=== PATIENT | male | born 1955 | race Caucasian/White ===

== ENCOUNTER 2019-05-23 05:56 | Day surgery (SDC) | payer OTHER, SELFPAY ==
[2019-05-20 09:42] VITALS: BMI 33.9
[2019-05-23 06:14] VITALS: BP 119/77; PULSE 66; RESP 16; TEMP 36.2; O2SAT 97
[2019-05-23] MEDS: sodium chloride 0.9% 1,000 ML 30 ML (06:20)
--- NOTE | 2019-05-23 06:49 | ANES.PREANES ---
Pre-Anesthetic Assessment Pre-Anesthetic Assessment: Height/Weight: Height 1.83 m Weight 113.398 kg Temp Pulse Resp BP Pulse Ox 97.1 F L 66 16 119/77 97 05/23/19 06:14 05/23/19 06:14 05/23/19 06:14 05/23/19 06:14 05/23/19 06:14 Preop Diagnosis: screening Proposed Procedure: Operation Date: 05/23/19 07:00 Proposed Procedures p Colonoscopy(Not Applicable) - Shant Fields MD Was Beta Gunjan taken within 24 hours: Yes Last intake: Intake Last Liquid Date 05/23/19 Last Liquid Time 22:00 Last Solid Date 05/21/19 Last Solid Time 22:00 Last Intake: 23:00 Social: Social History: No alcohol and No tobacco (stop 1 month ago) Packs per day: 1 Pack years: 40+ Exam: Pre-Anes Outpt Exam: alert, oriented x 3, clear to auscultation bilaterally and regular rate & rhythm Airway: Submandibular: WNL Cervical ROM: WNL MP: 2 Additional comments: poor multiple missing Pulmonary: Pulmonary: None reported CV/HEM: CV/HEM: HTN : : None reported Hepatic: Hepatic: None reported GI: GI: None reported Metabolic: Metabolic: None reported Musc/skel: Musc/skel: Lower Back Pain, OA/DJD and RA Neuropsych: Neuropsych: None reported Anesthetic Plan: ASA status: II Anesthesia: Anesthesia Evaluation and MAC Risk of > 500 ml blood loss (7ml/kg in children): No PFSH Anesthesia PFSH: Social History (Updated 05/20/19 @ 09:44 by Keya Booker RN) Quit status (tobacco): has quit using tobacco Data Anesthesia Cardiac Studies: No Data to Display
--- NOTE | 2019-05-23 06:58 | PM.OPSURHP ---
Providers/Chief Complaint Primary Care Provider: Raheem Blanco DO History of Present Illness Alejandro Avilez is a 63 year old male who has been referred for colon cancer screening. The patient denies abdominal pain, nausea, vomiting, loss of appetite, change in bowel habits, blood in stools, weight loss, constipation or diarrhea. The patient has no family history of colon cancer and has never had a colonoscopy before. His colonoscopy was 5 years ago Review of Systems Const: Denies: fever, chills, change in weight or fatigue Eyes: Denies: change in vision ENMT: Denies: painful swallowing Card: Denies: chest pain Resp: Denies: shortness of breath : Denies: painful urination Skin/Breast: Denies: rash, nipple discharge or breast mass/lump Neuro: Denies: seizure-like activity Cristi/Lymph: Denies: easy bruising Medications/Allergies Home Medications Medication Instructions Recorded Confirmed Last Taken Type propranolol 40 mg PO BID 05/20/19 05/23/19 05/23/19 05:00 History Allergies Allergy/AdvReac Type Severity Reaction Status Date / Time adalimumab [From Humira] Allergy ADR-Swelling Verified 05/20/19 09:41 of the Eye aspirin Allergy Unknown Verified 05/20/19 09:41 atorvastatin [From Lipitor] Allergy Unknown Verified 05/20/19 09:41 codeine Allergy Unknown Verified 05/20/19 09:36 lovastatin Allergy Unknown Verified 05/20/19 09:41 methotrexate Allergy ALGY-Anaphy Verified 05/20/19 09:41 laxis Penicillins Allergy ADR-Diarrhe Verified 05/20/19 09:36 a rosuvastatin Allergy ADR-Muscle Verified 05/20/19 09:41 Pain secukinumab [From Cosentyx] Allergy Unknown Verified 05/20/19 09:41 simvastatin Allergy ADR-Muscle Verified 05/20/19 09:41 Pain PFSH PFSH: Statuses (acute, chronic, etc) shown below reflect problem list status as previously entered and may not be historically accurate Medical History History of colon polyps (Acute) Surgical History H/O shoulder surgery (Acute) History of colonoscopy (Acute) Social History Quit status (tobacco): has quit using tobacco Vital Signs Vitals Signs: Last Vital Signs Temp 97.1 F L 05/23/19 06:14 Pulse 66 05/23/19 06:14 Resp 16 05/23/19 06:14 BP 119/77 05/23/19 06:14 Pulse Ox 97 05/23/19 06:14 Physical Exam Narrative: EXAM NARRATIVE: HEENT: Normocephalic Eye: Sclera /conjunctiva normal Respiratory and chest: Bilateral clear breath sounds on auscultation Cardiovascular: Normal S1 and S2 heart sounds Abdomen: Soft to palpation Neurological: Oriented to place person and time Skin: Intact, no lesions appreciated on gross exam A&P Assessment and plan (1) History of colon polyps: Plan for colonoscopy under MAC Status: Acute Code(s): Z86.010 - Personal history of colonic polyps Coding Level of Care Code Acute Financial Services Auditor for g Fwd Diagnoses History of colon polyps Z86.010
[2019-05-23 07:22] VITALS: BP 98/55; PULSE 69; RESP 16; TEMP 36.6; O2SAT 99
--- NOTE | 2019-05-23 07:29 | ANE.PACU ---
 Inpatient post-anesthesia follow up: Airway intact: Yes Vital signs: Temperature 97.9 F Pulse Rate [Right Radial] 69 Respiratory Rate 16 Blood Pressure [Le ft Arm] 98/55 Pulse Oximetry 99 Oxygen Delivery Me thod Room Air Oxygen Flow Rate Fraction of Inspir ed Oxygen Hydration adequate: Yes Nausea and vomiting: No Pain level: 1 Mental status: Baseline
== END 2019-05-23 07:48 | disposition home or self-care (01) ==
PROVIDERS: Family Provider Family Medicine Adult Medicine; PCP Emergency Medicine Emergency Medical Services; Visit Provider Surgery
PROC: 0DJD8ZZ Inspection of Lower Intestinal Tract, Via Natural or Artificial Opening Endoscopic (ICD-10-PCS; CPT 45378; principal; 2019-05-23 07:00)
DX: Z12.11 Encounter for screening for malignant neoplasm of colon (principal); Z86.010 Personal history of colon polyps; K64.8 Other hemorrhoids; Z87.891 Personal history of nicotine dependence; I10 Essential (primary) hypertension; M19.90 Unspecified osteoarthritis, unspecified site; M06.9 Rheumatoid arthritis, unspecified
CPT/HCPCS: 12345; 45378; 96365; J2704; J7030

== ENCOUNTER 2020-06-11 08:47 | Outpatient (CLI) | payer OTHER, SELFPAY ==
--- NOTE | 2020-06-11 09:43 | ECG_ITS ---
[facility] Test Date: 2020-06-11 Pat Name: Alejandro Avilez Department: Room: Gender: Male [employer] Deployment Lead: Marisela Urbano : 1955 Requested By: Waleska Lugo Order Number: [id number] Bernard MD: Waleska Lugo M.D. Interpretive Statements NAME OF STUDY: EXERCISE SESTAMIBI STRESS TEST INDICATION: Chest Pain Baseline blood pressure of 152/95 mm Hg, heart rate of 83 beats per minute and oxygen saturation of 96%. EKG showed normal sinus rhythm, normal axis with non specific ST depression. ??? The patient exercised for 5 minutes and 25 seconds on a Modified Aldo protocol. Patient attained a maximum heart rate of 133 beats per minute( 85 % of the maximum predicted heart rate) with a blood pressure at the peak exercise of 212/118 mm Hg. The EKG at the peak exercise revealed 1 to 1 and 1/2 mm horizontal to upsloping ST depression in II, III, aVF, V5 and V6 . Patient did [not have any chest pain or any significant arrhythmis with the exercise]??? During the recovery phase, there were no new changes. There is 1 and 1/2 to 2 mm horizontal to downsloping ST depression in II, III, aVF, V5 and V6. These changes persist late into recovery. ??? Blood pressure at the end of the recovery phase was 176/107 mm Hg with a heart rate of 91 beats per minute and oxygen saturation of 91%. ??? CONCLUSION: 1. Positive EKG response to treadmill exercise. 2. No exercise-induced chest pain or cardiac arrhythmia. 3. Decreased exercise tolerance, attained a maximum of 6.1 METs. Maximum VO2 of 21.3 ml/kg/min. 4. Baseline hypertension with hypertensive response to exercise. 5. Perfusion scan will be documented separately. Electronically Signed On 06-12-2020 8:35:19 SITE OPERATIONS MANAGER by Waleska Lugo M.D. [email or web address]
[2020-06-11 09:44] VITALS: BMI 35.9
--- NOTE | 2020-06-11 09:44 | NMCV_ITS ---
NM [place] perf SPECT r/s* [id number] Alejandro Avilez Age: 64 Gender: M : 1955 Exam Date: 06/11/2020 10:15 Ordering Phys: Waleska Lugo MD ([email or web address]) Technologist: NENA Vargas Exam Location: [facility] Indications: Chest pain STRESS TEST Please see separate stress test report in [facility] for full findings IMAGE PROTOCOL Rest/Stress 1 Exercise Day Radiopharmaceutical Dose (mCi) Administration Site Administered by Rest: Tc-99m 10.8 IV NENA Vargas Sestamibi Stress:Tc-99m 33.0 IV NENA Vargas Sestamibi Rest: 11-Jun-2020 60 Discovery 630 Stress: 11-Jun-2020 45 Discovery 630 Radiopharmaceutical was injected at 85 % maximum heart rate. Images obtained in supine and prone position. SPECT RESULTS Technical Quality: Good Raw Data Analysis: Normal Image Corrections: No attenuation or motion correction applied Summed Stress Score: 5 Summed Rest Score: 1 Summed Difference Score: 4 PERFUSION FINDINGS Small sized perfusion abnormality of mild severity of basal inferolateral wall on rest images with mild reversibility in mid inferolateral and apical lateral rodríguez on stress images. FUNCTIONAL RESULTS (calculated via Gated SPECT) Stress Image LV EF (%): 70 Stress EDV (mL):93 TID: 0.87 Stress ESV (mL):28 FUNCTIONAL FINDINGS: The left ventricle is normal in size. Transient Ischemia Dilatation of 0.87. There is normal left ventricular systolic function. The left ventricular ejection fraction is normal with a value of 70%. There is normal left ventricular wall thickening with no regional wall motion abnormality. Normal end-diastolic and end-systolic volumes. IMPRESSIONS 1. Small sized perfusion abnormality of mild severity of basal inferolateral wall on rest images with mild reversibility in mid inferolateral and apical lateral rodríguez on stress images. 2. This may represent small area of ischemia in circumflex artery territory. 3. Overall left ventricular systolic function is normal without regional wall motion abnormalities. 4. The left ventricular ejection fraction is normal with a value of 70%. 5. No prior similar studies to compare. Waleska Lugo MD (Electronically Signed) Final Date: 12 June 2020 12:02 S
[2020-06-11 10:54] VITALS: BP 188/90; PULSE 92
== END 2020-06-11 08:48 | disposition home or self-care (01) ==
LOC: RAD 08:47 → CDL 08:49
PROVIDERS: PCP Emergency Medicine Emergency Medical Services; Visit Provider Internal Medicine Cardiovascular Disease
DX: R07.9 Chest pain, unspecified (principal)
CPT/HCPCS: 78452; 93017; A9500

== ENCOUNTER → 2020-07-26 10:53 | Outpatient (BNVA) | payer OTHER, SELFPAY | PROVIDERS: PCP Emergency Medicine Emergency Medical Services; Visit Provider Internal Medicine | DX: Z01.818 Encounter for other preprocedural examination (principal); Z20.822 Contact with and (suspected) exposure to COVID-19; Z11.52 Encounter for screening for COVID-19 | CPT/HCPCS: 87635 ==

== ENCOUNTER → 2020-07-31 08:30 | Day surgery (SDC) | payer OTHER, SELFPAY ==
[2020-07-26 11:32] LABS: Basophils # 0.1 10^3/uL (0.0-0.1); Basophils % 0.6 %; Eosinophils # 0.3 10^3/uL (0.0-0.8); Hemoglobin 14.5 g/dL (11.7-16.6); Lymphocytes # 2.4 10^3/uL (0.8-4.8); Lymphocytes % 30.1 %; Mean Corpuscular HGB Conc 33.7 g/dL (30.0-36.0); Mean Corpuscular Hemoglobin 30.4 pg (28.0-34.0); Mean Corpuscular Volume 90.1 fL (80-94); Mean Platelet Volume 10.5 fL (7.4-10.4); Monocytes # 0.6 10^3/uL (0.2-0.9); Monocytes % 7.3 %; Neutrophils # 4.52 10^3/uL (1.8-7.7); Neutrophils % 57.7 %; Nucleated Red Blood Cells % 0 %; Platelet Count 199 10^3/cmm (130-400); Red Blood Count 4.77 10^6/uL (4.1-5.3); Red Cell Distribution Width 12.4 % (12.1-15.1); White Blood Count 7.8 10^3/uL (4.0-10.0)
[2020-07-26 11:44] LABS: INR 0.94 (0.83-1.21); Prothrombin Time (Patient) 12.8 Seconds (12.0-15.1)
[2020-07-26 11:50] LABS: Anion Gap 11.9 (5-19); Blood Urea Nitrogen 16 mg/dL (8-23); Calcium 9.9 mg/dL (8.5-10.5); Carbon Dioxide 29 mmol/L (22-29); Chloride 101 mmol/L (98-107); Glomerular Filtration Rate 84.7 mL/min (90-130); Glucose 101 mg/dL (65-115); Osmolality Calculated 285 mOsm/kg (285-295); Potassium 4.9 mmol/L (3.5-5.1); Sodium 137 mmol/L (136-145)
== END ==
PROVIDERS: Internal Medicine Cardiovascular Disease; PCP Emergency Medicine Emergency Medical Services; Visit Provider Internal Medicine
DX: R07.9 Chest pain, unspecified (principal)
CPT/HCPCS: 36415; 80048; 85025; 85610

== ENCOUNTER 2020-08-09 10:32 | Day surgery (SDC) | payer OTHER, SELFPAY ==
[2020-08-09] VITALS (47 sets, daily range): BP systolic 107–143; BP diastolic 62–84; PULSE 56–83; RESP 9–24; TEMP 36.4–36.8; O2SAT 92–100; BMI 35.9
--- NOTE | 2020-08-09 11:03 | XACV_ITS ---
Ht: 183 cm Wt: 120 kg BSA: 2.51 m2 Gender: Male : 1955 Any Known Allergies: Other Exam Priority: Routine Procedure(s): Procedure Description: Diagnostic procedure Procedure Description: Left Heart Catheterization Diagnostic Cath Status: Elective Diagnostic Findings * LM has 0% stenosis. * LAD has 0% stenosis. * Mid Circumflex Coronary Artery: Severe 85% stenosis, ANURADHA: 3 flow. * 2nd OM: Severe 90% stenosis, ANURADHA: 3 flow. * Mid Right Coronary Artery: Moderate 60% stenosis, ANURADHA: 3 flow. * Coronary angiography shows right dominance. Interventional Findings * Mid Circumflex Coronary Artery: 85% stenosis treated with AB TREK 2.50X12 RX BALLOON, MDT R MAC 3.5X12 SERGEY, and MDDiomedes ALEXANDRA EUPHORA RX 4.0X06MM BALLOON. 0% residual stenosis, ANURADHA: 3 flow. * 2nd OM: 90% stenosis treated with MDDiomedes R MAC 3.0X12 SERGEY. 0% residual stenosis, ANURADHA: 3 flow. Conclusions 1. There is severe coronary artery disease with two vessel disease. 2. Mid Circumflex Coronary Artery was treated with two Balloon and Drug Eluting Stent. 3. 2nd OM was treated with Drug Eluting Stent. Recommendations * Continue current medical management and risk factor modification. Diagnostic RX Recommendation: PCI w/o planned CABG Clinical Evaluation EBL: 5mL-10mL Procedural Details Procedure Consent Obtained. Admit Source: Out Patient. Pre-Procedure Time Out. Identified patient by full name and date of as verbalized by the patient/guarantor. Does the consent match the physician's order: Yes. Accurate & Complete Informed Consent: Yes. Inpatient/Outpatient History & Physical on Chart: Yes. If H&P is completed, is and addenduem needed: No; If yes, is the addendum complete: N/A. Visualize and Verify Site with Patient/Guarantor: N/A. Relevant Radiology Images available: Yes. Pre-op teaching completed and patient verbalized understanding. The risks, benefits, and alternatives of sedation and/or procedure were discussed by physician. The patient agrees to continue. Procedure started. [facility] Clinical Fraility Score: 3: Managing Well. Steam Station Supervisor Indications: Suspected CAD. Chest Pain Symptom Assessment: Typical Angina Symptoms. Correct patient, site and procedure confirmed by cath team. Current diagnosis: Chest Pain. PERRLA. Strong, equal hand orthopedic surgeon bilaterally. Lungs clear x 5 lobes. IV Site on Arrival: 20 gauge in the left anticubital. IV Fluids: 0.9% NaCl at KVO. 0 mL infused prior to entry level lab technician. Pre Procedural Pulses: bilateral dorsalis pedis was 3+. Pre Procedural Pulses: bilateral posterior tibial was 1+. Pre Procedural Pulses: bilateral radial was 3+. Oxygen started at 2liters/min via nasal canula. right groin was prepped with chloroprep then draped in the usual sterile fashion. right radial was prepped with chloroprep then draped in the usual sterile fashion. Physician notified. Baseline sample Acquired. HR: [address] Lugo here to observe case. Physician scrubbed in. Immediate Pre-Procedure Time Out. Correct Patient: Yes; Correct Procedure: Yes; Correct Site: Yes; Correct Patient Position: Yes; Correct Supplies: Yes; Dried Flammable Prep: Yes; Blood Products Available: N/A;. Lidocaine 1% infiltrated to the right radial. Arterial access obtained. A 5 [place] TIG catheter in over wire. Multiple views taken of left coronary artery. Catheter redirected to the RCA. Catheter out. 6 [place] XB 3.5 guide catheter was inserted over the wire. Spiro guidewire was advanced through the guide catheter to lesion in the mid Circ. Inflation number : 1 A AB TREK 2.50X12 RX BALLOON was prepped and advanced across the Mid CX , then inflated to 18 ALIX for 0:12 seconds. Balloon out. Inflation Number : 2 A RADHA Gimenez MAC 3.5X12 SERGEY -Lot Number# [id number] exp date: 03-23-2022 was prepped and advanced across the Mid CX. The stent was deployed at 14 ALIX for 0:33 seconds. Stent balloon out over wire. Inflation number : 3 A RADHA ALEXANDRA EUPHORA RX 4.0X06MM BALLOON was prepped and advanced across the Mid CX , then inflated to 10 ALIX for 0:23 seconds. Inflation number: 5 The MDT NASRIN EUPHORA RX 4.0X06MM BALLOON was reinflated across the Mid CX, to 14 ALIX for 0:12 seconds. cougar wire out. Inflation Number : 1 A T Ammy MAC 3.0X12 SERGEY -Lot Number# [id number] exp date: 04-30-2021 was prepped and advanced across the Dist CX. The stent was deployed at 10 ALIX for 0:20 seconds. Balloon out. Stent balloon out over wire. Runthrough repositioned to distal Circ. Wire out. 6 [place] JR 4 guide catheter was inserted over the wire. ACT drawn. Results 186 seconds. Therapeutic limits - pre-heparin administration 90-150 seconds and monitoring heparin during a vascular procedure >250 seconds. FFR wire inserted. An FFR value of 0.96 was obtained for a lesion located at Mid RCA. FFR wire out. Catheter out. TR band placed. Hemostasis obtained. Post Procedure: Pulses reassessed and unchanged. PERRLA. Strong, equal hand orthopedic surgeon bilaterally. No VTE prophylaxis required. A TR Band was successful obtaining hemostatsis at the Right Radial artery insertion site. Medication's Wasted: Lidocaine 1% = 18 mL. Medication's Wasted: Heparin = 2000 units. Medication's Wasted: Nitro = 49.0 mg. Medication's Wasted: Other = versed 1 mg. Medication's Wasted: Other = fentanyl 50 mg. Medication's Wasted: Other = adenosine 15 mg. Total IV fluids: 97.8 mL. Contrast type used: Omnipaque 300 mgI/mL, 500 mL bottle. Omnipaque 281mL. PCI Indication: Post PCI to MID and DIST CX. Post-op diagnosis: obstructive lesions of MID and DIST CX, non obstructive lesion of RCA. Complications: none. Estimated blood loss: 5mL-10mL. Procedure completed. Patient transferred by wheelchair to ICU. Access Site Site: Right Radial artery Sheath Size: 6 Fr Hemostasis Method: TR Band Hemostasis Success: Successful Procedure Medications Start: 11:31 AM Stop: 11:31 AM Medication: Versed Amount: 1 mg Route: I.V. Start: : AM Stop: AM Medication: Fentanyl Amount: 50 mcg Route: I.V. Start: :50 AM Stop: AM Medication: Heparin Amount: 5000 units Route: I.V. Start: : AM Stop: AM Medication: Nitrogylcerin Amount: 200 mcg Route: I.A. Start: : AM Stop: AM Medication: Heparin Amount: 6000 units Route: I.V. Start: : AM Stop: AM Medication: Versed Amount: 1 mg Route: I.V. Start: 11:52 AM Stop: : AM Medication: Fentanyl Amount: 50 mcg Route: I.V. Start: 12:07 PM Stop: 12:07 PM Medication: Versed Amount: 1 mg Route: I.V. Start: 12:07 PM Stop: 12:07 PM Medication: Fentanyl Amount: 50 mcg Route: I.V. Start: 12:10 PM Stop: 12:10 PM Medication: Nitrogylcerin Amount: 200 mcg Route: I.C. Start: 12:23 PM Stop: 12: PM Medication: Nitrogylcerin Amount: 200 mcg Route: I.A. Start: 12:24 PM Stop: 12: PM Medication: Versed Amount: 1 mg Route: I.V. Start: 12:24 PM Stop: 12: PM Medication: Fentanyl Amount: 50 mcg Route: I.V. Start: 12: PM Stop: 12: PM Medication: Nitrogylcerin Amount: 200 mcg Route: I.A. Start: 12:29 PM Stop: 12: PM Medication: Heparin Amount: 3000 units Route: I.V. Start: 12:33 PM Stop: 12:33 PM Medication: Adenosine (Adenocard) Amount: 1008 mcg Route: I.V. bolus Start: 12:37 PM Stop: 12:37 PM Medication: Nitrogylcerin Amount: 200 mcg Route: I.A. I, the attending physician, have reviewed and verified all procedure medications. Yes, all medications given per verbal order History/Risk Factors Hypertension: Yes Dyslipidemia: Yes Peripheral Arterial Disease (PAD): No Myocardial Infarction (ME): No Obesity: No Renal Disease: No Tobacco Use: Former Prior Interventions PCI: No CABG: No Valve Surgery: No Report Signatures Finalized by Mari Lind MD on 08/22/2020 09:43 PM
[2020-08-09] MEDS: diphenhydrAMINE 50 mg Capsule PO (11:14)
--- NOTE | 2020-08-09 11:17 | P.HP_ITS ---
Same Day Surgery H&P Indication for Procedure/HPI DATE OF PROCEDURE: August 09, 2020 CHIEF COMPLAINT/INDICATIONFOR SURGICAL PROCEDURE: Chest pain with shortness of breath, abnormal stress test PREOP DIAGNOSIS: Abnormal stress test, chest pain, shortness of breath PLANNED PROCEDRUE: Operation Date: 08/09/20 11:30 Proposed Procedures p Left Cardiac Catheterization 60300 R07.89(Left) - Everette Nguyen M.D 64-year-old male past medical history significant for hypertension hyperlipidemia for worsening of shortness of breath and chest pain underwent stress test which was read abnormal and positive. Dr. Lugo recommended further exploration with left heart cath since despite of optimization of medicine patient continues to do worse. It is the reason we have been asked to perform it. Dr. Nguyen was supposed to perform the test however due to family leave I have been assigned this duty. I met with patient and his by bedside. I explained all risk benefit and alternative for the procedure they understand the risk of major minor bleed, urgent emergent surgery, arrhythmia, stroke, worse case scenario . They would like to proceed with it. Patient denies any contraindication for dual antiplatelet therapy. Medications/Allergies* Home Medications Medication Instructions Recorded Confirmed Type ixekizumab 80 mg/mL subcutaneous See Rx Instructions .ROUTE .COMPLEX 05/29/20 08/07/20 History auto-injector nicotine (polacrilex) 4 mg buccal 4 mg BUCCAL Q4H PRN 05/29/20 07/30/20 History mini lozenge nitroglycerin 0.4 mg sublingual 0.4 mg SUBLINGUAL Q5M PRN 05/29/20 07/30/20 History tablet pravastatin 20 mg tablet 20 mg PO DAILY 05/29/20 07/30/20 History propranolol 80 mg tablet 40 mg PO BID 05/29/20 07/30/20 History aspirin 81 mg PO DAILY 07/30/20 07/30/20 History ibuprofen [Advil] 400 mg PO BID 08/07/20 08/07/20 History Allergies/Adverse Reactions Allergy/AdvReac Type Severity Reaction Status Date / Time adalimumab [From Humira] Allergy ADR-Swelling Verified 05/29/20 09:29 of the Eye aspirin Allergy Unknown Verified 05/29/20 09:29 atorvastatin [From Lipitor] Allergy Unknown Verified 05/29/20 09:29 azithromycin Allergy Unknown Verified 05/29/20 09:29 codeine Allergy Unknown Verified 05/29/20 09:29 lovastatin Allergy Unknown Verified 05/29/20 09:29 methotrexate Allergy ALGY-Anaphy Verified 05/29/20 09:29 laxis Penicillins Allergy ADR-Diarrhe Verified 05/29/20 09:29 a rosuvastatin Allergy ADR-Muscle Verified 05/29/20 09:29 Pain secukinumab [From Cosentyx] Allergy Unknown Verified 05/29/20 09:29 simvastatin Allergy ADR-Muscle Verified 05/29/20 09:29 Pain Thiazides Allergy Unknown Verified 05/29/20 09:29 Current Medications: Generic Name Dose Route Start Last Admin Trade Name Freq PRN Reason Stop Dose Admin Sodium Chloride 1,000 mls @ 50 mls/hr 08/09/20 11:04 08/09/20 11:14 Sodium Chloride 0.9% IV 08/10/20 07:03 Not Given .Q20H ONE Pertinent History/Comorbid Conditions* Medical History (Updated 05/29/20 @ 22:48 by Waleska Lugo MD) HTN (hypertension) Hyperlipidemia Rheumatoid arthritis Surgical History (Updated 05/23/19 @ 07:17 by Shant Fields MD) H/O shoulder surgery History of colonoscopy 05/23/2019: Normal, repeat in 10 years Social History Quit status (tobacco): has quit using tobacco Alcohol intake: never Pertinent Exam Findings alert, oriented x 3, clear to auscultation bilaterally, regular rate & rhythm and operative site marked Conscious Sedation Assessment PATIENT ASSESSED PRIOR TO SEDATION, WITH NO CHANGE NOTED: Yes AIRWAY EVAL/ANESTHESIA PLAN: ASA II, Risks, benefits & alternatives of sedation and/or procedure discussed and Patient agrees to continue as planned Recommendations Surgery/Procedure today Coding Level of Care Code Acute Box Office Clerk for Zoila Wagoner
[2020-08-09] MEDS: sodium chloride 0.9% 1,000 ML 100 ML IV ×2 (14:07→23:16)
[2020-08-09] MEDS: propranolol 40 mg Tablet PO (17:21)
[2020-08-09] MEDS: acetaminophen 325 mg Tablet 650 MG PO (17:22)
--- NOTE | 2020-08-10 00:15 | PC.NURSE ---
All air removed from TR band. Right radial pulse strong/palpable. Site soft and dry.
[2020-08-10 04:06] LABS: Basophils % 0.5 %; Eosinophils # 0.3 10^3/uL (0.0-0.8); Eosinophils % 3.4 %; Hematocrit 40.3 % (42.0-52.0); Hemoglobin 13.3 g/dL (11.7-16.6); Lymphocytes # 2.7 10^3/uL (0.8-4.8); Lymphocytes % 30.3 %; Mean Corpuscular Hemoglobin 30.3 pg (28.0-34.0); Mean Corpuscular Volume 91.8 fL (80-94); Mean Platelet Volume 10.7 fL (7.4-10.4); Monocytes # 0.7 10^3/uL (0.2-0.9); Monocytes % 7.4 %; Neutrophils % 58.3 %; Nucleated Red Blood Cells % 0 %; Platelet Count 163 10^3/cmm (130-400); Red Blood Count 4.39 10^6/uL (4.1-5.3); Red Cell Distribution Width 12.5 % (12.1-15.1); White Blood Count 8.8 10^3/uL (4.0-10.0)
[2020-08-10 04:23] LABS: Blood Urea Nitrogen 20 mg/dL (8-23); Calcium 8.8 mg/dL (8.5-10.5); Carbon Dioxide 25 mmol/L (22-29); Chloride 104 mmol/L (98-107); Glucose 100 mg/dL (65-115); Osmolality Calculated 289 mOsm/kg (285-295); Sodium 138 mmol/L (136-145)
[2020-08-10 04:35] LABS: Anion Gap 13.6 (5-19); Potassium 4.6 mmol/L (3.5-5.1)
[2020-08-10 05:37] VITALS: PULSE 60
[2020-08-10 08:00] VITALS: BP 131/77; PULSE 60; RESP 16; O2SAT 93
[2020-08-10 09:00] VITALS: BP 131/77; PULSE 60; RESP 16; O2SAT 93
--- NOTE | 2020-08-10 09:24 | P.DS_ITS ---
Discharge Providers Date of Discharge: August 10, 2020 Attending Provider at Discharge: Everette Nguyen M.D Primary Care Provider: aRheem Blanco DO Reason for Visit Reason for Visit: [facility] Hospital Course Hospital Course 64-year-old male past medical history significant for hypertension hyperlipidemia underwent left heart cath yesterday for abnormal stress test. He was noted to have significant mid circumflex and ostial obtuse marginal lesion both were treated with 2 drug-eluting stents. RCA was noted to have nonobstructive lesion which was not significant by FFR thought to be treated medically. Post PCI no overnight event happened. Patient is doing fine from cardiovascular perspective he was loaded with Plavix. He is advised to continue Plavix aspirin statin beta-sue. There is no hematoma on the wrist he will be discharged today. Physical Exam Narrative: EXAM NARRATIVE: GENERAL: Patient is alert, awake and oriented x3. NECK: No jugular vein distension. HEENT: No cyanosis. No icterus. No pallor. HEART: Regular S1 and S2. No murmur, rub or gallop. LUNGS: Clear to auscultate bilaterally. ABDOMEN: Soft, nontender and nondistended. Positive bowel sounds. No guarding, rebound or tenderness. CENTRAL NERVOUS SYSTEM: Grossly nonfocal. EXTREMITIES: Lower extremities without edema bilaterally. 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 request for service Routin e Exams 08/09/20 11:03 Taken Labs from last 24 hours 08/10/20 08/10/20 03:09 03:09 WBC 8.8 RBC 4.39 Hgb 13.3 Hct 40.3 L MCV 91.8 MCH 30.3 MCHC 33.0 RDW 12.5 Plt Count 163 MPV 10.7 H Neut % (Auto) 58.3 Lymph % (Auto) 30.3 [place] % (Auto) 7.4 Eos % (Auto) 3.4 Baso % (Auto) 0.5 Neut # (Auto) 5.10 Lymph # (Auto) 2.7 [place] # (Auto) 0.7 Eos # (Auto) 0.3 Baso # (Auto) 0.0 Nucleated RBC % (a uto) 0 Nucleated RBCs # 0.0 Sodium 138 Potassium 4.6 Chloride 104 Carbon Dioxide 25 Anion Gap 13.6 BUN 20 Creatinine 1.0 GFR Calculation 75.0 L Glucose 100 Calculated Osmolal ity 289 Calcium 8.8 Vitals: Last Vital Signs Temp 98.3 F 08/09/20 19:30 Pulse 60 08/10/20 05:37 Resp 16 08/09/20 19:30 BP 118/76 08/09/20 19:30 Pulse Ox 93 08/09/20 19:30 Discharge Plan Discharge Patient Disposition: Home Condition: Stable Prescriptions: New pantoprazole 40 mg tablet,delayed release (DR/EC) 40 mg PO DAILY 56 Days Qty: 56 RF: 0 Continued propranolol 80 mg tablet 40 mg PO BID RF: 0 ixekizumab 80 mg/mL auto-injector See Rx Instructions .ROUTE .COMPLEX RF: 0 nicotine (polacrilex) 4 mg mini lozenge 4 mg buccal Q4H PRN (Reason: Smoking Cessation) RF: 0 nitroglycerin 0.4 mg tablet, sublingual 0.4 mg sublingual Q5M PRN (Reason: Chest Pain) RF: 0 clopidogrel 75 mg tablet 75 mg PO DAILY Qty: 5 RF: 0 aspirin 81 mg tablet 81 mg PO DAILY RF: 0 Changed pravastatin 20 mg tablet 40 mg PO DAILY Qty: 0 RF: 4 Discontinued isosorbide mononitrate 30 mg tablet extended release 24 hr 30 mg PO DAILY Qty: 30 RF: 5 ibuprofen [Advil] 200 mg Tablet 400 mg PO BID RF: 0 Discharge Orders: Discharge Order (Routine); Ordered 08/10/20 Ordered By: Mari Lind Referrals: Markel Quintanilla FNP [Nurse Practitioner] - 7-10 days (THIS FOLLOW UP APPOINTMENT FOR POST ANGIORGRAM/STENT PLACEMENT YOU WILL NEED A LAB TEST AND WOUND CHECK HAS BEEN SCHEDULED FOR FOLLOW UP WITH MARKEL QUINTANILLA APN AT [facility] APPOINTMENT TIME AUGUST 21, 2019 AT TIME OF 10:00 AM ) Waleska Lugo MD [Physician] - (PLEASE KEEP THIS APPOINTMENT THAT WAS ALREADY SCHEDULED WITH .SCHEDULED FOR August AT 10:30 AM ) Discharge Diet: Cardiac Discharge Activity: Increase activity as tolerated Patient Instructions: Pantoprazole (By mouth), Left Heart Catheterization (DC), Coronary Angioplasty (DC), Heart Healthy Diet (DC), Coronary Intravascular Stent Placement (DC), Chest Pain Stoplight Activity Restrictions/Additional Instructions: Follow-up with Dr. Brittney in 7 days. Please continue clopidogrel and aspirin without interruption for next 2 years Discharge Attestations Time Spent in Discharge Care*: less than 30 min Quality Metrics Clinical Quality Measures During this hospital stay, did patient experience: None Coding Level of Care Code New Pt Acute Chg FW DC note Patient Type New History Detailed Exam Detailed Medical Decision Making Moderate Complexity
[2020-08-10] MEDS: propranolol 40 mg Tablet PO (09:26)
[2020-08-10] MEDS: clopidogrel 75 mg Tablet PO (09:26)
[2020-08-10] MEDS: aspirin 81 mg EC Tablet PO (09:26)
[2020-08-10] MEDS: atorvastatin 40 mg Tablet 20 MG PO (09:29)
[2020-08-10 09:46] VITALS: BP 118/76; PULSE 60; RESP 16; TEMP 36.6; O2SAT 93
[2020-08-10 10:00] VITALS: BP 131/77; PULSE 60; RESP 16
== END 2020-08-10 10:00 | disposition home or self-care (01) ==
LOC: CCL 11:18 → ICU 13:15
PROVIDERS: Internal Medicine Cardiovascular Disease; PCP Emergency Medicine Emergency Medical Services; Visit Provider Internal Medicine
DX: I25.10 Atherosclerotic heart disease of native coronary artery without angina pectoris (principal); R94.39 Abnormal result of other cardiovascular function study; R06.02 Shortness of breath; I10 Essential (primary) hypertension; E78.5 Hyperlipidemia, unspecified; Z87.891 Personal history of nicotine dependence
CPT/HCPCS: 36415; 80048; 85025; 85347; 93454; 93571; C1725; C1769; C1874; C1887; C1894; C9600; J0153; J1644; J2250; J3010; J3490; J7030; Q0163; Q9967

== ENCOUNTER → 2020-08-20 11:13 | Outpatient (BNVA) | payer OTHER, SELFPAY | PROVIDERS: PCP Emergency Medicine Emergency Medical Services; Visit Provider Nurse Practitioner Family | DX: I25.119 Atherosclerotic heart disease of native coronary artery with unspecified angina pectoris (principal) | CPT/HCPCS: 80048 ==

== ENCOUNTER 2020-09-28 08:16 | Outpatient (RCR) | payer OTHER, SELFPAY | END 2020-10-24 23:59 | disposition home or self-care (01) | LOC: SPT 08:16 | PROVIDERS: PCP Emergency Medicine Emergency Medical Services; Referring Provider Emergency Medicine Emergency Medical Services; Visit Provider Emergency Medicine Emergency Medical Services | DX: M54.5 Low back pain (principal) | CPT/HCPCS: 97110; 97162 ==

== ENCOUNTER → 2021-08-14 10:22 | Outpatient (BNVA) | payer OTHER, SELFPAY | PROVIDERS: PCP Emergency Medicine Emergency Medical Services; Visit Provider Internal Medicine Cardiovascular Disease | DX: I25.10 Atherosclerotic heart disease of native coronary artery without angina pectoris (principal); I10 Essential (primary) hypertension; E78.2 Mixed hyperlipidemia; Z78.9 Other specified health status; M06.9 Rheumatoid arthritis, unspecified; Z87.891 Personal history of nicotine dependence; Z79.82 Long term (current) use of aspirin | CPT/HCPCS: 99214 ==

== ENCOUNTER 2022-02-04 20:00 | Outpatient (CLI) | payer OTHER, SELFPAY | END 2022-02-04 20:01 | disposition home or self-care (01) | LOC: SLEEP 02-05 07:28 | PROVIDERS: PCP Emergency Medicine Emergency Medical Services; Visit Provider Emergency Medicine Emergency Medical Services | DX: G47.33 Obstructive sleep apnea (adult) (pediatric) (principal); L40.50 Arthropathic psoriasis, unspecified; L40.0 Psoriasis vulgaris; Z11.59 Encounter for screening for other viral diseases; Z11.1 Encounter for screening for respiratory tuberculosis; Z79.899 Other long term (current) drug therapy; Z71.85 Encounter for immunization safety counseling | CPT/HCPCS: 95810; 99204 ==

== ENCOUNTER 2022-02-05 09:41 | Outpatient (CLI) | payer OTHER, SELFPAY ==
[2022-02-05 10:30] LABS: Erythrocyte Sedimentation Rate 5 mm/hr (0-10)
[2022-02-05 10:32] LABS: Basophils % 0.4 %; Eosinophils # 0.1 10^3/uL (0.0-0.8); Eosinophils % 1.2 %; Hematocrit 41.3 % (42.0-52.0); Hemoglobin 14.2 g/dL (11.7-16.6); Lymphocytes # 2.1 10^3/uL (0.8-4.8); Lymphocytes % 19.3 %; Mean Corpuscular HGB Conc 34.4 g/dL (30.0-36.0); Mean Corpuscular Hemoglobin 31.9 pg (28.0-34.0); Mean Corpuscular Volume 92.8 fl (80-94); Mean Platelet Volume 10.1 fL (7.4-10.4); Monocytes # 0.7 10^3/uL (0.2-0.9); Monocytes % 6.3 %; Neutrophils # 7.99 10^3/uL (1.8-7.7); Neutrophils % 72.3 %; Nucleated Red Blood Cells % 0 %; Platelet Count 193 10^3/cmm (130-400); Red Blood Count 4.45 10^6/uL (4.1-5.3)
[2022-02-05 11:08] LABS: Alanine Aminotransferase 19 U/L (0-41); Albumin Level 4.1 g/dL (3.5-5.2); Alkaline Phosphatase 45 U/L (40-130); Aspartate Amino Transferase 16 U/L (0-40); Globulin 2.9 g/dL (1.3-4.6); Glomerular Filtration Rate 84.2 mL/min (90-130); Total Bilirubin 0.4 mg/dL (0.15-1.2)
[2022-02-05 11:23] LABS: 25 Hydroxy Vitamin D 34 ng/mL (30-100)
[2022-02-05 11:24] LABS: Hepatitis B Core AB, Total Non-Reactive (Nonreactive); Hepatitis B Surface Antigen Non-Reactive (Nonreactive); Hepatitis C Virus Antibody Non-Reactive (Nonreactive)
[2022-02-06 15:22] LABS: Cyclic Citrullinated Peptide <16 UNITS
[2022-02-07 22:33] LABS: Quantiferon Mitogen >10.00 IU/mL; Quantiferon Nil 0.02 IU/mL; Quantiferon Plus TB1 <0.00 IU/mL; Quantiferon Plus TB2 <0.00 IU/mL; Quantiferon TB Gold NEGATIVE (NEGATIVE)
== END 2022-02-05 09:42 | disposition home or self-care (01) ==
LOC: LAB 09:42
PROVIDERS: PCP Emergency Medicine Emergency Medical Services; Visit Provider Internal Medicine Rheumatology
DX: Z79.899 Other long term (current) drug therapy (principal); L40.9 Psoriasis, unspecified; M19.90 Unspecified osteoarthritis, unspecified site; Z11.59 Encounter for screening for other viral diseases
CPT/HCPCS: 36415; 80076; 82306; 82565; 85025; 85651; 86140; 86200; 86431; 86480; 86704; 86803; 87340

== ENCOUNTER 2022-02-13 20:00 | Outpatient (CLI) | payer OTHER, SELFPAY | END 2022-02-13 20:01 | disposition home or self-care (01) | LOC: SLEEP 02-14 05:24 | PROVIDERS: PCP Emergency Medicine Emergency Medical Services; Visit Provider Emergency Medicine Emergency Medical Services | DX: G47.33 Obstructive sleep apnea (adult) (pediatric) (principal) | CPT/HCPCS: 95811 ==

== ENCOUNTER → 2022-03-27 13:14 | Outpatient (BNVA) | payer OTHER, SELFPAY | PROVIDERS: PCP Emergency Medicine Emergency Medical Services; Visit Provider Podiatrist Foot & Ankle Surgery | DX: L60.0 Ingrowing nail (principal) | CPT/HCPCS: 11750; 99204 ==

== ENCOUNTER → 2022-05-19 09:23 | Outpatient (BNVA) | payer OTHER, SELFPAY | PROVIDERS: PCP Emergency Medicine Emergency Medical Services; Visit Provider Internal Medicine Rheumatology | DX: L40.0 Psoriasis vulgaris (principal); L40.50 Arthropathic psoriasis, unspecified; Z79.899 Other long term (current) drug therapy; Z71.85 Encounter for immunization safety counseling | CPT/HCPCS: 99214 ==

== ENCOUNTER → 2022-05-19 09:23 | Outpatient (BNVA) | payer OTHER, SELFPAY | PROVIDERS: PCP Emergency Medicine Emergency Medical Services; Visit Provider Internal Medicine Rheumatology | DX: Z79.899 Other long term (current) drug therapy (principal); L40.50 Arthropathic psoriasis, unspecified; L40.0 Psoriasis vulgaris; Z71.85 Encounter for immunization safety counseling | CPT/HCPCS: 36415; 76706; 80076; 82565; 85025; 86140 ==

== ENCOUNTER → 2022-05-20 10:17 | Outpatient (BNVA) | payer OTHER, SELFPAY | PROVIDERS: PCP Emergency Medicine Emergency Medical Services; Visit Provider Internal Medicine Cardiovascular Disease | DX: R07.9 Chest pain, unspecified (principal); I10 Essential (primary) hypertension; E78.2 Mixed hyperlipidemia; Z78.9 Other specified health status; M06.9 Rheumatoid arthritis, unspecified; I25.119 Atherosclerotic heart disease of native coronary artery with unspecified angina pectoris | CPT/HCPCS: 99214; Q3014 ==

== ENCOUNTER 2022-06-09 07:22 | Outpatient (CLI) | payer OTHER, SELFPAY ==
[2022-06-09 08:10] VITALS: BMI 37.0
--- NOTE | 2022-06-09 08:10 | ECG_ITS ---
[facility] Test Date: 2022-06-09 Pat Name: Alejandro Avilez Department: Room: Gender: Male Np: : 1955 Requested By: Waleska Lugo Order Number: [id number] Bernard MD: Waleska Lugo M.D. Interpretive Statements NAME OF STUDY: LEXISCAN SESTAMIBI STRESS TEST INDICATION: Chest Pain; ASHD PROCEDURE: At the baseline, the blood pressure was 150/89 mm Hg with a heart rate of 48 bpm. The electrocardiogram showed sinus bradycardia, normal axis. Poor anterior R wave progression. ??? The Lexiscan was infused over a period of 20 seconds. A total of 0.4 milligrams of Lexiscan was infused. The stress phase was continued for a total of 5 minutes. Heart rate at the end of the stress phase was 53 bpm with a blood pressure of 122/68 mm Hg. The EKG at the peak infusion revealed no significant ST-T wave changes. The study was terminated due to protocol completion. ??? Sestamibi was injected 20 seconds after the Lexiscan infusion. ??? Blood pressure at the end of the recovery phase was 120/77 mm Hg with a heart rate of 50 beats per minute. ??? CONCLUSION: 1. No significant EKG changes with the LexiScan infusion. 2. No LexiScan induced chest pain or cardiac arrhythmia. 3. Normal blood pressure and heart rate response. 4. Sestamibi/sestamibi perfusion scan pending; see separate report. Electronically Signed On 06-12-2022 11:57:59 [employer] by Waleska Lugo M.D. [id number]
--- NOTE | 2022-06-09 08:11 | NMCV_ITS ---
NM [place] perf SPECT r/s* [id number] Alejandro Avilez Age: 66 Gender: M : 1955 Exam Date: 06/09/2022 08:54 Ordering Phys: Waleska Lugo MD ([email or web address]) Technologist: NENA Mishra Exam Location: [facility] Indications: CHEST PAIN, ATHEROSCLEROTIC HEART DISEASE OF [place] CORONARY ARTERY STRESS TEST Please [facility] IMAGE PROTOCOL Rest/Stress 1 Lexiscan Day Radiopharmaceutical Dose (mCi) Administration Site Administered by Rest: Tc-99m 10.8 IV NENA Vargas Sestamibi Stress:Tc-99m 32.6 IV NENA Mishra Sestamibi Rest: 09-Jun-2022 60 Discovery 630 Stress: 09-Jun-2022 30 Discovery 630 0.4mg Lexiscan. Images obtained in supine and prone position. SPECT RESULTS Technical Quality: Excellent Raw Data Analysis: Normal Image Corrections: No attenuation or motion correction applied Summed Stress Score: 2 Summed Rest Score: 0 Summed Difference Score: 2 PERFUSION FINDINGS Small sized perfusion abnormality of mild severity of apical lateral wall on supine stress images with improved tracer uptake on prone stress images. FUNCTIONAL RESULTS (calculated via Gated SPECT) Stress Image LV EF (%): 64 Stress EDV (mL):112 TID: 1.1 Stress ESV (mL):40 FUNCTIONAL FINDINGS: The left ventricle is normal in size. Transient Ischemia Dilatation of 1.1. The left ventricular ejection fraction is normal with a value of 64%. There is normal left ventricular wall thickening. Normal end diastolic and end systolic volumes. IMPRESSIONS 1. Myocardial perfusion imaging is normal. Attenuation artifact noted in apical lateral wall. 2. Overall left ventricular systolic function is normal without regional wall motion abnormalities, LVEF=64%. 3. EKG portion of the study will be reported separately. 4. Scan indicates low risk for cardiac events. Waleska Lugo MD (Electronically Signed) Final Date: 12 June 2022 13:16 S
[2022-06-09] MEDS: regadenoson 0.4 Mg/5 ml Syringe IVP (09:40)
[2022-06-09 10:00] VITALS: BP 112/68; PULSE 50
== END 2022-06-09 07:23 | disposition home or self-care (01) ==
LOC: CDL 07:24
PROVIDERS: PCP Emergency Medicine Emergency Medical Services; Visit Provider Internal Medicine Cardiovascular Disease
DX: I25.10 Atherosclerotic heart disease of native coronary artery without angina pectoris (principal); R07.9 Chest pain, unspecified
CPT/HCPCS: 36415; 78452; 93017; 96374; A9500; J2785

== ENCOUNTER → 2022-06-24 08:45 | Outpatient (BNVA) | payer OTHER, SELFPAY | PROVIDERS: PCP Emergency Medicine Emergency Medical Services; Visit Provider Podiatrist Foot & Ankle Surgery | DX: L60.0 Ingrowing nail (principal) | CPT/HCPCS: 11750; 99213; A6219 ==

== ENCOUNTER → 2022-08-26 11:25 | Outpatient (BNVA) | payer OTHER, SELFPAY | PROVIDERS: PCP Emergency Medicine Emergency Medical Services; Visit Provider Internal Medicine Rheumatology | DX: L40.50 Arthropathic psoriasis, unspecified (principal); L40.0 Psoriasis vulgaris; Z79.899 Other long term (current) drug therapy; Z71.85 Encounter for immunization safety counseling | CPT/HCPCS: 99214 ==

== ENCOUNTER → 2022-11-05 15:34 | Outpatient (BNVA) | payer OTHER, SELFPAY | PROVIDERS: PCP Emergency Medicine Emergency Medical Services; Referring Provider Emergency Medicine Emergency Medical Services; Visit Provider Dermatology | DX: D04.22 Carcinoma in situ of skin of left ear and external auricular canal (principal); L40.0 Psoriasis vulgaris; L40.59 Other psoriatic arthropathy; L82.0 Inflamed seborrheic keratosis | CPT/HCPCS: 17110; 69100; 99204 ==

== ENCOUNTER → 2022-11-18 11:01 | Outpatient (BNVA) | payer OTHER, SELFPAY | PROVIDERS: PCP Emergency Medicine Emergency Medical Services; Visit Provider Internal Medicine Cardiovascular Disease | DX: I25.10 Atherosclerotic heart disease of native coronary artery without angina pectoris (principal); I11.0 Hypertensive heart disease with heart failure; I50.9 Heart failure, unspecified; E78.2 Mixed hyperlipidemia; Z78.9 Other specified health status; M06.9 Rheumatoid arthritis, unspecified | CPT/HCPCS: 99214 ==

== ENCOUNTER → 2022-12-09 10:46 | Outpatient (BNVA) | payer OTHER, SELFPAY | PROVIDERS: PCP Emergency Medicine Emergency Medical Services; Visit Provider Internal Medicine Rheumatology | DX: Z79.899 Other long term (current) drug therapy (principal); L40.50 Arthropathic psoriasis, unspecified; L40.0 Psoriasis vulgaris; Z71.85 Encounter for immunization safety counseling | CPT/HCPCS: 99214 ==

== ENCOUNTER → 2022-12-11 08:17 | Outpatient (BNVA) | payer OTHER, SELFPAY | PROVIDERS: PCP Emergency Medicine Emergency Medical Services; Visit Provider Dermatology | DX: C44.219 Basal cell carcinoma of skin of left ear and external auricular canal; C44.229 Squamous cell carcinoma of skin of left ear and external auricular canal | CPT/HCPCS: 13152; 14060; 17311 ==

== ENCOUNTER → 2022-12-23 09:10 | Outpatient (BNVA) | payer OTHER, SELFPAY | PROVIDERS: PCP Emergency Medicine Emergency Medical Services; Visit Provider Dermatology | DX: Z48.02 Encounter for removal of sutures (principal) | CPT/HCPCS: 99212 ==

== ENCOUNTER 2023-01-09 09:03 | Outpatient (CLI) | payer OTHER, SELFPAY ==
[2023-01-09 09:41] LABS: Basophils % 0.6 %; Eosinophils # 0.2 10^3/uL (0.0-0.8); Eosinophils % 2.1 %; Hematocrit 42.9 % (37-53); Lymphocytes # 2.3 10^3/uL (0.8-4.8); Mean Corpuscular HGB Conc 33.3 g/dL (30-55); Mean Corpuscular Hemoglobin 30.4 pg (27-33); Mean Corpuscular Volume 91.3 fl (82-101); Mean Platelet Volume 10.1 fL (7.4-10.4); Monocytes # 0.9 10^3/uL (0.2-0.9); Monocytes % 11.7 %; Neutrophils # 3.86 10^3/uL (1.8-7.7); Neutrophils % 53.3 %; Nucleated Red Blood Cells % 0 %; Platelet Count 182 10^3/cmm (157-399); Red Cell Distribution Width 12.4 % (12.1-15.1); White Blood Count 7.24 10^3/uL (3.29-11.43)
[2023-01-09 09:48] LABS: Alanine Aminotransferase 30 U/L (0-41); Albumin Level 4.2 g/dL (3.5-5.2); Alkaline Phosphatase 50 U/L (40-130); Aspartate Amino Transferase 26 U/L (0-40); C Reactive Protein 4.9 mg/L (0.0-4.9); Globulin 3.1 g/dL (1.3-4.6); Glomerular Filtration Rate 74.3 mL/min (90-130); Total Bilirubin 0.6 mg/dL (0.15-1.2); Total Protein 7.3 g/dL (6.6-8.7)
== END 2023-01-09 09:04 | disposition home or self-care (01) ==
PROVIDERS: PCP Emergency Medicine Emergency Medical Services; Visit Provider Internal Medicine Rheumatology
DX: L40.50 Arthropathic psoriasis, unspecified (principal); Z79.899 Other long term (current) drug therapy
CPT/HCPCS: 36415; 80076; 82565; 85025; 86140

== ENCOUNTER → 2023-03-24 11:00 | Outpatient (BNVA) | payer OTHER, SELFPAY | PROVIDERS: PCP Emergency Medicine Emergency Medical Services; Visit Provider Internal Medicine Rheumatology | DX: L40.50 Arthropathic psoriasis, unspecified (principal); L40.0 Psoriasis vulgaris; Z79.899 Other long term (current) drug therapy; Z71.85 Encounter for immunization safety counseling | CPT/HCPCS: 99214 ==

== ENCOUNTER → 2023-04-21 10:42 | Outpatient (BNVA) | payer OTHER, SELFPAY | PROVIDERS: PCP Emergency Medicine Emergency Medical Services; Visit Provider Nurse Practitioner Family | DX: Z85.828 Personal history of other malignant neoplasm of skin (principal); L57.0 Actinic keratosis; L57.8 Other skin changes due to chronic exposure to nonionizing radiation; L81.4 Other melanin hyperpigmentation; D22.39 Melanocytic nevi of other parts of face; L85.3 Xerosis cutis | CPT/HCPCS: 17000; 99213 ==

== ENCOUNTER 2023-05-12 11:46 | Outpatient (RCR) | payer OTHER, SELFPAY | END 2023-05-27 23:59 | disposition home or self-care (01) | LOC: SPT 11:46 | PROVIDERS: PCP Emergency Medicine Emergency Medical Services; Visit Provider Emergency Medicine Emergency Medical Services | DX: R42 Dizziness and giddiness (principal) | CPT/HCPCS: 95992; 97161 ==

== ENCOUNTER → 2023-06-09 12:51 | Outpatient (BNVA) | payer OTHER, SELFPAY | PROVIDERS: PCP Emergency Medicine Emergency Medical Services; Visit Provider Internal Medicine Cardiovascular Disease | DX: I11.0 Hypertensive heart disease with heart failure (principal); I50.9 Heart failure, unspecified; I25.119 Atherosclerotic heart disease of native coronary artery with unspecified angina pectoris; E78.2 Mixed hyperlipidemia; Z78.9 Other specified health status | CPT/HCPCS: 99213 ==

== ENCOUNTER → 2023-06-23 12:36 | Outpatient (BNVA) | payer OTHER, SELFPAY | PROVIDERS: PCP Emergency Medicine Emergency Medical Services; Visit Provider Internal Medicine Rheumatology | DX: L40.50 Arthropathic psoriasis, unspecified (principal); L40.0 Psoriasis vulgaris; Z79.899 Other long term (current) drug therapy; Z71.85 Encounter for immunization safety counseling | CPT/HCPCS: 99214 ==

== ENCOUNTER → 2023-10-20 08:49 | Outpatient (BNVA) | payer OTHER, SELFPAY | PROVIDERS: PCP Emergency Medicine Emergency Medical Services; Referring Provider Emergency Medicine Emergency Medical Services; Visit Provider Student in an Organized Health Care Education/Training Program | DX: M17.0 Bilateral primary osteoarthritis of knee | CPT/HCPCS: 20610; 73560; 73565; 99204; J3301 ==

== ENCOUNTER → 2023-11-25 15:00 | Outpatient (BNVA) | payer OTHER, SELFPAY | PROVIDERS: PCP Emergency Medicine Emergency Medical Services; Visit Provider Internal Medicine Rheumatology | DX: Z71.89 Other specified counseling (principal) | CPT/HCPCS: 20610; J1010 ==

== ENCOUNTER → 2023-12-29 15:26 | Outpatient (BNVA) | payer OTHER, SELFPAY | PROVIDERS: PCP Emergency Medicine Emergency Medical Services; Visit Provider Internal Medicine Cardiovascular Disease | DX: R06.02 Shortness of breath (principal); I11.0 Hypertensive heart disease with heart failure; I50.32 Chronic diastolic (congestive) heart failure; I25.10 Atherosclerotic heart disease of native coronary artery without angina pectoris; E11.69 Type 2 diabetes mellitus with other specified complication; E78.5 Hyperlipidemia, unspecified; R60.9 Edema, unspecified | CPT/HCPCS: 99214 ==

== ENCOUNTER 2024-01-15 08:30 | Oncology outpatient (recurring) (ONCR) | payer OTHER, SELFPAY ==
[2024-01-01 09:18] LABS: Basophils # 0.1 10^3/uL (0.0-0.1); Basophils % 0.7 %; Eosinophils # 0.1 10^3/uL (0.0-0.8); Eosinophils % 1.9 %; Hematocrit 39.2 % (37-53); Lymphocytes # 2.3 10^3/uL (0.8-4.8); Lymphocytes % 33.1 %; Mean Corpuscular HGB Conc 33.4 g/dL (30-55); Mean Corpuscular Hemoglobin 30.9 pg (27-33); Mean Corpuscular Volume 92.5 fl (82-101); Mean Platelet Volume 10.4 fL (7.4-10.4); Monocytes # 0.6 10^3/uL (0.2-0.9); Neutrophils # 3.81 10^3/uL (1.8-7.7); Nucleated Red Blood Cells % 0 %; Platelet Count 173 10^3/cmm (157-399); Red Blood Count 4.24 10^6/uL (3.85-5.65); Red Cell Distribution Width 14.2 % (12.1-15.1); White Blood Count 6.92 10^3/uL (3.29-11.43)
[2024-01-01] MEDS: diphenhydrAMINE 50 mg/mL SDV 1mL 25 MG IVP (09:24)
[2024-01-01] MEDS: sodium chloride 0.9% 250 ML 75 ML IV (09:24)
[2024-01-01] MEDS: acetaminophen 325 mg Tablet 650 MG PO (09:28)
[2024-01-01] MEDS: methylPREDNISolone sod succ 40 mg/mL INJ IVP (09:33)
[2024-01-01 09:40] LABS: Alanine Aminotransferase 36 U/L (0-41); Alkaline Phosphatase 35 U/L (40-130); Aspartate Amino Transferase 30 U/L (0-40); Blood Urea Nitrogen 19 mg/dL (8-23); Calcium 9.7 mg/dL (8.5-10.5); Carbon Dioxide 24 mmol/L (22-29); Chloride 104 mmol/L (98-107); Globulin 2.4 g/dL (1.3-4.6); Glomerular Filtration Rate 83.7 mL/min (90-130); Glucose 154 mg/dL (65-115); Osmolality Calculated 295 mOsm/kg (285-295); Sodium 140 mmol/L (136-145); Total Bilirubin 0.5 mg/dL (0.15-1.2); Total Protein 6.4 g/dL (6.6-8.7)
[2024-01-01 09:49] LABS: Anion Gap 15.9 (5-19); Potassium 3.9 mmol/L (3.5-5.1)
[2024-01-01] MEDS: infliximab-abda 600 MG in sodium chloride 0.9% 250 ML 10 MG IV (09:53)
[2024-01-01 09:55] VITALS: BP 137/87; PULSE 65; TEMP 36.4; O2SAT 95
[2024-01-01 10:15] VITALS: BP 118/82; PULSE 66; TEMP 35.8; O2SAT 94
[2024-01-01 10:30] VITALS: BP 117/76; PULSE 66; TEMP 35.7; O2SAT 94
[2024-01-01 10:45] VITALS: BP 115/77; PULSE 63; TEMP 35.7; O2SAT 94
[2024-01-01 11:05] VITALS: BP 121/76; PULSE 72; RESP 15; TEMP 36.3; O2SAT 93
[2024-01-01 12:17] VITALS: BP 122/79; PULSE 68; RESP 16; TEMP 35.9; O2SAT 95
[2024-01-15] VITALS (7 sets, daily range): BP systolic 112–166; BP diastolic 72–95; PULSE 60–74; RESP 16–18; TEMP 36–36.6; O2SAT 92–96
[2024-01-15] MEDS: acetaminophen 325 mg Tablet 650 MG PO (09:14)
[2024-01-15] MEDS: diphenhydrAMINE 50 mg/mL SDV 1mL 25 MG IVP (09:16)
[2024-01-15] MEDS: methylPREDNISolone sod succ 40 mg/mL INJ IVP (09:22)
[2024-01-15] MEDS: sodium chloride 0.9% 250 ML 75 ML IV (09:24)
[2024-01-15] MEDS: infliximab-abda 600 MG in sodium chloride 0.9% 250 ML 10 MG IV (09:51)
== END 2024-01-15 23:59 | disposition home or self-care (01) ==
PROVIDERS: PCP Emergency Medicine Emergency Medical Services; Visit Provider Internal Medicine Rheumatology
DX: Z53.9 Procedure and treatment not carried out, unspecified reason; M06.9 Rheumatoid arthritis, unspecified; Z79.899 Other long term (current) drug therapy
CPT/HCPCS: 80053; 85025; 86140; 96375; 96413; 96415; A4222; J1200; J2919; J7050; Q5104

== ENCOUNTER → 2024-01-22 09:05 | Outpatient (BNVA) | payer OTHER, SELFPAY | PROVIDERS: PCP Emergency Medicine Emergency Medical Services; Visit Provider Student in an Organized Health Care Education/Training Program | DX: M17.0 Bilateral primary osteoarthritis of knee (principal); Z71.89 Other specified counseling | CPT/HCPCS: 20610; 99214; J3301 ==

== ENCOUNTER 2024-01-22 11:19 | Outpatient (CLI) | payer OTHER, SELFPAY | END 2024-01-22 11:20 | disposition home or self-care (01) | LOC: SPT 11:20 | PROVIDERS: PCP Emergency Medicine Emergency Medical Services; Visit Provider Student in an Organized Health Care Education/Training Program | DX: Z46.89 Encounter for fitting and adjustment of other specified devices (principal); M17.0 Bilateral primary osteoarthritis of knee | CPT/HCPCS: L1812; L1852 ==

== ENCOUNTER 2024-02-11 11:15 | Outpatient (CLI) | payer OTHER, SELFPAY | END 2024-02-11 11:16 | disposition home or self-care (01) | LOC: SPT 11:18 | PROVIDERS: PCP Emergency Medicine Emergency Medical Services; Visit Provider Physician Assistant | DX: Z46.89 Encounter for fitting and adjustment of other specified devices (principal); M17.12 Unilateral primary osteoarthritis, left knee | CPT/HCPCS: 20610; 97760; J3301; L1852 ==

== ENCOUNTER 2024-02-12 07:30 | Oncology outpatient (recurring) (ONCR) | payer OTHER, SELFPAY ==
--- NOTE | 2024-02-05 13:30 | USCV_ITS ---
Alejandro Avilez Age: 68 Gender: M : 1955 Exam Date: 02/05/2024 14:01 Ordering Phys: Mari Lind MD ([email or web address]) Technologist: [place] [facility] [place]: BP: 182 / 78 HR: 62 Rhythm: Sinus Technical Quality: Adequate MEASUREMENTS (Male / Female) Normal Values 2D ECHO LVOT Diameter 2.1 cm LV Ejection Fraction MOD 4C 64.4 % LV Ejection Fraction MOD 2C 66.2 % LV Ejection Fraction 2C AL 66.2 % LA Diameter 3.6 cm RA Systolic Volume 4C AL 29.2 ml RA Systolic Volume 4C MOD 29.1 ml LA Sys Volume AL 61.6 cm cubed LA Sys Volume Index AL 24.8 cm cubed/m squared Aorta at Sinotubular Diameter 2.8 cm IVC Diameter 1.8 cm M-MODE LA Ao Ratio MM 1.2 AV Cusp Separation MM 2.2 cm DOPPLER AV Peak Velocity 176.0 cm/s LVOT Peak Velocity 105.0 cm/s AV Area Cont Eq vti 2.6 cm squared AV Area Cont Eq pk 2.0 cm squared MV Peak Velocity 95.0 cm/s MV Area PHT 2.7 cm squared Mitral E to A Ratio 1.0 TV Peak Velocity 248.5 cm/s TR Peak Velocity 249.0 cm/s TR Peak Gradient 24.8 mmHg TV Peak E Velocity 84.0 cm/s Right Atrial Pressure 3.0 mmHg Pulmonary Artery Systolic Pressu 27.8 mmHg PV Peak Velocity 106.5 cm/s FINDINGS Left Ventricle Normal left ventricular size, systolic function and wall thickness, with no regional wall motion abnormalities. Left ventricular ejection fraction is estimated at 60%. Grade II/IV diastolic dysfunction, moderately elevated filling pressures. Right Ventricle The right ventricle is normal in size and function. Right Atrium The right atrium is normal in size. Left Atrium The left atrium is normal in size. Mitral Valve Structurally normal mitral valve without significant stenosis or prolapse. There is no mitral regurgitation. Aortic Valve Structurally normal aortic valve without significant sclerosis or stenosis. There is no aortic regurgitation. Tricuspid Valve Structurally normal tricuspid valve without significant stenosis or regurgitation. Pulmonary artery systolic pressure is normal. Pulmonic Valve Structurally normal pulmonic valve without significant stenosis. There is no pulmonic regurgitation. Pericardium Normal pericardium without effusion. Aorta Normal ascending aorta dimension. IVC The inferior vena cava appears normal. CONCLUSIONS Normal left ventricular size, systolic function and wall thickness, with no regional wall motion abnormalities. Left ventricular ejection fraction is estimated at 60%. Grade II/IV diastolic dysfunction, moderately elevated filling pressures. No significant valve abnormalities. Pulmonary artery systolic pressure is within normal limits. There is no pericardial effusion. Right atrial pressure is around 5 mm of mercury. Mari Lind MD (Electronically Signed) Final Date: 08 February 2024 14:26 S
[2024-02-12] VITALS (8 sets, daily range): BP systolic 119–164; BP diastolic 76–94; PULSE 69–80; RESP 16; TEMP 36.3–36.8; O2SAT 95–99
[2024-02-12] MEDS: sodium chloride 0.9% 250 ML 75 ML IV (08:16)
[2024-02-12] MEDS: acetaminophen 325 mg Tablet 650 MG PO (08:19)
[2024-02-12] MEDS: diphenhydrAMINE 50 mg/mL SDV 1mL 25 MG IVP (08:19)
[2024-02-12] MEDS: methylPREDNISolone sod succ 40 mg/mL INJ IVP (08:25)
[2024-02-12] MEDS: infliximab-abda 600 MG in sodium chloride 0.9% 250 ML 10 MG IV (09:00)
== END 2024-02-25 23:59 | disposition home or self-care (01) ==
PROVIDERS: PCP Emergency Medicine Emergency Medical Services; Visit Provider Internal Medicine Cardiovascular Disease
DX: Z79.899 Other long term (current) drug therapy; M06.9 Rheumatoid arthritis, unspecified; Z53.9 Procedure and treatment not carried out, unspecified reason
CPT/HCPCS: 93306; 96413; 96415; A4222; J1200; J2919; J7050; Q5104

== ENCOUNTER → 2024-02-25 07:53 | Outpatient (BNVA) | payer OTHER, SELFPAY | PROVIDERS: Visit Provider Physician Assistant | DX: M19.011 Primary osteoarthritis, right shoulder (principal); M75.41 Impingement syndrome of right shoulder | CPT/HCPCS: 20610; 73030; 99213; J3301 ==

== ENCOUNTER 2024-02-29 09:20 | Outpatient (RCR) | payer OTHER, SELFPAY | END 2024-03-26 23:59 | disposition home or self-care (01) | LOC: SPT 09:20 | PROVIDERS: Visit Provider Student in an Organized Health Care Education/Training Program | DX: L40.50 Arthropathic psoriasis, unspecified (principal); Z71.89 Other specified counseling; Z79.899 Other long term (current) drug therapy; M25.512 Pain in left shoulder; M75.41 Impingement syndrome of right shoulder | CPT/HCPCS: 96372; 97110; 97162; J1010 ==

== ENCOUNTER → 2024-03-23 13:28 | Outpatient (BNVA) | payer OTHER, SELFPAY | PROVIDERS: PCP Emergency Medicine Emergency Medical Services; Visit Provider Internal Medicine Rheumatology | DX: Z79.899 Other long term (current) drug therapy (principal); L40.50 Arthropathic psoriasis, unspecified; L40.0 Psoriasis vulgaris; Z71.85 Encounter for immunization safety counseling | CPT/HCPCS: 36415; 80076; 82565; 85025; 85651; 86140; 99214 ==

== ENCOUNTER 2024-03-27 06:00 | Outpatient (RCR) | payer OTHER, SELFPAY | END 2024-04-26 23:59 | disposition home or self-care (01) | LOC: SPT 06:00 | PROVIDERS: PCP Emergency Medicine Emergency Medical Services; Visit Provider Student in an Organized Health Care Education/Training Program | DX: M19.011 Primary osteoarthritis, right shoulder; M75.41 Impingement syndrome of right shoulder | CPT/HCPCS: 97110 ==

== ENCOUNTER → 2024-03-29 13:30 | Outpatient (BNVA) | payer OTHER, SELFPAY | PROVIDERS: PCP Emergency Medicine Emergency Medical Services; Visit Provider Nurse Practitioner Family | DX: I11.0 Hypertensive heart disease with heart failure (principal); I50.32 Chronic diastolic (congestive) heart failure; I25.10 Atherosclerotic heart disease of native coronary artery without angina pectoris; E11.69 Type 2 diabetes mellitus with other specified complication; E78.5 Hyperlipidemia, unspecified; R60.9 Edema, unspecified; Z87.891 Personal history of nicotine dependence | CPT/HCPCS: 99214 ==

== ENCOUNTER 2024-04-06 17:02 | Oncology outpatient (recurring) (ONCR) | payer OTHER, SELFPAY ==
--- NOTE | 2024-04-06 17:30 | USCV_ITS ---
Alejandro Avilez Age: 68 Gender: M : 1955 Exam Date: 04/06/2024 17:22 Ordering Phys: Stacey May NP Technologist: ROBERTA [place] [facility] [place]: HISTORY: PROCEDURES: FINDINGS: The veins were found to be easily compressible with spontaneous blood flow. Non pulsatile flow pattern. Venous reflux were noted at the greater saphenous vein just distal to the saphenofemoral junction on the right side. The reflux time was 0.89 seconds. On the left side, venous reflux was noted at the saphenofemoral junction with reflux time of 0.64 seconds. CONCLUSIONS 1. No evidence of DVT/superficial vein thrombosis in the above- mentioned identifiable veins. 2. Significant venous reflux of greater than 500 ms were noted distal to the saphenofemoral junction on the right side and at the saphenofemoral junction on the left side. The venous segment was measuring 0.4 cm in diameter at a depth of 1.5 cm, distal to the saphenofemoral junction on the right side. Dr Ricardo Crabtree MD [facility] (Electronically Signed) Final Date: 08 April 2024 19:43 S
== END 2024-04-26 23:59 | disposition home or self-care (01) ==
LOC: RAD 17:08 → ONCMED 04-07 09:38
PROVIDERS: PCP Emergency Medicine Emergency Medical Services; Visit Provider Internal Medicine Cardiovascular Disease
DX: M79.89 Other specified soft tissue disorders (principal)
CPT/HCPCS: 93970

== ENCOUNTER → 2024-04-14 15:01 | Outpatient (BNVA) | payer OTHER, SELFPAY | PROVIDERS: PCP Emergency Medicine Emergency Medical Services; Visit Provider Internal Medicine Cardiovascular Disease | DX: I25.10 Atherosclerotic heart disease of native coronary artery without angina pectoris (principal); I11.0 Hypertensive heart disease with heart failure; I50.32 Chronic diastolic (congestive) heart failure; I87.2 Venous insufficiency (chronic) (peripheral); N52.9 Male erectile dysfunction, unspecified; Z87.891 Personal history of nicotine dependence | CPT/HCPCS: 99213 ==

== ENCOUNTER → 2024-04-26 08:25 | Outpatient (BNVA) | payer OTHER, SELFPAY | PROVIDERS: PCP Emergency Medicine Emergency Medical Services; Visit Provider Student in an Organized Health Care Education/Training Program | DX: M17.0 Bilateral primary osteoarthritis of knee (principal); Z71.89 Other specified counseling | CPT/HCPCS: 20610; 99213; J3301 ==

== ENCOUNTER 2024-04-27 06:00 | Outpatient (RCR) | payer OTHER, SELFPAY | END 2024-05-11 23:59 | disposition home or self-care (01) | LOC: SPT 06:00 | PROVIDERS: PCP Emergency Medicine Emergency Medical Services; Visit Provider Student in an Organized Health Care Education/Training Program | DX: Z71.89 Other specified counseling; Z79.899 Other long term (current) drug therapy; M75.41 Impingement syndrome of right shoulder; M19.011 Primary osteoarthritis, right shoulder | CPT/HCPCS: 97110 ==

== ENCOUNTER → 2024-06-17 14:02 | Outpatient (BNVA) | payer OTHER, SELFPAY | PROVIDERS: PCP Emergency Medicine Emergency Medical Services; Visit Provider Student in an Organized Health Care Education/Training Program | DX: M75.41 Impingement syndrome of right shoulder (principal); M75.42 Impingement syndrome of left shoulder | CPT/HCPCS: 20610; 99213; J3301 ==

== ENCOUNTER 2024-07-26 14:17 | Outpatient (CLI) | payer OTHER, SELFPAY | END 2024-07-26 14:18 | disposition home or self-care (01) | LOC: SPT 14:17 | PROVIDERS: PCP Emergency Medicine Emergency Medical Services; Visit Provider Student in an Organized Health Care Education/Training Program | DX: Z46.89 Encounter for fitting and adjustment of other specified devices (principal); M17.11 Unilateral primary osteoarthritis, right knee | CPT/HCPCS: 20610; J3301; J9999; L1812 ==

== ENCOUNTER → 2024-07-27 12:30 | Outpatient (BNVA) | payer OTHER, SELFPAY | PROVIDERS: PCP Emergency Medicine Emergency Medical Services; Visit Provider Internal Medicine Rheumatology | DX: L40.50 Arthropathic psoriasis, unspecified (principal); Z79.899 Other long term (current) drug therapy; L40.0 Psoriasis vulgaris; M54.9 Dorsalgia, unspecified; G89.29 Other chronic pain; M81.0 Age-related osteoporosis without current pathological fracture; Z71.85 Encounter for immunization safety counseling | CPT/HCPCS: 36415; 72100; 80076; 82306; 82310; 82565; 85025; 85651; 86140; 99214 ==

== ENCOUNTER 2024-08-02 13:45 | Outpatient (CLI) | payer OTHER, SELFPAY ==
--- NOTE | 2024-08-02 14:00 | XR_ITS ---
WS: [id number] SCREENING DEXA SCAN [place] CLINICAL INFORMATION: M81.0 - Age-related osteoporosis without current patholog... COMPARISON: None. FINDINGS: The L1-L4 bone mineral density measures 1.706 g/cm2. This corresponds to a T score score of 4.0 and Z score of 3.8. Left femoral neck bone mineral density measures 1.068 g/cm2. This corresponds to a T score of -0.2 and Z score of 0.0. Right femoral neck bone mineral density measures 1.084 g/cm2. This corresponds to a T score -0.1of and Z score of 0.1. Mean femoral neck bone mineral density measures 1.076 g/cm2. This corresponds to a T score of -0.2 and Z score of 0.1. XR/XR DEXA axial skeleton* [id number] IMPRESSION: Normal bone mineralization lumbar spine and femoral necks. Patient's FRAX calculated 10 year probability for major osteoporotic fracture i s 8.9% and osteoporotic hip fracture is 1.2%.
== END 2024-08-02 13:46 | disposition home or self-care (01) ==
PROVIDERS: PCP Nurse Practitioner Family; Visit Provider Internal Medicine Rheumatology
DX: M81.0 Age-related osteoporosis without current pathological fracture (principal)
CPT/HCPCS: 77080

== ENCOUNTER → 2024-08-05 08:52 | Outpatient (BNVA) | payer OTHER, SELFPAY | PROVIDERS: PCP Nurse Practitioner Family; Visit Provider Internal Medicine Cardiovascular Disease | DX: I25.119 Atherosclerotic heart disease of native coronary artery with unspecified angina pectoris (principal); I87.2 Venous insufficiency (chronic) (peripheral); I10 Essential (primary) hypertension; R23.8 Other skin changes; Z79.82 Long term (current) use of aspirin; Z87.891 Personal history of nicotine dependence | CPT/HCPCS: 99204 ==

== ENCOUNTER 2024-08-13 10:04 | Observation (INO) | payer OTHER, MEDICARE, SELFPAY ==
[2024-08-13] VITALS (23 sets, daily range): BP systolic 124–193; BP diastolic 71–114; PULSE 78–95; RESP 14–20; TEMP 36.5–37.2; O2SAT 94–99; BMI 33.5
--- NOTE | 2024-08-13 10:34 | XRR_ITS ---
PROCEDURE INFORMATION: Exam: XR Chest Exam date and time: 08/13/2024 10:45 AM Age: 68 years old Clinical indication: Other: Congestion; Hypertension; Prior surgery; Surgery date: 6+ months; Surgery type: Heart stents; Right shoulder; Additional info: HTN TECHNIQUE: Imaging protocol: Radiologic exam of the chest. Views: 1 view. COMPARISON: CR XR shoulder RT min 2V* [id number] 02/25/2024 7:58 AM FINDINGS: Lungs: Unremarkable. No consolidation or mass. Pleural spaces: Unremarkable. No pleural effusion. No pneumothorax. Heart/Mediastinum: Unremarkable. No cardiomegaly. Bones/joints: Surgical anchors are noted in the right humeral head. XR/XR chest 1V portable [id number] IMPRESSION: No acute findings.
--- NOTE | 2024-08-13 10:35 | ECG_ITS ---
[facility] Date: 2024-08-13 Pat Name: Alejandro Avilez Department: Room: Gender: Male Vessel Specialist: : 1955 Requested By: Arsen Barragan Order Number: [id number] Bernard MD: Parish Kern M.D. Measurements Intervals [place] Rate: 75 P: 60 DE: 148 QRS: -21 QRSD: 91 T: 79 QT: 326 QTc: 366 Interpretive Statements SINUS RHYTHM BORDERLINE LEFT AXIS DEVIATION [QRS AXIS < -20] NONSPECIFIC T-WAVE ABNORMALITY No previous ECG available for comparison Electronically Signed On 08-13-2024 13:02:31 CDT by Parish Kern M.D. [email or web address]
[2024-08-13 10:40] LABS: Basophils # 0.1 10^3/uL (0.0-0.1); Basophils % 0.7 %; Eosinophils # 0.1 10^3/uL (0.0-0.8); Eosinophils % 1.2 %; Lymphocytes # 1.3 10^3/uL (0.8-4.8); Lymphocytes % 19.5 %; Mean Corpuscular HGB Conc 32.4 g/dL (30-55); Mean Corpuscular Hemoglobin 31.2 pg (27-33); Mean Corpuscular Volume 96.1 fl (82-101); Mean Platelet Volume 9.3 fL (7.4-10.4); Monocytes # 0.5 10^3/uL (0.2-0.9); Monocytes % 7.3 %; Neutrophils # 4.85 10^3/uL (1.8-7.7); Nucleated Red Blood Cells % 0 %; Platelet Count 162 10^3/cmm (157-399); Red Blood Count 3.85 10^6/uL (3.85-5.65); Red Cell Distribution Width 14.1 % (12.1-15.1); White Blood Count 6.83 10^3/uL (3.29-11.43)
--- NOTE | 2024-08-13 10:41 | W.ED.GENADLT ---
HPI - General Adult General: Chief complaint: General Medical Stated complaint: high BP Time Seen by Provider: 08/13/24 10:06 History of Present Illness: 68-year-old male presents to the ER chief complaint of high blood pressure with a headache he saw his hospital ward clerk earlier this week started on a increased blood pressure medication recently including doubling his losartan to be taken twice daily for once daily previous. And which does not seem to be improving patient reports he had a mild headache earlier today in which he he took his blood pressure which was found to be 190s over 115. Patient reports no recent sickness or illness reports no renal impairment patient reports he took nothing for his headache he does endorse a prior history of cardiac stenting in 2020 he is on medications for reporting 1 episode of chest pain about a week and a half ago resolved with 1 nitroglycerin but since that time has been otherwise asymptomatic patient presents to the emergency department per primary care and hospital ward clerk request for further evaluation management of his blood pressure. Associated symptoms: Reports headache(s); Deny chest pain, dyspnea, malaise, nausea, rash, palpitations or vomiting Related Data Home Medications ?Medication ?Instructions ?Recorded ?Confirmed propranolol 80 mg tablet 80 mg PO QAM 05/29/20 08/13/24 omega-3 fatty acids 1,000 mg 2,000 mg PO BID 08/14/21 08/13/24 capsule coenzyme Q10 100 mg capsule (Co 100 mg PO QPM 05/20/22 08/13/24 Q-10) pantoprazole 40 mg tablet,delayed 40 mg PO QAM 05/20/22 08/13/24 release multivitamin 1 tab PO QPM 11/18/22 08/13/24 lutein 20 mg capsule 20 mg PO QPM 01/22/24 08/13/24 turmeric 400 mg capsule 1,600 mg PO BID 01/22/24 08/13/24 albuterol sulfate 90 mcg/actuation 1 puff inhalation .Q4-6H PRN cough 08/13/24 08/13/24 aerosol inhaler and wheezing alirocumab 150 mg/mL subcutaneous 150 mg SUBCUT .Q30D 08/13/24 08/13/24 pen injector (Praluent Pen) aspirin 81 mg tablet,delayed 81 mg PO QAM 08/13/24 08/13/24 release ezetimibe 10 mg tablet (Zetia) 10 mg PO QPM 08/13/24 08/13/24 fluticasone propionate 50 See Rx Instructions .Route .COMPLEX 08/13/24 08/13/24 mcg/actuation nasal spray,suspension furosemide 20 mg tablet (Lasix) 20 mg PO QAM 08/13/24 08/13/24 hydrocodone 5 mg-acetaminophen 325 1 tab PO Q8H pain 08/13/24 08/13/24 mg tablet leflunomide 20 mg tablet 10 mg PO QAM 08/13/24 08/13/24 potassium chloride 10 mEq 10 meq PO QAM 08/13/24 08/13/24 capsule,extended release prednisone 10 mg tablet 10 mg PO QAM 08/13/24 08/13/24 Previous Rx's ?Medication ?Instructions ?Recorded left economy hinged knee brace #1 ea 01/22/24 right medial office specialist brace #1 ea 01/22/24 Left Knee Lateral Numerical Control Drill Press Operator Brace #1 ea 02/11/24 epinephrine 0.3 mg/0.3 mL 0.3 mg (0.3 mL) IM Q10M PRN 02/23/24 injection, auto-injector anaphylaxis #2 ea etanercept 50 mg/mL (1 mL) 50 mg SUBCUT Q7D #4 mL 06/07/24 subcutaneous syringe (Enbrel) Right Hinged Knee Brace #1 ea 07/26/24 losartan 50 mg tablet 50 mg PO BID #180 tabs 08/05/24 nitroglycerin 0.4 mg sublingual 0.4 mg sublingual Q5M PRN chest 08/05/24 tablet pain #25 tabs tramadol 50 mg tablet 50 mg PO TID PRN pain #90 tabs 08/09/24 Allergies Allergy/AdvReac Type Severity Reaction Status Date / Time abatacept (From Orencia) Allergy Severe ALGY-Rash Verified 08/05/24 09:29 upadacitinib (From Rinvoq) Allergy Intermediate Flu like Verified 08/05/24 09:29 symptoms certolizumab pegol (From Allergy Unknown Unknown Verified 08/05/24 09:29 Cimzia) adalimumab (From Humira) Allergy ADR-Swelling Verified 08/05/24 09:29 of the Eye aspirin Allergy Unknown Verified 08/05/24 09:29 atorvastatin (From Lipitor) Allergy Unknown Verified 08/05/24 09:29 azithromycin Allergy Unknown Verified 08/05/24 09:29 codeine Allergy Unknown Verified 08/05/24 09:29 infliximab Allergy ALGY-Swell Verified 08/05/24 09:29 Lip/Tongue/Throat lovastatin Allergy Unknown Verified 08/05/24 09:29 methotrexate Allergy ALGY-Anaphy Verified 08/05/24 09:29 laxis Penicillins Allergy ADR-Diarrhe Verified 08/05/24 09:29 a rosuvastatin Allergy ADR-Muscle Verified 08/05/24 09:29 Pain secukinumab (From Cosentyx) Allergy Unknown Verified 08/05/24 09:29 simvastatin Allergy ADR-Muscle Verified 08/05/24 09:29 Pain Thiazides Allergy Unknown Verified 08/05/24 09:29 Review of Systems General: Reports: 10 or more systems reviewed and unremarkable except in HPI and below Const: Denies: fever(s), chills, fatigue or malaise Eyes: Denies: change in vision or blurry vision Card: Denies: chest pain or palpitations Resp: Denies: dyspnea or productive cough GI: Denies: abdominal pain, nausea or vomiting : Denies: flank pain Musc: Denies: extremity pain or extremity swelling Skin/Breast: Denies: rash or pruritus Neuro: Reports: headache(s) Psych: Denies: anxiety or depression Endo: Denies: polyuria, polydipsia or tired all the time Cristi/Lymph: Denies: easy bleeding All/Imm: Denies: urticaria, throat swelling or facial swelling PFSH ED PFSH: Medical History Hyperlipidemia associated with type 2 diabetes mellitus CAD (coronary artery disease) Immunization counseling High risk medication use Plaque psoriasis Psoriatic arthritis Statin intolerance Atherosclerotic heart disease [place] coronary artery w/angina pectoris Rheumatoid arthritis Hyperlipidemia HTN (hypertension) Surgical History H/O shoulder surgery History of colonoscopy 05/23/2019: Normal, repeat in 10 years Social History Smoking and tobacco/nicotine status: former use of tobacco/nicotine Quit status (tobacco/nicotine): has quit using Alcohol intake: current Alcohol intake frequency: few times a month Substance/Drug Use: never Physical Exam Const: COMMON NORMALS: no acute distress, patient oriented x3 and healthy appearing HENMT: COMMON NORMALS: normocephalic and atraumatic HEAD & SCALP: normocephalic and atraumatic Eye: COMMON NORMALS: Equal, round and reactive pupils present and EOMs intact bilaterally PUPIL: Yes Equal, round and reactive pupils present Neck/C-Spine: COMMON NORMALS: full ROM, supple and no JVD Lymph: LYMPHATIC: no lymphadenopathy noted Chest: COMMONS NORMALS: normal inspection of the chest and normal palpation of entire chest wall Resp: COMMON NORMALS: normal respiratory effort, No retractions and clear to auscultation bilaterally EFFORT & INSPECTION: Yes able to speak in complete sentences and Yes symmetric chest movement AUSCULTATION: clear to auscultation bilaterally Cardio: COMMON NORMALS: no JVD, regular rate and regular rhythm RATE: regular rate RHYTHM: regular rhythm GI: COMMON NORMALS: Normal to inspection, nondistended, normoactive bowel sounds present, Soft to palpation and non-tender INSPECTION: Yes normal to inspection PALPATION: Yes Soft to palpation : COMMON NORMALS: Yes no CVA tenderness BLADDER/KIDNEY EXAM: Yes no CVA tenderness Back/Pelvis: COMMON NORMALS: no CVA tenderness Extremity: COMMON NORMALS: normal to inspection and full ROM Neuro: COMMON NORMALS: patient oriented x3, CN's II-XII intact bilaterally, moves all extremities and no focal motor deficits Psych: COMMON NORMALS: mental status grossly normal, Normal thought process present, cooperative and normal affect THOUGHT PROCESS: Normal thought process present Skin: COMMON NORMALS: no rashes or lesions noted GENERAL SKIN EXAM: no rashes or lesions noted Course Vital Signs: Vital signs: Vital Signs Temperature 98.2 F 08/13/24 10:14 Pulse Rate 86 08/13/24 14:22 Respiratory Rate 18 08/13/24 14:22 Blood Pressure 150/84 08/13/24 14:22 Pulse Oximetry 99 08/13/24 14:22 Oxygen Delivery Me thod Room Air 08/13/24 10:14 MDM - General Adult Medical Decision Making Due to patient's symptoms and condition an IV will be established basic cardiac workup will be obtained we will continue to follow we will continue monitor the patient blood pressure over the period of about an hour in which upon reevaluation we will investigate additional medications to provide him to help lower his blood pressure if it still remains greater than 160/80. Will continue to follow\ Patient's first cardiac troponin is both were marginally elevated I am concerned this may be due to patient's the direct result of his high blood pressure issues current blood pressure did trend lower after provided the patient an dose of hydralazine however went back up to 160/87 I suspect is probably accelerated hypertension contributed elevated troponin as he denies any current chest pain he does have a history of ACS I did discuss patient's case with the hospitalist he is also in agreement not to initiate heparin at this time as appears less likely to be ACS induced more and more of a strain induced due to lack of any additional symptoms. However as well as cardiac stent placement discussed patient's case with Hospitalist that has granted acceptance to the CCU. Patient and family were updated and are agreeable to admission. Lab Data 08/13/24 10:29 08/13/24 10:29 Radiology Impressions Chest X-Ray 08/13/24 10:34 IMPRESSION: No acute findings. Laboratory Results WBC 6.83 10^3/uL (3.29-11.43) 08/13/24 10:29 RBC 3.85 10^6/uL (3.85-5.65) 08/13/24 10:29 Hgb 12.00 g/dL (11.27-16.99) 08/13/24 10:29 Hct 37.0 % (37-53) 08/13/24 10:29 MCV 96.1 fl (82-101) 08/13/24 10:29 MCH 31.2 pg (27-33) 08/13/24 10:29 MCHC 32.4 g/dL (30-55) 08/13/24 10:29 RDW 14.1 % (12.1-15.1) 08/13/24 10:29 Plt Count 162 10^3/cmm (157-399) 08/13/24 10:29 MPV 9.3 fL (7.4-10.4) 08/13/24 10:29 Neut % (Auto) 71.0 % 08/13/24 10:29 Lymph % (Auto) 19.5 % 08/13/24 10:29 Mower % (Auto) 7.3 % 08/13/24 10:29 Eos % (Auto) 1.2 % 08/13/24 10: Baso % (Auto) 0.7 % 08/13/24 10: Neut # (Auto) 4.85 10^3/uL (1.8-7.7) 08/13/24 10: Lymph # (Auto) 1.3 10^3/uL (0.8-4.8) 08/13/24 10: Mower # (Auto) 0.5 10^3/uL (0.2-0.9) 08/13/24 10: Eos # (Auto) 0.1 10^3/uL (0.0-0.8) 08/13/24 10: Baso # (Auto) 0.1 10^3/uL (0.0-0.1) 08/13/24 10: Nucleated RBC % (auto) 0 % 08/13/24 10: Nucleated RBCs # 0.0 /100WBC 08/13/24 10: Sodium 142 mmol/L (136-145) 08/13/24 10: Potassium 4.2 mmol/L (3.5-5.1) 08/13/24 10: Chloride 106 mmol/L (98-107) 08/13/24 10: Carbon Dioxide 26 mmol/L (22-29) 08/13/24 10: Anion Gap 14.2 (5-19) 08/13/24 10: BUN 16 mg/dL (8-23) 08/13/24 10: Creatinine 0.9 mg/dL (0.7-1.2) 08/13/24 10: GFR Calculation 83.7 mL/min (90-130) L 08/13/24 10: Glucose 109 mg/dL (65-115) 08/13/24 10: Calculated Osmolality 296 mOsm/kg (285-295) H 08/13/24 10:29 Calcium 9.5 mg/dL (8.5-10.5) 08/13/24 10:29 Total Bilirubin 0.4 mg/dL (0.15-1.2) 08/13/24 10:29 AST 42 U/L (0-40) H 08/13/24 10:29 ALT 77 U/L (0-41) H 08/13/24 10:29 Alkaline Phosphatase 53 U/L (40-130) 08/13/24 10:29 Troponin T Baseline 35 ng/L (0-15) H 08/13/24 10:29 Troponin T 120 Minute 27.76 ng/L (0-15) H 08/13/24 12:24 Delta Troponin T -7.24 ABS# (0-10) L 08/13/24 12:24 NT-Pro-B Natriuret Pep 229 pg/mL (0-125) H 08/13/24 10:29 Total Protein 6.5 g/dL (6.6-8.7) L 08/13/24 10:29 Albumin 4.0 g/dL (3.5-5.2) 08/13/24 10:29 Globulin 2.5 g/dL (1.3-4.6) 08/13/24 10:29 Urine Color Yellow (Yellow) 08/13/24 11:34 Urine Appearance Clear (CLEAR) 08/13/24 11:34 Urine pH 6.5 (5-7) 08/13/24 11:34 Ur Specific [place] 1.013 (1.005-1.030) 08/13/24 11:34 Urine Protein Trace (Negative) A 08/13/24 11:34 Urine Glucose (UA) Negative (Normal) 08/13/24 11:34 Urine Ketones Negative (Negative) 08/13/24 11:34 Urine Blood Negative (Negative) 08/13/24 11:34 Urine Nitrate Negative (Negative) 08/13/24 11:34 Urine Bilirubin Negative (Negative) 08/13/24 11:34 Urine Urobilinogen 1.0 mg/dL (Negative) 08/13/24 11:34 Ur Leukocyte Esterase Negative (Negative) 08/13/24 11:34 Urine RBC 0-2 /hpf (0-2) 08/13/24 11:34 Urine WBC 0-5 /hpf (0-5) 08/13/24 11:34 Ur Squamous Epith Cells 0-5 /hpf (0-5) 08/13/24 11:34 Amorphous Sediment Not Reportable 08/13/24 11:34 Urine Bacteria None seen /hpf (NONE) 08/13/24 11:34 Hyaline Casts 0.40 /lpf 08/13/24 11:34 All radiology interpretation(s) finalized by discharge Discharge Plan Discharge Patient Disposition: Admitted As Inpatient Clinical Impression: Accelerated hypertension, Elevated troponin I measurement Condition: Stable Prescriptions: No Action omega-3 fatty acids 1,000 mg capsule 2,000 mg PO BID propranolol 80 mg tablet 80 mg PO QAM multivitamin Tablet 1 tab PO QPM lutein 20 mg capsule 20 mg PO QPM Rx Instructions: give with meal/snack turmeric 400 mg capsule 1,600 mg PO BID (DME) right medial office specialist brace See Rx Instructions .Route .MEDSUPPLY Qty: 1 0RF Rx Instructions: As directed (DME) left economy hinged knee brace See Rx Instructions .Route .MEDSUPPLY Qty: 1 0RF Rx Instructions: As directed (DME) Right Hinged Knee Brace See Rx Instructions .Route .MEDSUPPLY Qty: 1 0RF Rx Instructions: As directed pantoprazole 40 mg tablet,delayed release (DR/EC) 40 mg PO QAM coenzyme Q10 [Co Q-10] 100 mg capsule 100 mg PO QPM (DME) Left Knee Lateral Numerical Control Drill Press Operator Brace See Rx Instructions .Route .MEDSUPPLY Qty: 1 0RF Rx Instructions: As directed losartan 50 mg tablet 50 mg PO BID Qty: 180 3RF nitroglycerin 0.4 mg tablet, sublingual 0.4 mg sublingual Q5M PRN (Reason: chest pain) Qty: 25 2RF Rx Instructions: do not exceed 3 doses per episode epinephrine 0.3 mg/0.3 mL auto-injector 0.3 mg IM Q10M PRN (Reason: anaphylaxis) Qty: 2 2RF Enbrel 50 mg/mL (1 mL) syringe 50 mg SUBCUT Q7D Qty: 4 5RF tramadol 50 mg tablet 50 mg PO TID PRN (Reason: pain) Qty: 90 1RF hydrocodone-acetaminophen 5-325 mg tablet 1 tab PO Q8H aspirin [Aspir-81] 81 mg Tablet,Delayed Release (Dr/Ec) 81 mg PO QAM leflunomide 20 mg Tablet 10 mg PO QAM albuterol sulfate 90 mcg/actuation HFA aerosol inhaler 1 puff INHALATION .Q4-6H PRN (Reason: cough and wheezing) fluticasone propionate 50 mcg/actuation spray,suspension See Rx Instructions .ROUTE .COMPLEX Rx Instructions: USE 1 SPRAY IN EACH NOSTRIL TWICE DAILY for 7 days THEN EVERY DAY thereafter. Praluent Pen 150 mg/mL Pen Injector 150 mg SUBCUT .Q30D potassium chloride 10 mEq capsule, extended release 10 meq PO QAM prednisone 10 mg tablet 10 mg PO QAM furosemide [Lasix] 20 mg tablet 20 mg PO QAM ezetimibe [Zetia] 10 mg tablet 10 mg PO QPM Referrals: Jane Panchal APRN [Primary Care Provider] - 4-7 days Discharge Diet: Cardiac and Low Salt Discharge Activity: Increase activity as tolerated Patient Instructions: DASH Eating Plan (ED), Low-Sodium Diet (ED), Hypertensive Crisis (ED), Hypertension (ED) Activity Restrictions/Additional Instructions: Please further follow-up with your doctor for further evaluation management of your blood pressure management needs and medication regimen in which please monitor your blood your blood pressure 2-3 times daily including heart rate and please provide us your primary care doctor or hospital ward clerk for further investigation and management please return the interim if any of your symptoms persist or worse. Print Language: Indonesian Coding Level of Care Code ED Dredge Operator Supervisor for Zoila Wagoner
[2024-08-13 11:00] LABS: Troponin(5th) Baseline 35 ng/L (0-15)
--- NOTE | 2024-08-13 11:04 | PC.PHAR ---
Pt is [facility] but spouse provided current med list.
[2024-08-13 11:09] LABS: Alanine Aminotransferase 77 U/L (0-41); Alkaline Phosphatase 53 U/L (40-130); Anion Gap 14.2 (5-19); Aspartate Amino Transferase 42 U/L (0-40); Blood Urea Nitrogen 16 mg/dL (8-23); Calcium 9.5 mg/dL (8.5-10.5); Carbon Dioxide 26 mmol/L (22-29); Chloride 106 mmol/L (98-107); Creatinine Clr Calc Pharmacy 100.1175; Globulin 2.5 g/dL (1.3-4.6); Glomerular Filtration Rate 83.7 mL/min (90-130); Glucose 109 mg/dL (65-115); NT Pro B Type Natriuretic Pept 229 pg/mL (0-125); Osmolality Calculated 296 mOsm/kg (285-295); Potassium 4.2 mmol/L (3.5-5.1); Sodium 142 mmol/L (136-145); Total Bilirubin 0.4 mg/dL (0.15-1.2); Total Protein 6.5 g/dL (6.6-8.7)
[2024-08-13 11:44] LABS: Bilirubin Urine Negative (Negative); Blood Urine Negative (Negative); Glucose Urine UA Negative (Normal); Ketones Urine Negative (Negative); Leukocyte Esterase Urine Negative (Negative); Nitrate Urine Negative (Negative); Protein Urine Trace (Negative); Specific Gravity, Urine 1.013 (1.005-1.030); Urine Appearance Clear (CLEAR); Urine Color Yellow (Yellow); pH Urine 6.5 (5-7)
[2024-08-13 11:49] LABS: Add Urine Microscopic? YES; Bacteria Urine None Seen /hpf; RBC Urine 0-2 /hpf (0-2); Squamous Epithelial Cell Urine 0-5 /hpf (0-5); WBC Urine 0-5 /hpf (0-5)
[2024-08-13 12:55] LABS: Troponin 5 2HR 27.76 ng/L (0-15)
[2024-08-13 12:57] LABS: Troponin 5 2HR Delta -7.24 ABS# (0-10)
[2024-08-13] MEDS: hyDRALAzine 20 mg/mL INJ 1 mL 10 MG IVP (13:29)
[2024-08-13] MEDS: TRAMadol 50 mg Tablet PO ×2 (14:20→20:48)
--- NOTE | 2024-08-13 15:13 | ECG_ITS ---
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 Measurements Intervals [place] Rate: 77 P: 148 MI: 149 QRS: -27 QRSD: 95 T: 150 QT: 338 QTc: 382 Interpretive Statements SINUS RHYTHM BORDERLINE LEFT AXIS DEVIATION [QRS AXIS < -20] MODERATE T-WAVE ABNORMALITY, CONSIDER LATERAL ISCHEMIA [-0.1+ mV T-WAVE IN I/aVL/V5/V6] Compared to ECG 08/13/2024 10:42:48 Possible ischemia now present T-wave abnormality still present Electronically Signed On 08-14-2024 10:03:01 CDT by Parish Kern M.D. [email or web address]
--- NOTE | 2024-08-13 16:08 | PM.HP ---
Providers/Chief Complaint Primary Care Provider: Jane Panchal APRN Chief Complaint: high BP History of Present Illness Alejandro Avilez is a 68 year old male with past medical history of CAD status post PCI x 2 in 2020, hypertension, statin intolerance, psoriasis, psoriatic arthritis, rheumatoid arthritis, hyperlipidemia came to ER accompanied with his for high blood pressure of 190/115 at home. As per the patient they were checking his blood pressure routinely when he was found to have systolic blood pressure more than 180. He denies any complaint of chest pain, shortness of breath, dizziness, palpitations, nausea/vomiting. Denies any history of recent travel or sick contact. Denies any history of fever, cough, diarrhea or urinary complaints. He usually follows up with Dr. Lind for cardiology and had recently adjusted his losartan from 50 mg daily to 50 mg twice a day for uncontrolled blood pressure. He has been taking losartan 50 mg twice daily for 1 week. In ER he was found to have mildly elevated troponins at 35, 27. BNP 229, UA negative Chest x-ray negative for acute 5 ECHO 02/17 CONCLUSIONS Normal left ventricular size, systolic function and wall thickness, with no regional wall motion abnormalities. Left ventricular ejection fraction is estimated at 60%. Grade II/IV diastolic dysfunction, moderately elevated filling pressures. No significant valve abnormalities. Pulmonary artery systolic pressure is within normal limits. There is no pericardial effusion. Right atrial pressure is around 5 mm of mercury. Review of Systems General: Reports: 10 or more systems reviewed and unremarkable except in HPI and below Medications/Allergies Home Medications ?Medication ?Instructions ?Recorded ?Confirmed ?Last Taken ?Type propranolol 80 mg tablet 80 mg PO QAM 05/29/20 08/13/24 08/13/24 History omega-3 fatty acids 1,000 mg 2,000 mg PO BID 08/14/21 08/13/24 08/13/24 History capsule coenzyme Q10 100 mg capsule (Co 100 mg PO QPM 05/20/22 08/13/24 08/12/24 History Q-10) pantoprazole 40 mg tablet,delayed 40 mg PO QAM 05/20/22 08/13/24 08/13/24 History release multivitamin 1 tab PO QPM 11/18/22 08/13/24 08/12/24 History left economy hinged knee brace #1 ea 01/22/24 08/13/24 Unknown Rx lutein 20 mg capsule 20 mg PO QPM 01/22/24 08/13/24 08/12/24 History right medial human resources psychologist brace #1 ea 01/22/24 08/13/24 Unknown Rx turmeric 400 mg capsule 1,600 mg PO BID 01/22/24 08/13/24 08/13/24 History Left Knee Lateral Box Printer Brace #1 ea 02/11/24 08/13/24 Unknown Rx epinephrine 0.3 mg/0.3 mL 0.3 mg (0.3 mL) IM Q10M PRN 02/23/24 08/13/24 Unknown Rx injection, auto-injector anaphylaxis #2 ea etanercept 50 mg/mL (1 mL) 50 mg SUBCUT Q7D #4 mL 06/07/24 08/13/24 08/07/24 Rx subcutaneous syringe (Enbrel) Right Hinged Knee Brace #1 ea 07/26/24 08/13/24 Unknown Rx losartan 50 mg tablet 50 mg PO BID #180 tabs 08/05/24 08/13/24 08/13/24 Rx nitroglycerin 0.4 mg sublingual 0.4 mg sublingual Q5M PRN chest 08/05/24 08/13/24 Unknown Rx tablet pain #25 tabs tramadol 50 mg tablet 50 mg PO TID PRN pain #90 tabs 08/09/24 08/13/24 08/13/24 Rx albuterol sulfate 90 mcg/actuation 1 puff inhalation .Q4-6H PRN cough 08/13/24 08/13/24 Unknown History aerosol inhaler and wheezing alirocumab 150 mg/mL subcutaneous 150 mg SUBCUT .Q30D 08/13/24 08/13/24 Unknown History pen injector (Praluent Pen) aspirin 81 mg tablet,delayed 81 mg PO QAM 08/13/24 08/13/24 08/13/24 History release ezetimibe 10 mg tablet (Zetia) 10 mg PO QPM 08/13/24 08/13/24 08/12/24 History fluticasone propionate 50 See Rx Instructions .Route .COMPLEX 08/13/24 08/13/24 Unknown History mcg/actuation nasal spray,suspension furosemide 20 mg tablet (Lasix) 20 mg PO QAM 04/08/13/24 08/13/24 History hydrocodone 5 mg-acetaminophen 325 1 tab PO Q8H pain 08/13/24 08/13/24 Unknown History mg tablet leflunomide 20 mg tablet 10 mg PO QAM 08/13/24 08/13/24 08/13/24 History potassium chloride 10 mEq 10 meq PO QAM 08/13/24 08/13/24 08/13/24 History capsule,extended release prednisone 10 mg tablet 10 mg PO QAM 08/13/24 08/13/24 08/13/24 History Allergies Allergy/AdvReac Type Severity Reaction Status Date / Time abatacept (From Orencia) Allergy Severe ALGY-Rash Verified 08/05/24 09:29 upadacitinib (From Rinvoq) Allergy Intermediate Flu like Verified 08/05/24 09:29 symptoms certolizumab pegol (From Allergy Unknown Unknown Verified 08/05/24 09:29 Cimzia) adalimumab (From Humira) Allergy ADR-Swelling Verified 08/05/24 09:29 of the Eye aspirin Allergy Unknown Verified 08/05/24 09:29 atorvastatin (From Lipitor) Allergy Unknown Verified 08/05/24 09:29 azithromycin Allergy Unknown Verified 08/05/24 09:29 codeine Allergy Unknown Verified 08/05/24 09:29 infliximab Allergy ALGY-Swell Verified 08/05/24 09:29 Lip/Tongue/Throat lovastatin Allergy Unknown Verified 08/05/24 09:29 methotrexate Allergy ALGY-Anaphy Verified 08/05/24 09:29 laxis Penicillins Allergy ADR-Diarrhe Verified 08/05/24 09:29 a rosuvastatin Allergy ADR-Muscle Verified 08/05/24 09:29 Pain secukinumab (From Cosentyx) Allergy Unknown Verified 08/05/24 09:29 simvastatin Allergy ADR-Muscle Verified 08/05/24 09:29 Pain Thiazides Allergy Unknown Verified 08/05/24 09:29 PFSH Acute PFSH: Medical History Hyperlipidemia associated with type 2 diabetes mellitus CAD (coronary artery disease) Immunization counseling High risk medication use Plaque psoriasis Psoriatic arthritis Statin intolerance Atherosclerotic heart disease false pass coronary artery w/angina pectoris Rheumatoid arthritis Hyperlipidemia HTN (hypertension) Surgical History H/O shoulder surgery History of colonoscopy 05/23/2019: Normal, repeat in 10 years Social History Smoking and tobacco/nicotine status: former use of tobacco/nicotine Quit status (tobacco/nicotine): has quit using Alcohol intake: current Alcohol intake frequency: few times a month Substance/Drug Use: never Vitals/I&O/Wt Last Vital Signs Temp 98.2 F 08/13/24 10:14 Pulse 86 08/13/24 14:22 Resp 18 08/13/24 14:22 BP 142/85 08/13/24 16:00 Pulse Ox 97 08/13/24 16:00 O2 Del Method Room Air 08/13/24 10:14 Weight last 48 hrs Weight 112.037 kg Physical Exam Narrative: He is alert awake oriented x 4, pleasant, not in acute distress, morbidly obese Chest clear to auscultation bilaterally Cardiovascular normal heart sounds Abdomen soft nontender nondistended normal bowel sounds Extremities bilateral 2+ lower extremity pitting edema present Data 08/13/24 10:29 08/13/24 10:29 A&P Assessment and plan (1) Accelerated hypertension: (2) Elevated troponin I measurement: (3) Hyperlipidemia associated with type 2 diabetes mellitus: (4) CAD (coronary artery disease): Qualifiers: Coronary Disease-Associated Artery/Lesion type: false pass artery [place] vs. transplanted heart: false pass heart Associated angina: without angina Qualified Code(s): I25.10 - Atherosclerotic heart disease of [place] coronary artery without angina pectoris (5) CHF (congestive heart failure), NYHA class III: Qualifiers: Congestive heart failure type: diastolic Congestive heart failure chronicity: chronic Qualified Code(s): I50.32 - Chronic diastolic (congestive) heart failure (6) Psoriatic arthritis: (7) Rheumatoid arthritis: Qualifiers: Rheumatoid arthritis location: unspecified site (8) Hyperlipidemia: Qualifiers: Hyperlipidemia type: mixed hyperlipidemia Qualified Code(s): E78.2 - Mixed hyperlipidemia (9) HTN (hypertension): Qualifiers: Hypertension type: essential hypertension Qualified Code(s): I10 - Essential (primary) hypertension Plan Alejandro Avilez is a 68 year old male with past medical history of CAD status post PCI x 2 in 2020, hypertension, statin intolerance, psoriasis, psoriatic arthritis, rheumatoid arthritis, hyperlipidemia came to ER accompanied with his for high blood pressure of 190/115 at home. As per the patient they were checking his blood pressure routinely when he was found to have systolic blood pressure more than 180. He denies any complaint of chest pain, shortness of breath, dizziness, palpitations, nausea/vomiting. Denies any history of recent travel or sick contact. Denies any history of fever, cough, diarrhea or urinary complaints. He usually follows up with Dr. Lind for cardiology and had recently adjusted his losartan from 50 mg daily to 50 mg twice a day for uncontrolled blood pressure. He has been taking losartan 50 mg twice daily for 1 week. In ER he was found to have mildly elevated troponins at 35, 27. BNP 229, UA negative Chest x-ray negative for acute 5 ECHO 02/17 CONCLUSIONS Normal left ventricular size, systolic function and wall thickness, with no regional wall motion abnormalities. Left ventricular ejection fraction is estimated at 60%. Grade II/IV diastolic dysfunction, moderately elevated filling pressures. No significant valve abnormalities. Pulmonary artery systolic pressure is within normal limits. There is no pericardial effusion. Right atrial pressure is around 5 mm of mercury. #Accelerated hypertension-will rule out ACS Admit to CSU EKG showed sinus rhythm at [address], [address]-T changes Recent echo from 02/17 reviewed 2 sets of troponins 35, 27. Follow-up 6-hour troponins Continue cardiac telemetry monitoring Received IV hydralazine 10 mg , but still blood pressure in 160 over 90s. Blood pressure currently 142/77 Will continue FIELD MARKETING REPRESENTATIVE aspirin 81 mg, Lasix 20 mg daily, losartan 50 mg twice daily Potassium chloride 10 mEq daily. #Hyperlipidemia-continue FIELD MARKETING REPRESENTATIVE ezetimibe #Rheumatoid arthritis-continue FIELD MARKETING REPRESENTATIVE leflunomide, prednisone, tramadol as needed. GI prophylaxis with p.o. pantoprazole DVT prophylaxis with subcutaneous heparin CODE STATUS discussed with patient and family is full code for now PDMP PDMP Reviewed: Not Reviewed Attestations Medical Necessity Statement*: He needs continued hospitalization not crossing 2 midnights for monitoring of accelerated hypertension with cardiac monitoring and supportive care Time Spent in Patient Care: 40-minutes Coding Level of Care Code Acute Code for Chg Fwd Diagnoses Accelerated hypertension I10 Elevated troponin I measurement R79.89 Hyperlipidemia associated with type 2 diabetes mellitus E11.69; E78.5 Coronary artery disease involving false pass coronary artery of false pass heart without angina pectoris I25.10 Coronary Disease-Associated Artery/Lesion type: false pass artery [place] vs. transplanted heart: false pass heart Associated angina: without angina Chronic diastolic congestive heart failure, NYHA class 3 I50.32 Congestive heart failure type: diastolic Congestive heart failure chronicity: chronic Psoriatic arthritis L40.50 Rheumatoid arthritis M06.9 Rheumatoid arthritis location: unspecified site Mixed hyperlipidemia E78.2 Hyperlipidemia type: mixed hyperlipidemia Essential hypertension I10 Hypertension type: essential hypertension Time Spent (min) 40
[2024-08-13 16:36] LABS: Troponin 5 6HR 26.27 ng/L (0-15); Troponin 5 6HR Delta -8.73 ng/L (0-12)
[2024-08-13] MEDS: enoxaparin 40 mg/0.4 mL Syringe SUBCUT (17:10)
[2024-08-13] MEDS: FUROsemide 20 mg Tablet PO (17:10)
[2024-08-13] MEDS: multivitamin therapeutic Tablet 1 TAB PO (17:30)
[2024-08-13] MEDS: omega-3 fatty acids 1,000 mg Capsule 2000 MG PO (17:30)
[2024-08-13] MEDS: ezetimibe 10 mg Tablet PO (17:30)
[2024-08-13] MEDS: losartan 50 mg Tablet PO (17:31)
[2024-08-13 22:11] LABS: Troponin T (5th) Once 28 ng/L (0-15)
[2024-08-14 03:15] VITALS: BP 174/108; PULSE 84; RESP 11; TEMP 35.9; O2SAT 97
[2024-08-14] MEDS: hyDRALAzine 25 mg Tablet PO ×2 (03:22→07:31)
[2024-08-14] MEDS: predniSONE 10 mg Tablet PO (05:52)
[2024-08-14] MEDS: FUROsemide 20 mg Tablet PO (05:52)
[2024-08-14] MEDS: propranolol 40 mg Tablet 80 MG PO (05:53)
[2024-08-14] MEDS: pantoprazole DR 40 mg Tablet PO (05:53)
[2024-08-14] MEDS: potassium chloride ER 10 mEq Tablet PO (05:53)
[2024-08-14] MEDS: TRAMadol 50 mg Tablet PO (05:53)
[2024-08-14] MEDS: aspirin 81 mg EC Tablet PO (05:53)
[2024-08-14 06:19] VITALS: BP 146/98; PULSE 80; RESP 16; O2SAT 98
[2024-08-14] MEDS: omega-3 fatty acids 1,000 mg Capsule 2000 MG PO (07:31)
[2024-08-14] MEDS: losartan 50 mg Tablet PO (07:31)
[2024-08-14] MEDS: fluticasone nasal spray 16gm Btl 1 SPRAY INTRANASAL (07:31)
[2024-08-14] MEDS: amlodipine 5 mg Tablet PO (07:31)
[2024-08-14 07:55] VITALS: PULSE 71; RESP 16; O2SAT 98
[2024-08-14 08:00] VITALS: BP 193/109; PULSE 70; RESP 20; TEMP 36.8; O2SAT 97
[2024-08-14] MEDS: LEFLUNOMIDE 10 MG 10 EACH PO (10:43)
[2024-08-14 11:50] VITALS: BP 118/81; PULSE 71; RESP 20; TEMP 36.4; O2SAT 95
--- NOTE | 2024-08-14 11:55 | PM.DCS ---
Discharge Providers Date of Admission: 08/13/24 17:51 Date of Discharge: August 14, 2024 Attending Provider at Admission: Diane Potter MD Attending Provider at Discharge: Diane Potter MD Primary Care Provider: Jane Panchal APRN Diagnoses at Discharge Discharge Diagnosis (1) Accelerated hypertension: Status: Acute (2) Elevated troponin I measurement: Status: Acute (3) Hyperlipidemia associated with type 2 diabetes mellitus: Status: Acute (4) CAD (coronary artery disease): Status: Acute Qualifiers: Coronary Disease-Associated Artery/Lesion type: [place] artery [place] vs. transplanted heart: makah heart Associated angina: without angina Qualified Code(s): I25.10 - Atherosclerotic heart disease of mak[place] coronary artery without angina pectoris (5) CHF (congestive heart failure), NYHA class III: Status: Acute Qualifiers: Congestive heart failure type: diastolic Congestive heart failure chronicity: chronic Qualified Code(s): I50.32 - Chronic diastolic (congestive) heart failure (6) Psoriatic arthritis: Status: Acute (7) Rheumatoid arthritis: Status: Acute Qualifiers: Rheumatoid arthritis location: unspecified site (8) Hyperlipidemia: Status: Acute Qualifiers: Hyperlipidemia type: mixed hyperlipidemia Qualified Code(s): E78.2 - Mixed hyperlipidemia (9) HTN (hypertension): Status: Acute Qualifiers: Hypertension type: essential hypertension Qualified Code(s): I10 - Essential (primary) hypertension Reason for Visit Reason for Visit: high BP Brief History: Alejandro Avilez is a 68 year old male with past medical history of CAD status post PCI x 2 in 2020, hypertension, statin intolerance, psoriasis, psoriatic arthritis, rheumatoid arthritis, hyperlipidemia came to ER accompanied with his for high blood pressure of 190/115 at home. As per the patient they were checking his blood pressure routinely when he was found to have systolic blood pressure more than 180. He denies any complaint of chest pain, shortness of breath, dizziness, palpitations, nausea/vomiting. Denies any history of recent travel or sick contact. Denies any history of fever, cough, diarrhea or urinary complaints. He usually follows up with Dr. Lind for cardiology and had recently adjusted his losartan from 50 mg daily to 50 mg twice a day for uncontrolled blood pressure. He has been taking losartan 50 mg twice daily for 1 week. In ER he was found to have mildly elevated troponins at 35, 27. BNP 229, UA negative Chest x-ray negative Hospital Course Hospital Course Accelerated hypertension-will rule out ACS Admit to CSU EKG showed sinus rhythm at [address], [address]-T changes Recent echo from 02/17 reviewed 2 sets of troponins 35, 27. Follow-up 6-hour troponins Continue cardiac telemetry monitoring Received IV hydralazine 10 mg , but still blood pressure in 160 over 90s. Blood pressure currently 142/77 Will continue EDUCATION PARAPROFESSIONAL aspirin 81 mg, Lasix 20 mg daily, losartan 50 mg twice daily Potassium chloride 10 mEq daily. #Hyperlipidemia-continue EDUCATION PARAPROFESSIONAL ezetimibe #Rheumatoid arthritis-continue EDUCATION PARAPROFESSIONAL leflunomide, prednisone, tramadol as needed. ACS ruled out, troponins have plateaud. elevation likely secondary to demand ischemia. BP stable. added po norvasc 5mg and BP was 118/81. will do norvasc 2.5mg daily. will discharge him to follow up cardiology in 1 week. Physical Exam Narrative: He is alert awake oriented x 4, pleasant, not in acute distress, morbidly obese Chest clear to auscultation bilaterally Cardiovascular normal heart sounds Abdomen soft nontender nondistended normal bowel sounds Extremities bilateral 2+ lower extremity pitting edema present Discharge Data Studies Completed and Pending Completed Studies During Hospitalization Category Date Time Status XR chest 1V portable [id number] Stat Exams 08/13/24 10:34 Completed Radiology Impressions Chest X-Ray 08/13/24 10:34 IMPRESSION: No acute findings. Laboratory Results WBC 6.83 10^3/uL (3.29-11.43) 08/13/24 10:29 RBC 3.85 10^6/uL (3.85-5.65) 08/13/24 10:29 Hgb 12.00 g/dL (11.27-16.99) 08/13/24 10:29 Hct 37.0 % (37-53) 08/13/24 10:29 MCV 96.1 fl (82-101) 08/13/24 10:29 MCH 31.2 pg (27-33) 08/13/24 10:29 MCHC 32.4 g/dL (30-55) 08/13/24 10:29 RDW 14.1 % (12.1-15.1) 08/13/24 10:29 Plt Count 162 10^3/cmm (157-399) 08/13/24 10: MPV 9.3 fL (7.4-10.4) 08/13/24 10: Neut % (Auto) 71.0 % 08/13/24 10:29 Lymph % (Auto) 19.5 % 08/13/24 10:29 [place] % (Auto) 7.3 % 08/13/24 10: Eos % (Auto) 1.2 % 08/13/24 10: Baso % (Auto) 0.7 % 08/13/24 10:29 Neut # (Auto) 4.85 10^3/uL (1.8-7.7) 08/13/24 10: Lymph # (Auto) 1.3 10^3/uL (0.8-4.8) 08/13/24 10: [place] # (Auto) 0.5 10^3/uL (0.2-0.9) 08/13/24 10: Eos # (Auto) 0.1 10^3/uL (0.0-0.8) 08/13/24 10: Baso # (Auto) 0.1 10^3/uL (0.0-0.1) 08/13/24 10: Nucleated RBC % (auto) 0 % 08/13/24 10: Nucleated RBCs # 0.0 /100WBC 08/13/24 10:29 Sodium 142 mmol/L (136-145) 08/13/24 10:29 Potassium 4.2 mmol/L (3.5-5.1) 08/13/24 10: Chloride 106 mmol/L (98-107) 08/13/24 10:29 Carbon Dioxide 26 mmol/L (22-29) 08/13/24 10:29 Anion Gap 14.2 (5-19) 08/13/24 10:29 BUN 16 mg/dL (8-23) 08/13/24 10:29 Creatinine 0.9 mg/dL (0.7-1.2) 08/13/24 10:29 GFR Calculation 83.7 mL/min (90-130) L 08/13/24 10:29 Glucose 109 mg/dL (65-115) 08/13/24 10:29 Calculated Osmolality 296 mOsm/kg (285-295) H 08/13/24 10:29 Calcium 9.5 mg/dL (8.5-10.5) 08/13/24 10:29 Total Bilirubin 0.4 mg/dL (0.15-1.2) 08/13/24 10:29 AST 42 U/L (0-40) H 08/13/24 10:29 ALT 77 U/L (0-41) H 08/13/24 10:29 Alkaline Phosphatase 53 U/L (40-130) 08/13/24 10:29 Troponin T 5th Gen ng/L 28 ng/L (0-15) H 08/13/24 21:46 Troponin T Baseline 35 ng/L (0-15) H 08/13/24 10:29 Troponin T 120 Minute 27.76 ng/L (0-15) H 08/13/24 12:24 Delta Troponin T -7.24 ABS# (0-10) L 08/13/24 12:24 Troponin T Hi Sens 6Hr 26.27 ng/L (0-15) H 08/13/24 16:07 Troponin T Hi Sens 6Hr Delta -8.73 ng/L (0-12) L 08/13/24 16:07 NT-Pro-B Natriuret Pep 229 pg/mL (0-125) H 08/13/24 10:29 Total Protein 6.5 g/dL (6.6-8.7) L 08/13/24 10:29 Albumin 4.0 g/dL (3.5-5.2) 08/13/24 10:29 Globulin 2.5 g/dL (1.3-4.6) 08/13/24 10:29 Urine Color Yellow (Yellow) 08/13/24 11:34 Urine Appearance Clear (CLEAR) 08/13/24 11:34 Urine pH 6.5 (5-7) 08/13/24 11:34 Ur Specific [place] 1.013 (1.005-1.030) 08/13/24 11:34 Urine Protein Trace (Negative) A 08/13/24 11:34 Urine Glucose (UA) Negative (Normal) 08/13/24 11:34 Urine Ketones Negative (Negative) 08/13/24 11:34 Urine Blood Negative (Negative) 08/13/24 11:34 Urine Nitrate Negative (Negative) 08/13/24 11:34 Urine Bilirubin Negative (Negative) 08/13/24 11:34 Urine Urobilinogen 1.0 mg/dL (Negative) 08/13/24 11:34 Ur Leukocyte Esterase Negative (Negative) 08/13/24 11:34 Urine RBC 0-2 /hpf (0-2) 08/13/24 11:34 Urine WBC 0-5 /hpf (0-5) 08/13/24 11:34 Ur Squamous Epith Cells 0-5 /hpf (0-5) 08/13/24 11:34 Amorphous Sediment Not Reportable 08/13/24 11:34 Urine Bacteria None seen /hpf (NONE) 08/13/24 11:34 Hyaline Casts 0.40 /lpf 08/13/24 11:34 Vitals Last Vital Signs Temp 97.5 F L 08/14/24 11:50 Pulse 71 08/14/24 11:50 Resp 20 H 08/14/24 11:50 BP 118/81 08/14/24 11:50 Pulse Ox 95 08/14/24 11:50 O2 Del Method Room Air 08/14/24 11:50 O2 Flow Rate 1 08/14/24 08:00 Discharge Plan Discharge Patient Disposition: Home Condition: Stable Prescriptions: New amlodipine [Norvasc] 2.5 mg tablet 2.5 mg PO DAILY Qty: 30 0RF Continued omega-3 fatty acids 1,000 mg capsule 2,000 mg PO BID propranolol 80 mg tablet 80 mg PO QAM multivitamin Tablet 1 tab PO QPM lutein 20 mg capsule 20 mg PO QPM Rx Instructions: give with meal/snack turmeric 400 mg capsule 1,600 mg PO BID pantoprazole 40 mg tablet,delayed release (DR/EC) 40 mg PO QAM coenzyme Q10 [Co Q-10] 100 mg capsule 100 mg PO QPM losartan 50 mg tablet 50 mg PO BID Qty: 180 3RF nitroglycerin 0.4 mg tablet, sublingual 0.4 mg sublingual Q5M PRN (Reason: chest pain) Qty: 25 2RF Rx Instructions: do not exceed 3 doses per episode epinephrine 0.3 mg/0.3 mL auto-injector 0.3 mg IM Q10M PRN (Reason: anaphylaxis) Qty: 2 2RF Enbrel 50 mg/mL (1 mL) syringe 50 mg SUBCUT Q7D Qty: 4 5RF tramadol 50 mg tablet 50 mg PO TID PRN (Reason: pain) Qty: 90 1RF hydrocodone-acetaminophen 5-325 mg tablet 1 tab PO Q8H aspirin 81 mg Tablet,Delayed Release (Dr/Ec) 81 mg PO QAM leflunomide 20 mg Tablet 10 mg PO QAM albuterol sulfate 90 mcg/actuation HFA aerosol inhaler 1 puff INHALATION .Q4-6H PRN (Reason: cough and wheezing) fluticasone propionate 50 mcg/actuation spray,suspension See Rx Instructions .ROUTE .COMPLEX Rx Instructions: USE 1 SPRAY IN EACH NOSTRIL TWICE DAILY for 7 days THEN EVERY DAY thereafter. Praluent Pen 150 mg/mL Pen Injector 150 mg SUBCUT .Q30D potassium chloride 10 mEq capsule, extended release 10 meq PO QAM prednisone 10 mg tablet 10 mg PO QAM furosemide [Lasix] 20 mg tablet 20 mg PO QAM ezetimibe [Zetia] 10 mg tablet 10 mg PO QPM No Action (DME) right medial livestock farm workers brace See Rx Instructions .Route .MEDSUPPLY Qty: 1 0RF Rx Instructions: As directed (DME) left economy hinged knee brace See Rx Instructions .Route .MEDSUPPLY Qty: 1 0RF Rx Instructions: As directed (DME) Right Hinged Knee Brace See Rx Instructions .Route .MEDSUPPLY Qty: 1 0RF Rx Instructions: As directed (DME) Left Knee Lateral Support Teacher Brace See Rx Instructions .Route .MEDSUPPLY Qty: 1 0RF Rx Instructions: As directed Discharge Orders: Discharge Order (Routine); Ordered 08/14/24 Ordered By: Diane Potter Referrals: Jane Panchal APRN [Primary Care Provider] - 4-7 days Mari Lind MD [Physician] - 08/22/24 Discharge Diet: Cardiac and Low Salt Discharge Activity: Increase activity as tolerated Patient Instructions: DASH Eating Plan (ED), Low-Sodium Diet (ED), Hypertensive Crisis (ED), Hypertension (ED), Opioid Safety Activity Restrictions/Additional Instructions: Please further follow-up with your doctor for further evaluation management of your blood pressure management needs and medication regimen in which please monitor your blood your blood pressure 2-3 times daily including heart rate and please provide us your primary care doctor or tung nut grower for further investigation and management please return the interim if any of your symptoms persist or worse. Discharge Attestations Time Spent in Discharge Care*: less than 30 min Quality Metrics Clinical Quality Measures [ No reported AMI, CVA or VTE this stay] Coding Level of Care Code Acute Code for Chg Fwd Diagnoses Accelerated hypertension I10 Elevated troponin I measurement R79.89 Hyperlipidemia associated with type 2 diabetes mellitus E11.69; E78.5 Coronary artery disease involving mak[place] coronary artery of [place] heart without angina pectoris I25.10 Coronary Disease-Associated Artery/Lesion type: [place] artery [place] vs. transplanted heart: [place] heart Associated angina: without angina Chronic diastolic congestive heart failure, NYHA class 3 I50.32 Congestive heart failure type: diastolic Congestive heart failure chronicity: chronic Psoriatic arthritis L40.50 Rheumatoid arthritis M06.9 Rheumatoid arthritis location: unspecified site Mixed hyperlipidemia E78.2 Hyperlipidemia type: mixed hyperlipidemia Essential hypertension I10 Hypertension type: essential hypertension Time Spent (min) 15
[2024-08-14 12:55] VITALS: BP 118/81; PULSE 65; RESP 18; O2SAT 96
== END 2024-08-14 12:57 | disposition home or self-care (01) ==
LOC: ER 15:49 → CSU 18:14
PROVIDERS: Admitting Provider Internal Medicine; Emergency Provider Emergency Medicine; PCP Nurse Practitioner Family; Visit Provider Internal Medicine
DX: I11.0 Hypertensive heart disease with heart failure (principal); I50.32 Chronic diastolic (congestive) heart failure; R79.89 Other specified abnormal findings of blood chemistry; E11.69 Type 2 diabetes mellitus with other specified complication; I25.10 Atherosclerotic heart disease of native coronary artery without angina pectoris; L40.50 Arthropathic psoriasis, unspecified; M06.9 Rheumatoid arthritis, unspecified; E78.2 Mixed hyperlipidemia; Z79.82 Long term (current) use of aspirin; K21.9 Gastro-esophageal reflux disease without esophagitis; Z87.891 Personal history of nicotine dependence; Z95.5 Presence of coronary angioplasty implant and graft
CPT/HCPCS: 36415; 71045; 80053; 81001; 83880; 84484; 85025; 93005; 94664; 96372; 96374; 99285; A9270; G0378; J0360; J1650; J7512; J9999

== ENCOUNTER → 2024-08-15 08:13 | Outpatient (BNVA) | payer OTHER, SELFPAY | PROVIDERS: PCP Nurse Practitioner Family; Visit Provider Nurse Practitioner Family | DX: M54.50 Low back pain, unspecified (principal); G89.29 Other chronic pain; Z87.891 Personal history of nicotine dependence | CPT/HCPCS: 99214 ==

== ENCOUNTER → 2024-08-24 13:57 | Outpatient (BNVA) | payer OTHER, SELFPAY | PROVIDERS: PCP Nurse Practitioner Family; Visit Provider Nurse Practitioner Family | DX: I11.0 Hypertensive heart disease with heart failure (principal); I50.30 Unspecified diastolic (congestive) heart failure; M06.9 Rheumatoid arthritis, unspecified; L40.50 Arthropathic psoriasis, unspecified; M79.89 Other specified soft tissue disorders; Z79.82 Long term (current) use of aspirin; Z87.891 Personal history of nicotine dependence | CPT/HCPCS: 99214 ==

== ENCOUNTER → 2024-08-26 08:52 | Outpatient (BNVA) | payer OTHER, SELFPAY | PROVIDERS: PCP Nurse Practitioner Family; Visit Provider Nurse Practitioner Family | DX: M79.18 Myalgia, other site (principal); M54.50 Low back pain, unspecified; G89.29 Other chronic pain | CPT/HCPCS: 20553; 99214; J1010; J3490 ==

== ENCOUNTER 2024-09-06 08:21 | Outpatient (RCR) | payer OTHER, SELFPAY | END 2024-09-24 23:59 | disposition home or self-care (01) | LOC: SPT 08:21 | PROVIDERS: PCP Nurse Practitioner Family; Visit Provider Nurse Practitioner Family | DX: M54.50 Low back pain, unspecified (principal); G89.29 Other chronic pain | CPT/HCPCS: 97110; 97161 ==

== ENCOUNTER → 2024-09-12 13:49 | Outpatient (BNVA) | payer OTHER, SELFPAY | PROVIDERS: PCP Nurse Practitioner Family; Visit Provider Nurse Practitioner Family | DX: M54.50 Low back pain, unspecified (principal); G89.29 Other chronic pain | CPT/HCPCS: 99214 ==

== ENCOUNTER → 2024-09-20 13:35 | Outpatient (BNVA) | payer SELFPAY | PROVIDERS: PCP Nurse Practitioner Family; Visit Provider Student in an Organized Health Care Education/Training Program | DX: M19.011 Primary osteoarthritis, right shoulder (principal); M19.012 Primary osteoarthritis, left shoulder; M25.512 Pain in left shoulder; M75.41 Impingement syndrome of right shoulder; M75.42 Impingement syndrome of left shoulder | CPT/HCPCS: 73030 ==

== ENCOUNTER 2024-09-25 05:00 | Outpatient (RCR) | payer OTHER, SELFPAY | END 2024-10-24 23:59 | disposition home or self-care (01) | LOC: SPT 05:00 | PROVIDERS: PCP Nurse Practitioner Family; Visit Provider Nurse Practitioner Family | DX: M54.50 Low back pain, unspecified (principal); G89.29 Other chronic pain | CPT/HCPCS: 97110; 97530 ==

== ENCOUNTER 2024-10-07 07:28 | Oncology outpatient (recurring) (ONCR) | payer OTHER, SELFPAY ==
--- NOTE | 2024-10-07 07:45 | USCV_ITS ---
Alejandro Avilez Age: 69 Gender: M : 1955 Exam Date: 10/07/2024 07:35 Ordering Phys: Татьяна Valadez Technologist: HENRIETTA Exam Location: [facility] – [place] Indication: SoB, CP, Angina BP: 137 / 86 HR: 92 Rhythm: Sinus Technical Quality: Adequate MEASUREMENTS (Male / Female) Normal Values 2D ECHO LV Diastolic Diameter PLAX 4.7 cm 4.2 - 5.9 / 3.9 - 5.3 cm IVS Diastolic Thickness 0.8 cm 0.6 - 1.0 / 0.6 - 0.9 cm IVS Systolic Thickness 1.7 cm LVPW Diastolic Thickness 1.4 cm 0.6 - 1.0 / 0.6 - 0.9 cm LVPW Systolic Thickness 1.9 cm LVOT Diameter 2.0 cm LV Ejection Fraction 2D Teich 58.7 % LV Ejection Fraction MOD 4C 61.0 % LV Ejection Fraction MOD 2C 59.0 % LV Ejection Fraction 2C AL 59.9 % LA Diameter 3.5 cm RA Systolic Volume 4C AL 28.3 ml RA Systolic Volume 4C MOD 27.4 ml LA Sys Volume AL 33.9 cm cubed LA Sys Volume Index AL 14.0 cm cubed/m squared Aorta at Sinotubular Diameter 3.0 cm IVC Diameter 2.1 cm M-MODE LA Ao Ratio MM 1.5 AV Cusp Separation MM 1.5 cm DOPPLER AV Peak Velocity 185.0 cm/s LVOT Peak Velocity 93.0 cm/s AV Area Cont Eq vti 1.7 cm squared AV Area Cont Eq pk 1.6 cm squared MV Peak Velocity 115.0 cm/s MV Area PHT 6.7 cm squared Mitral E to A Ratio 0.4 TR Peak Velocity 133.0 cm/s TR Peak Gradient 7.1 mmHg TV Peak E Velocity 82.0 cm/s PV Peak Velocity 101.0 cm/s FINDINGS Left Ventricle Normal left ventricular size and systolic function, EF 60%. Moderate concentric left ventricular hypertrophy.no regional wall motion abnormalities. Grade I/IV diastolic dysfunction (abnormal relaxation filling pattern), normal to mildly elevated filling pressures. Right Ventricle The right ventricle is normal in size and function. Right Atrium The right atrium is normal in size. Left Atrium The left atrium is normal in size. Mitral Valve no gross abnormalities noted Aortic Valve Thickened aortic valve. Tricuspid Valve No gross abnormalities noted Pulmonic Valve Pulmonic valve not well visualized. Pericardium Normal pericardium without effusion. Aorta Normal ascending aorta dimension. IVC Normal IVC dimension with >50% respiratory change of the inferior vena cava. CONCLUSIONS Normal left ventricular size and systolic function, EF 60%. Moderate concentric left ventricular hypertrophy.no regional wall motion abnormalities. Grade I/IV diastolic dysfunction (abnormal relaxation filling pattern), normal to mildly elevated filling pressures. Thickened aortic valve. There is no pericardial effusion. There are no intracardiac masses. Compared to the previous study from 02/05/2024, there may not be a significant change Dr Ricardo Crabtree MD [facility] (Electronically Signed) Final Date: 07 October 2024 20:48 S
== END 2024-10-24 23:59 | disposition home or self-care (01) ==
LOC: ONCMED 07:28 → RAD 07:30 → ONCMED 08:04
PROVIDERS: PCP Nurse Practitioner Family; Visit Provider Internal Medicine Cardiovascular Disease
DX: I25.119 Atherosclerotic heart disease of native coronary artery with unspecified angina pectoris (principal); R06.02 Shortness of breath; R53.83 Other fatigue; R07.9 Chest pain, unspecified; R93.1 Abnormal findings on diagnostic imaging of heart and coronary circulation; I35.8 Other nonrheumatic aortic valve disorders
CPT/HCPCS: 93306

== ENCOUNTER 2024-10-11 07:47 | Outpatient (CLI) | payer OTHER, SELFPAY ==
--- NOTE | 2024-10-11 | ECG_ITS ---
[facility] Pat Name: Alejandro Stahl Department: Room: Gender: Male Stabber: : 1955 Requested By: Татьяна Valadez Order Number: [id number] Bernard MD: Ricardo Crabtree M.D. Interpretive Statements Lung unchanged pre/post procedure; Intraprocedure shortess of breath; Symptoms resoled by discharge PROCEDURE: At the baseline, the EKG revealed normal sinus rhythm with a poor R wave progression.. The baseline heart was 70 bpm with a blood pressue of 153/90 mm of Hg Lexiscan was infused over a period of 20 seconds. A total of 0.4 milligrams of Lexiscan was infused. The stress phase was continued for a total of 5 minutes. Heart rate at the end of the stress phase was 90 bpm with a blood pressure 165/91 mm of Hg. The EKG at the peak infusion revealed no significant changes. Sestamibi was injected 20 seconds after the Lexiscan infusion. Heart rate at the end of the recovery phase was 90 bpm with a blood pressure of 167/87 mm of Hg. CONCLUSION: 1. No significant EKG changes with the LexiScan infusion 2. No LexiScan induced chest pain or cardiac arrhythmia 3. Normal blood pressure and heart rate response 4. Sestamibi/sestamibi perfusion scan pending; see separate report. Electronically Signed On 10-16-2024 22:26:03 CDT by Ricardo Crabtree M.D. [email or web address]
[2024-10-11 08:11] VITALS: BMI 33.2
--- NOTE | 2024-10-11 08:13 | NMCV_ITS ---
NM [place] perf SPECT r/s* [id number] Alejandro Stahl Age: 69 Gender: M : 1955 Exam Date: 10/11/2024 09:00 Ordering Phys: Татьяна Valadez Technologist: ENNA Moulton Exam Location: [facility] Indications: CP STRESS TEST Please see separate stress test report in [facility] for full findings IMAGE PROTOCOL Rest/Stress 1 Day Radiopharmaceutical Dose (mCi) Administration Site Administered by Rest: Tc-99m 10.5 IV Delma Moncada, [employer] SCI[employer]ES PROGRAM COORDINATOR Sestamibi Stress:Tc-99m 33 IV Delma Straussgle, HE[employer] SCIENCES PROGRAM COORDINATOR Sestamibi Rest: 11-Oct-2024 60 Discovery 630 Stress: 11-Oct-2024 30 Discovery 630 0.4mg Lexiscan. Supine position only as patient was unable to lay prone. Patient attempted to get into the prone position but could not maintain for imaging. Patient stated he had a bad back and his muscles were cramping up. SPECT RESULTS Technical Quality: Good Raw Data Analysis: Normal Image Corrections: No attenuation or motion correction applied Summed Stress Score: 0 Summed Rest Score: 1 Summed Difference Score: 0 PERFUSION FINDINGS Fairly uniform myocardial tracer uptake with no significant Perfusion abnormalities FUNCTIONAL RESULTS (calculated via Gated SPECT) Stress Image LV EF (%): 73 Stress EDV (mL):101 TID: 1.02 Stress ESV (mL):27 FUNCTIONAL FINDINGS: Segmental wall motion analysis revealing no gross wall motion abnormalities IMPRESSIONS 1. Myocardial perfusion imaging revealing uniform myocardial tracer uptake with no significant perfusion abnormalities 2. Normal LV ejection fraction of 73%. 3. LV wall motion analysis revealing no gross wall motion abnormalities. 4. Normal LV volume. Low probability for coronary ischemia, based on the above findings Dr Ricardo Crabtree MD [facility] (Electronically Signed) Final Date: 11 October 2024 12:59 S
[2024-10-11] MEDS: regadenoson 0.4 Mg/5 ml Syringe IVP (09:59)
[2024-10-11 10:10] VITALS: BP 167/87; PULSE 86
== END 2024-10-11 07:48 | disposition home or self-care (01) ==
PROVIDERS: PCP Family Medicine Geriatric Medicine; Visit Provider Nurse Practitioner Family
DX: I25.119 Atherosclerotic heart disease of native coronary artery with unspecified angina pectoris (principal)
CPT/HCPCS: 36415; 78452; 93017; 96374; A9500; J2785

== ENCOUNTER 2024-10-24 07:22 | Outpatient (CLI) | payer OTHER, SELFPAY ==
[2024-10-24] VITALS (13 sets, daily range): BP systolic 103–172; BP diastolic 58–98; PULSE 86–106; RESP 15–22; TEMP 36.9; O2SAT 94–97; BMI 33.5
--- NOTE | 2024-10-24 07:30 | XACV_ITS ---
Exam Room: 2 Ht: 183 cm Wt: 112 kg BSA: 2.42 m2 Gender: Male : 1955 Any Known Allergies: Other Exam Priority: Routine Procedure(s): Procedure Description: Diagnostic procedure Procedure Description: Coronary Angiography Procedure Description: Pressure Wire Diagnostic Cath Status: Elective Diagnostic Findings * Left Main has no significant disease. * Left Anterior Descending has no significant disease. * Circumflex has patent prior stent. * Mid Right Coronary Artery: moderate 50% stenosis, ANURADHA: 3 flow. * Coronary angiography shows right dominance. Interventional Findings * Procedure detail: We decided to perform IFR of RCA. JR4 guide catheter was used to engage the RCA. After normalization IFR wire was advanced into the distal vessel. iFR value of 0.93 was obtained that was nonischemic. Medical therapy was decided. Patient left the Package Lift Operator in a stable condition. Conclusions 1. Moderate RCA stenosis status post IFR that is nonischemic. Medical therapy.. Recommendations * Aggressive medical therapy for coronary artery disease. * Outpatient cardiology follow up in 2 weeks. Interventional RX Recommendation: medical therapy and/or counseling Anticoagulation: Heparin Pressures Phase:Rest AO : 149 / 114 ( 131 ) @ 10:10:00 AM 162 / 98 ( 127 ) @ 10:13:00 AM Clinical Evaluation EBL: 5mL-10mL Procedural Details Procedure Consent Obtained. Admit Source: Out Patient. Pre-Procedure Time Out. Identified patient by full name and date of as verbalized by the patient/guarantor. Does the consent match the physician's order: Yes. Accurate & Complete Informed Consent: Yes. Inpatient/Outpatient History & Physical on Chart: Yes. If H&P is completed, is and addenduem needed: No; If yes, is the addendum complete: N/A. Visualize and Verify Site with Patient/Guarantor: N/A. Relevant Radiology Images available: Yes. The risks, benefits, and alternatives of sedation and/or procedure were discussed by physician. The patient agrees to continue. [facility] Clinical Fraility Score: 3: Managing Well. Package Lift Operator Indications: Worsening Angina. Chest Pain Symptom Assessment: Typical Angina Symptoms. Correct patient, site and procedure confirmed by cath team. Current diagnosis: Chest Pain. PERRLA. Strong, equal hand neonatal nurse bilaterally. Lungs clear x 5 lobes. IV Site on Arrival: 20 gauge in the left anticubital. IV Fluids: 0.9% NaCl at 75ml/hr. 0 mL infused prior to veterinarian laboratory animal care. Procedure started. Pre Procedural Pulses: bilateral radial was 2+. Pre Procedural Pulses: bilateral posterior tibial was 2+. Pre Procedural Pulses: bilateral dorsalis pedis was 2+. Oxygen started at 2liters/min via nasal canula. right radial was prepped with chloroprep then draped in the usual sterile fashion. right groin was prepped with chloroprep then draped in the usual sterile fashion. Physician notified. Baseline sample Acquired. HR: 100 BPM. Physician arrived. Physician scrubbed in. Immediate Pre-Procedure Time Out. Correct Patient: Yes; Correct Procedure: Yes; Correct Site: Yes; Correct Patient Position: Yes; Correct Supplies: Yes; Dried Flammable Prep: Yes; Blood Products Available: No;. Lidocaine 1% infiltrated to the right radial. Arterial access obtained. A 5 nigerian TIG catheter in over wire. Multiple views taken of left coronary artery. Catheter redirected to the RCA. Multiple views taken of right coronary artery. Catheter removed over the exchange wire. Add inventory: Co-fuel pilot engineer, endoflator. 6 nigerian JR 4 guide catheter was inserted over the wire. Wire out. iFR pressure guidewire advanced through guide catheter to lesion in mid RCA. Wire advanced acrossed lesion. iFR mid RCA 0.93mmHg. Angiography performed. iFR wire out. Guide catheter out over exchange wire. A TR Band was successful obtaining hemostatsis at the Right Radial artery insertion site. Physician scrubbed out. Post Procedure: Pulses reassessed and unchanged. PERRLA. Strong, equal hand neonatal nurse bilaterally. No VTE prophylaxis required. Medication's Wasted: Lidocaine 1% = 18 mL. Medication's Wasted: Nitro = 49.6 mg. Medication's Wasted: Heparin = 2000 units. Medication's Wasted: Other = Fentanyl 100mcg. Total IV fluids: 25 mL. Post-op diagnosis: Non-obstructive CAD, Moderate RCA stenosis post IFR, Patent prior stent. Complications: None. Estimated blood loss: 5mL-10mL. Responsiveness - Normal response to verbal stimuli; alert and oriented, PERRLA. Airway - Unaffected, no intervention required; spontaneous ventilation. Circulation: W/N/L, pulses unchanged. Nausea/Vomiting: No. Procedure completed. Patient transferred by wheelchair to CPRU. Access Site Site: Right Radial artery Sheath Size: 6 Fr Hemostasis Method: TR Band Hemostasis Success: Successful Procedure Medications Start: 8:50 AM Stop: 8:50 AM Medication: Versed Amount: 1 mg Route: I.V. Start: 8:50 AM Stop: 8:50 AM Medication: Fentanyl Amount: 50 mcg Route: I.V. Start: 8:58 AM Stop: 8:58 AM Medication: Versed Amount: 1 mg Route: I.V. Start: 8:58 AM Stop: 8:58 AM Medication: Fentanyl Amount: 25 mcg Route: I.V. Start: 9:01 AM Stop: 9:01 AM Medication: Nitrogylcerin Amount: 200 mcg Route: I.A. Start: 9:03 AM Stop: 9:03 AM Medication: Heparin Amount: 5000 units Route: I.V. Start: 9:09 AM Stop: 9:09 AM Medication: Heparin Amount: 4000 units Route: I.V. Start: 9:08 AM Stop: 9:08 AM Medication: Fentanyl Amount: 25 mcg Route: I.V. Start: 9:08 AM Stop: 9:08 AM Medication: Nitrogylcerin Amount: 200 mcg Route: I.A. Start: 9:20 AM Stop: 9:20 AM Medication: Hydralazine Amount: 10 mg Route: I.V. I, the attending physician, have reviewed and verified all procedure medications. Yes, all medications given per verbal order History/Risk Factors Hypertension: Yes Dyslipidemia: No Peripheral Arterial Disease (PAD): No Myocardial Infarction ([place]): No Obesity: Yes Renal Disease: No Tobacco Use: Former Prior Interventions PCI: Yes CABG: No Valve Surgery: No Date of PCI: 08/09/2020 Report Signatures Finalized by Everette Nguyen MD on 11/06/2024 03:54 PM
[2024-10-24] MEDS: diphenhydrAMINE 50 mg Capsule PO (07:54)
[2024-10-24] MEDS: aspirin 81 mg EC Tablet PO (08:06)
--- NOTE | 2024-10-24 08:40 | P.HPUD_ITS ---
Surgery/Procedure H&P Update DATE OF PROCEDURE: October 24, 2024 DATE H&P PERFORMED: 10/19/24 H&P UPDATE INFORMATION: I have reviewed H&P completed within last 30 days, I have examined patient prior to procedure and No changes to prior documentation PREOP DIAGNOSIS: Worsening angina PRIMARY INDICATION FOR PROCEDURE: Worsening angina PLANNED PROCEDURE: Operation Date: 10/24/24 08:30 Proposed Procedures p Cardiac Catheterization - [facility] w/wo LV Coros(Left) - Everette Nguyen M.D Possible percutaneous coronary intervention PATIENT REASSESSED PRIOR TO SEDATION, WITH NO CHANGE NOTED: Yes PHYSICAL EXAM: alert, oriented x 3, clear to auscultation bilaterally and regula r rate & rhythm AIRWAY EVAL/ANESTHESIA PLAN: normal airway, ASA III, Local Anesthesia, Risks, benefits & alternatives of sedation and/or procedure discussed and Patient agrees to continue as planned ADDITIONAL INFORMATION: Moderate sedation
--- NOTE | 2024-10-24 09:30 | PC.NURSE ---
Received the patient back from the engineering laboratory technician via wheelchair s/p [facility]. Patient ambulated to the cot without difficulty. A & 0 x 3. skilled nursing professional placed and vital signs obtained. TR band intact to the right wrist. No bleeding or hematoma noted. Palpable radial pulse. No other assessment changes noted from pre cath assessment. Family at bedside. No concerns voiced at this time.
--- NOTE | 2024-10-24 09:33 | PM.PROC ---
Procedure Note: Date of procedure: 10/24/24 Pre-procedure diagnosis: Worsening angina Post-procedure diagnosis: other (Moderate RCA stenosis s/p iFR that is negative for ischemia) Procedure: Moderate mid RCA stenosis s/p iFR that is negative for ischemia. Patent prior left circumflex artery stents. Aggressive medical therapy Performing Provider: Everette Nguyen Complications: None Condition: stable Disposition: same day Coding Level of Care Code Acute Code for Zoila Wagoner
--- NOTE | 2024-10-24 10:30 | PC.NURSE ---
Patient up in the recliner. Letting the air out of the TR band per protocol. No other assessment changes noted at this time.
--- NOTE | 2024-10-24 11:30 | PC.NURSE ---
TR band off per protocol. Site cleansed with warm water and patted dry. A large band aid was applied and loosely secured with coban. No bleeding or hematoma noted. site soft with palpable radial pulse. patient tolerated well.
--- NOTE | 2024-10-24 11:34 | P.SS_ITS ---
<Statement entered by Everette Nguyen M.D - 11/06/24 12:50> Patient was cared for in conjunction with an advanced practice practitioner.? I reviewed the chart and all pertinent data including imaging, telemetry, and laboratory results.? I discussed the patient in detail with the advanced practice practitioner.? Please see their note for details, testing results and agreed upon plan of care for the patient. Short Stay Summary Providers Date of Admit/Discharge: 10/24/24 Attending Provider: Everette Nguyen M.D Primary Care Provider: Shaka Whelan MD Chief Complaint: I25.119 HPI History of Present Illness Alejandro Avilez is a 69 year old male with past medical history of uncontrolled hypertension, venous insufficiency, coronary artery disease. He had been having progressive episodes of chest pain requiring nitroglycerin use, especially during exertion and ADLs. Review of Systems Const: Denies: fever(s), chills, change in weight, fatigue or diaphoresis Eyes: Denies: change in vision ENMT: Denies: epistaxis Card: Denies: palpitations, irregular heart rhythm, syncope, pre-syncope, dyspnea on exertion, orthopnea or leg pain with exertion Resp: Denies: dyspnea, productive cough or wheezing GI: Denies: nausea, vomiting, hematemesis, hematochezia or melena : Denies: hematuria Cristi/Lymph: Denies: easy bruising or easy bleeding Home Meds/Allergies Home Medications and Allergies Home Medications ?Medication ?Instructions ?Recorded ?Confirmed ?Type propranolol 80 mg tablet 80 mg PO QAM 05/29/20 History omega-3 fatty acids 1,000 mg 2,000 mg PO BID 08/14/21 10/21/24 History capsule coenzyme Q10 100 mg capsule (Co 100 mg PO QPM 05/20/22 10/21/24 History Q-10) pantoprazole 40 mg tablet,delayed 40 mg PO QAM 3 10/21/24 History release multivitamin 1 tab PO QPM 11/18/22 History lutein 20 mg capsule 20 mg PO QPM 01/22/24 History turmeric 400 mg capsule 750 mg PO BID 01/22/2410/21 History albuterol sulfate 90 mcg/actuation 1 puff inhalation . Q4-6H PRN cough 08/13/24 10/21/24 History aerosol inhaler and wheezing alirocumab 150 mg/mL subcutaneous 150 mg SUBCUT .Q30D 08/13/24 10/21/24 History pen injector (Praluent Pen) aspirin 81 mg tablet,delayed 81 mg PO QAM 08/13/24 History release ezetimibe 10 mg tablet (Zetia) 10 mg PO QPM 08/13/24 0 10/21/24 History fluticasone propionate 50 See Rx Instructions .Route . COMPLEX 08/13/24 10/21/24 History mcg/actuation nasal spray,suspension furosemide 20 mg tablet (Lasix) 20 mg PO QAM 08/13/24 10/21/24 History potassium chloride 10 mEq 10 meq PO QAM 08/13/2410/21 History capsule,extended release prednisone 10 mg tablet 10 mg PO QAM 08/13/24 History amlodipine 2.5 mg tablet (Norvasc) 2.5 mg PO BID 10/1910/21/24 History leflunomide 10 mg tablet 10 mg PO DAILY 10/19/2409/26 History Allergies Allergy/AdvReac Type Severity Reaction Status Date / Time abatacept (From Orencia) Allergy Severe ALGY-Rash Verified 10/24/24 07:56 upadacitinib (From Rinvoq) Allergy Intermediate Flu like Verified 10/24/24 07:56 symptoms certolizumab pegol (From Allergy Unknown Unknown Verified 10/24/24 07:56 Cimzia) adalimumab (From Humira) Allergy ADR-Swelling Verified 10/24/24 07:56 of the Eye aspirin Allergy Unknown Verified 10/24/24 07:56 atorvastatin (From Lipitor) Allergy Unknown Verified 10/24/24 07:56 azithromycin Allergy Unknown Verified 10/24/24 07:56 codeine Allergy Unknown Verified 10/24/24 07:56 infliximab Allergy ALGY-Swell Verified 10/24/24 07:56 Lip/Tongue/Throat lovastatin Allergy Unknown Verified 10/24/24 07:56 methotrexate Allergy ALGY-Anaphy Verified 10/24/24 07:56 laxis Penicillins Allergy ADR-Diarrhe Verified 10/24/24 07:56 a rosuvastatin Allergy ADR-Muscle Verified 10/24/24 07:56 Pain secukinumab (From Cosentyx) Allergy Unknown Verified 10/24/24 07:56 simvastatin Allergy ADR-Muscle Verified 10/24/24 07:56 Pain Thiazides Allergy Unknown Verified 10/24/24 07:56 PFSH Acute PFSH: Medical History Hyperlipidemia associated with type 2 diabetes mellitus CHF (congestive heart failure), NYHA class III CAD (coronary artery disease) Immunization counseling High risk medication use Plaque psoriasis Psoriatic arthritis Statin intolerance Atherosclerotic heart disease [place] coronary artery w/angina pectoris Rheumatoid arthritis Hyperlipidemia HTN (hypertension) Surgical History H/O shoulder surgery History of colonoscopy 05/23/2019: Normal, repeat in 10 years Social History Smoking and tobacco/nicotine status: former use of tobacco/nicotine Quit status (tobacco/nicotine): has quit using Alcohol intake: current Alcohol intake frequency: few times a month Substance/Drug Use: never Vitals/I&O/Wt Last Vital Signs Temp 98.5 F 10/24/24 07:58 Pulse 92 10/24/24 11:15 Resp 15 10/24/24 11:15 BP 122/74 10/24/24 11:15 Pulse Ox 95 10/24/24 11:15 O2 Del Method Room Air 10/24/24 11:15 10/23/24 10/24/24 10/24/24 22:59 06:59 14:59 Intake Total 240 / 240 Balance 240 / 240 Weight last 48 hrs Weight 247 lb Physical Exam Const: COMMON NORMALS: no acute distress and patient oriented x3 GENERAL APPEARANCE: cooperative ORIENTATION/CONSCIOUSNESS: Yes awake, Yes oriented to person, Yes oriented to place and Yes oriented to time Chest: COMMONS NORMALS: normal inspection of the chest and normal palpation of entire chest wall CHEST: Yes Symmetrical chest wall rise Resp: COMMON NORMALS: normal respiratory effort, No retractions, No use of accessory muscles and clear to auscultation bilaterally AUSCULTATION: clear to auscultation bilaterally Cardio: COMMON NORMALS: regular rate, regular rhythm, S1 normal heart sound present, S2 normal heart sound present, No gallops present (Cardio), No clicks present (Cardio), No murmurs present (Cardio) and No rub (Cardio) RATE: regular rate RHYTHM: regular rhythm HEART SOUNDS: S1 normal heart sound present and S2 normal heart sound present PERIPHERAL PULSES: radial pulses present positive right 2+ and femoral pulses present positive right 2+ Neuro: COMMON NORMALS: patient oriented x3 and moves all extremities SENSORIUM/ORIENTATION: Yes oriented to person, Yes oriented to place and Yes oriented to time Skin: WOUNDS: Yes surgical site (no hematoma palpable) Details: no odor Hospital Course Hospital Course He was brought in today for coronary angiogram, revealing moderate stenosis of the mid RCA found to be nonischemic by iFR. Patent previously placed left circumflex coronary artery stents. Aggressive medical management recommended. No complications with right radial cath site. He will be able to discharge home later today when TR band is removed, hemostasis verified and blood pressure is well-controlled. Will plan to uptitrate isosorbide mononitrate, to 30mg twice a day. Follow-up with cardiology clinic in 7 to 10 days. 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 See Rx Instructions .Route .MEDSUPPLY Qty: 1 0RF Rx Instructions: As directed (DME) left economy hinged knee brace See Rx Instructions .Route .MEDSUPPLY Qty: 1 0RF Rx Instructions: As directed (DME) Right Hinged Knee Brace See Rx Instructions .Route .MEDSUPPLY Qty: 1 0RF Rx Instructions: As directed amlodipine [Norvasc] 2.5 mg tablet 2.5 mg PO BID pantoprazole 40 mg tablet,delayed release (DR/EC) 40 mg PO QAM coenzyme Q10 [Co Q-10] 100 mg capsule 100 mg PO QPM (DME) Left Knee 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 See Rx Instructions .Route .MEDSUPPLY Qty: 1 0RF Rx Instructions: As directed losartan 50 mg tablet 50 mg PO BID Qty: 180 3RF nitroglycerin 0.4 mg tablet, sublingual 0.4 mg sublingual Q5M PRN (Reason: chest pain) Qty: 25 2RF Rx Instructions: do not exceed 3 doses per episode leflunomide 10 mg tablet 10 mg PO DAILY epinephrine 0.3 mg/0.3 mL auto-injector 0.3 mg IM Q10M PRN (Reason: anaphylaxis) Qty: 2 2RF Enbrel 50 mg/mL (1 mL) syringe 50 mg SUBCUT Q7D Qty: 4 5RF tramadol 50 mg tablet 50 mg PO TID PRN (Reason: pain) Qty: 90 1RF aspirin 81 mg Tablet,Delayed Release (Dr/Ec) 81 mg PO QAM albuterol sulfate 90 mcg/actuation HFA aerosol inhaler 1 puff INHALATION .Q4-6H PRN (Reason: cough and wheezing) fluticasone propionate 50 mcg/actuation spray,suspension See Rx Instructions .ROUTE .COMPLEX Rx Instructions: USE 1 SPRAY IN EACH NOSTRIL TWICE DAILY for 7 days THEN EVERY DAY thereafter. Praluent Pen 150 mg/mL Pen Injector 150 mg SUBCUT .Q30D potassium chloride 10 mEq capsule, extended release 10 meq PO QAM prednisone 10 mg tablet 10 mg PO QAM furosemide [Lasix] 20 mg tablet 20 mg PO QAM ezetimibe [Zetia] 10 mg tablet 10 mg PO QPM Changed isosorbide mononitrate 30 mg tablet extended release 24 hr 30 mg PO BID Qty: 30 0RF Discharge Orders: Discharge Order (Routine); Ordered 10/24/24 Ordered By: Татьяна Valadez Referrals: Stacey May NP [Nurse Practitioner, Cardiology] - 11/02/24 2:30 pm Diet: Cardiac Activity: Resume usual activity Patient Instructions: Midazolam (By injection), Fentanyl (By injection), Moderate Sedation (DC), After Radial Heart Catheterization (GEN) Activity Restrictions/Additional Instructions: No driving for 24 hours. No lifting over 5 pounds for 5 days. Print Language: Sami Attestations Medical Necessity Statement*: plan to discharge home Time Spent in Patient Care*: less than 30 min Quality Metrics Clinical Quality Measures: [ No reported AMI, CVA or VTE this stay ] Coding Level of Care Code Acute Code for Chg Fwd
== END 2024-10-24 07:23 | disposition home or self-care (01) ==
PROVIDERS: PCP Family Medicine Geriatric Medicine; Visit Provider Internal Medicine
DX: I25.119 Atherosclerotic heart disease of native coronary artery with unspecified angina pectoris (principal); Z95.5 Presence of coronary angioplasty implant and graft; E66.9 Obesity, unspecified; Z68.33 Body mass index [BMI] 33.0-33.9, adult; Z87.891 Personal history of nicotine dependence; K21.9 Gastro-esophageal reflux disease without esophagitis; Z79.82 Long term (current) use of aspirin; M06.9 Rheumatoid arthritis, unspecified; E78.5 Hyperlipidemia, unspecified; E11.9 Type 2 diabetes mellitus without complications; I87.2 Venous insufficiency (chronic) (peripheral); I11.0 Hypertensive heart disease with heart failure; I50.9 Heart failure, unspecified
CPT/HCPCS: 36415; 93454; 93571; 96365; 99152; C1769; C1887; C1894; J0360; J1644; J2250; J3010; J3490; J7030; J9999; Q0163; Q9967

== ENCOUNTER 2024-10-25 01:55 | Emergency (ER) | payer OTHER, MEDICARE, SELFPAY ==
[2024-10-25] VITALS (17 sets, daily range): BP systolic 98–211; BP diastolic 57–119; PULSE 84–127; RESP 14–22; TEMP 36.7–38.1; O2SAT 93–99; BMI 33.2
--- NOTE | 2024-10-25 02:08 | PC.NURSE ---
pt also c/o hematuria x2 hrs.
[2024-10-25 02:22] LABS: Hematocrit 38.3 % (37-53); Hemoglobin 12.50 g/dL (11.27-16.99); Mean Corpuscular HGB Conc 32.6 g/dL (30-55); Mean Corpuscular Hemoglobin 31.1 pg (27-33); Mean Corpuscular Volume 95.3 fl (82-101); Nucleated Red Blood Cells % 0 %; Platelet Count 267 10^3/cmm (157-399); Red Blood Count 4.02 10^6/uL (3.85-5.65); White Blood Count 10.74 10^3/uL (3.29-11.43)
--- NOTE | 2024-10-25 02:22 | XRR_ITS ---
PROCEDURE INFORMATION: Exam: XR Abdomen Exam date and time: 10/25/2024 2:24 AM Age: 69 years old Clinical indication: Abdominal pain; Periumbilical; Additional info: Abd pain TECHNIQUE: Imaging protocol: Radiologic exam of the abdomen. Views: Frontal supine view of the abdomen. 1 View. COMPARISON: CR XR chest 1V portable [id number] 08/13/2024 10:45 AM FINDINGS: Gastrointestinal tract: No dilated bowel to suggest obstruction. Bones/joints: Moderate degenerative disc changes throughout the lumbar spine. XR/XR abdomen 1V* [id number] IMPRESSION: 1. Nonspecific abdomen, no evidence of obstruction. 2. Other details discussed above.
[2024-10-25 02:38] LABS: Alanine Aminotransferase 143 U/L (0-41); Albumin Level 4.0 g/dL (3.5-5.2); Alkaline Phosphatase 97 U/L (40-130); Anion Gap 19.3 (5-19); Aspartate Amino Transferase 59 U/L (0-40); Blood Urea Nitrogen 12 mg/dL (8-23); Calcium 10.3 mg/dL (8.5-10.5); Carbon Dioxide 25 mmol/L (22-29); Chloride 96 mmol/L (98-107); Creatinine Clr Calc Pharmacy 88.4839; Globulin 3.3 g/dL (1.3-4.6); Glucose 107 mg/dL (65-115); Osmolality Calculated 282 mOsm/kg (285-295); Potassium 4.3 mmol/L (3.5-5.1); Sodium 136 mmol/L (136-145); Total Protein 7.3 g/dL (6.6-8.7)
--- NOTE | 2024-10-25 02:41 | W.ED.ALLEREA ---
Documented by User: Asia Low MD 10/25/24 05:07 HPI - Allergic Reaction General: Chief complaint: Allergic Reaction Stated complaint: Possible Allergic Reaction to Meds Time Seen by Provider: 10/25/24 02:16 History of Present Illness: HPI narrative: 69-year-old man with a history of hyperlipidemia, CHF, coronary artery disease, and hypertension who presents the emergency room with hematuria, gas and abdominal bloating. is associating this with fentanyl he received and a cardiac cath that he had done yesterday. He has had nausea but no vomiting. No fever. Related Data Home Medications ?Medication ?Instructions ?Recorded ?Confirmed propranolol 80 mg tablet 80 mg PO QAM 05/29/20 10/25/24 omega-3 fatty acids 1,000 mg 2,000 mg PO BID 08/14/21 10/25/24 capsule pantoprazole 40 mg tablet,delayed 40 mg PO QAM 05/20/22 10/25/24 release multivitamin 1 tab PO QPM 11/18/22 10/25/24 lutein 20 mg capsule 20 mg PO QPM 01/22/24 10/25/24 turmeric 400 mg capsule 750 mg PO BID 01/22/24 10/25/24 alirocumab 150 mg/mL subcutaneous 150 mg SUBCUT .Q30D 08/13/24 10/25/24 pen injector (Praluent Pen) aspirin 81 mg tablet,delayed 81 mg PO QAM 08/13/24 10/25/24 release ezetimibe 10 mg tablet (Zetia) 10 mg PO QPM 08/13/24 10/25/24 fluticasone propionate 50 See Rx Instructions .Route .COMPLEX 08/13/24 10/25/24 mcg/actuation nasal spray,suspension furosemide 20 mg tablet (Lasix) 20 mg PO QAM 08/13/24 10/25/24 potassium chloride 10 mEq 10 meq PO QAM 08/13/24 10/25/24 capsule,extended release prednisone 10 mg tablet 10 mg PO QAM 08/13/24 10/25/24 leflunomide 10 mg tablet 10 mg PO DAILY 10/19/24 10/25/24 amlodipine 5 mg tablet 5 mg PO QAM 10/25/24 10/25/24 fluconazole 150 mg tablet 150 mg PO .QID fungal infection 10/25/24 10/25/24 nystatin 100,000 unit/mL oral See Rx Instructions .Route .COMPLEX 10/25/24 10/25/24 suspension potassium chloride 10 mEq 10 meq PO DAILY 10/25/24 10/25/24 tablet,extended release Previous Rx's ?Medication ?Instructions ?Recorded left economy hinged knee brace #1 ea 01/22/24 right medial director of student aid brace #1 ea 01/22/24 Left Knee Lateral Talent Partner Brace #1 ea 02/11/24 epinephrine 0.3 mg/0.3 mL 0.3 mg (0.3 mL) IM Q10M PRN 02/23/24 injection, auto-injector anaphylaxis #2 ea etanercept 50 mg/mL (1 mL) 50 mg SUBCUT Q7D #4 mL 06/07/24 subcutaneous syringe (Enbrel) Right Hinged Knee Brace #1 ea 07/26/24 losartan 50 mg tablet 50 mg PO BID #180 tabs 08/05/24 nitroglycerin 0.4 mg sublingual 0.4 mg sublingual Q5M PRN chest 08/05/24 tablet pain #25 tabs tramadol 50 mg tablet 50 mg PO TID PRN pain #90 tabs 08/09/24 isosorbide mononitrate 30 mg 30 mg PO BID #30 tabs 10/24/24 tablet,extended release 24 hr Allergies Allergy/AdvReac Type Severity Reaction Status Date / Time abatacept (From Orencia) Allergy Severe ALGY-Rash Verified 10/24/24 07:56 upadacitinib (From Rinvoq) Allergy Intermediate Flu like Verified 10/24/24 07:56 symptoms certolizumab pegol (From Allergy Unknown Unknown Verified 10/24/24 07:56 Cimzia) adalimumab (From Humira) Allergy ADR-Swelling Verified 10/24/24 07:56 of the Eye aspirin Allergy Unknown Verified 10/24/24 07:56 atorvastatin (From Lipitor) Allergy Unknown Verified 10/24/24 07:56 azithromycin Allergy Unknown Verified 10/24/24 07:56 codeine Allergy Unknown Verified 10/24/24 07:56 fentanyl Allergy ADR-Gastrointestinal Verified 10/25/24 02:08 Upset infliximab Allergy ALGY-Swell Verified 10/24/24 07:56 Lip/Tongue/Throat lovastatin Allergy Unknown Verified 10/24/24 07:56 methotrexate Allergy ALGY-Anaphy Verified 10/24/24 07:56 laxis Penicillins Allergy ADR-Diarrhe Verified 10/24/24 07:56 a rosuvastatin Allergy ADR-Muscle Verified 10/24/24 07:56 Pain secukinumab (From Cosentyx) Allergy Unknown Verified 10/24/24 07:56 simvastatin Allergy ADR-Muscle Verified 10/24/24 07:56 Pain Thiazides Allergy Unknown Verified 10/24/24 07:56 Review of Systems Narrative: Constitutional symptoms: Negative except as documented in HPI. Skin symptoms: Negative except as documented in HPI. Eye symptoms: Negative except as documented in HPI. ENMT symptoms: Negative except as documented in HPI. Respiratory symptoms: Negative except as documented in HPI. Cardiovascular symptoms: Negative except as documented in HPI. Gastrointestinal symptoms: Negative except as documented in HPI. Genitourinary symptoms: Negative except as documented in HPI. Musculoskeletal symptoms: Negative except as documented in HPI. Neurologic symptoms: Negative except as documented in HPI. Psychiatric symptoms: Negative except as documented in HPI. Endocrine symptoms: Negative except as documented in HPI. PFSH ED PFSH: Medical History Hyperlipidemia associated with type 2 diabetes mellitus CHF (congestive heart failure), NYHA class III CAD (coronary artery disease) Immunization counseling High risk medication use Plaque psoriasis Psoriatic arthritis Statin intolerance Atherosclerotic heart disease [place] coronary artery w/angina pectoris Rheumatoid arthritis Hyperlipidemia HTN (hypertension) Surgical History H/O shoulder surgery History of colonoscopy 05/23/2019: Normal, repeat in 10 years Social History Smoking and tobacco/nicotine status: former use of tobacco/nicotine Quit status (tobacco/nicotine): has quit using Alcohol intake: current Alcohol intake frequency: few times a month Substance/Drug Use: never Physical Exam Narrative: EXAM NARRATIVE: General: Alert, no acute distress. Skin: Warm, dry. Head: Normocephalic, atraumatic. Neck: Supple, trachea midline. Eye: Extraocular movements are intact. Ears, nose, mouth and throat: mucosa moist. Cardiovascular: Regular, Normal peripheral perfusion. Respiratory: Lungs are clear to auscultation, respirations are non-labored, breath sounds are equal, Symmetrical chest wall expansion. Gastrointestinal: Soft, fairly diffuse abdominal pain to palpation but focal pain in the right upper quadrant. , Non distended Musculoskeletal: Normal ROM, no deformity. Neurological: Alert and oriented, No focal neurological deficit observed. Psychiatric: Cooperative, appropriate mood & affect. Course Vital Signs: Vital signs: Vital Signs Temperature 100.5 F H 10/25/24 16:06 Pulse Rate 120 H 10/25/24 16:06 Respiratory Rate 16 10/25/24 07:29 Blood Pressure 141/73 10/25/24 11:25 Pulse Oximetry 99 10/25/24 16:06 Oxygen Delivery Me thod Room Air 10/25/24 07:29 Oxygen Flow Rate 2 10/25/24 04:30 MDM - Allergic Reaction Medical Decision Making Medical decision making: Differential diagnosis for complaint of hematuria including but not limited to and based on the above HPI, review of systems and physical exam: UTI / hemorrhagic cystitis, pyelonephritis, kidney stones, bladder cancer Orders placed to evaluate differential diagnosis based on the above differential, HPI and physical exam Lab Review: Laboratory results were reviewed and interpreted by myself the emergency room physician. No leukocytosis. No anemia. No renal failure. Liver enzymes are mildly elevated. Hematuria with signs of infection as well. I reviewed the patient's medical record. Reexamination: Patient continues to have right upper quadrant pain and be somewhat hypertensive. No altered mental status. No increased work of breathing. CT of the abdomen pelvis: Moderate to severe biliary tree dilatation. Suspicion for lower common bile duct stones. Ultrasound was ordered to further evaluate since patient does have mild elevation his liver enzymes but no elevation in his bilirubin. Clonidine then hydralazine for hypertension. Zofran for nausea. Patient care transitioned to Dr. Jiménez at shift change. Lab Data 10/25/24 02:07 10/25/24 02:07 Radiology Impressions Abdomen X-Ray 10/25/24 02:22 IMPRESSION: 1. Nonspecific abdomen, no evidence of obstruction. 2. Other details discussed above. Abdomen/Pelvis CT 10/25/24 02:49 IMPRESSION: 1. Moderate to severe biliary tree dilation. Suspicion for possible lower common duct stones versus neoplasm. See additional details and discussion above. 2. Suspected cholelithiasis, with findings that could indicate mild/early cholecystitis. See additional discussion above. 3. Normal appendix. 4. Mild perinephric stranding bilaterally, see above discussion. 5. No hydronephrosis of either kidney. No visible ureteral calculus. 6. Possible thickened mucosa/wall in the distal stomach, see above discussion. 7. Prostate enlargement and possible mild urinary bladder wall thickening, see above. 8. 2.7 cm abdominal x-ray aneurysm, see above. 9. Other findings discussed above. Gallbladder Ultrasound 10/25/24 05:04 IMPRESSION: 1. Cholelithiasis, see additional details above. 2. Biliary tree dilation as discussed above, better visualized/evaluated on the earlier CT scan. Please see that separate report. 3. Other findings discussed above. ADDENDUM: 10/25/24 0645 I discussed the critical exam findings by phone with Dr. Jiménez, at 6:41 AM CDT, 10/25/2024. The findings were acknowledged and understood. Laboratory Results WBC 10.74 10^3/uL (3.29-11.43) 10/25/24 02:07 RBC 4.02 10^6/uL (3.85-5.65) 10/25/24 02:07 Hgb 12.50 g/dL (11.27-16.99) 10/25/24 02:07 Hct 38.3 % (37-53) 10/25/24 02:07 MCV 95.3 fl (82-101) 10/25/24 02:07 MCH 31.1 pg (27-33) 10/25/24 02:07 MCHC 32.6 g/dL (30-55) 10/25/24 02:07 RDW 14.3 % (12.1-15.1) 10/25/24 02:07 Plt Count 267 10^3/cmm (157-399) 10/25/24 02:07 MPV 9.5 fL (7.4-10.4) 10/25/24 02:07 Neut % (Auto) 69.6 % 10/25/24 02:07 Lymph % (Auto) 19.2 % 10/25/24 02:07 Maury % (Auto) 10.0 % 10/25/24 02:07 Eos % (Auto) 0.4 % 10/25/24 02:07 Baso % (Auto) 0.4 % 10/25/24 02:07 Neut # (Auto) 7.49 10^3/uL (1.8-7.7) 10/25/24 02:07 Lymph # (Auto) 2.1 10^3/uL (0.8-4.8) 10/25/24 02:07 Maury # (Auto) 1.1 10^3/uL (0.2-0.9) H 10/25/24 02:07 Eos # (Auto) 0.0 10^3/uL (0.0-0.8) 10/25/24 02:07 Baso # (Auto) 0.0 10^3/uL (0.0-0.1) 10/25/24 02:07 Nucleated RBC % (auto) 0 % 10/25/24 02:07 Nucleated RBCs # 0.0 /100WBC 10/25/24 02:07 Sodium 136 mmol/L (136-145) 10/25/24 02:07 Potassium 4.3 mmol/L (3.5-5.1) 10/25/24 02:07 Chloride 96 mmol/L (98-107) L 10/25/24 02:07 Carbon Dioxide 25 mmol/L (22-29) 10/25/24 02:07 Anion Gap 19.3 (5-19) H 10/25/24 02:07 BUN 12 mg/dL (8-23) 10/25/24 02:07 Creatinine 1.0 mg/dL (0.7-1.2) 10/25/24 02:07 GFR Calculation 73.9 mL/min (90-130) L 10/25/24 02:07 Glucose 107 mg/dL (65-115) 10/25/24 02:07 POC Glucose 99 mg/dL (70-110) 10/25/24 15:54 Calculated Osmolality 282 mOsm/kg (285-295) L 10/25/24 02:07 Calcium 10.3 mg/dL (8.5-10.5) 10/25/24 02:07 Total Bilirubin 0.7 mg/dL (0.15-1.2) 10/25/24 02:07 AST 59 U/L (0-40) H 10/25/24 02:07 ALT 143 U/L (0-41) H 10/25/24 02:07 Alkaline Phosphatase 97 U/L (40-130) 10/25/24 02:07 Total Protein 7.3 g/dL (6.6-8.7) 10/25/24 02:07 Albumin 4.0 g/dL (3.5-5.2) 10/25/24 02:07 Globulin 3.3 g/dL (1.3-4.6) 10/25/24 02:07 Urine Color Red (Yellow) A 10/25/24 02:34 Urine Appearance Turbid (CLEAR) A 10/25/24 02:34 Urine pH 8.0 (5-7) A 10/25/24 02:34 Ur Specific [place] 1.022 (1.005-1.030) 10/25/24 02:34 Urine Protein 2+ (Negative) A 10/25/24 02:34 Urine Glucose (UA) Negative (Normal) 10/25/24 02:34 Urine Ketones Negative (Negative) 10/25/24 02:34 Urine Blood 3+ (Negative) A 10/25/24 02:34 Urine Nitrate Negative (Negative) 10/25/24 02:34 Urine Bilirubin Negative (Negative) 10/25/24 02:34 Urine Urobilinogen 1.0 mg/dL (Negative) 10/25/24 02:34 Ur Leukocyte Esterase 1+ (Negative) A 10/25/24 02:34 Urine RBC >100 /hpf (0-2) H 10/25/24 02:34 Urine WBC 11-20 /hpf (0-5) H 10/25/24 02:34 Ur Squamous Epith Cells 0-5 /hpf (0-5) 10/25/24 02:34 Amorphous Sediment Not Reportable 10/25/24 02:34 Urine Bacteria None seen /hpf (NONE) 10/25/24 02:34 Hyaline Casts 0.43 /lpf 10/25/24 02:34 Discharge Plan Discharge Condition: Stable Prescriptions: No Action omega-3 fatty acids 1,000 mg capsule 2,000 mg PO BID propranolol 80 mg tablet 80 mg PO QAM multivitamin Tablet 1 tab PO QPM lutein 20 mg capsule 20 mg PO QPM Rx Instructions: give with meal/snack turmeric 400 mg capsule 750 mg PO BID (DME) right medial director of student aid brace See Rx Instructions .Route .MEDSUPPLY Qty: 1 0RF Rx Instructions: As directed (DME) left economy hinged knee brace See Rx Instructions .Route .MEDSUPPLY Qty: 1 0RF Rx Instructions: As directed (DME) Right Hinged Knee Brace See Rx Instructions .Route .MEDSUPPLY Qty: 1 0RF Rx Instructions: As directed pantoprazole 40 mg tablet,delayed release (DR/EC) 40 mg PO QAM (DME) Left Knee Lateral [employer] Partner Brace See Rx Instructions .Route .MEDSUPPLY Qty: 1 0RF Rx Instructions: As directed losartan 50 mg tablet 50 mg PO BID Qty: 180 3RF nitroglycerin 0.4 mg tablet, sublingual 0.4 mg sublingual Q5M PRN (Reason: chest pain) Qty: 25 2RF Rx Instructions: do not exceed 3 doses per episode leflunomide 10 mg tablet 10 mg PO DAILY epinephrine 0.3 mg/0.3 mL auto-injector 0.3 mg IM Q10M PRN (Reason: anaphylaxis) Qty: 2 2RF Enbrel 50 mg/mL (1 mL) syringe 50 mg SUBCUT Q7D Qty: 4 5RF tramadol 50 mg tablet 50 mg PO TID PRN (Reason: pain) Qty: 90 1RF aspirin 81 mg Tablet,Delayed Release (Dr/Ec) 81 mg PO QAM fluticasone propionate 50 mcg/actuation spray,suspension See Rx Instructions .ROUTE .COMPLEX Rx Instructions: USE 1 SPRAY IN EACH NOSTRIL TWICE DAILY for 7 days THEN EVERY DAY thereafter. Praluent Pen 150 mg/mL Pen Injector 150 mg SUBCUT .Q30D potassium chloride 10 mEq capsule, extended release 10 meq PO QAM prednisone 10 mg tablet 10 mg PO QAM furosemide [Lasix] 20 mg tablet 20 mg PO QAM ezetimibe [Zetia] 10 mg tablet 10 mg PO QPM nystatin 100,000 unit/mL Suspension See Rx Instructions .ROUTE .COMPLEX Rx Instructions: Swish and swallow 5 ml by mouth 3 times daily. fluconazole 150 mg Tablet 150 mg PO .QID potassium chloride 10 mEq Tablet Extended Release 10 meq PO DAILY amlodipine 5 mg Tablet 5 mg PO QAM isosorbide mononitrate 30 mg tablet extended release 24 hr 30 mg PO BID Qty: 30 0RF Referrals: Shaka Whelan MD [Primary Care Provider, Family Practice] Print Language: Slovenian Sign Out Sign Out Data: Patient Sign Out occurred on 10/25/24 at 05:53. Patient's care was discussed, and care was transferred from Asia Low MD to Cheikh Jiménez DO. Coding Level of Care Code ED Shearing Machine Feeder for Chg Fwd Documented by User: Cheikh Jiménez DO 10/25/24 16:43 HPI - Allergic Reaction General: Chief complaint: Allergic Reaction Stated complaint: Possible Allergic Reaction to Meds Time Seen by Provider: 10/25/24 02:16 Related Data Home Medications ?Medication ?Instructions ?Recorded ?Confirmed propranolol 80 mg tablet 80 mg PO QAM 05/29/20 10/25/24 omega-3 fatty acids 1,000 mg 2,000 mg PO BID 08/14/21 10/25/24 capsule pantoprazole 40 mg tablet,delayed 40 mg PO QAM 05/20/22 10/25/24 release multivitamin 1 tab PO QPM 11/18/22 10/25/24 lutein 20 mg capsule 20 mg PO QPM 01/22/24 10/25/24 turmeric 400 mg capsule 750 mg PO BID 01/22/24 10/25/24 alirocumab 150 mg/mL subcutaneous 150 mg SUBCUT .Q30D 08/13/24 10/25/24 pen injector (Praluent Pen) aspirin 81 mg tablet,delayed 81 mg PO QAM 08/13/24 10/25/24 release ezetimibe 10 mg tablet (Zetia) 10 mg PO QPM 08/13/24 10/25/24 fluticasone propionate 50 See Rx Instructions .Route .COMPLEX 08/13/24 10/25/24 mcg/actuation nasal spray,suspension furosemide 20 mg tablet (Lasix) 20 mg PO QAM 08/13/24 10/25/24 potassium chloride 10 mEq 10 meq PO QAM 08/13/24 10/25/24 capsule,extended release prednisone 10 mg tablet 10 mg PO QAM 08/13/24 10/25/24 leflunomide 10 mg tablet 10 mg PO DAILY 10/19/24 10/25/24 amlodipine 5 mg tablet 5 mg PO QAM 10/25/24 10/25/24 fluconazole 150 mg tablet 150 mg PO .QID fungal infection 10/25/24 10/25/24 nystatin 100,000 unit/mL oral See Rx Instructions .Route .COMPLEX 10/25/24 10/25/24 suspension potassium chloride 10 mEq 10 meq PO DAILY 10/25/24 10/25/24 tablet,extended release Previous Rx's ?Medication ?Instructions ?Recorded left economy hinged knee brace #1 ea 01/22/24 right medial director of student aid brace #1 ea 01/22/24 Left Knee Lateral Talent Partner Brace #1 ea 02/11/24 epinephrine 0.3 mg/0.3 mL 0.3 mg (0.3 mL) IM Q10M PRN 02/23/24 injection, auto-injector anaphylaxis #2 ea etanercept 50 mg/mL (1 mL) 50 mg SUBCUT Q7D #4 mL 06/07/24 subcutaneous syringe (Enbrel) Right Hinged Knee Brace #1 ea 07/26/24 losartan 50 mg tablet 50 mg PO BID #180 tabs 08/05/24 nitroglycerin 0.4 mg sublingual 0.4 mg sublingual Q5M PRN chest 08/05/24 tablet pain #25 tabs tramadol 50 mg tablet 50 mg PO TID PRN pain #90 tabs 08/09/24 isosorbide mononitrate 30 mg 30 mg PO BID #30 tabs 10/24/24 tablet,extended release 24 hr Allergies Allergy/AdvReac Type Severity Reaction Status Date / Time abatacept (From Orencia) Allergy Severe ALGY-Rash Verified 10/24/24 07:56 upadacitinib (From Rinvoq) Allergy Intermediate Flu like Verified 10/24/24 07:56 symptoms certolizumab pegol (From Allergy Unknown Unknown Verified 10/24/24 07:56 Cimzia) adalimumab (From Humira) Allergy ADR-Swelling Verified 10/24/24 07:56 of the Eye aspirin Allergy Unknown Verified 10/24/24 07:56 atorvastatin (From Lipitor) Allergy Unknown Verified 10/24/24 07:56 azithromycin Allergy Unknown Verified 10/24/24 07:56 codeine Allergy Unknown Verified 10/24/24 07:56 fentanyl Allergy ADR-Gastrointestinal Verified 10/25/24 02:08 Upset infliximab Allergy ALGY-Swell Verified 10/24/24 07:56 Lip/Tongue/Throat lovastatin Allergy Unknown Verified 10/24/24 07:56 methotrexate Allergy ALGY-Anaphy Verified 10/24/24 07:56 laxis Penicillins Allergy ADR-Diarrhe Verified 10/24/24 07:56 a rosuvastatin Allergy ADR-Muscle Verified 10/24/24 07:56 Pain secukinumab (From Cosentyx) Allergy Unknown Verified 10/24/24 07:56 simvastatin Allergy ADR-Muscle Verified 10/24/24 07:56 Pain Thiazides Allergy Unknown Verified 10/24/24 07:56 PFSH ED PFSH: Medical History Hyperlipidemia associated with type 2 diabetes mellitus CHF (congestive heart failure), NYHA class III CAD (coronary artery disease) Immunization counseling High risk medication use Plaque psoriasis Psoriatic arthritis Statin intolerance Atherosclerotic heart disease [place] coronary artery w/angina pectoris Rheumatoid arthritis Hyperlipidemia HTN (hypertension) Surgical History H/O shoulder surgery History of colonoscopy 05/23/2019: Normal, repeat in 10 years Social History Smoking and tobacco/nicotine status: former use of tobacco/nicotine Quit status (tobacco/nicotine): has quit using Alcohol intake: current Alcohol intake frequency: few times a month Substance/Drug Use: never Course Vital Signs: Vital signs: Vital Signs Temperature 100.5 F H 10/25/24 16:06 Pulse Rate 120 H 10/25/24 16:06 Respiratory Rate 16 10/25/24 07:29 Blood Pressure 141/73 10/25/24 11:25 Pulse Oximetry 99 10/25/24 16:06 Oxygen Delivery Me thod Room Air 10/25/24 07:29 Oxygen Flow Rate 2 10/25/24 04:30 MDM - Allergic Reaction Medical Decision Making Medical decision making: Differential diagnosis for complaint of hematuria including but not limited to and based on the above HPI, review of systems and physical exam: UTI / hemorrhagic cystitis, pyelonephritis, kidney stones, bladder cancer Orders placed to evaluate differential diagnosis based on the above differential, HPI and physical exam Lab Review: Laboratory results were reviewed and interpreted by myself the emergency room physician. No leukocytosis. No anemia. No renal failure. Liver enzymes are mildly elevated. Hematuria with signs of infection as well. I reviewed the patient's medical record. Reexamination: Patient continues to have right upper quadrant pain and be somewhat hypertensive. No altered mental status. No increased work of breathing. CT of the abdomen pelvis: Moderate to severe biliary tree dilatation. Suspicion for lower common bile duct stones. Ultrasound was ordered to further evaluate since patient does have mild elevation his liver enzymes but no elevation in his bilirubin. Clonidine then hydralazine for hypertension. Zofran for nausea. Patient care transitioned to Dr. Jiménez at shift change. Care assumed at change of shift reviewed CT and ultrasound reports discussed with V rad radiologist. Patient appears to have some obstruction possibly soft tissue sludge or stones at the distal portion of the common bile duct he recommends ERCP. Started him on Cipro and Flagyl since he is allergic to penicillins and cannot take Zosyn. He is get scheduled pain medications of talk to the transfer center at [facility] they have accepted him and waiting on a bed assignment. Patient has IV maintenance fluids running. Lab Data 10/25/24 02:07 10/25/24 02:07 Radiology Impressions Abdomen X-Ray 10/25/24 02:22 IMPRESSION: 1. Nonspecific abdomen, no evidence of obstruction. 2. Other details discussed above. Abdomen/Pelvis CT 10/25/24 02:49 IMPRESSION: 1. Moderate to severe biliary tree dilation. Suspicion for possible lower common duct stones versus neoplasm. See additional details and discussion above. 2. Suspected cholelithiasis, with findings that could indicate mild/early cholecystitis. See additional discussion above. 3. Normal appendix. 4. Mild perinephric stranding bilaterally, see above discussion. 5. No hydronephrosis of either kidney. No visible ureteral calculus. 6. Possible thickened mucosa/wall in the distal stomach, see above discussion. 7. Prostate enlargement and possible mild urinary bladder wall thickening, see above. 8. 2.7 cm abdominal x-ray aneurysm, see above. 9. Other findings discussed above. Gallbladder Ultrasound 10/25/24 05:04 IMPRESSION: 1. Cholelithiasis, see additional details above. 2. Biliary tree dilation as discussed above, better visualized/evaluated on the earlier CT scan. Please see that separate report. 3. Other findings discussed above. ADDENDUM: 10/25/24 0645 I discussed the critical exam findings by phone with Dr. Jiménez, at 6:41 AM CDT, 10/25/2024. The findings were acknowledged and understood. Laboratory Results WBC 10.74 10^3/uL (3.29-11.43) 10/25/24 02:07 RBC 4.02 10^6/uL (3.85-5.65) 10/25/24 02:07 Hgb 12.50 g/dL (11.27-16.99) 10/25/24 02:07 Hct 38.3 % (37-53) 10/25/24 02:07 MCV 95.3 fl (82-101) 10/25/24 02:07 MCH 31.1 pg (27-33) 10/25/24 02:07 MCHC 32.6 g/dL (30-55) 10/25/24 02:07 RDW 14.3 % (12.1-15.1) 10/25/24 02:07 Plt Count 267 10^3/cmm (157-399) 10/25/24 02:07 MPV 9.5 fL (7.4-10.4) 10/25/24 02:07 Neut % (Auto) 69.6 % 10/25/24 02:07 Lymph % (Auto) 19.2 % 10/25/24 02:07 Maury % (Auto) 10.0 % 10/25/24 02:07 Eos % (Auto) 0.4 % 10/25/24 02:07 Baso % (Auto) 0.4 % 10/25/24 02:07 Neut # (Auto) 7.49 10^3/uL (1.8-7.7) 10/25/24 02:07 Lymph # (Auto) 2.1 10^3/uL (0.8-4.8) 10/25/24 02:07 Maury # (Auto) 1.1 10^3/uL (0.2-0.9) H 10/25/24 02:07 Eos # (Auto) 0.0 10^3/uL (0.0-0.8) 10/25/24 02:07 Baso # (Auto) 0.0 10^3/uL (0.0-0.1) 10/25/24 02:07 Nucleated RBC % (auto) 0 % 10/25/24 02:07 Nucleated RBCs # 0.0 /100WBC 10/25/24 02:07 Sodium 136 mmol/L (136-145) 10/25/24 02:07 Potassium 4.3 mmol/L (3.5-5.1) 10/25/24 02:07 Chloride 96 mmol/L (98-107) L 10/25/24 02:07 Carbon Dioxide 25 mmol/L (22-29) 10/25/24 02:07 Anion Gap 19.3 (5-19) H 10/25/24 02:07 BUN 12 mg/dL (8-23) 10/25/24 02:07 Creatinine 1.0 mg/dL (0.7-1.2) 10/25/24 02:07 GFR Calculation 73.9 mL/min (90-130) L 10/25/24 02:07 Glucose 107 mg/dL (65-115) 10/25/24 02:07 POC Glucose 99 mg/dL (70-110) 10/25/24 15:54 Calculated Osmolality 282 mOsm/kg (285-295) L 10/25/24 02:07 Calcium 10.3 mg/dL (8.5-10.5) 10/25/24 02:07 Total Bilirubin 0.7 mg/dL (0.15-1.2) 10/25/24 02:07 AST 59 U/L (0-40) H 10/25/24 02:07 ALT 143 U/L (0-41) H 10/25/24 02:07 Alkaline Phosphatase 97 U/L (40-130) 10/25/24 02:07 Total Protein 7.3 g/dL (6.6-8.7) 10/25/24 02:07 Albumin 4.0 g/dL (3.5-5.2) 10/25/24 02:07 Globulin 3.3 g/dL (1.3-4.6) 10/25/24 02:07 Urine Color Red (Yellow) A 10/25/24 02:34 Urine Appearance Turbid (CLEAR) A 10/25/24 02:34 Urine pH 8.0 (5-7) A 10/25/24 02:34 Ur Specific [place] 1.022 (1.005-1.030) 10/25/24 02:34 Urine Protein 2+ (Negative) A 10/25/24 02:34 Urine Glucose (UA) Negative (Normal) 10/25/24 02:34 Urine Ketones Negative (Negative) 10/25/24 02:34 Urine Blood 3+ (Negative) A 10/25/24 02:34 Urine Nitrate Negative (Negative) 10/25/24 02:34 Urine Bilirubin Negative (Negative) 10/25/24 02:34 Urine Urobilinogen 1.0 mg/dL (Negative) 10/25/24 02:34 Ur Leukocyte Esterase 1+ (Negative) A 10/25/24 02:34 Urine RBC >100 /hpf (0-2) H 10/25/24 02:34 Urine WBC 11-20 /hpf (0-5) H 10/25/24 02:34 Ur Squamous Epith Cells 0-5 /hpf (0-5) 10/25/24 02:34 Amorphous Sediment Not Reportable 10/25/24 02:34 Urine Bacteria None seen /hpf (NONE) 10/25/24 02:34 Hyaline Casts 0.43 /lpf 10/25/24 02:34 All radiology interpretation(s) finalized by discharge Discharge Plan Discharge Condition: Stable Prescriptions: No Action omega-3 fatty acids 1,000 mg capsule 2,000 mg PO BID propranolol 80 mg tablet 80 mg PO QAM multivitamin Tablet 1 tab PO QPM lutein 20 mg capsule 20 mg PO QPM Rx Instructions: give with meal/snack turmeric 400 mg capsule 750 mg PO BID (DME) right medial director of student aid brace See Rx Instructions .Route .MEDSUPPLY Qty: 1 0RF Rx Instructions: As directed (DME) left economy hinged knee brace See Rx Instructions .Route .MEDSUPPLY Qty: 1 0RF Rx Instructions: As directed (DME) Right Hinged Knee Brace See Rx Instructions .Route .MEDSUPPLY Qty: 1 0RF Rx Instructions: As directed pantoprazole 40 mg tablet,delayed release (DR/EC) 40 mg PO QAM (DME) Left Knee Lateral Talent Partner Brace See Rx Instructions .Route .MEDSUPPLY Qty: 1 0RF Rx Instructions: As directed losartan 50 mg tablet 50 mg PO BID Qty: 180 3RF nitroglycerin 0.4 mg tablet, sublingual 0.4 mg sublingual Q5M PRN (Reason: chest pain) Qty: 25 2RF Rx Instructions: do not exceed 3 doses per episode leflunomide 10 mg tablet 10 mg PO DAILY epinephrine 0.3 mg/0.3 mL auto-injector 0.3 mg IM Q10M PRN (Reason: anaphylaxis) Qty: 2 2RF Enbrel 50 mg/mL (1 mL) syringe 50 mg SUBCUT Q7D Qty: 4 5RF tramadol 50 mg tablet 50 mg PO TID PRN (Reason: pain) Qty: 90 1RF aspirin 81 mg Tablet,Delayed Release (Dr/Ec) 81 mg PO QAM fluticasone propionate 50 mcg/actuation spray,suspension See Rx Instructions .ROUTE .COMPLEX Rx Instructions: USE 1 SPRAY IN EACH NOSTRIL TWICE DAILY for 7 days THEN EVERY DAY thereafter. Praluent Pen 150 mg/mL Pen Injector 150 mg SUBCUT .Q30D potassium chloride 10 mEq capsule, extended release 10 meq PO QAM prednisone 10 mg tablet 10 mg PO QAM furosemide [Lasix] 20 mg tablet 20 mg PO QAM ezetimibe [Zetia] 10 mg tablet 10 mg PO QPM nystatin 100,000 unit/mL Suspension See Rx Instructions .ROUTE .COMPLEX Rx Instructions: Swish and swallow 5 ml by mouth 3 times daily. fluconazole 150 mg Tablet 150 mg PO .QID potassium chloride 10 mEq Tablet Extended Release 10 meq PO DAILY amlodipine 5 mg Tablet 5 mg PO QAM isosorbide mononitrate 30 mg tablet extended release 24 hr 30 mg PO BID Qty: 30 0RF Referrals: Shaka Whelan MD [Primary Care Provider, Family Practice] Print Language: Slovenian Sign Out Sign Out Data: Patient Sign Out occurred on 10/25/24 at 05:53. Patient's care was discussed, and care was transferred from Asia Low MD to Cheikh Jiménez DO. Coding Level of Care Code ED Shearing Machine Feeder for Zoila Wagoner
[2024-10-25 02:42] LABS: Glucose Urine UA Negative (Normal); Nitrate Urine Negative (Negative); Specific Gravity, Urine 1.022 (1.005-1.030)
--- NOTE | 2024-10-25 02:49 | CTR_ITS ---
PROCEDURE INFORMATION: Exam: CT Abdomen And Pelvis With Contrast Exam date and time: 10/25/2024 3:25 AM Age: 69 years old Clinical indication: Abdominal pain; Periumbilical TECHNIQUE: Imaging protocol: Computed tomography of the abdomen and pelvis with contrast. Radiation optimization: All CT scans at this facility use at least one of these dose optimization techniques: automated exposure control; mA and/or kV adjustment per patient size (includes targeted exams where dose is matched to clinical indication); or iterative reconstruction. Contrast material: OMNI 350; Contrast volume: 100 ml; Contrast route: INTRAVENOUS (IV); COMPARISON: CR (ABDOMEN, ) 10/25/2024 2:24 AM RADIATION DOSE METRICS: Total DLP (mGy-cm): 1147.39 FINDINGS: Lungs: The lung bases are clear. Heart: Suspect mild to moderate cardiomegaly. Liver: See Gallbladder and biliary ducts finding. Gallbladder and biliary ducts: Suspect a few noncalcified gallstones within the gallbladder, including in the region of the gallbladder neck. Ultrasound would be more sensitive/specific for detecting gallstones, if clinically needed. Possibility of a very small stone in the proximal cystic duct. The gallbladder is not abnormally distended at this time. Suspect mild pericholecystic edema/inflammation. The findings could indicate mild/early cholecystitis, but clinical correlation is needed. Moderate to severe extrahepatic biliary tree dilation, with common duct measuring up to about 16 mm. Moderate intrahepatic biliary dilation. There are areas of slightly higher attenuation in the lower common bile duct, measuring up to about 10 mm in diameter. Possibilities would include noncalcified common duct stones and/or biliary sludge. Neoplasm/cholangiocarcinoma is also a possibility and should be excluded. As clinically directed, MRCP/ERCP could further evaluate. Pancreas: Unremarkable pancreas by CT, no surrounding inflammatory changes or fluid. No pancreatic duct dilation. Normal appearance of the pancreas on CT does not entirely exclude the diagnosis of acute pancreatitis. Please correlate with clinical and laboratory evaluation. Spleen: Unremarkable. Adrenal glands: Unremarkable. Kidneys and ureters: No hydronephrosis of either kidney. No visible ureteral calculus. Mild perinephric stranding bilaterally. This is a nonspecific appearance and could well be chronic. Possibility of pyelonephritis is not entirely excluded, please correlate clinically. The kidneys enhance homogeneously. Stomach and bowel: No significant bowel distention. Possibility of slightly thickened mucosa/wall in the distal stomach. This is a nonspecific appearance, and may well be transient due to poor gastric distension. This could also represent evidence for gastritis or peptic ulcer disease. Please correlate clinically. There is diverticulosis involving the colon, without CT evidence of diverticulitis. Appendix: The appendix is visualized and appears normal. Intraperitoneal space: No free intraperitoneal air, or ascites. Vasculature: Moderate aortic calcifications. There is small infrarenal abdominal aortic aneurysm with maximum AP diameter of 2.7 cm. No evidence of leaking/ruptured aneurysm by CT. Lymph nodes: No significant retroperitoneal adenopathy. Urinary bladder: Possibly some mild diffuse urinary bladder wall thickening. Evaluation is somewhat limited, as the bladder is not well distended. This may be related to the prostate enlargement and chronic partial outlet obstruction. While nonspecific, this could also indicate evidence for cystitis. Please correlate clinically. No visible calculus in the bladder. Reproductive: Mild prostate enlargement with transverse diameter of about 4 cm. Bones/joints: Moderate to severe degenerative disc changes and facet joint arthritis throughout the lumbar spine. Soft tissues: No significant acute finding. CT/CT abdomen pelvis w con* [id number] IMPRESSION: 1. Moderate to severe biliary tree dilation. Suspicion for possible lower common duct stones versus neoplasm. See additional details and discussion above. 2. Suspected cholelithiasis, with findings that could indicate mild/early cholecystitis. See additional discussion above. 3. Normal appendix. 4. Mild perinephric stranding bilaterally, see above discussion. 5. No hydronephrosis of either kidney. No visible ureteral calculus. 6. Possible thickened mucosa/wall in the distal stomach, see above discussion. 7. Prostate enlargement and possible mild urinary bladder wall thickening, see above. 8. 2.7 cm abdominal x-ray aneurysm, see above. 9. Other findings discussed above.
[2024-10-25] MEDS: ondansetron 2 mg/ML SDV 2 mL 4 MG IVP (02:51)
[2024-10-25] MEDS: cefTRIAXone 1,000 mg SDV 1000 MG IVP (02:56)
[2024-10-25] MEDS: iohexol 350 mg/mL 500 mL Btl (per mL) IV (03:25)
[2024-10-25] MEDS: hyDRALAzine 20 mg/mL INJ 1 mL 10 MG IVP (05:04)
--- NOTE | 2024-10-25 05:04 | USR_ITS ---
PROCEDURE INFORMATION: Exam: US Abdomen, Limited; Right Upper Quadrant Exam date and time: 10/25/2024 5:52 AM Age: 69 years old Clinical indication: Abdominal pain; Acute; Additional info: Abnormal CT TECHNIQUE: Imaging protocol: Real time ultrasound of the abdomen with image documentation. Limited exam focused on the right upper quadrant. COMPARISON: CT abdomen pelvis w con* [id number] 10/25/2024 3:25 AM FINDINGS: Liver: No focal hepatic abnormality visible on the provided images. The main portal vein appears patent, with hepatopetal flow. Gallbladder: Multiple shadowing gallstones are visible within the gallbladder. Mild gallbladder wall thickening, measuring up to about 4 mm. No definite pericholecystic fluid. The gallbladder does not appear abnormally distended at this time. Biliary ducts: The earlier CT scan demonstrated moderate to severe extrahepatic and intrahepatic biliary tree dilation. On the provided ultrasound images, the structure labeled as the common duct only measures 5 mm in diameter. On CT, the common duct measures up to 16 mm. Intrahepatic biliary tree dilation is demonstrated by ultrasound. No visible common duct stone by ultrasound, although stones versus sludge versus neoplasm or suspected by CT. Pancreas: Visible pancreas unremarkable. Some of the pancreas is obscured by bowel gas. Right kidney: Images of the right kidney show no hydronephrosis. US/US gall bladder [id number] IMPRESSION: 1. Cholelithiasis, see additional details above. 2. Biliary tree dilation as discussed above, better visualized/evaluated on the earlier CT scan. Please see that separate report. 3. Other findings discussed above.
[2024-10-25] MEDS: morphine 4 mg/mL SDV 1 mL IVP ×5 (05:26→20:06)
[2024-10-25] MEDS: metroNIDAZOLE IV 500 MG/100 ML PREMIX 100 MG IV ×2 (07:25→16:05)
--- NOTE | 2024-10-25 07:28 | PC.PHAR ---
[facility] 10/25/24 7:28am
== END 2024-10-25 20:15 | disposition short-term general hospital (02) ==
PROVIDERS: Emergency Medicine; Emergency Provider Family Medicine; PCP Family Medicine Geriatric Medicine
DX: K80.80 Other cholelithiasis without obstruction (principal); R11.0 Nausea; Z79.82 Long term (current) use of aspirin; E78.5 Hyperlipidemia, unspecified; I11.0 Hypertensive heart disease with heart failure; I50.9 Heart failure, unspecified; I25.119 Atherosclerotic heart disease of native coronary artery with unspecified angina pectoris
CPT/HCPCS: 36415; 36416; 74018; 74177; 76705; 80053; 81001; 82962; 85025; 87086; 96365; 96366; 96367; 96375; 96376; 99285; J0360; J0696; J0744; J1885; J2270; J2405; J3490; J9999

== ENCOUNTER → 2024-11-10 15:27 | Outpatient (BNVA) | payer OTHER, SELFPAY | PROVIDERS: PCP Family Medicine Geriatric Medicine; Visit Provider Internal Medicine Cardiovascular Disease | DX: I25.10 Atherosclerotic heart disease of native coronary artery without angina pectoris (principal); I87.2 Venous insufficiency (chronic) (peripheral); I11.0 Hypertensive heart disease with heart failure; I50.9 Heart failure, unspecified; Z87.891 Personal history of nicotine dependence; Z98.890 Other specified postprocedural states; R94.4 Abnormal results of kidney function studies; M19.90 Unspecified osteoarthritis, unspecified site | CPT/HCPCS: 99214 ==

== ENCOUNTER → 2024-11-24 10:27 | Outpatient (BNVA) | payer OTHER, SELFPAY | PROVIDERS: PCP Family Medicine Geriatric Medicine; Visit Provider Internal Medicine Rheumatology | DX: L40.50 Arthropathic psoriasis, unspecified (principal); L40.0 Psoriasis vulgaris; Z79.899 Other long term (current) drug therapy; Z71.85 Encounter for immunization safety counseling | CPT/HCPCS: 36415; 80076; 82565; 85025; 85651; 86140; 86480; 99214 ==

== ENCOUNTER → 2024-12-27 12:28 | Outpatient (BNVA) | payer OTHER, SELFPAY | PROVIDERS: PCP Family Medicine Geriatric Medicine; Visit Provider Student in an Organized Health Care Education/Training Program | DX: M17.0 Bilateral primary osteoarthritis of knee (principal); Z71.89 Other specified counseling | CPT/HCPCS: 20610; 99213; J3301; J9999 ==

== ENCOUNTER 2025-01-11 16:34 | Outpatient (CLI) | payer OTHER, SELFPAY ==
[2025-01-11 17:51] LABS: Alanine Aminotransferase 49 U/L (0-41); Albumin Level 3.9 g/dL (3.5-5.2); Alkaline Phosphatase 58 U/L (40-130); Anion Gap 17.6 (5-19); Aspartate Amino Transferase 35 U/L (0-40); Blood Urea Nitrogen 19 mg/dL (8-23); Calcium 9.3 mg/dL (8.5-10.5); Carbon Dioxide 28 mmol/L (22-29); Chloride 100 mmol/L (98-107); Globulin 2.9 g/dL (1.3-4.6); Glucose 146 mg/dL (65-115); Osmolality Calculated 299 mOsm/kg (285-295); Potassium 3.6 mmol/L (3.5-5.1); Sodium 142 mmol/L (136-145); Total Protein 6.8 g/dL (6.6-8.7)
== END 2025-01-11 16:35 | disposition home or self-care (01) ==
LOC: LAB 16:36
PROVIDERS: PCP Family Medicine Geriatric Medicine; Visit Provider Internal Medicine Cardiovascular Disease
DX: Z79.899 Other long term (current) drug therapy (principal); I25.119 Atherosclerotic heart disease of native coronary artery with unspecified angina pectoris
CPT/HCPCS: 36415; 80053

== ENCOUNTER → 2025-02-08 11:31 | Outpatient (BNVA) | payer OTHER, SELFPAY | PROVIDERS: PCP Family Medicine Geriatric Medicine; Visit Provider Physician Assistant | DX: M19.011 Primary osteoarthritis, right shoulder (principal); M75.41 Impingement syndrome of right shoulder; M75.42 Impingement syndrome of left shoulder; Z71.89 Other specified counseling | CPT/HCPCS: 20610; 73030; 99213; J3301; J9999 ==

== ENCOUNTER 2025-02-24 13:21 | Outpatient (CLI) | payer OTHER, SELFPAY ==
--- NOTE | 2025-02-24 13:35 | CT_ITS ---
WS: [id number] CT ABDOMEN AND PELVIS WITH CONTRAST HISTORY: PERSONAL HX OF OTHER VENOUS THROMBOSIS EMBOLISM/EDEMA TECHNIQUE: Imaging performed of the abdomen and pelvis with IV contrast. Single phase imaging of the abdomen. Coronal and sagittal reformats are submitted. All CT scans at [facility] use at least one of these dose optimization techniques: automated exposure control; mA and/or kV adjustment per patient size (includes targeted exams where dose is matched to clinical indication); or iterative reconstruction. IV CONTRAST: Omnipaque 350; 100 mL IV. Oral contrast: No DLP: 876.53 mGy.cm COMPARISON: 10/25/2024 Lower thorax: Lung bases are clear. Heart is normal size. No hiatal hernia. Liver/biliary system: Normal size liver. Pneumobilia is present. No intrahepatic duct dilatation. Gallbladder: Prior cholecystectomy. The previously described intrahepatic duct dilatation on 10/25/2024 has resolved. Pancreas: Normal size pancreas and pancreatic duct. No adjacent inflammation. Spleen: Normal size spleen. No mass or infarct. Adrenal glands: Normal. Right kidney: Normal. Left kidney: Normal. Aorta: Mild atherosclerosis. Mild Lymphadenopathy: None. Free fluid: None. GI tract: No obstruction. Normal appendix. Mild diverticular disease in the descending and sigmoid colon. No acute diverticulitis. Abdominal wall: Fat containing umbilical hernia. Pelvis: No free fluid or adenopathy within the pelvis. Bones: No destructive bone lesions. Prior RIGHT rib fractures with healing. No acute fracture. Partial fusion of the SI joints. CT/CT abdomen pelvis w con* [id number] IMPRESSION: 1. Status post cholecystectomy since 10/25/2024. 2. Previously noted intrahepatic and extrahepatic bile duct dilatation has res olved. 3. Pneumobilia. 4. Mildly ectatic infrarenal abdominal aorta is stable. 5. Sigmoid diverticulosis without acute diverticulitis.
[2025-02-24] MEDS: iohexol 350 mg/mL 500 mL Btl (per mL) IV (14:06)
== END 2025-02-24 13:22 | disposition home or self-care (01) ==
LOC: RAD 13:22
PROVIDERS: PCP Family Medicine Geriatric Medicine; Visit Provider Student in an Organized Health Care Education/Training Program
DX: I82.452 Acute embolism and thrombosis of left peroneal vein (principal); Z86.718 Personal history of other venous thrombosis and embolism; R60.0 Localized edema; I70.0 Atherosclerosis of aorta; Z90.49 Acquired absence of other specified parts of digestive tract; K83.8 Other specified diseases of biliary tract; I77.811 Abdominal aortic ectasia; K57.30 Diverticulosis of large intestine without perforation or abscess without bleeding
CPT/HCPCS: 74177

== ENCOUNTER → 2025-03-02 12:21 | Outpatient (BNVA) | payer OTHER, SELFPAY | PROVIDERS: PCP Family Medicine Geriatric Medicine; Visit Provider Internal Medicine Rheumatology | DX: L40.50 Arthropathic psoriasis, unspecified (principal); L40.0 Psoriasis vulgaris; Z79.899 Other long term (current) drug therapy; Z71.85 Encounter for immunization safety counseling; Z86.718 Personal history of other venous thrombosis and embolism | CPT/HCPCS: 99214 ==

== ENCOUNTER 2025-03-04 22:28 | Emergency (ER) | payer OTHER, SELFPAY ==
--- OUTSIDE RECORDS SUMMARY | 2024-04-21 06:00 | XMS_ITS | Encounter Summary ---
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 This section includes the names of all active insurance providers for the patient. Insurance Provider Type of Coverage Plan Name Start of Policy Coverage End of Policy Coverage Group Number Member ID Insurance Provider's Telephone Number Policy Cruz's Name Patient's Relationship to Policy Cruz BRITTANI [facility] (WNR) MEDICARE ADVANTAGE [facility] (WNR) Jan 26, 2020 [id number] [phone] TRAY,ER IC PATIENT MEDICARE (WNR) MEDICARE (M) PART B Jan 26, 2020 PART B [id number] TRAY,ER IC PATIENT MEDICARE (WNR) MEDICARE (M) PART A August 26, 2019 PART A [id number] [phone] TRAY,ER IC PATIENT Selected Encounter This section includes the information on record at [place] for the Encounter. Date/Time Encounter Type Encounter Description Reason Provider Source Apr 21, 2024 12:00 PM OFF/OP EST AUGUST X REQ PHY/QHP PRIMARY CARE/MEDICINE ICD-10-CM R05.1 Acute cough ELLIOT DANGELO Simón Encounter Template Text not used by [place] Assessments - Encounter Diagnoses This section includes the primary and secondary diagnoses documented for the Encounter. Date/Time Primary/Secondary Diagnosis Diagnosis Name Provider Source Apr 21, 2024 02:06 PM PRIMARY Acute cough ELLIOT DANGELO [facility] Plan of Treatment: Future Appointments (+ 6 months) and Future Tests (+/- 45 days) The Plan of Treatment section includes future care activities for the patient from all [place] treatmentfacilities. This section includes future appointments and future orders which are active, pending or scheduled. Future Appointments This section includes appointments that were scheduled to occur 6 months from the date of the Encounter, up to a maximum of 20 appointments. The data comes from all [place] treatment facilities. Appointment Date/Time Appointment Type Appointme nt Facility Name Apr 26, 2024 08:00 AM AMBULATORY - [facility]ICINE [facility] [facility] May 12, 2024 08:40 AM AMBULATORY - MEDICINE [facility] May 12, 2024 08:45 AM AMBULATORY - MEDICINE [facility] May 12, 2024 09:15 AM AMBULATORY - MEDICINE [facility] May 20, 2024 02:00 PM AMBULATORY - MEDICINE [facility] Aug 01, 2024 10:00 AM AMBULATORY - MEDICINE [facility] Aug 01, 2024 10:45 AM AMBULATORY - MEDICINE [facility] Aug 05, 2024 09:15 AM [facility] Aug 24, 2024 09:30 AM AMBULATORY - MEDICINE [facility] August 25, 2024 12:00 PM AMBULATORY - NONE [facility] Lab Results: +/- 30 days of the encounter This section includes the Chemistry and Hematology Lab Results on record with [place] for the patient. Radiology Reports and Pathology Reports are provided separately, in subsequent sections. Lab Results This section contains the Chemistry/Hematology Results that were resulted 30 days before or 30 daysafter the date of the Encounter. Date/Time Source Result Type Result - Unit Interpretation Reference Range Specimen Type Comment May 12, 2024 08:36 AM [facility] DRUG SCREEN URINE-inhouse (PB) URINE Specimen Type: URINE No comment entered. Ordering Provider: CLAUDIO KELLEY Report Released Date/Time: Feb 18, 2024 10:01 AM Reporting Lab: [facility] [address] [place] [address] Performing Lab: [place] [facility] [address] [place] [address] METHADONE Negative ng/mL Negative OPIATES (PB) Negative ng/mL Negative COCAINE... Negative ng/mL Negative THC(Marijuana... Negative ng/mL Negative BENZODIAZEPINE (PB) Negative ng/mL Negat slava AMPHETAMINE... Negative ng/mL Negative CREATININE URINE/OTHERS 278.80 mg/dL OXYCODONE (POHZO-OKK-JG) Negative ng/mL Negative BUPRENORPHINE (STL-PB-MA) Negative ng/mL Negative ETHANOL URINE <10.0 mg/dL L <9 FENTANYL, URINE (PB) Negative ng/mL Nega tive May 12, 2024 08:35 AM [facility] URIC ACID PLASMA Specimen Typ e: PLASMA No comment entered. Ordering Provider: RANDEE NOGUEIRA Report Released Date/Time: Feb 18, 2024 10:12 AM Reporting Lab: [place] [facility] [address] [place] [address] Performing Lab: [place] [facility] [address] [place] [address] URIC ACID 5.2 mg/dL 3.5-7.2 May 12, 2024 08:35 AM [facility] RHEUMATOID FACTOR (PB) SERUM Specimen Type: S KURT No comment entered. Ordering Provider: RANDEE NOGUEIRA Report Released Date/Time: Feb 18, 2024 10:12 AM Reporting Lab: [place] [facility] [address] [place] [address] Performing Lab: [place] [facility] [address] [place] [address] RHEUMATOID FACTOR (PB) <15.0 [IU]/mL L 0-3 0 May 12, 2024 08:35 AM [facility] DIRECT LDL (MA-PB) PLASMA Specimen Type: PLASM A No comment entered. Ordering Provider: RANDEE NOGUEIRA Report Released Date/Time: Feb 18, 2024 10:12 AM Reporting Lab: [place] [facility] [address] [place] [address] Performing Lab: [place] [facility] [address] [place] [address] DIRECT LDL 115.5 mg/dL H 0-99.9 May 12, 2024 08:35 AM [facility] [facility] VITAMIN D, 25-HYDROXY SERUM Specimen Type: SE RUM No comment entered. Ordering Provider: RANDEE NOGUEIRA Report Released Date/Time: Feb 18, 2024 10:12 AM Reporting Lab: [place] [facility] [address] [place] [address] Performing Lab: [place] [facility] [address] [place] [address] VITAMIN D, 25-HYDROXY 52.0 ng/mL 30-96 May 12, 2024 08:35 AM [facility] CHOLESTEROL PANEL (PB) PLASMA Specimen Type: P LASMA No comment entered. Ordering Provider: RANDEE NOGUEIRA Report Released Date/Time: Feb 18, 2024 10:12 AM Reporting Lab: [place] [facility] [address] [place] [address] Performing Lab: [place] [facility] [address] [place] [address] CHOLESTEROL 176 mg/dL 0-200 TRIGLYCERIDE 167 mg/dL H 0-150 CALCULATED LDL 100.0 mg/dL HDL(New) 42.6 mg/dL H >40 HDL % OF TOTAL CHOLESTEROL (PB) 24.2 >25 May 12, 2024 08:35 AM [facility] HGA1C BLOOD Specimen Type: BLOOD No comment entered. Ordering Provider: RANDEE NOGUEIRA Report Released Date/Time: Feb 18, 2024 10:12 AM Reporting Lab: [place] [facility] [address] [place] [address] Performing Lab: [place] [facility] [address] [place] [address] HGA1C 6.0 4.0-6.0 May 12, 2024 08:35 AM [facility] B12 SERUM Specimen Type: SERUM No comment entered. Ordering Provider: RANDEE NOGUEIRA Report Released Date/Time: Feb 18, 2024 10:12 AM Reporting Lab: [place] [facility] [address] [place] [address] Performing Lab: [place] [facility] [address] [place] [address] B12 668 pg/mL 213-816 May 12, 2024 08:35 AM [facility] FOLATE (PB) SERUM Specimen Typ e: SERUM No comment entered. Ordering Provider: RANDEE NOGUEIRA Report Released Date/Time: Feb 18, 2024 10:12 AM Reporting Lab: [place] [facility] [address] [place] [address] Performing Lab: [place] [facility] [address] [place] [address] FOLATE (PB) 10.7 ng/mL 7-20 May 12, 2024 08:35 AM [facility] COMPREHENSIVE METABOLIC PANEL PLASMA Specimen Type: PLASMA No comment entered. Ordering Provider: RANDEE NOGUEIRA Report Released Date/Time: Feb 18, 2024 10:12 AM Reporting Lab: [place] [facility] [address] [place] [address] Performing Lab: [place] [facility] [address] [place] [address] CREATININE 1.02 mg/dL 0.7-1.3 UREA NITROGEN 16 mg/dL 9-25 GLUCOSE 84 mg/dL 72-99 SODIUM 135 meq/L L 136-145 POTASSIUM 4.2 meq/L 3.5-5 CHLORIDE 101 meq/L 98-107 CARBON DIOXIDE 25 meq/L 22-31 CALCIUM 9.6 mg/dL 8.4-10.4 PROTEIN 6.7 g/dL 6-8.6 ALBUMIN 3.7 g/dL 3.4-5 TOTAL BILIRUBIN 0.7 mg/dL 0.2-1.2 ALKALINE PHOSPHATASE 51 U/L 40-150 AST/SGOT 41 U/L H 5-34 ALT/SGPT 52 U/L H 8-40 EGFR (CKD-EPI 2020) 80 Vital Signs: All taken on the encounter date This section contains inpatient and outpatient Vital Signs collected on the date of the Encounter. Date/Time Temperature Pulse Blood Pressure Respiratory Rate SP02 Pain Height Weight Body Mass Index Source Apr 21, 2024 12:58 PM 98 98 155/87 18 96 258.4 35 [facility] Social History: Smoking Status (Most current) and Tobacco Use (All prior to encounter date) This section includes the most current, and the historical, smoking and tobacco- related health factors from the [place] facility where the Encounter took place. Current Smoking Status This section includes the most current smoking, or tobacco-related health factor, from the [place] facility where the Encounter took place. Date/Time Current Smoking Status Comment Facil ity Feb 18, 2024 09:30 AM VA-TOBACCO FORMER USER [facility] Tobacco Use History This section includes a history of the smoking, or tobacco-related health factors, that were collected on or before the date of the Encounter. The data comes from the [place] facility where the Encounter took place. Date/Time Smoking Status/Tobacco Use Comment F acility Feb 18, 2024 09:30 AM VA-TOBACCO QUIT 5 TO < 15 YRS [facility] Feb 16, 2023 02:00 PM VA-TOBACCO FORMER USER [facility] Feb 16, 2023 02:00 PM VA-TOBACCO QUIT 5 TO < 15 YRS [facility] Feb 19, 2022 11:30 AM VA-TOBACCO FORMER USER [facility] Feb 19, 2022 11:30 AM VA-TOBACCO QUIT 1 TO < 5 YRS [facility] Mar 04, 2021 08:30 AM VA-TOBACCO FORMER USER [facility] Mar 04, 2021 08:30 AM VA-TOBACCO QUIT 1 TO < 5 YRS [facility] Mar 08, 2019 11:49 AM VA-TOBACCO DOESNT USE WI 30 MIN WAKEUP [facility] Mar 08, 2019 11:49 AM VA-TOBACCO USE 30 YEARS OR MORE [facility] Mar 08, 2019 11:49 AM VA-TOBACCO USE ADVICE [facility] Mar 08, 2019 11:49 AM 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 [facility] Mar 08, 2019 11:49 AM VA-TOBACCO USE MED NOTIFY PROVIDER [facility] Mar 08, 2019 11:49 AM VA-TOBACCO USER EVERY DAY [facility] Mar 17, 2018 01:22 PM CURRENT TOBACCO USER [facility] Mar 17, 2018 01:22 PM CURRENT TOBACCO US ER (READY TO QUIT) [facility] Mar 17, 2018 01:22 PM SMOKELESS TOBACCO AMOUNT/LENGTH V15 45yr history [facility] Mar 17, 2018 01:22 PM TOBACCO CESSATION REFERRAL DECLINED [facility] Mar 17, 2018 01:22 PM TOBACCO USER OFFERED MEDS [facility] Aug 20, 2017 10:37 AM CURRENT TOBACCO USER [facility] Aug 20, 2017 10:37 AM CURRENT TOBACCO US ER (NOT READY TO QUIT) [facility] Aug 20, 2017 10:37 AM SMOKELESS TOBACCO AMOUNT/LENGTH V15 50yr history 1 can every week [facility] Aug 20, 2017 10:37 AM TOBACCO CESSATION REFERRAL DECLINED [facility] Aug 20, 2017 10:37 AM TOBACCO MEDS OFFER ED BUT DECLINED [facility] Aug 20, 2017 10:37 AM TOBACCO USER OFFERED MEDS [facility] Feb 24, 2017 07:10 AM CURRENT TOBACCO USER [facility] Feb 24, 2017 07:10 AM CURRENT TOBACCO US ER (NOT READY TO QUIT) [facility] Feb 24, 2017 07:10 AM TOBACCO CESSATION REFERRAL DECLINED [facility] Feb 24, 2017 07:10 AM TOBACCO MEDS OFFER ED BUT DECLINED [facility] Feb 24, 2017 07:10 AM TOBACCO USER OFFERED MEDS [facility] Dec 18, 2016 11:06 AM CURRENT TOBACCO USER [facility] Dec 18, 2016 11:06 AM CURRENT TOBACCO US ER (NOT READY TO QUIT) [facility] Dec 18, 2016 11:06 AM TOBACCO CESSATION REFERRAL DECLINED [facility] Dec 18, 2016 11:06 AM TOBACCO MEDS OFFER ED BUT DECLINED [facility] Dec 18, 2016 11:06 AM TOBACCO USER OFFERED MEDS [facility] Jan 29, 2016 07:57 AM CURRENT TOBACCO USER [facility] Jan 29, 2016 07:[address] [facility] Oct 13, 2014 08:33 AM CURRENT TOBACCO USER [facility] Oct 13, 2014 08:[address] [facility] Oct 06, 2013 10:38 AM CURRENT TOBACCO USER [facility] Oct 06, 2013 10:[address] [facility] Jun 28, 2012 02:19 PM CURRENT TOBACCO USER [facility] [facility] Jun 28, 2012 02:[address] [facility] [facility] Jan 06, 2011 02:53 PM CURRENT TOBACCO USER [facility] Jan 06, 2011 02:53 PM TOBACCO MEDS OFFER ED BUT DECLINED [facility] Jan 06, 2011 02:53 PM TOBACCO OFFERED PT MEDS (PROVIDER) [facility] Jan 06, 2011 02:[address] [facility] Aug 13, 2009 02:36 PM CURRENT TOBACCO USER [facility] Aug 13, 2009 02:36 PM TOBACCO MEDS OFFER ED BUT DECLINED [facility] Aug 13, 2009 02:36 PM TOBACCO OFFERED PT MEDS (PROVIDER) [facility] Aug 13, 2009 02:[address] [facility]MO[facility] CLIN[facility] Mar 03, 2008 08:34 AM CURRENT TOBACCO USER [facility] Mar 03, 2008 08:[address] [facility]MOKING CLINIC [facility] Jul 21, 2007 11:40 AM CURRENT TOBACCO USER [facility] Dec 08, 2006 08:18 AM CURRENT TOBACCO USER [facility] Dec 08, 2006 08:18 AM TOBACCO MEDS OFFER ED BUT DECLINED [facility] Jul 25, 2005 10:39 AM CURRENT NON-TOBACC O USER-HX OF USE [facility] Jan 27, 2005 11:41 AM CURRENT NON-TOBACC O USER-HX OF USE [facility] Jul 29, 2004 08:37 AM CURRENT NON-TOBACC O USER-HX OF USE Stopped since last visit. Gained 5 pounds [facility] Jan 29, 2004 09:02 AM CURRENT NON-TOBACC O USER-HX OF USE Stopped about 3-4 months ago [facility] Jul 28, 2003 10:08 AM CURRENT NON-TOBACC O USER-HX OF USE [facility] August 26, 2002 10:28 AM CURRENT NON-TOBACC O USER-HX OF USE [facility] Mar 11, 2002 09:39 AM CURRENT NON-TOBACC O USER-HX OF USE [facility] Apr 08, 2001 11:01 AM CURRENT NON-TOBACC O USER-HX OF USE Stopped 1996 [facility] Oct 22, 2000 01:27 PM CURRENT NON-TOBACC O USER-HX OF USE 1 pack a da y for years / stopped 4 yrs [facility] Radiology Reports: +/- 30 days of the encounter Radiology Reports For cases when an order for radiology services may have been completed prior to the date of the Encounter, the report list includes the Radiology Reports that were completed up to 30 days before dateof the Encounter. For cases when an order for radiology services may have been completed after the date of the Encounter, the report list also includes the Radiology Reports that were completed up to30 days after date of the Encounter. The data comes from all [place] treatment facilities. Date/Time Radiology Report Provider Source May 12, 2024 09:25 AM CHEST X-RAY, 2 VIE WS: THOMPSON FELIZ CURTIS [id number] [id number] M Exm Date: MAY 12, 2024@09:25 Req Phys: CLAUDIO KELLEY Pat Loc: PB-YU PACT NATARAJAN ATILIO (Req'g L Img Loc: PB-XRAY [place] Service: [place] [address] (Case [id number] COMPLETE) CHEST X-RAY, 2 VIEWS (RAD Detailed) CPT:62796 Reason for Study: cough Clinical History: Report Status: Verified Date Reported: MAY 12, 2024 Date Verified: MAY 12, 2024 Elevator Constructor Helper E-Sig: Report: PA and lateral views of the chest reveal mild degenerative skeletal change and metal implants in the right humeral head. There is no obvious acute osseous abnormality. There is mild bilateral pulmonary hyperaeration. There is no infiltrate or effusion. Heart size is normal. Impression: No acute process Primary Interpreting Staff: MARIELA OKEEFE RADIOLOGIST (Elevator Constructor Helper, no e-sig) /MARIELA Vasquez [facility] Encounter Notes: All associated encounter notes This section contains the clinical notes associated to the Encounter. Date/Time Encounter Note(s) Provider Source Apr 21, 2024 01:54 PM NURSING PROGRESS N OTE: LOCAL TITLE: NURSING NOTE PB STANDARD TITLE: NURSING PROGRESS NOTE DATE OF NOTE: APR 21, 2024@13:54 ENTRY DATE: APR 21, 2024@13:54:29 AUTHOR: MONICA DANGELO EXP COSIGNER: URGENCY: STATUS: COMPLETED This is a 68 year old MALE with known Allergies as noted: HORSE SERUM PROTEINS, PENICILLIN, AZITHROMYCIN, ASPIRIN RELATED MEDICATIONS LOVASTATIN, SIMVASTATIN, ROSUVASTATIN, LIPITOR, THIAZIDES/RELATED DIURETICS METHOTREXATE, CODEINE, COLESTIPOL, SULFASALAZINE, HUMIRA, COSENTYX C/C: Lilly reported to the clinic for on-going cough and chest congestion x1 week S: stated that he has taken Mucinex for 6 days and he is still coughing and feels like his chest is congested. stated that he is not able due to take Nsaids due to Rheumatology medication so he felt like he was out of options over the counter. On the following Active Medications: Active Outpatient Medications (including Supplies): Active Outpatient Medications Status 1) ALIROCUMAB 150MG/ML INJ 1ML PEN INJECT 150MG UNDER THE SKIN ACTIVE EVERY MONTH Indication: FOR HIGH CHOLESTEROL 2) EPI(EQV-ADRENACLICK)0.3MG/0 .3ML INJCTR INJECT 1 PEN ACTIVE (0.3MG/0.3ML) INTRAMUSCULARLY ONE-TIME 3) EZETIMIBE 10MG TAB TAKE ONE TABLET BY MOUTH ONCE A DAY TO ACTIVE LOWER CHOLESTEROL 4) FUROSEMIDE 20MG TAB TAKE ONE TABLET BY MOUTH ONCE A DAY ACTIVE 5) LEFLUNOMIDE 20MG TAB TAKE ONE TABLET BY MOUTH ONCE A DAY ACTIVE (S) TAKE AT SAME TIME EACH DAY. 6) LOSARTAN 100MG TAB TAKE ONE-HALF TABLET BY MOUTH ONCE A DAY ACTIVE Indication: FOR HIGH BLOOD PRESSURE 7) NALOXONE HCL 4MG/SPRAY SOLN NASAL SPRAY USE 1 SPRAY (4MG) ACTIVE INTO ONE NOSTRIL ONLY ONE-TIME DO NOT PRIME NASAL SPRAY. SPRAY ONE DOSE IN ONE NOSTRIL, GIVE ADDITIONAL DOSE IF PATIENT DOES NOT START BREATHING WITHIN 2-3 MINUTES OR STOPS BREATHING AGAIN. CALL 911. IF USED, NOTIFY PROVIDER. Indication: FOR OPIOID OVERDOSE 8) KFXUT-4-ROPV ETHYL ESTERS 1000MG CAP TAKE TWO CAPSULES BY ACTIVE MOUTH TWICE A DAY Indication: FOR HIGH TRIGLYCERIDES 9) PANTOPRAZOLE NA 40MG EC TAB TAKE ONE TABLET BY MOUTH EVERY ACTIVE MORNING BEFORE A MEAL TO LOWER STOMACH ACID - TAKE 30 MINUTES BEFORE MEAL(S) 10) POTASSIUM CHLORIDE 10MEQ SA TAB TAKE ONE TABLET BY MOUTH ACTIVE ONCE A DAY TAKE WITH FOOD 11) PREDNISONE 10MG TAB TAKE THREE TABLETS BY MOUTH ONCE A DAY ACTIVE FOR 5 DAYS, THEN TAKE TWO TABLETS ONCE A DAY FOR 5 DAYS, THEN TAKE ONE TABLET ONCE A DAY TAKE WITH FOOD OR MILK. 12) PROPRANOLOL HCL 80MG SA CAP TAKE ONE CAPSULE BY MOUTH ONCE A ACTIVE DAY Indication: FOR HIGH BLOOD PRESSURE 13) TRAMADOL HCL 50MG TAB TAKE 1 TABLET BY MOUTH THREE TIMES A ACTIVE DAY NEEDED Indication: FOR PAIN 14) UPADACITINIB 15MG 24HR SA TAB TAKE ONE TABLET BY MOUTH ONCE ACTIVE A DAY Active Non-VA Medications Status 1) Non-VA ASPIRIN 81MG EC TAB 81MG BY MOUTH ONCE A DAY ACTIVE Indication: FOR CARDIOVASCULAR DISEASE 15 Total Medications O: Imler ambulated into the clinic without assistance. Steady gait. Alert and oriented x4. Unlabored breathing. NO LE edema noted. Lung sounds diminished in the bilateral bases of lungs. A/P: Reviewed with Provider. Provider advised that she will call out Doxycycline and Tessalon pearls to [facility] ([facility]). Imler advise to complete medication as prescribed, take medication with food, and to drink plenty of water. directed to report back to the clinic if not better in 10 days. Imler voiced understanding. RTC: as needed /walter/ Monica Dangelo RN [place] [facility], JJP [facility] Signed: 04/21/2024 14:04 Receipt Acknowledged By: 04/22/2024 06:13 /walter/ NOÉ Almonte, MSN, Pedro Pablo Almanza [facility] [place] [facility]
--- OUTSIDE RECORDS SUMMARY | 2024-05-12 02:45 | XMS_ITS | Encounter Summary ---
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 Date/Time Encounter Type Encounter Description Reason Provider Source May 12, 2024 08:45 AM OFF/OP EST AUGUST X REQ PHY/QHP PRIMARY CARE/MEDICINE ICD-10-CM R05.9 Cough, unspecified CUSTRED,LISA J IHE Encounter Template Text not used by NH Assessments - Encounter Diagnoses This section includes the primary and secondary diagnoses documented for the Encounter. Date/Time Primary/Secondary Diagnosis Diagnosis Name Provider Source May 12, 2024 09:50 AM PRIMARY Cough, unspecified ZAC GRACIAI Chet [facility] Plan of Treatment: Future Appointments (+ 6 months) and Future Tests (+/- 45 days) The Plan of Treatment section includes future care activities for the patient [facility] This section includes future appointments and future orders which are active, pending or scheduled. Future Appointments This section includes appointments that were scheduled to occur 6 months from the date of the Encounter, up to a maximum of 20 appointments. The data comes from all NH treatment facilities. Appointment Date/Time Appointment Type Appointme nt Facility Name May 20, 2024 02:00 PM AMBULATORY - MEDICINE [facility] Aug 01, 2024 10:00 AM AMBULATORY - MEDICINE [facility] Aug 01, 2024 10:45 AM AMBULATORY MEDICINE [facility] Aug 05, 2024 09:15 AM AMBULATORY - MEDICINE [facility] Aug 24, 2024 09:30 AM AMBULATORY - MEDICINE [facility] August 25, 2024 12:00 PM [facility] Active, Pending, and Scheduled Orders This section includes a listing of several types of active, pending, and scheduled orders, including clinic medications orders, diagnostic test orders, procedure orders and consult orders; where the start date of the order is 45 days before the date of the Encounter or 45 days after the date of theEncounter. The data comes from all [facility]. Test Date/Time Test Type Test Details Facility Name Jun 08, 2024 06:58 AM Consult Order [facility] [id number] Cons Head Filter Press Tender's Choice [facility] Lab Results: +/- 30 days of the encounter This section includes the Chemistry and Hematology Lab Results on record with NH for the patient. Radiology Reports and Pathology Reports are provided separately, in subsequent sections. Lab Results This section contains the Chemistry/Hematology Results that were resulted 30 days before or 30 daysafter the date of the Encounter. Date/Time Source Result Type Result - Unit Interpretation Reference Range Specimen Type Comment May 12, 2024 08:36 AM [place] [facility] DRUG SCREEN URINE-inhouse (PB) URINE Specimen Type: URINE No comment entered. Ordering Provider: CLAUDIO PANCHAL Report Released Date/Time: Feb 18, 2024 10:01 AM Reporting Lab: [place] [facility] [address] [place] [address] Performing Lab: [place] [facility] [address] [place] [address] METHADONE Negative ng/mL Negative OPIATES (PB) Negative ng/mL Negative COCAINE... Negative ng/mL Negative THC(Marijuana... Negative ng/mL Negative BENZODIAZEPINE (PB) Negative ng/mL Negat slava AMPHETAMINE... Negative ng/mL Negative CREATININE URINE/OTHERS 278.80 mg/dL OXYCODONE (TPBAZ-BZS-RA) Negative ng/mL Negative BUPRENORPHINE (STL-PB-MA) Negative ng/mL Negative ETHANOL URINE <10.0 mg/dL L <9 FENTANYL, URINE (PB) Negative ng/mL Nega tive May 12, 2024 08:35 AM [facility] URIC ACID PLASMA Specimen Typ e: PLASMA No comment entered. Ordering Provider: RANDEE NOGUEIRA Report Released Date/Time: Feb 18, 2024 10:12 AM Reporting Lab: [place] [facility] [address] [place] [address] Performing Lab: [place] [facility] [address] [place] [address] URIC ACID 5.2 mg/dL 3.5-7.2 May 12, 2024 08:35 AM [facility] RHEUMATOID FACTOR (PB) SERUM Specimen Type: S KURT No comment entered. Ordering Provider: RANDEE NOGUEIRA Report Released Date/Time: Feb 18, 2024 10:12 AM Reporting Lab: [place] [facility] [address] [place] [address] Performing Lab: [place] [facility] [address] [place] [address] RHEUMATOID FACTOR (PB) <15.0 [IU]/mL L 0-3 0 May 12, 2024 08:35 AM [facility] DIRECT LDL (MA-PB) PLASMA Specimen Type: PLASM A No comment entered. Ordering Provider: RANDEE NOGUEIRA Report Released Date/Time: Feb 18, 2024 10:12 AM Reporting Lab: [place] [facility] [address] [place] [address] Performing Lab: [place] [facility] [address] [place] [address] DIRECT LDL 115.5 mg/dL H 0-99.9 May 12, 2024 08:35 AM [place] [facility] VITAMIN D, 25-HYDROXY SERUM Specimen Type: SE RUM No comment entered. Ordering Provider: RANDEE NOGUEIRA Report Released Date/Time: Feb 18, 2024 10:12 AM Reporting Lab: [place] [facility] [address] [place] [address] Performing Lab: [place] [facility] [address] [place] [address] VITAMIN D, 25-HYDROXY 52.0 ng/mL 30-96 May 12, 2024 08:35 AM [facility] CHOLESTEROL PANEL (PB) PLASMA Specimen Type: P LASMA No comment entered. Ordering Provider: RANDEE NOGUEIRA Report Released Date/Time: Feb 18, 2024 10:12 AM Reporting Lab: [place] [facility] [address] [place] [address] Performing Lab: [place] [facility] [address] [place] [address] CHOLESTEROL 176 mg/dL 0-200 TRIGLYCERIDE 167 mg/dL H 0-150 CALCULATED LDL 100.0 mg/dL HDL(New) 42.6 mg/dL H >40 HDL % OF TOTAL CHOLESTEROL (PB) 24.2 >25 May 12, 2024 08:35 AM [facility] HGA1C BLOOD Specimen Type: BLOOD No comment entered. Ordering Provider: RANDEE NOGUEIRA Report Released Date/Time: Feb 18, 2024 10:12 AM Reporting Lab: [place] [facility] [address] [place] [address] Performing Lab: [place] [facility] [address] [place] [address] HGA1C 6.0 4.0-6.0 May 12, 2024 08:35 AM [facility] B12 SERUM Specimen Type: SERUM No comment entered. Ordering Provider: RANDEE NOGUEIRA Report Released Date/Time: Feb 18, 2024 10:12 AM Reporting Lab: [place] [facility] [address] [place] [address] Performing Lab: [place] [facility] [address] [place] [address] B12 668 pg/mL 213-816 May 12, 2024 08:35 AM [facility] FOLATE (PB) SERUM Specimen Typ e: SERUM No comment entered. Ordering Provider: RANDEE NOGUEIRA Report Released Date/Time: Feb 18, 2024 10:12 AM Reporting Lab: [place] [facility] [address] [place] [address] Performing Lab: [place] [facility] [address] [place] [address] FOLATE (PB) 10.7 ng/mL 7-20 May 12, 2024 08:35 AM [facility] COMPREHENSIVE METABOLIC PANEL PLASMA Specimen Type: PLASMA No comment entered. Ordering Provider: RANDEE NOGUEIRA Report Released Date/Time: Feb 18, 2024 10:12 AM Reporting Lab: [place] [facility] [address] [place] [address] Performing Lab: [place] [facility] [address] [place] [address] CREATININE 1.02 mg/dL 0.7-1.3 UREA NITROGEN 16 [...] Pain Height Weight Body Mass Index Source May 12, 2024 09:36 AM 98.6 98 160/84 [facility] Social History: Smoking Status (Most current) and Tobacco Use (All prior to encounter date) This section includes the most current, and the historical, smoking and tobacco- related health factors from the NH facility where the Encounter took place. Current Smoking Status This section includes the most current smoking, or tobacco-related health factor, from the NH facility where the Encounter took place. Date/Time Current Smoking Status Comment Facil ity Feb 18, 2024 09:30 AM VA-TOBACCO FORMER USER [facility] Tobacco Use History This section includes a history of the smoking, or tobacco-related health factors, that were collected on or before the date of the Encounter. The data comes from the NH facility where the Encounter took place. Date/Time Smoking Status/Tobacco Use Comment F acility Feb 18, 2024 09:30 AM VA-TOBACCO QUIT 5 TO < 15 YRS [facility] Feb 16, 2023 02:00 PM VA-TOBACCO FORMER USER [facility] Feb 16, 2023 02:00 PM VA-TOBACCO QUIT 5 TO < 15 YRS [facility] Feb 19, 2022 11:30 AM VA-TOBACCO FORMER USER [facility] Feb 19, 2022 11:30 AM VA-TOBACCO QUIT 1 TO < 5 YRS [facility] Mar 04, 2021 08:30 AM VA-TOBACCO FORMER USER [facility] Mar 04, 2021 08:30 AM VA-TOBACCO QUIT 1 TO < 5 YRS [facility] Mar 08, 2019 11:49 AM VA-TOBACCO DOESNT USE WI 30 MIN WAKEUP [facility] Mar 08, 2019 11:49 AM VA-TOBACCO USE 30 YEARS OR MORE [facility] Mar 08, 2019 11:49 AM VA-TOBACCO USE ADVICE [facility] Mar 08, 2019 11:49 AM VA-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 [facility] Mar 08, 2019 11:49 AM VA-TOBACCO USE MED NOTIFY PROVIDER [facility] Mar 08, 2019 11:49 AM VA-TOBACCO USER EVERY DAY [facility] Mar 17, 2018 01:22 PM CURRENT TOBACCO USER [facility] Mar 17, 2018 01:22 PM CURRENT TOBACCO US ER (READY TO QUIT) [facility] Mar 17, 2018 01:22 PM SMOKELESS TOBACCO AMOUNT/LENGTH V15 45yr history [facility] Mar 17, 2018 01:22 PM TOBACCO CESSATION REFERRAL DECLINED [facility] Mar 17, 2018 01:22 PM TOBACCO USER OFFERED [facility] Aug 20, 2017 10:37 AM CURRENT TOBACCO USER [facility] Aug 20, 2017 10:37 AM CURRENT TOBACCO US ER (NOT READY TO QUIT) [facility] Aug 20, 2017 10:37 AM SMOKELESS TOBACCO AMOUNT/LENGTH V15 50yr history 1 can every week [facility] Aug 20, 2017 10:37 AM TOBACCO CESSATION REFERRAL DECLINED [facility] Aug 20, 2017 10:37 AM TOBACCO MEDS OFFER ED BUT DECLINED [facility] Aug 20, 2017 10:37 AM TOBACCO USER OFFERED MEDS [facility] Feb 24, 2017 07:10 AM CURRENT TOBACCO USER [facility] Feb 24, 2017 07:10 AM CURRENT TOBACCO US ER (NOT READY TO QUIT) [facility] Feb 24, 2017 07:10 AM TOBACCO CESSATION REFERRAL DECLINED [facility] Feb 24, 2017 07:10 AM TOBACCO MEDS OFFER ED BUT DECLINED [facility] Feb 24, 2017 07:10 AM TOBACCO USER OFFERED MEDS [facility] Dec 18, 2016 11:06 AM CURRENT TOBACCO USER [facility] Dec 18, 2016 11:06 AM CURRENT TOBACCO US ER (NOT READY TO QUIT) [facility] Dec 18, 2016 11:06 AM TOBACCO CESSATION REFERRAL DECLINED [facility] Dec 18, 2016 11:06 AM TOBACCO MEDS OFFER ED BUT DECLINED [facility] Dec 18, 2016 11:06 AM TOBACCO USER [facility]ED [facility] Jan 29, 2016 07:57 AM CURRENT TOBACCO USER [facility] Jan 29, 2016 07:[address] [facility] SMO[facility]INIC [facility] Oct 13, 2014 08:33 AM CURRENT TOBACCO USER [facility] Oct 13, 2014 08:[address] [facility]MO[facility] Oct 06, 2013 10:38 AM CURRENT TOBACCO USER [facility] Oct 06, 2013 10:[address] OP SMOKING CLINIC [facility] Jun 28, 2012 02:19 PM CURRENT TOBACCO USER [facility] Jun 28, 2012 02:[address] OP SMOKING CLINIC [facility] Jan 06, 2011 02:53 PM CURRENT TOBACCO USER [facility] Jan 06, 2011 02:53 PM TOBACCO MEDS OFFER ED BUT DECLINED [facility] Jan 06, 2011 02:53 PM TOBACCO OFFERED PT MEDS (PROVIDER) [facility] Jan 06, 2011 02:[address] OP SMOKING CLINIC [facility] Aug 13, 2009 02:36 PM CURRENT TOBACCO USER [facility] Aug 13, 2009 02:36 PM TOBACCO MEDS OFFER ED BUT DECLINED [facility] Aug 13, 2009 02:36 PM TOBACCO OFFERED PT MEDS (PROVIDER) [facility] Aug 13, 2009 02:[address] OP SMOKING CLINIC [facility] Mar 03, 2008 08:34 AM CURRENT TOBACCO USER [facility] Mar 03, 2008 08:[address] OP SMOKING CLINIC [facility] Jul 21, 2007 11:40 AM CURRENT TOBACCO USER [facility] Dec 08, 2006 08:18 AM CURRENT TOBACCO USER [facility] Dec 08, 2006 08:18 AM TOBACCO MEDS OFFER ED BUT DECLINED [facility] Jul 25, 2005 10:39 AM CURRENT NON-TOBACC O USER-HX OF USE [facility] Jan 27, 2005 11:41 AM CURRENT NON-TOBACC O USER-HX OF USE [facility] Jul 29, 2004 08:37 AM CURRENT NON-TOBACC O USER-HX OF USE Stopped since last visit. Gained 5 pounds [place] [facility] Jan 29, 2004 09:02 AM CURRENT NON-TOBACC O USER-HX OF USE Stopped about 3-4 months ago [facility] Jul 28, 2003 10:08 AM CURRENT NON-TOBACC O USER-HX OF USE [facility] August 26, 2002 10:28 AM CURRENT NON-TOBACC O USER-HX OF USE [facility] Mar 11, 2002 09:39 AM CURRENT NON-TOBACC O USER-HX OF USE [facility] Apr 08, 2001 11:01 AM CURRENT NON-TOBACC O USER-HX OF USE Stopped 1996 [facility] Oct 22, 2000 01:27 PM CURRENT NON-TOBACC O USER-HX OF USE 1 pack a da y for years / stopped 4 yrs [facility] Radiology Reports: +/- 30 days of the [...] the Encounter. The data comes from all [place] treatment facilities. Date/Time Radiology Report Provider Source May 12, 2024 09:25 AM CHEST X-RAY, 2 VIE WS: THOMPSON FELIZ CURTIS [id number] -[id number] M Exm Date: MAY 12, 2024@09:25 Req Phys: CLAUDIO PANCHAL Pat Loc: PB-YU PACT NATARAJAN ATILIO (Req'g L Img Loc: PB-XRAY [place] Service: [place] [address] (Case [id number] COMPLETE) CHEST X-RAY, 2 VIEWS (RAD Detailed) CPT:00540 Reason for Study: cough Clinical History: Report Status: Verified Date Reported: MAY 12, 2024 Date Verified: MAY 12, 2024 Test Fixture Assembler E-Sig: Report: PA and lateral views of the chest reveal mild degenerative skeletal change and metal implants in the right humeral head. There is no obvious acute osseous abnormality. There is mild bilateral pulmonary hyperaeration. There is no infiltrate or effusion. Heart size is normal. Impression: No acute process Primary Interpreting Staff: MARIELA OKEEFE RADIOLOGIST (Test Fixture Assembler, no e-sig) /MARIELA Vasquez [facility] Encounter Notes: All associated encounter notes This section contains the clinical notes associated to the Encounter. Date/Time Encounter Note(s) Provider Source May 12, 2024 04:09 PM NURSING IMMUNIZATI ON NOTE: LOCAL TITLE: CLINIC ADMINISTERED IMMUNIZATION/MEDICATION(S) STANDARD TITLE: NURSING IMMUNIZATION NOTE DATE OF NOTE: MAY 12, 2024@16:09 ENTRY DATE: MAY 12, 2024@16:09:29 AUTHOR: CASTILLO KIRK EXP COSIGNER: URGENCY: STATUS: COMPLETED CLINIC ADMINISTERED IMMUNIZATION/MEDICATION(S) Has ADDENDA PT NAME: THOMPSON FELIZ AGE: 68 SSN: [id number] ALLERGIES: HORSE SERUM PROTEINS, PENICILLIN, AZITHROMYCIN, ASPIRIN RELATED MEDICATIONS LOVASTATIN, SIMVASTATIN, ROSUVASTATIN, LIPITOR, THIAZIDES/RELATED DIURETICS METHOTREXATE, CODEINE, COLESTIPOL, SULFASALAZINE, HUMIRA, COSENTYX TEMPERATURE: 98.6 F [37.0 C] (05/12/2024 09:36) DIAGNOSIS (or indication for medication):pain CLINIC MEDICATIONS GIVEN VIA INJECTION: TORADOL COTTAGE PARENT:f[employer]ius LOT#:[id number] EXP DATE:11/2025 [facility]#[id number] DATE AND TIME GIVEN: Apr@16:05 SITE OF INJECTION: IM Locationright buttock SOURCE OF MEDICATION: Clinic Supplied AMOUNT/DOSE GIVEN: 30mg Waste amount: 0 Witnessed by: VERBALIZED UNDERSTANDING AND CONSENT GIVEN Patient had the following reaction(s) during this visit: /walter/ MILY RoyalKYSHANTE [facility] Signed: 05/12/2024 16:11 05/12/2024 ADDENDUM STATUS: COMPLETED Per [facility] Directive 1605.06, wristband documentation: Patient wristband was removed and destroyed by (staff name) Castillo Kirk and placed in the designated [employer] bin. /walter/ MILY Royal [facility] Signed: 05/12/2024 16:12 CASTILLO KIRK [facility] CB May 12, 2024 09:34 AM NURSING PROGRESS N OTE: LOCAL TITLE: NURSING NOTE PB STANDARD TITLE: NURSING PROGRESS NOTE DATE OF NOTE: MAY 12, 2024@09:34 ENTRY DATE: MAY 12, 2024@09:34:56 AUTHOR: LISA GRACIA EXP COSIGNER: URGENCY: STATUS: COMPLETED Blood Pressure: 160/84 Pulse: 98 Temperature: 98.6 F (37 C) Pulse Oximetry: 98% Active Outpatient Medications: Active Outpatient Medications (including Supplies): Active Outpatient Medications Status 1) ALIROCUMAB 150MG/ML INJ 1ML PEN INJECT 150MG UNDER THE SKIN ACTIVE EVERY MONTH Indication: FOR HIGH CHOLESTEROL 2) EPI(EQV-ADRENACLICK)0.3MG/0. 3ML INJCTR INJECT 1 PEN ACTIVE (0.3MG/0.3ML) INTRAMUSCULARLY [...] NOTIFY PROVIDER. Indication: FOR OPIOID OVERDOSE 8) CFPHB-0-IOBW ETHYL ESTERS 1000MG CAP TAKE TWO CAPSULES [...] A DAY ACTIVE Indication: FOR CARDIOVASCULAR DISEASE UPADACITINIB on hold since Thursday. CC: presents to clinic stating ongoing chest congestion, cough, and shortness of breath. Subjective: [place] presented to clinic stating initial treatment for respiratory illness 04/21/24, has completed full antibiotic course. States he started feeling bad again last Thursday. Reports headache, nausea with vomiting and dry heaves, nasal congestion, dry cough, chest tightness and shortness of breath especially with exertion. Takes medication from rheumatology and has placed on hold as instructed thinking maybe it was contributing to symptoms. O/A: is alert and oriented. Denies any blurred vision or visual changes. Does report headache. Respirations dyspnea noted with minimal exertion. Breath sounds clear with no wheezes or rales. Sao2 97% on room air. Heart rate regular with no edema. Abdomen soft with good bowel sounds. Nausea reported. Plan/ Intervention: Discussed with MELI Panchal, she assessed . New prescription for promethazine to [facility] pharmacy. Immediate need form given to . Probable viral infection. Home care instructions given include vitamin supplementation to boost immune system, otc Tylenol PRN, Flonase nasal spray as instructed. If symptoms worsen seek re-evaluation. Chest Xray obtained with results pending. RTC: As scheduled and as needed. Per A Directive 1605.06, wristband documentation: Patient wristband was removed and destroyed by (staff name) Lisa Gracia RN and placed in the designated [employer] bin. /es/ MILY ZELAYA CBMAURICIO Signed: 05/12/2024 09:49 Receipt Acknowledged By: 05/13/2024 09:09 /es/ NOÉ Almonte, MSN, Pedro Pablo Jansen [facility] LISA GRACIA [place] CBMAURICIO
--- OUTSIDE RECORDS SUMMARY | 2024-06-07 10:08 | XMS_ITS | Encounter Summary ---
Author Name [facility] [place] [place] Organization [facility] [place] [facility] [place] Address [address] [place] [id number] Care Team Providers Care Assistant Film Editor Name Role Phone CLAUDIO KELLEY Primary Care [...] Patient's Relationship to Policy Cruz BRITTANI [facility] (WNR) MEDICARE ADVANTAGE [facility] (WNR) Jan 26, 2020 [id number] [phone] TRAY,ER IC PATIENT MEDICARE (WNR) MEDICARE (M) PART B Jan 26, 2020 PART B [id number] [phone] TRAY,ER IC PATIENT MEDICARE (WNR) MEDICARE (M) PART A August 26, 2019 PART A [id number] TRAY,ER IC PATIENT Selected Encounter This section includes the information on record at [place] for the Encounter. Date/Time Encounter Type Encounter Description Reason Provider Source Jun 07, 2024 04:08 PM MTMS BY PHARM FLY SETTER 15 MIN CLINICAL PHARMACY ICD-10-CM L40.52 Psoriatic arthritis katarzynailaJAILENE Preciado Encounter Template Text not used by [place] Assessments - Encounter Diagnoses This section includes the primary and secondary diagnoses documented for the Encounter. Date/Time Primary/Secondary Diagnosis Diagnosis Name Provider Source Jun 07, 2024 04:12 PM PRIMARY Psoriatic arthritis matias MORENOJAILENE King [facility] Plan of Treatment: Future Appointments (+ 6 months) and Future Tests (+/- 45 days) The Plan of Treatment section includes future care activities for the patient from all [place] treatmentfacilities. This section includes future appointments and future orders which are active, pending or scheduled. Future Appointments This section includes appointments that were scheduled to occur 6 months from the date of the Encounter, up to a maximum of 20 appointments. The data comes from all [place] treatment facilities. Appointment Date/Time Appointment Type Appointme nt Facility Name Aug 01, 2024 10:00 AM AMBULATORY - MEDICINE [facility] Aug 01, 2024 10:45 AM AMBULATORY MEDICINE [facility] Aug 05, 2024 09:15 AM AMBULATORY - MEDICINE [facility] Aug 24, 2024 09:30 AM AMBULATORY - MEDICINE [facility] August 25, 2024 12:00 PM AMBULATORY - NONE [facility] Active, Pending, and Scheduled Orders This section includes a listing of several types of active, pending, and scheduled orders, including clinic medications orders, diagnostic test orders, procedure orders and consult orders; where the start date of the order is 45 days before the date of the Encounter or 45 days after the date of theEncounter. The data comes from all [place] treatment [facility]. Test Date/Time Test Type Test Details Facility Name Jun 08, 2024 06:58 AM Consult Order [facility] [id number] Cons [employer] [facility] Lab Results: +/- 30 days of the encounter This section includes the Chemistry and Hematology Lab Results on record with [place] for the patient. Radiology Reports and Pathology Reports are provided separately, in subsequent sections. Lab Results This section contains the Chemistry/Hematology Results that were resulted 30 days before or 30 daysafter the date of the Encounter. Date/Time Source Result Type Result - Unit Interpretation Reference Range Specimen Type Comment May 12, 2024 08:36 AM [facility] DRUG SCREEN URINE-inhouse (PB) URINE Specimen Type: URINE No comment entered. Ordering Provider: CLAUDIO KELLEY Report Released Date/Time: Feb 18, 2024 10:01 AM Reporting Lab: [place] [facility] [address] [place] [address] Performing Lab: [place] [facility] [address] [place] [address] METHADONE Negative ng/mL Negative OPIATES (PB) Negative ng/mL Negative COCAINE... Negative ng/mL Negative THC(Marijuana... Negative ng/mL Negative BENZODIAZEPINE (PB) Negative ng/mL Negat slava AMPHETAMINE... Negative ng/mL Negative CREATININE URINE/OTHERS 278.80 mg/dL OXYCODONE (APXRM-AAC-DJ) Negative ng/mL Negative BUPRENORPHINE (STL-PB-MA) Negative ng/mL Negative ETHANOL URINE <10.0 mg/dL L <9 FENTANYL, URINE (PB) Negative ng/mL Nega tive May 12, 2024 08:35 AM [facility] RHEUMATOID FACTOR (PB) SERUM Specimen Type: S KURT No comment entered. Ordering Provider: RANDEE NOGUEIRA Report Released Date/Time: Feb 18, 2024 10:12 AM Reporting Lab: [place] [facility] [address] [place] [address] Performing Lab: [place] [facility] [address] [place] [address] RHEUMATOID FACTOR (PB) <15.0 [IU]/mL L 0-3 0 May 12, 2024 08:35 AM [facility] URIC ACID PLASMA Specimen Typ e: PLASMA No comment entered. Ordering Provider: RANDEE NOGUEIRA Report Released Date/Time: Feb 18, 2024 10:12 AM Reporting Lab: [place] [facility] [address] [place] [address] Performing Lab: [place] [facility] [address] [place] [address] URIC ACID 5.2 mg/dL 3.5-7.2 May 12, 2024 08:35 AM [facility] DIRECT LDL (MA-PB) PLASMA Specimen Type: PLASM A No comment entered. Ordering Provider: RANDEE NOGUEIRA Report Released Date/Time: Feb 18, 2024 10:12 AM Reporting Lab: [place] [facility] [address] [place] [address] Performing Lab: [place] [facility] [address] [place] [address] DIRECT LDL 115.5 mg/dL H 0-99.9 May 12, 2024 08:35 AM [facility] [place] [facility] VITAMIN D, 25-HYDROXY SERUM Specimen Type: SE RUM No comment entered. Ordering Provider: RANDEE NOGUEIRA Report Released Date/Time: Feb 18, 2024 10:12 AM Reporting Lab: [place] [facility] [address] [place] [address] Performing Lab: [place] [facility] [address] [place] [address] VITAMIN D, 25-HYDROXY 52.0 ng/mL 30-96 May 12, 2024 08:35 AM [facility] CHOLESTEROL PANEL (PB) PLASMA Specimen Type: P LASMA No comment entered. Ordering Provider: RANDEE NOGUEIRA Report Released Date/Time: Feb 18, 2024 10:12 AM Reporting Lab: [place] [facility] [address] [place] [address] Performing Lab: [place] [facility] [address] [place] [address] CHOLESTEROL 176 mg/dL 0-200 TRIGLYCERIDE 167 mg/dL H 0-150 CALCULATED LDL 100.0 mg/dL HDL(New) 42.6 mg/dL H >40 HDL % OF TOTAL CHOLESTEROL (PB) 24.2 >25 May 12, 2024 08:35 AM [facility] HGA1C BLOOD Specimen Type: BLOOD No comment entered. Ordering Provider: RANDEE NOGUEIRA Report Released Date/Time: Feb 18, 2024 10:12 AM Reporting Lab: [place] [facility] [address] [place] [address] Performing Lab: [place] [facility] [address] [place] [address] HGA1C 6.0 4.0-6.0 May 12, 2024 08:35 AM [facility] B12 SERUM Specimen Type: SERUM No comment entered. Ordering Provider: RANDEE NOGUEIRA Report Released Date/Time: Feb 18, 2024 10:12 AM Reporting Lab: [place] [facility] [address] [place] [address] Performing Lab: [place] [facility] [address] [place] [address] B12 668 pg/mL 213-816 May 12, 2024 08:35 AM [facility] FOLATE (PB) SERUM Specimen Typ e: SERUM No comment entered. Ordering Provider: RANDEE NOGUEIRA Report Released Date/Time: Feb 18, 2024 10:12 AM Reporting Lab: [place] [facility] [address] [place] [address] Performing Lab: [place] [facility] [address] [place] [address] FOLATE (PB) 10.7 ng/mL 7-20 May 12, 2024 08:35 AM [facility] COMPREHENSIVE METABOLIC PANEL PLASMA Specimen Type: PLASMA No comment entered. Ordering Provider: RANDEE NOGUEIRA Report Released Date/Time: Feb 18, 2024 10:12 AM Reporting Lab: [place] [facility] [address] [place] [address] Performing Lab: [place] [facility] [address] [place] [address] CREATININE 1.02 mg/dL 0.7-1.3 UREA NITROGEN 16 [...] U/L H 8-40 EGFR (CKD-EPI 2020) 80 Radiology Reports: +/- 30 days of the [...] the Encounter. The data comes from all [place] treatment facilities. Date/Time Radiology Report Provider Source May 12, 2024 09:25 AM CHEST X-RAY, 2 VIE WS: THOMPSON FELIZ [id number] -[id number] M Exm Date: MAY 12, 2024@09:25 Req Phys: CLAUDIO KELLEY Pat Loc: PB-YU PACT NATARAJAN ATILIO (Req'g L Img Loc: PB-XRAY [place] Service: [place] [address] (Case [id number] COMPLETE) CHEST X-RAY, 2 VIEWS (RAD Detailed) CPT:68498 Reason for Study: cough Clinical History: Report Status: Verified Date Reported: MAY 12, 2024 Date Verified: MAY 12, 2024 Cutting Table Operator First E-Sig: Report: PA and lateral views of the chest reveal mild degenerative skeletal change and metal implants in the right humeral head. There is no obvious acute osseous abnormality. There is mild bilateral pulmonary hyperaeration. There is no infiltrate or effusion. Heart size is normal. Impression: No acute process Primary Interpreting Staff: MARIELA OKEEFE RADIOLOGIST (Cutting Table Operator First, no e-sig) /MARIELA Vasquez [facility] Encounter Notes: All associated encounter notes This section contains the clinical notes associated to the Encounter. Date/Time Encounter Note(s) Provider Source Jun 07, 2024 04:08 PM PHARMACY CONSULT: LOCAL TITLE: NON FORMULARY CONSULT PB STANDARD TITLE: PHARMACY CONSULT DATE OF NOTE: JUN 07, 2024@16:08 ENTRY DATE: JUN 07, 2024@16:08:28 AUTHOR: JAILENE MORENO COSIGNER: URGENCY: STATUS: COMPLETED The medical record has been reviewed with regard to this prior authorization drug request. This prior authorization drug request originated with a [facility] provider. Medication requested: ENBREL ETANERCEPT 50MG/ML INJ SURECLICK Medication indication: Rheumatoid arthritis Medical history relevant to this request: Rheumatoid arthritis. Previous Leflunomide,Upadacitinib,Pred nisone,Ixekizumab The request is approved - A documented therapeutic failure of the preferred formulary alternative(s) exists /walter/ JAILENE MORENO CLINICAL OFFICE TECHNICIAN Signed: 06/07/2024 16:13 Receipt Acknowledged By: 06/08/2024 09:40 /walter/ JOSE DAVID KYLE COMMERCIAL FISHING VESSEL OPERATOR JAILENE MORENO [facility]
--- OUTSIDE RECORDS SUMMARY | 2024-08-01 04:45 | XMS_ITS | Encounter Summary ---
Author Name [facility] Organization [facility] [place] Address [address] [place] [id number] Care Team Providers Care Electricity Trader Name Role Phone CLAUDIO KELLEY Primary Care [...] Patient's Relationship to Policy Cruz BRITTANI BROOKS [facility] (WNR) MEDICARE ADVANTAGE [facility] (WNR) Jan 26, 2020 [id number] [phone] TRAY,ER IC PATIENT MEDICARE (WNR) MEDICARE (M) PART B Jan 26, 2020 PART B [id number] TRAY,ER IC PATIENT MEDICARE (WNR) MEDICARE (M) PART A August 26, 2019 PART A [id number] [phone] TRAY,ER IC PATIENT Selected Encounter This section includes the information on record at [place] for the Encounter. Date/Time Encounter Type Encounter Description Reason Provider Source Aug 01, 2024 10:45 AM OFF/OP EST AUGUST X REQ PHY/QHP PRIMARY CARE/MEDICINE ICD-10-CM B37.9 Candidiasis, unspecified KIRK,CASTILLO D IHE Encounter Template Text not used by [place] Assessments - Encounter Diagnoses This section includes the primary and secondary diagnoses documented for the Encounter. Date/Time Primary/Secondary Diagnosis Diagnosis Name Provider Source Aug 01, 2024 03:43 PM PRIMARY Candidiasis, unspecified CASTILLO KIRK [facility] Plan of Treatment: Future Appointments (+ 6 months) and Future Tests (+/- 45 days) The Plan of Treatment section includes future care activities for the patient from all [facility] This section includes future appointments and future orders which are active, pending or scheduled. Future Appointments This section includes appointments that were scheduled to occur 6 months from the date of the Encounter, up to a maximum of 20 appointments. The data comes from all [place] treatment [facility]. Appointment Date/Time Appointment Type Appointme nt Facility Name Aug 05, 2024 09:15 AM [facility] Aug 24, 2024 09:30 AM AMBULATORY - MEDICINE [facility] August 25, 2024 12:00 PM AMBULATORY - NONE TACO LUNA [facility] Active, Pending, and Scheduled Orders This section includes a listing of several types of active, pending, and scheduled orders, including clinic medications orders, diagnostic test orders, procedure orders and consult orders; where the start date of the order is 45 days before the date of the Encounter or 45 days after the date of theEncounter. The data comes from all [facility]. Test Date/Time Test Type Test Details Facility Name Jul 26, 2024 08:29 AM Consult Order COMMUNITY [id number] Cons Waste Collection Driver's Choice TACO CORDERO [facility] Aug 18, 2024 12:00 AM Laboratory - Chemistry Order CHOLESTEROL PANEL (PB) GREEN LI/HEP BLD/PLAS PLASMA [facility] Aug 18, 2024 12:00 AM Laboratory - Chemistry Order [id number] BLOOD [facility] Aug 18, 2024 12:00 AM Laboratory - Chemistry Order IRON GREEN LI/HEP BLD/PLAS PLASMA [facility] Aug 18, 2024 12:00 AM Laboratory - Chemistry Order DIRECT LDL ([place]-PB) GREEN LI/HEP BLD/PLAS PLASMA [facility] Aug 18, 2024 12:00 AM Laboratory - Chemistry Order COMPREHENSIVE METABOLIC PANEL GREEN LI/HEP BLD/PLAS PLASMA [facility] Aug 18, 2024 12:00 AM Laboratory - Chemistry Order VITAMIN D, 25-HYDROXY GOLD/RED SST SERUM [facility] Aug 18, 2024 12:00 AM Laboratory - Chemistry Order RHEUMATOID FACTOR (PB) RED/NO-GEL SERUM [facility] Aug 18, 2024 12:00 AM Laboratory - Chemistry Order MAGNESIUM GREEN LI/HEP BLD/PLAS PLASMA [facility] Aug 18, 2024 12:00 AM Laboratory - Chemistry Order FOLATE (PB) GOLD/RED SST SERUM [facility] Aug 18, 2024 12:00 AM Laboratory - Chemistry Order B12 GOLD/RED SST SERUM [facility] Aug 18, 2024 12:00 AM Laboratory - Chemistry Order PHOSPHOROUS GREEN LI/HEP BLD/PLAS PLASMA [facility] August 25, 2024 12:00 AM Imaging - CT Scan Order LDCT LCS 1, 3 OR 6 MONTH FOLLOW UP POPLAR GIL [facility] Vital Signs: All taken on the encounter date This section contains inpatient and outpatient Vital Signs collected on the date of the Encounter. Date/Time Temperature Pulse Blood Pressure Respiratory Rate SP02 Pain Height Weight Body Mass Index Source Aug 01, 2024 10:35 AM 97.3 96 146/95 20 97 0 250.7 34 [facility] Social History: Smoking Status (Most current) and Tobacco Use (All prior to encounter date) This section includes the most current, and the historical, smoking and tobacco- related health factors from the [place] facility where the Encounter took place. Current Smoking Status This section includes the most current smoking, or tobacco-related health factor, from the [place] facility where the Encounter took place. Date/Time Current Smoking Status Comment Facil ity Feb 18, 2024 09:30 AM VA-TOBACCO FORMER USER [facility] Tobacco Use History This section includes a history of the smoking, or tobacco-related health factors, that were collected on or before the date of the Encounter. The data comes from the [place] facility where the Encounter took place. Date/Time Smoking Status/Tobacco Use Comment F acility Feb 18, 2024 09:30 AM VA-TOBACCO QUIT 5 TO < 15 YRS [facility] Feb 16, 2023 02:00 PM VA-TOBACCO FORMER USER [facility] Feb 16, 2023 02:00 PM VA-TOBACCO QUIT 5 TO < 15 YRS [facility] Feb 19, 2022 11:30 AM VA-TOBACCO FORMER USER [facility] Feb 19, 2022 11:30 AM VA-TOBACCO QUIT 1 TO < 5 YRS [facility] Mar 04, 2021 08:30 AM VA-TOBACCO FORMER USER [facility] Mar 04, 2021 08:30 AM VA-TOBACCO QUIT 1 TO < 5 YRS [facility] Mar 08, 2019 11:49 AM VA-TOBACCO DOESNT USE WI 30 MIN WAKEUP [facility] Mar 08, 2019 11:49 AM VA-TOBACCO USE 30 YEARS OR MORE [facility] Mar 08, 2019 11:49 AM VA-TOBACCO USE ADVICE [facility] Mar 08, 2019 11:49 AM VA-TOBACCO USE BEAUTY OPERATOR NO [facility] Mar 08, 2019 11:49 AM VA-TOBACCO USE MED NOTIFY PROVIDER [facility] Mar 08, 2019 11:49 AM VA-TOBACCO USER EVERY DAY [facility] Mar 17, 2018 01:22 PM CURRENT TOBACCO USER [facility] Mar 17, 2018 01:22 PM CURRENT TOBACCO US ER (READY TO QUIT) [facility] Mar 17, 2018 01:22 PM SMOKELESS TOBACCO AMOUNT/LENGTH V15 45yr history [facility] Mar 17, 2018 01:22 PM TOBACCO CESSATION REFERRAL DECLINED [facility] Mar 17, 2018 01:22 PM TOBACCO USER OFFERED MEDS [facility] Aug 20, 2017 10:37 AM CURRENT TOBACCO USER [facility] Aug 20, 2017 10:37 AM CURRENT TOBACCO US ER (NOT READY TO QUIT) [facility] Aug 20, 2017 10:37 AM SMOKELESS TOBACCO AMOUNT/LENGTH V15 50yr history 1 can every week [facility] Aug 20, 2017 10:37 AM TOBACCO CESSATION REFERRAL DECLINED [facility] Aug 20, 2017 10:37 AM TOBACCO MEDS OFFER ED BUT DECLINED [facility] Aug 20, 2017 10:37 AM TOBACCO USER OFFERED MEDS [facility] Feb 24, 2017 07:10 AM CURRENT TOBACCO USER [facility] Feb 24, 2017 07:10 AM CURRENT TOBACCO US ER (NOT READY TO QUIT) [facility] Feb 24, 2017 07:10 AM TOBACCO CESSATION REFERRAL DECLINED [facility] Feb 24, 2017 07:10 AM TOBACCO MEDS OFFER ED BUT DECLINED [facility] Feb 24, 2017 07:10 AM TOBACCO USER OFFERED MEDS [facility] Dec 18, 2016 11:06 [...] 2016 11:06 AM TOBACCO USER OFFERED MEDS [facility] Jan 29, 2016 07:57 AM CURRENT TOBACCO USER [facility] Jan 29, 2016 07:[address] [facility] Oct 13, 2014 08:33 AM CURRENT TOBACCO USER [facility] Oct 13, 2014 08:[address] [facility] Oct 06, 2013 10:38 AM CURRENT TOBACCO USER [facility] Oct 06, 2013 10:[address] [facility] Jun 28, 2012 02:19 PM CURRENT TOBACCO USER [facility] Jun 28, 2012 02:[address] [facility] Jan 06, 2011 02:53 PM CURRENT TOBACCO USER [facility] Jan 06, 2011 02:53 PM TOBACCO MEDS OFFER ED BUT DECLINED [facility] Jan 06, 2011 02:53 PM TOBACCO OFFERED PT MEDS (PROVIDER) [facility] Jan 06, 2011 02:[address] [facility] Aug 13, 2009 02:36 PM CURRENT TOBACCO USER [facility] Aug 13, 2009 02:36 PM TOBACCO MEDS OFFER ED BUT DECLINED [facility] Aug 13, 2009 02:36 PM TOBACCO OFFERED PT MEDS (PROVIDER) [facility] Aug 13, 2009 02:[address] [facility] Mar 03, 2008 08:34 AM CURRENT TOBACCO USER [facility] Mar 03, 2008 08:[address] OP SMOKING CLINIC [facility] Jul 21, 2007 11:40 AM CURRENT TOBACCO USER [facility] Dec 08, 2006 08:18 AM CURRENT TOBACCO USER [facility] Dec 08, 2006 08:18 AM TOBACCO MEDS OFFER ED BUT DECLINED [facility] Jul 25, 2005 10:39 AM CURRENT NON-TOBACC O USER-HX OF USE [facility] Jan 27, 2005 11:41 AM CURRENT NON-TOBACC O USER-HX OF USE [facility] Jul 29, 2004 08:37 AM CURRENT NON-TOBACC O USER-HX OF USE Stopped since last visit. Gained 5 pounds [facility] Jan 29, 2004 09:02 AM CURRENT NON-TOBACC O USER-HX OF USE Stopped about 3-4 months ago [facility] Jul 28, 2003 10:08 AM CURRENT NON-TOBACC O USER-HX OF USE [facility] August 26, 2002 10:28 AM CURRENT NON-TOBACC O USER-HX OF USE [facility] Mar 11, 2002 09:39 AM CURRENT NON-TOBACC O USER-HX OF USE [facility] Apr 08, 2001 11:01 AM CURRENT NON-TOBACC O USER-HX OF USE Stopped 1996 [facility] Oct 22, 2000 01:27 PM CURRENT NON-TOBACC O USER-HX OF USE 1 pack a da y for years / stopped 4 yrs [facility] Encounter Notes: All associated encounter notes This section contains the clinical notes associated to the Encounter. Date/Time Encounter Note(s) Provider Source Aug 01, 2024 10:40 AM NURSING PROGRESS N OTE: LOCAL TITLE: NURSING NOTE STANDARD TITLE: NURSING PROGRESS NOTE DATE OF NOTE: AUG 01, 2024@10:40 ENTRY DATE: AUG 01, 2024@10:41:12 AUTHOR: CASTILLO KIRK COSIGNER: URGENCY: STATUS: COMPLETED NURSING NOTE PB Has ADDENDA This is a 68 year old MALE with known Allergies as noted: HORSE SERUM PROTEINS, PENICILLIN, AZITHROMYCIN, ASPIRIN RELATED MEDICATIONS LOVASTATIN, SIMVASTATIN, ROSUVASTATIN, LIPITOR, THIAZIDES/RELATED DIURETICS METHOTREXATE, CODEINE, COLESTIPOL, SULFASALAZINE, HUMIRA, COSENTYX On the following Active Medications: Active Outpatient Medications (including Supplies): Active Outpatient Medications Status 1) ALIROCUMAB 150MG/ML INJ 1ML PEN INJECT 150MG UNDER THE SKIN ACTIVE EVERY MONTH Indication: FOR HIGH CHOLESTEROL 2) EPI(EQV-ADRENACLICK)0.3MG/0. 3ML INJCTR INJECT 1 PEN ACTIVE (0.3MG/0.3ML) INTRAMUSCULARLY ONE-TIME 3) ETANERCEPT 50MG/ML INJ SYRINGE INJECT 50MG UNDER THE SKIN ACTIVE EVERY WEEK KEEP REFRIGERATED. ADMINISTER SUBCUTANEOUSLY ON THE SAME DAY(S) EACH WEEK. 4) EZETIMIBE 10MG TAB TAKE ONE TABLET BY MOUTH ONCE A DAY TO ACTIVE LOWER CHOLESTEROL 5) FUROSEMIDE 20MG TAB TAKE ONE TABLET BY MOUTH ONCE A DAY ACTIVE 6) HYDROCODONE 5MG/ACETAMINOPHEN 325MG TAB TAKE 1 TABLET BY ACTIVE MOUTH EVERY EIGHT(8) HOURS NEEDED FOR PAIN THIS QUANTITY MUST LAST 30 DAYS OR MORE CAUTION: DO NOT EXCEED 4000MG PER DAY ACETAMINOPHEN (APAP) FROM ALL MEDS. 7) LEFLUNOMIDE 20MG TAB TAKE ONE TABLET BY MOUTH ONCE A DAY ACTIVE (S) TAKE AT SAME TIME EACH DAY. 8) LOSARTAN 100MG TAB TAKE ONE-HALF TABLET BY MOUTH ONCE A DAY ACTIVE Indication: FOR HIGH BLOOD PRESSURE 9) NALOXONE HCL 4MG/SPRAY SOLN NASAL SPRAY USE 1 SPRAY (4MG) ACTIVE INTO ONE NOSTRIL ONLY ONE-TIME DO NOT PRIME NASAL SPRAY. SPRAY ONE DOSE IN ONE NOSTRIL, GIVE ADDITIONAL DOSE IF PATIENT DOES NOT START BREATHING WITHIN 2-3 MINUTES OR STOPS BREATHING AGAIN. CALL 911. IF USED, NOTIFY PROVIDER. Indication: FOR OPIOID OVERDOSE 10) XSDYF-3-PWTK ETHYL ESTERS 1000MG CAP TAKE TWO CAPSULES BY ACTIVE MOUTH TWICE A DAY Indication: FOR HIGH TRIGLYCERIDES 11) PANTOPRAZOLE NA 40MG EC TAB TAKE ONE TABLET BY MOUTH EVERY ACTIVE MORNING BEFORE A MEAL TO LOWER STOMACH ACID - TAKE 30 MINUTES BEFORE MEAL(S) 12) POTASSIUM CHLORIDE 10MEQ SA TAB TAKE ONE TABLET BY MOUTH ACTIVE ONCE A DAY TAKE WITH FOOD 13) PREDNISONE 10MG TAB TAKE ONE TABLET BY MOUTH ONCE A DAY TAKE ACTIVE WITH FOOD OR MILK. 14) PROPRANOLOL HCL 80MG SA CAP TAKE ONE CAPSULE BY MOUTH ONCE A ACTIVE DAY Indication: FOR HIGH BLOOD PRESSURE 15) TRAMADOL HCL 50MG TAB TAKE 1 TABLET BY MOUTH THREE TIMES A ACTIVE DAY NEEDED Indication: FOR PAIN Active Non-VA Medications Status 1) Non-VA ASPIRIN 81MG EC TAB 81MG BY MOUTH ONCE A DAY ACTIVE Indication: FOR CARDIOVASCULAR DISEASE 16 Total Medications C/C: Thrush S: Frederic presents to the clinic as a walk-in. reports he thinks he has thrush in his mouth. Frederic reports he is on a daily steroid and he gets this frequently. reports he also had a yeast infection in his groin and treated with an OTC anti-fungal spray and it is gone now. Frederic report his mouth stout when he tries to eat and all food taste funny . O/A: Frederic ambulated to exam room with steady gait and no assistance. Frederic alert and oriented x4 with unlabored breathing. Several white areas noted to 's tongue only, resembling thrush. Vital Signs: See cover sheet Weight: 250.7 pounds P: Reviewed with the Provider. Provider assessed at chairside. Provider to call in Diflucan and nystatin swish and swallow to the [facility] pharmacy. Immediate need called and form given to . Provider to order miconazole power to mailed through the [place]. Educated on medication and to report to clinic if symptoms worsen. Frederic voiced understanding and all questions and concerns addressed at this time. RTC: Advised to return to clinic as needed or report to ER if symptoms worsen. /walter/ Castillo Kirk RN BSN ROE Jansen [facility] Signed: 08/01/2024 15:41 Receipt Acknowledged By: 08/02/2024 08:50 /walter/ NOÉ Almonte, MSN, Juan. [facility] 08/01/2024 ADDENDUM STATUS: COMPLETED Per [facility] Directive 1605.06, wristband documentation: Patient wristband was removed and destroyed by (staff name) Castillo Kirk and placed in the designated [employer] bin. /walter/ Castillo Kirk TAR LEVELER ROE Jansen [facility] Signed: 08/01/2024 15:45 CA[facility]ILLO KIRK [facility]
--- OUTSIDE RECORDS SUMMARY | 2024-08-24 04:30 | XMS_ITS | Encounter Summary ---
Author Name [facility] ([place]) Organization [facility]) Address [address] [place] [id number] Care Team Providers Care Bus Driver School Name Role Phone SIMRAN PINEDA Primary Care Provider Unavailabl e Insurance Providers: [...] Patient's Relationship to Policy Cruz BRITTANI BROOKS [facility] (WNR) MEDICARE ADVANTAGE [facility] (WNR) Jan 26, 2020 [id number] [phone] TRAY,ER IC PATIENT MEDICARE (WNR) MEDICARE (M) PART B Jan 26, 2020 PART B [id number] [phone] [place] PATIENT MEDICARE (WNR) MEDICARE (M) PART A August 26, 2019 PART A [id number] TRAY,ER IC PATIENT Selected Encounter This section includes the information on record at DC for the Encounter. Date/Time Encounter Type Encounter Description Reason Provider Source Aug 24, 2024 10:30 AM OFFICE O/P EST MOD 30 MIN PRIMARY CARE/MEDICINE ICD-10-CM Z09 Encntr for f/u exam aft trtmt for cond oth than malig MIHAELA McdonoughISTEL G IH Encounter Template Text not used by DC Assessments - Encounter Diagnoses This section includes the primary and secondary diagnoses documented for the Encounter. Date/Time Primary/Secondary Diagnosis Diagnosis Name Provider Source Aug 24, 2024 11:52 AM PRIMARY Encntr for f/u exam aft trtmt for cond oth ryan JANE Ross [facility] Aug 24, 2024 11:52 AM SECONDARY Hyperlipidemia, unspecified JANE PANCHAL [place] [facility] Aug 24, 2024 11:52 AM SECONDARY Low back pain, unspecified JANE PANCHAL [facility] Aug 24, 2024 11:52 AM SECONDARY Oth disrd of the skin and subcutaneous tissue JANE PANCHAL [facility] Plan of Treatment: Future Appointments (+ 6 months) and Future Tests (+/- 45 days) The Plan of Treatment section includes future care activities for the patient from all [place] treatmentfacilities. This section includes future appointments and future orders which are active, pending or scheduled. Future Appointments This section includes appointments that were scheduled to occur 6 months from the date of the Encounter, up to a maximum of 20 appointments. The data comes from all [place] treatment facilities. Appointment Date/Time Appointment Type Appointme nt Facility Name August 25, 2024 12:00 PM AMBULATORY - NONE [place] [facility] September 20, 2024 08:00 AM AMBULATORY - MEDICINE [place] [facility] September 21, 2024 03:45 PM AMBULATORY - MEDICINE [facility] Sep 27, 2024 03:30 PM AMBULATORY - MEDICINE [facility] Oct 18, 2024 09:30 AM AMBULATORY - MEDICINE [place] [facility] Oct 26, 2024 08:00 AM AMBULATORY - MEDICINE [place] [facility] Oct 26, 2024 01:45 PM AMBULATORY - MEDICINE [place] [facility] Nov 10, 2024 03:00 PM AMBULATORY - [place]ICINE [place] [facility] Nov 14, 2024 11:30 AM AMBULATORY - MEDICINE [facility] Nov 24, 2024 10:45 AM AMBULATORY - MEDICINE [place] [facility] Feb 17, 2025 08:30 AM AMBULATORY - MEDICINE [facility] Active, Pending, and Scheduled Orders This section includes a listing of several types of active, pending, and scheduled orders, including clinic medications orders, diagnostic test orders, procedure orders and consult orders; where the start date of the order is 45 days before the date of the Encounter or 45 days after the date of theEncounter. The data comes from all [place] treatment facilities. Test Date/Time Test Type Test Details Facility Name Aug 17, 2024 06:30 AM Consult Order [facility]-ORTHOPEDICS [id number] Cons In Flight Technician's Choice [place] [facility] Aug 17, 2024 04:26 PM Consult Order [facility]-ORTHOPEDICS [id number] Cons In Flight Technician's Choice [place] [facility] Aug 24, 2024 11:20 AM Consult Order [facility]DERMATOLOGY [id number] Cons In Flight Technician's [place] [facility] August 30, 2024 01:02 PM Consult Order [facility]-VASCULAR [id number] Cons In Flight Technician's [place] [facility] Sep 28, 2024 07:01 AM Consult Order [facility] [id number] Cons In Flight Technician's Choice [facility] Lab Results: +/- 30 days of the encounter This section includes the Chemistry and Hematology Lab Results on record with DC for the patient. Radiology Reports and Pathology Reports are provided separately, in subsequent sections. Lab Results This section contains the Chemistry/Hematology Results that were resulted 30 days before or 30 daysafter the date of the Encounter. Date/Time Source Result Type Result - Unit Interpretation Reference Range Specimen Type Comment September 20, 2024 08:45 AM [facility] URIC ACID PLASMA Specimen Type: PLASMA No comment entered. Ordering Provider: RANDEE RIVERA Report Released Date/Time: Aug 24, 2024 01:14 PM Reporting Lab: [place] [facility] [address] [place] [address] Performing Lab: [place] [facility] [address] [place] [address] URIC ACID 6.4 mg/dL 3.5-7.2 September 20, 2024 08:45 AM [facility] IRON PLASM A Specimen Type: PLASMA No comment entered. Ordering Provider: RANDEE RIVERA Report Released Date/Time: Aug 24, 2024 01:14 PM Reporting Lab: [place] [facility] [address] [place] [address] Performing Lab: [place] [facility] [address] [place] [address] IRON 134 ug/dL 65-175 September 20, 2024 08:45 AM [place] [facility] DIRECT LDL (MA-PB) PLASMA Specimen Type: PLASM A No comment entered. Ordering Provider: RANDEE RIVERA Report Released Date/Time: Aug 24, 2024 01:14 PM Reporting Lab: [place] [facility] [address] [place] [address] Performing Lab: [place] [facility] [address] [place] [address] DIRECT LDL 145.0 mg/dL H 0-99.9 September 20, 2024 08:45 AM [place] [facility] CHOLESTEROL PANEL (PB) PLASMA Specimen Type: P LASMA No comment entered. Ordering Provider: RANDEE RIVERA Report Released Date/Time: Aug 24, 2024 01:14 PM Reporting Lab: [place] [facility] [address] [place] [address] Performing Lab: [place] [facility] [address] [place] [address] CHOLESTEROL 232 mg/dL H 0-200 TRIGLYCERIDE 165 mg/dL H 0-150 CALCULATED LDL 132.6 mg/dL HDL(New) 66.4 mg/dL H >40 HDL % OF TOTAL CHOLESTEROL (PB) 28.6 >25 September 20, 2024 08:45 AM [place] [facility] RHEUMATOID FACTOR (PB) SERUM Specimen Type: S KURT No comment entered. Ordering Provider: RANDEE RIVERA Report Released Date/Time: Aug 24, 2024 01:14 PM Reporting Lab: [place] [facility] [address] [place] [address] Performing Lab: [place] [facility] [address] [place] [address] RHEUMATOID FACTOR (PB) <13 [IU]/mL L 0-30 September 20, 2024 08:45 AM [place] [facility] VITAMIN D, 25-HYDROXY SERUM Specimen Type: SE RUM No comment entered. Ordering Provider: RANDEE RIVERA Report Released Date/Time: Aug 24, 2024 01:14 PM Reporting Lab: [place] [facility] [address] [place] [address] Performing Lab: [place] [facility] [address] [place] [address] VITAMIN D, 25-HYDROXY 52.8 ng/mL 30-96 September 20, 2024 08:45 AM [facility] MAGNESIUM PLASMA Specimen Typ e: PLASMA No comment entered. Ordering Provider: RANDEE RIVERA Report Released Date/Time: Aug 24, 2024 01:14 PM Reporting Lab: [place] [facility] [address] [place] [address] Performing Lab: [place] [facility] [address] [place] [address] MAGNESIUM 2.08 mg/dL 1.6-2.6 September 20, 2024 08:45 AM [facility] URINE ALBUMIN PROFILE-ih (PB) URINE Specimen Type: URINE No comment entered. Ordering Provider: RANDEE RIVERA Report Released Date/Time: Aug 24, 2024 01:14 PM Reporting Lab: [place] [facility] [address] [place] [address] Performing Lab: [place] [facility] [address] [place] [address] URINE ALBUMIN (PB-STL) 293.26 mg/L uACR (PB-MA) 193.43 mg/g H 0-30 CREATININE URINE/OTHERS 151.61 mg/dL September 20, 2024 08:45 AM [facility] B12 SERUM Specimen Type: SERUM No comment entered. Ordering Provider: RANDEE RIVERA Report Released Date/Time: Aug 24, 2024 01:14 PM Reporting Lab: [place] [facility] [address] [place] [address] Performing Lab: [place] [facility] [address] [place] [address] B12 712 pg/mL 213-816 September 20, 2024 08:45 AM [facility] FOLATE (PB) SERUM Specimen Typ e: SERUM No comment entered. Ordering Provider: RANDEE RIVERA Report Released Date/Time: Aug 24, 2024 01:14 PM Reporting Lab: [place] [facility] [address] [place] [address] Performing Lab: [place] [facility] [address] [place] [address] FOLATE (PB) 12.5 ng/mL 7-20 September 20, 2024 08:45 AM [facility] HGA1C BLOOD Specimen Type: BLOOD No comment entered. Ordering Provider: RANDEE RIVERA Report Released Date/Time: Aug 24, 2024 01:14 PM Reporting Lab: [place] [facility] [address] [place] [address] Performing Lab: [place] [facility] [address] [place] [address] HGA1C 6.2 H 4.0-6.0 September 20, 2024 08:45 AM [facility] COMPREHENSIVE METABOLIC PANEL PLASMA Specimen Type: PLASMA No comment entered. Ordering Provider: RANDEE RIVERA Report Released Date/Time: Aug 24, 2024 01:14 PM Reporting Lab: [place] [facility] [address] [place] [address] Performing Lab: [place] [facility] [address] [place] [address] CREATININE 1.25 mg/dL 0.7-1.3 UREA NITROGEN 21 mg/dL 9-25 GLUCOSE 92 mg/dL 72-99 SODIUM 144 meq/L 136-145 POTASSIUM 4.6 meq/L 3.5-5 CHLORIDE 103 meq/L 98-107 CARBON DIOXIDE 29 meq/L 22-31 CALCIUM 10.6 mg/dL H 8.4-10.4 PROTEIN 7.5 g/dL 6-8.6 ALBUMIN 4.4 g/dL 3.4-5 TOTAL BILIRUBIN 0.7 mg/dL 0.2-1.2 ALKALINE PHOSPHATASE 71 U/L 40-150 AST/SGOT 48 U/L H 5-34 ALT/SGPT 116 U/L H 8-40 EGFR (CKD-EPI 2020) 62 September 20, 2024 08:45 AM [facility] CBC BLOOD Specimen Type: BLOOD No comment entered. Ordering Provider: RANDEE RIVERA Report Released Date/Time: Aug 24, 2024 01:14 PM Reporting Lab: [place] [facility] [address] [place] [address] Performing Lab: [place] [facility] [address] [place] [address] WBC 7.9 10*3/uL 3.6-11.2 RBC 4.37 10*6/uL 4.10-5.70 HGB 13.8 g/dL 13.1-16.8 HCT 41.7 38.2-48.4 MCV 95.4 fL 80.0-100.0 MCH 31.6 pg 27.0-34.0 MCHC 33.1 g/dL 33.0-36.0 PLT 216 10*3/uL 150-400 MPV 10.1 fL 7.5-11.2 RDW 13.9 11.8-15.1 LYMPHOCYTES, AUTO % 26.1 MONOCYTES, AUTO % 12.2 NEUTROPHILS, AUTO % 59.6 EOSINOPHILS, AUTO % 1.0 BASOPHILS, AUTO % 0.8 LYMPHOCYTES, ABSOLUTE 2.07 10*3/uL 0.77- 4.50 MONOCYTES, ABSOLUTE 0.97 10*3/uL H 0.19-0. 8 NEUTROPHILS, ABSOLUTE 4.72 10*3/uL 2.10- 8.00 EOSINOPHILS, ABSOLUTE 0.08 10*3/uL 0.00- 0.60 BASOPHILS, ABSOLUTE 0.06 10*3/uL 0.00-0. 20 IMMATURE GRANS, AUTO % 0.3 IMMATURE GRANS, AUTO ABS 0.02 10*3/uL 0. 00-0.05 September 20, 2024 08:44 AM [facility] DRUG SCREEN URINE-inhouse (PB) URINE Specimen Type: URINE No comment entered. Ordering Provider: JANE PANCHAL Report Released Date/Time: Aug 24, 2024 11:02 AM Reporting Lab: [place] [facility] [address] [place] [address] Performing Lab: [place] [facility] [address] [place] [address] METHADONE Negative Negative OPIATES (PB) Negative Negative COCAINE... Negative Negative THC(Marijuana... Negative Negative BENZODIAZEPINE (PB) Negative Negative AMPHETAMINE... Negative Negative CREATININE URINE/OTHERS 149.80 mg/dL OXYCODONE (OVKUY-OGE-HA) Negative Negati ve BUPRENORPHINE (STL-PB-MA) Negative ng/mL Negative ETHANOL URINE <10 mg/dL L 0-20 FENTANYL, URINE (PB) Negative ng/mL Aug 18, 2024 09:07 AM [facility] HGA1C BLOOD Specimen Type: BLOOD No comment entered. Ordering Provider: RANDEE RIVERA Report Released Date/Time: May 20, 2024 04:09 PM Reporting Lab: [place] [facility] [address] [place] [address] Performing Lab: [place] [facility] [address] [place] [address] HGA1C 6.4 H 4.0-6.0 Aug 18, 2024 09:07 AM [facility] CHOLESTEROL PANEL (PB) PLASMA Specimen Type: P LASMA No comment entered. Ordering Provider: RANDEE RIVERA Report Released Date/Time: May 20, 2024 04:09 PM Reporting Lab: [place] [facility] [address] [place] [address] Performing Lab: [place] [facility] [address] [place] [address] CHOLESTEROL 225 mg/dL H 0-200 TRIGLYCERIDE 164 mg/dL H 0-150 CALCULATED LDL 134.2 mg/dL HDL(New) 58.0 mg/dL H >40 HDL % OF TOTAL CHOLESTEROL (PB) 25.8 >25 Aug 18, 2024 09:07 AM [facility] DIRECT LDL (MA-PB) PLASMA Specimen Type: PLASM A No comment entered. Ordering Provider: RANDEE RIVERA Report Released Date/Time: May 20, 2024 04:09 PM Reporting Lab: [place] [facility] [address] [place] [address] Performing Lab: [place] [facility] [address] [place] [address] DIRECT LDL 155.7 mg/dL H 0-99.9 Aug 18, 2024 09:07 AM [facility] IRON PLASM A Specimen Type: PLASMA No comment entered. Ordering Provider: RANDEE RIVERA Report Released Date/Time: May 20, 2024 04:09 PM Reporting Lab: [place] [facility] [address] [place] [address] Performing Lab: [place] [facility] [address] [place] [address] IRON 103 ug/dL 65-175 Aug 18, 2024 09:07 AM [facility] VITAMIN D, 25-HYDROXY SERUM Specimen Type: SE RUM No comment entered. Ordering Provider: RANDEE RIVERA Report Released Date/Time: May 20, 2024 04:09 PM Reporting Lab: [place] [facility] [address] [place] [address] Performing Lab: [place] [facility] [address] [place] [address] VITAMIN D, 25-HYDROXY 46.0 ng/mL 30-96 Aug 18, 2024 09:07 AM [facility] RHEUMATOID FACTOR (PB) SERUM Specimen Type: S KURT No comment entered. Ordering Provider: RANDEE RIVERA Report Released Date/Time: May 20, 2024 04:09 PM Reporting Lab: [place] [facility] [address] [place] [address] Performing Lab: [place] [facility] [address] [place] [address] RHEUMATOID FACTOR (PB) <13 [IU]/mL L 0-30 Aug 18, 2024 09:07 AM [facility] PHOSPHOROUS PLASMA Specimen Typ e: PLASMA No comment entered. Ordering Provider: RANDEE RIVERA Report Released Date/Time: May 20, 2024 04:09 PM Reporting Lab: [place] [facility] [address] [place] [address] Performing Lab: [place] [facility] [address] [place] [address] PHOSPHOROUS 3.3 mg/dL 2.3-4.7 Aug 18, 2024 09:07 AM [facility] MAGNESIUM PLASMA Specimen Typ e: PLASMA No comment entered. Ordering Provider: RANDEE RIVERA Report Released Date/Time: May 20, 2024 04:09 PM Reporting Lab: [place] [facility] [address] [place] [address] Performing Lab: [place] [facility] [address] [place] [address] MAGNESIUM 2.02 mg/dL 1.6-2.6 Aug 18, 2024 09:07 AM [facility] FOLATE (PB) SERUM Specimen Typ e: SERUM No comment entered. Ordering Provider: RANDEE RIVERA Report Released Date/Time: May 20, 2024 04:09 PM Reporting Lab: [place] [facility] [address] [place] [address] Performing Lab: [place] [facility] [address] [place] [address] FOLATE (PB) 12.9 ng/mL 7-20 Aug 18, 2024 09:07 AM [facility] B12 SERUM Specimen Type: SERUM No comment entered. Ordering Provider: RANDEE RIVERA Report Released Date/Time: May 20, 2024 04:09 PM Reporting Lab: [place] [facility] [address] [place] [address] Performing Lab: [place] [facility] [address] [place] [address] B12 716 pg/mL 213-816 Aug 18, 2024 09:07 AM [facility] COMPREHENSIVE METABOLIC PANEL PLASMA Specimen Type: PLASMA No comment entered. Ordering Provider: RANDEE RIVERA Report Released Date/Time: May 20, 2024 04:09 PM Reporting Lab: [place] [facility] [address] [place] [address] Performing Lab: [place] [facility] [address] [place] [address] CREATININE 1.20 mg/dL 0.7-1.3 UREA NITROGEN 22 mg/dL 9-25 GLUCOSE 98 mg/dL 72-99 SODIUM 141 meq/L 136-145 POTASSIUM 4.7 meq/L 3.5-5 CHLORIDE 102 meq/L 98-107 CARBON DIOXIDE 28 meq/L 22-31 CALCIUM 9.9 mg/dL 8.4-10.4 PROTEIN 6.7 g/dL 6-8.6 ALBUMIN 4.0 g/dL 3.4-5 TOTAL BILIRUBIN 0.5 mg/dL 0.2-1.2 ALKALINE PHOSPHATASE 43 U/L 40-150 AST/SGOT 42 U/L H 5-34 ALT/SGPT 65 U/L H 8-40 EGFR (CKD-EPI 2020) 65 Vital Signs: All taken on the encounter date This section contains inpatient and outpatient Vital Signs collected on the date of the Encounter. Date/Time Temperature Pulse Blood Pressure Respiratory Rate SP02 Pain Height Weight Body Mass Index Source Aug 24, 2024 10:48 AM 120/85 [facility] Aug 24, 2024 10:47 AM 97.7 99 120/85 18 94 6 254.0 35 [facility] Social History: Smoking Status (Most current) and Tobacco Use (All prior to encounter date) This section includes the most current, and the historical, smoking and tobacco- related health factors from the DC facility where the Encounter took place. Current Smoking Status This section includes the most current smoking, or tobacco-related health factor, from the DC facility where the Encounter took place. Date/Time Current Smoking Status Comment Facil ity Feb 18, 2024 09:30 AM VA-TOBACCO FORMER USER [facility] Tobacco Use History This section includes a history of the smoking, or tobacco-related health factors, that were collected on or before the date of the Encounter. The data comes from the DC facility where the Encounter took place. Date/Time Smoking Status/Tobacco Use Comment F acility Feb 18, 2024 09:30 AM VA-TOBACCO QUIT 5 TO < 15 YRS [facility] Feb 16, 2023 02:00 PM VA-TOBACCO FORMER USER [facility] Feb 16, 2023 02:00 PM VA-TOBACCO QUIT 5 TO < 15 YRS [facility] Feb 19, 2022 11:30 AM VA-TOBACCO FORMER USER [facility] Feb 19, 2022 11:30 AM VA-TOBACCO QUIT 1 TO < 5 YRS [facility] Mar 04, 2021 08:30 AM VA-TOBACCO FORMER USER [facility] Mar 04, 2021 08:30 AM VA-TOBACCO QUIT 1 TO < 5 YRS [facility] Mar 08, 2019 11:49 AM VA-TOBACCO DOESNT USE WI 30 MIN WAKEUP [facility] Mar 08, 2019 11:49 AM VA-TOBACCO USE 30 YEARS OR MORE [facility] Mar 08, 2019 11:49 AM VA-TOBACCO USE ADVICE [facility] Mar 08, 2019 11:49 AM VA-TOBACCO USE LAN SUPPORT SPECIALIST NO [facility] Mar 08, 2019 11:49 AM VA-TOBACCO USE MED NOTIFY PROVIDER [facility] Mar 08, 2019 11:49 AM VA-TOBACCO USER EVERY DAY [facility] [place] [facility] Mar 17, 2018 01:22 PM CURRENT TOBACCO USER [facility] [place] [facility] Mar 17, 2018 01:22 PM CURRENT TOBACCO US ER (READY TO QUIT) [facility] [place] [facility] Mar 17, 2018 01:22 PM SMOKELESS TOBACCO AMOUNT/LENGTH V15 45yr history [facility] [place] [facility] Mar 17, 2018 01:22 PM TOBACCO CESSATION REFERRAL DECLINED [facility] Mar 17, 2018 01:22 PM TOBACCO USER OFFERED MEDS [facility] Aug 20, 2017 10:37 AM CURRENT TOBACCO USER [facility] Aug 20, 2017 10:37 AM CURRENT TOBACCO US ER (NOT READY TO QUIT) [facility] Aug 20, 2017 10:37 AM SMOKELESS TOBACCO AMOUNT/LENGTH V15 50yr history 1 can every week [facility] [place] [facility] Aug 20, 2017 10:37 AM TOBACCO CESSATION REFERRAL DECLINED [facility] Aug 20, 2017 10:37 AM TOBACCO MEDS OFFER ED BUT DECLINED [facility] Aug 20, 2017 10:37 AM TOBACCO USER OFFERED MEDS [facility] Feb 24, 2017 07:10 AM CURRENT TOBACCO USER [facility] Feb 24, 2017 07:10 AM CURRENT TOBACCO US ER (NOT READY TO QUIT) [facility] Feb 24, 2017 07:10 AM TOBACCO CESSATION REFERRAL DECLINED [facility] Feb 24, 2017 07:10 AM TOBACCO MEDS OFFER ED BUT DECLINED [facility] Feb 24, 2017 07:10 AM TOBACCO USER OFFERED MEDS [facility] Dec 18, 2016 11:06 AM CURRENT TOBACCO USER [facility] Dec 18, 2016 11:06 AM CURRENT TOBACCO US ER (NOT READY TO QUIT) [facility] Dec 18, 2016 11:06 AM TOBACCO CESSATION REFERRAL DECLINED [facility] Dec 18, 2016 11:06 AM TOBACCO MEDS OFFER ED BUT DECLINED [facility] Dec 18, 2016 11:06 AM TOBACCO USER OFFERED MEDS [facility] Jan 29, 2016 07:57 AM CURRENT TOBACCO USER [facility] Jan 29, 2016 07:[address] [facility] [place] [facility] Oct 13, 2014 08:33 AM CURRENT TOBACCO USER [facility] Oct 13, 2014 08:[address] [facility] [place] Oct 06, 2013 10:38 AM CURRENT [facility]BAC[place] US[place] [facility] Oct 06, 2013 10:[address] [facility] Jun 28, 2012 02:19 PM CURRENT [facility] [facility] [facility] Jun 28, 2012 02:[address] [facility] [place] [facility] Jan 06, 2011 02:53 PM CURRENT [facility] [facility] Jan 06, 2011 02:53 PM TOBACCO MEDS OFFER ED [place] [facility]CL[place] [place] [facility] Jan 06, 2011 02:53 PM TOBACCO OFFERED PT [facility] ([facility] [place] [facility] Jan 06, 2011 02:[address] [facility] [place] [facility] Aug 13, 2009 02:36 PM CURRENT [facility] [facility] [facility] Aug 13, 2009 02:36 PM TOBACCO MEDS OFFER ED [place] [facility] [place] [facility] Aug 13, 2009 02:36 PM TOBACCO OFFERED PT [facility] [place] [facility] Aug 13, 2009 02:[address] [facility] Mar 03, 2008 08:34 AM CURRENT TOBACCO USER [facility] Mar 03, 2008 08:[address] [facility] Jul 21, 2007 11:40 AM CURRENT [place]BAC[place] US[place] [facility] Dec 08, 2006 08:18 AM CURRENT [place]BAC[place] US[place] [facility] Dec 08, 2006 08:18 AM TOBACCO MEDS OFFER ED BUT DECLINED [facility] Jul 25, 2005 10:39 AM CURRENT NON-TOBACC O USER-HX OF [place] [place] [facility] Jan 27, 2005 11:41 AM CURRENT NON-TOBACC O USER-HX OF USE [facility] Jul 29, 2004 08:37 AM CURRENT NON-TOBACC O USER-HX OF USE Stopped since last visit. Gained 5 pounds [facility] Jan 29, 2004 09:02 AM CURRENT NON-TOBACC O USER-HX OF USE Stopped about 3-4 months ago [facility] Jul 28, 2003 10:08 AM CURRENT NON-TOBACC O USER-HX OF USE [facility] August 26, 2002 10:28 AM CURRENT NON-TOBACC O [facility] Mar 11, 2002 09:39 AM CURRENT NON-TOBACC O [facility] Apr 08, 2001 11:01 AM CURRENT NON-TOBACC O USER-HX OF USE Stopped 1996 [facility] Oct 22, 2000 01:27 PM CURRENT NON-TOBACC O USER-HX OF USE 1 pack a da y for years / stopped 4 yrs [facility] Radiology Reports: +/- 30 days of the [...] the Encounter. The data comes from all DC treatment facilities. Date/Time Radiology Report Provider Source August 25, 2024 11:24 AM LDCT LCS 1, 3 OR 6 MONTH FOLLOW UP: THOMPSON FELIZ [id number] Exm Date: AUGUST 25, 2024@11:24 Req Phys: JANE PANCHAL Pat Loc: PB-ADMIN LUNG SCREENING (Req'g Img Loc: PB-CT IMAGING Service: [place] [address] (Case [id number] COMPLETE) LDCT LCS 1, 3 OR 6 MONTH FOLLOW U(CT Detailed) CPT:17303 Reason for Study: LCS 6 Month F/U Clinical History: Attending: Jane Panchal Contact #: [id number] 02/26/2024: LRADS 3 Smoking history: 0.5 x 50 yrs, former smoker, quit 2017 Report Status: Verified Date Reported: AUGUST 26, 2024 Date Verified: AUGUST 26, 2024 Ampoule Inspector E-Sig:/ES/MARIELA OKEEFE Report: EXAM: LDCT LCS 1, 3 OR 6 MONTH FOLLOW UP ADDITIONAL HISTORY: N/A COMPARISON: February 26, 2024 PROTOCOL: Screening protocol, low dose, non-contrast CT chest was performed at the local DC facility in accordance with Lung-Rads 2022. Additional coronal and sagittal reconstructions. MIP reconstructions were reviewed. Secondary computer-aided detection post-processing used. RADIATION DOSE: CTDI(vol): 2.8 mGy DLP: 108.3 mGy*cm INDEX NODULE: 5.8 mm nodule with volume estimated at 126.5 cu mm demonstrating approximately 1% interval increase in size, located in the RUL and best seen on lung window settings on series #8 image #231. OTHER NODULES: 9, a previously questioned nodule in the anterior RLL is not identified on today's study and might be due to a vascular confluence. LUNG/AIRWAY FINDINGS: A few interstitial scars solitary small RUL nodule as noted. No pleural effusion. No airway lesion. EMPHYSEMA: Mild HEART, MEDIASTINUM AND LYMPH NODES: No significant abnormalities. VISUAL CORONARY ARTERY CALCIFICATIONS: Mild UPPER ABDOMEN: Unremarkable. BONES, SOFT TISSUES, AND ADDITIONAL FINDINGS: Degenerative skeletal changes with multilevel disc disease. Minimal scoliosis. No acute osseous abnormality. Impression: 1. Chronic findings as noted 2. No acute intrathoracic process 3. Right upper lobe nodule with minimal interval increase in size 4. LUNG-RADS 2 LUNG-RADS: 2: Benign. RECOMMENDATION: 1 year follow-up low-dose CT LUNG-RADS MODIFIER: N/A. Primary Interpreting Staff: MARIELA OKEEFE RADIOLOGIST (Ampoule Inspector) /MARILEA Vasquez [facility] Encounter Notes: All associated encounter notes This section contains the clinical notes associated to the Encounter. Date/Time Encounter Note(s) Provider Source Aug 24, 2024 10:56 AM PRIMARY CARE PROGR ESS NOTE: LOCAL TITLE: PRIMARY CARE CLINIC PROGRESS NOTE PB STANDARD TITLE: PRIMARY CARE PROGRESS NOTE DATE OF NOTE: AUG 24, 2024@10:56 ENTRY DATE: AUG 24, 2024@10:56:26 AUTHOR: JANE PANCHAL EXP COSIGNER: URGENCY: STATUS: COMPLETED Date & Time:Jul@10:56 This is a 68 year old MALE Allergies: HORSE SERUM PROTEINS, PENICILLIN, AZITHROMYCIN, ASPIRIN RELATED MEDICATIONS LOVASTATIN, SIMVASTATIN, ROSUVASTATIN, LIPITOR, THIAZIDES/RELATED DIURETICS METHOTREXATE, CODEINE, COLESTIPOL, SULFASALAZINE, HUMIRA, COSENTYX CC: Follow-up hospital stay for hypertension and elevated troponin HPI: Cat Spring presented today for a scheduled follow-up appointment for a hospital stay for hypertension new medications include amlodipine and Flexeril for lower back pain. Emma did see Dr. Rivera and he did review his labs today with him emma was in the hospital over the weekend. His medications were refilled by Dr. Rivera we discussed plan of care for hypertension currently emma's blood pressure is 120/85. Emma understands plan of care and has follow-up appointment scheduled denies any chest pain or any other pain is not having any other problems his blood pressures have been fine since his hospital stay. Emma states that his blood pressure cuff at home does have a leak we will give new blood pressure cuff today from clinical stock here at the [facility]. Temperature: 97.7 F [36.5 C] (08/24/2024 10:47) Respiratory Rate: 18 (08/24/2024 10:47) Pulse Rate: 99 (08/24/2024 10:47) Blood Pressure: 120/85 (08/24/2024 10:48) HT: 72.0 in [182.9 cm] (02/18/2024 09:32) WT: 254.0 lb [115.21 kg] (08/24/2024 10:47) BMI: 34.5 94% (08/24/2024 10:47) REVIEW OF SYSTEMS: RESPIRATORY: No cough, SOA, wheezing, or sputum production. CARDIOVASCULAR: No chest pain, palpitations, tachycardia, PND, or orthopnea. MUSCULOSKELETAL: Lower back pain. SKIN: Unknown skin lesion to the right sikhism PSYCH: No depression and anxious at this time. Not suicidal. 1) Fasciitis * (ICD-9-CM 729.4) 2) Psoriasis (SNOMED CT 3056334) 3) Essential hypertension (SNOMED CT 06990964) 4) Attention deficit disorder (SNOMED CT 32769938) 5) Shoulder Arthritis 6) Hypertension 7) Colon Polyps 8) Narcolepsy (SNOMED CT 16861250) 9) Dyslexia (SNOMED CT 73695914) 10) Stimulant dependence (SNOMED CT 177920342) 11) Chronic ulcer of foot 12) RA - Rheumatoid arthritis 13) Depression (SCT 20816377) 14) Psoriatic arthritis 15) Coronary arteriosclerosis 16) Hyperlipidemia ([facility] 85538729) 17) Prediabetes 18) Low back pain 19) Sleep apnea syndrome 20) Congestive heart failure Active Outpatient Medications (including Supplies): Active Outpatient Medications Status 1) EPI(EQV-ADRENACLICK)0.3MG/0. 3ML INJCTR INJECT 1 PEN ACTIVE (0.3MG/0.3ML) INTRAMUSCULARLY ONE-TIME 2) ETANERCEPT 50MG/ML INJ SYRINGE INJECT 50MG UNDER THE SKIN ACTIVE EVERY WEEK KEEP REFRIGERATED. ADMINISTER SUBCUTANEOUSLY ON THE SAME DAY(S) EACH WEEK. 3) EZETIMIBE 10MG TAB TAKE ONE TABLET BY MOUTH ONCE A DAY TO ACTIVE LOWER CHOLESTEROL 4) FLUCONAZOLE 150MG TAB TAKE ONE TABLET BY MOUTH EVERY OTHER ACTIVE DAY Indication: FOR FUNGAL INFECTION 5) FUROSEMIDE 20MG TAB TAKE ONE TABLET BY MOUTH ONCE A DAY ACTIVE 6) LEFLUNOMIDE 10MG TAB TAKE ONE TABLET BY MOUTH ONCE A DAY ACTIVE TAKE AT SAME TIME EACH DAY. 7) LOSARTAN 50MG TAB TAKE ONE TABLET BY MOUTH TWICE A DAY ACTIVE 8) MICONAZOLE NITRATE 2% TOP PWDR APPLY LIGHTLY TO AFFECTED ACTIVE AREA(S) THREE TIMES A DAY NEEDED FOR TOPICAL USE ONLY. Indication: FOR FUNGAL INFECTION 9) NALOXONE HCL 4MG/SPRAY SOLN NASAL SPRAY USE 1 SPRAY (4MG) ACTIVE INTO ONE NOSTRIL ONLY ONE-TIME DO NOT PRIME NASAL SPRAY. SPRAY ONE DOSE IN ONE NOSTRIL, GIVE ADDITIONAL DOSE IF PATIENT DOES NOT START BREATHING WITHIN 2-3 MINUTES OR STOPS BREATHING AGAIN. CALL 911. IF USED, NOTIFY PROVIDER. Indication: FOR OPIOID OVERDOSE 10) NITROGLYCERIN 0.4MG SL TAB DISSOLVE ONE TABLET UNDER THE ACTIVE TONGUE EVERY 5 MINUTES NEEDED ; IF NO IMPROVEMENT AFTER FIRST DOSE CALL 9--1. MAY TAKE 2 ADDITIONAL DOSES, 5 MINUTES APART. TAKE WHILE SITTING. 11) NYSTATIN 489382 UNT/ML SUSP TAKE 5 ML SWISH & SWALLOW THREE ACTIVE TIMES A DAY - SHAKE WELL BEFORE USING. Indication: THRUSH 12) LGPLH-9-VJZN ETHYL ESTERS 1000MG CAP TAKE TWO CAPSULES BY ACTIVE MOUTH TWICE A DAY Indication: FOR HIGH TRIGLYCERIDES 13) PANTOPRAZOLE NA 40MG EC TAB TAKE ONE TABLET BY MOUTH EVERY ACTIVE MORNING BEFORE A MEAL TO LOWER STOMACH ACID - TAKE 30 MINUTES BEFORE MEAL(S) 14) POTASSIUM CHLORIDE 10MEQ SA TAB TAKE ONE TABLET BY MOUTH ACTIVE ONCE A DAY TAKE WITH FOOD 15) PREDNISONE 10MG TAB TAKE ONE TABLET BY MOUTH ONCE A DAY TAKE ACTIVE WITH FOOD OR MILK. 16) PROPRANOLOL HCL 80MG SA CAP TAKE ONE CAPSULE BY MOUTH ONCE A ACTIVE DAY Indication: FOR HIGH BLOOD PRESSURE 17) TRAMADOL HCL 50MG TAB TAKE 1 TABLET BY MOUTH THREE TIMES A ACTIVE DAY NEEDED FOR PAIN THIS QUANTITY MUST LAST 30 DAYS OR MORE Pending Outpatient Medications Status 1) ALIROCUMAB 150MG/ML INJ 1ML PEN INJECT 150MG UNDER THE SKIN PENDING EVERY MONTH Indication: FOR HIGH CHOLESTEROL 2) AMLODIPINE BESYLATE 5MG TAB TAKE ONE TABLET BY MOUTH EVERY PENDING MORNING Indication: FOR HIGH BLOOD PRESSURE 3) EZETIMIBE 10MG TAB TAKE ONE TABLET BY MOUTH ONCE A DAY TO PENDING LOWER CHOLESTEROL 4) LOSARTAN 100MG TAB TAKE ONE-HALF TABLET BY MOUTH TWICE A DAY PENDING Indication: FOR HIGH BLOOD PRESSURE 5) MICONAZOLE NITRATE 2% TOP PWDR APPLY LIGHTLY TO AFFECTED PENDING AREA(S) THREE TIMES A DAY NEEDED FOR TOPICAL USE ONLY. Indication: FOR FUNGAL INFECTION 6) PANTOPRAZOLE NA 40MG EC TAB TAKE ONE TABLET BY MOUTH EVERY PENDING MORNING BEFORE A MEAL TO LOWER STOMACH ACID - TAKE 30 MINUTES BEFORE MEAL(S) 7) PROPRANOLOL HCL 80MG SA CAP TAKE ONE CAPSULE BY MOUTH ONCE A PENDING DAY Indication: FOR HIGH BLOOD PRESSURE Active Non-VA Medications Status 1) Non-VA ASPIRIN 81MG EC TAB 81MG BY MOUTH ONCE A DAY ACTIVE Indication: FOR CARDIOVASCULAR DISEASE 25 Total Medications OBJECTIVE: Physical Exam General: NAD noted, A&Ox3, pleasant, appears stated age Heart: RRR, no murmur, clicks, or rub Resp: Lungs CTA bilaterally, respirations even and unlabored Abdomen: Soft, non-distended, non-tender Ext: No clubbing, cyanosis, edema or obvious deformity Neuro: Grossly intact Psych: Affect normal, answers questions appropriately throughout visit Assessment/Plan: ER f/u hospital stay -current plan to continue current plan of care for hypertension and following up with dural mechanic hypertension -current plan to continue amlodipine and losartan, blood pressure today 120/85 Lower back pain -current Plan to continue cyclobenzaprine will mail to [facility] unknown skin lesion to right sikhism -current plan dermatology consult due to patient's history of basal cell carcinoma to his left ear. Seen at [facility] dermatology in the past will place dermatology consult today Follow-up: ____ as needed. Discussed with patient that in the event of community imaging / testing being ordered in the future, once the imaging / testing has been completed, please notify PACT of completion at outside facility if not called with results within 1 week by a [facility] PACT member; this is due to intermittent lapses in notification of imaging completion within [facility]. All questions answered; agrees to plan of care. Follow up as listed above, annually, and as needed. Keep all appointments. Medications Reconciled. See AVS given to Cat Spring. Time spent 30 minutes. Jane NÚÑEZ /walter/ NOÉ Almonte, MSN, Roe Almanza [facility] Signed: 08/24/2024 14:33 JANE PANCHAL [facility] Aug 24, 2024 10:26 AM PRIMARY CARE NURSI SHANTE NOTE: LOCAL TITLE: PRIMARY CARE NURSING PROGRESS NOTE (TEXT) NURSING P STANDARD TITLE: PRIMARY CARE NURSING NOTE DATE OF NOTE: AUG 24, 2024@10:26 ENTRY DATE: AUG 24, 2024@10:26:25 AUTHOR: CASTILLO KIRK EXP COSIGNER: URGENCY: STATUS: COMPLETED Established Patient THOMPSON FELIZ IS A 68 YEAR OLD MALE BEING SEEN IN CLINIC AUG 24, 2024. = = REASON FOR VISIT: Hospital follow up from [facility] on 07/2024 for hypertension and mildly elevated troponins. Cat Spring denies any current chest pain or pressure and states he is monitoring his BP. Are you receiving care any where other than the DC? No HEALTH AND SURGICAL HISTORY: no new surgeries Does patient report using home oxygen? No CURRENT ACTIVE MEDICATIONS FOR REVIEW: If the list for review does not include a component, then it was not applicable to this patient. Allergies/ADRs (Tool #5) FACILITY ALLERGY/ADR -------- [facility] PENICILLIN [facility] ASPIRIN RELATED MEDICATIONS [facility] AZITHROMYCIN [facility] CODEINE [facility] COLESTIPOL [facility] COSENTYX [facility] DIVISION HORSE SERUM PROTEINS [facility] HUMIRA [facility] LIPITOR [facility] LOVASTATIN [facility] METHOTREXATE [facility] PENICILLIN [facility] ROSUVASTATIN [facility] SIMVASTATIN [facility] SULFASALAZINE [facility]ISION THIAZIDES/RELATED DIURETICS Med. Reconciliation (Tool #1) INCLUDED IN THIS LIST: Alphabetical list of active outpatient prescriptions dispensed from this DC (local) and dispensed from another DC or DoD facility (remote) as well as inpatient orders (local pending and active), local clinic medications, locally documented non-VA medications, and local prescriptions that have or been discontinued in the past 90 days. Non-VA Meds Last Documented On: Nov 20, 2022 NOTE The display of VA prescriptions dispensed from another DC or [facility] facility (remote) is limited to active outpatient prescription entries matched to National Drug File at the originating site and may not include some items such as investigational drugs, compounds, etc. NOT INCLUDED IN THIS LIST: Medications self-entered by the patient into personal health records (i.e. Inherited Health) are NOT included in this list. Non-VA medications documented outside this DC, remote inpatient orders (regardless of status) and remote clinic medications are NOT included in this list. The patient and provider must always discuss medications the patient is taking, regardless of where the medication was dispensed or obtained. OUTPT ALIROCUMAB 150MG/ML INJ 1ML PEN (Status = Discontinued) INJECT 150MG UNDER THE SKIN EVERY MONTH FOR HIGH CHOLESTEROL Rx# [id number] Last Released: 06/09/24 Qty/Days Supply: Rx Expiration Date: 10/19/24 Refills Remainin Indication: FOR HIGH CHOLESTEROL OUTPT ALIROCUMAB 150MG/ML INJ 1ML PEN (Status = Discontinued) INJECT 150MG UNDER THE SKIN EVERY MONTH FOR HIGH CHOLESTEROL Rx# [id number] Last Released: 07/25/24 Qty/Days Supply: Rx Expiration Date: 09/19/24 Refills Remainin Indication: FOR HIGH CHOLESTEROL OUTPT ALIROCUMAB 150MG/ML INJ 1ML PEN (Status = Pending) INJECT 150MG UNDER THE SKIN EVERY MONTH Login Date: 08/24/24 Qty/Days Supply: Refills Ordered: 3 OUTPT AMLODIPINE BESYLATE 5MG TAB (Status = Pending) TAKE ONE TABLET BY MOUTH EVERY MORNING Login Date: 08/24/24 Qty/Days Supply: 90/ Refills Ordered: 3 Non-VA ASPIRIN 81MG EC TAB TAKE ONE TABLET BY MOUTH ONCE A DAY Nov 20, 2022 Non-VA medication recommended by VA provider Patient wants to buy from Non-VA pharmacy Indication: FOR CARDIOVASCULAR DISEASE OUTPT EPI(EQV-ADRENACLICK)0.3MG/0. 3ML INJCTR (Status = Active) INJECT 1 PEN (0.3MG/0.3ML) INTRAMUSCULARLY ONE-TIME Rx# [id number] Last Released: 02/27/24 Qty/Days Supply: Rx Expiration Date: 02/23/25 Refills Remainin OUTPT ETANERCEPT 50MG/ML INJ SYRINGE (Status = Active) INJECT 50MG UNDER THE SKIN EVERY WEEK KEEP REFRIGERATED. ADMINISTER SUBCUTANEOUSLY ON THE SAME DAY(S) EACH WEEK. Rx# [id number] Last Released: 07/26/24 Qty/Days Supply: 08/22 Rx Expiration Date: 06/08/25 Refills Remainin OUTPT EZETIMIBE 10MG TAB (Status = Active) TAKE ONE TABLET BY MOUTH ONCE A DAY TO LOWER CHOLESTEROL Rx# [id number] Last Released: 07/11/24 Qty/Days Supply: Rx Expiration Date: 08/25/24 Refills Remainin OUTPT EZETIMIBE 10MG TAB (Status = Pending) TAKE ONE TABLET BY MOUTH ONCE A DAY TO LOWER CHOLESTEROL Renewed from Rx# [id number] Qty/Days Supply: Login Date: 08/24/24 Refills Ordered: 3 OUTPT FLUCONAZOLE 150MG TAB (Status = Active) TAKE ONE TABLET BY MOUTH EVERY OTHER DAY FOR FUNGAL INFECTION Rx# [id number] Last Released: 08/02/24 Qty/Days Supply: 06/30 Rx Expiration Date: 08/02/25 Refills Remainin Indication: FOR FUNGAL INFECTION OUTPT FUROSEMIDE 20MG TAB (Status = Active) TAKE ONE TABLET BY MOUTH ONCE A DAY Rx# [id number] Last Released: 04/21/24 Qty/Days Supply: Rx Expiration Date: 12/29/24 Refills Remainin OUTPT HYDROCODONE 5MG/ACETAMINOPHEN 325MG TAB (Status = Discontinued) TAKE 1 TABLET BY MOUTH EVERY EIGHT(8) HOURS NEEDED FOR PAIN THIS QUANTITY MUST LAST 30 DAYS OR MORE CAUTION: DO NOT EXCEED 4000MG PER DAY ACETAMINOPHEN (APAP) FROM ALL MEDS. Rx# [id number] Last Released: 08/01/24 Qty/Days Supply: Rx Expiration Date: 08/27/24 Refills Remainin OUTPT LEFLUNOMIDE 10MG TAB (Status = Active) TAKE ONE TABLET BY MOUTH ONCE A DAY TAKE AT SAME TIME EACH DAY. Rx# [id number] Last Released: 08/03/24 Qty/Days Supply: Rx Expiration Date: 08/02/25 Refills Remainin OUTPT LEFLUNOMIDE 20MG TAB (Status = Discontinued) TAKE ONE TABLET BY MOUTH ONCE A DAY TAKE AT SAME TIME EACH DAY. Rx# [id number] Last Released: 05/30/24 Qty/Days Supply: Rx Expiration Date: 03/24/25 Refills Remainin OUTPT LEFLUNOMIDE 20MG TAB (Status = Discontinued) TAKE ONE TABLET BY MOUTH ONCE A DAY TAKE AT SAME TIME EACH DAY. Rx# [id number] Last Released: Qty/Days Supply: Rx Expiration Date: 07/28/25 Refills Remainin OUTPT LOSARTAN 100MG TAB (Status = Discontinued) TAKE ONE-HALF TABLET BY MOUTH ONCE A DAY FOR HIGH BLOOD PRESSURE Rx# [id number] Last Released: 06/02/24 Qty/Days Supply: 45 Rx Expiration Date: 08/26/24 Refills Remainin Indication: FOR HIGH BLOOD PRESSURE OUTPT LOSARTAN 100MG TAB (Status = Pending) TAKE ONE-HALF TABLET BY MOUTH TWICE A DAY increased duration Login Date: 08/24/24 Qty/Days Supply: Refills Ordered: 3 OUTPT LOSARTAN 50MG TAB (Status = Active) TAKE ONE TABLET BY MOUTH TWICE A DAY Rx# [id number] Last Released: 08/08/24 Qty/Days Supply: 180/ Rx Expiration Date: 08/06/25 Refills Remainin OUTPT MICONAZOLE NITRATE 2% TOP PWDR (Status = Active) APPLY LIGHTLY TO AFFECTED AREA(S) THREE TIMES A DAY NEEDED FOR FUNGAL INFECTION FOR TOPICAL USE ONLY. Rx# [id number] Last Released: 08/03/24 Qty/Days Supply: 270/ Rx Expiration Date: 10/30/24 Refills Remainin Indication: FOR FUNGAL INFECTION OUTPT MICONAZOLE NITRATE 2% TOP PWDR (Status = Pending) APPLY LIGHTLY TO AFFECTED AREA(S) THREE TIMES A DAY NEEDED FOR FUNGAL INFECTION FOR TOPICAL USE ONLY. Renewed from Rx# [id number] Qty/Days Supply: 270/90 Login Date: 08/24/24 Refills Ordered: 0 OUTPT NALOXONE HCL 4MG/SPRAY SOLN NASAL SPRAY (Status = Active) USE 1 SPRAY (4MG) INTO ONE NOSTRIL ONLY ONE-TIME FOR OPIOID OVERDOSE DO NOT PRIME NASAL SPRAY. SPRAY ONE DOSE IN ONE NOSTRIL, GIVE ADDITIONAL DOSE IF PATIENT DOES NOT START BREATHING WITHIN 2-3 MINUTES OR STOPS BREATHING AGAIN. CALL 911. IF USED, NOTIFY PROVIDER. Rx# [id number] Last Released: 02/22/24 Qty/Days Supply: 05/28 Rx Expiration Date: 02/18/25 Refills Remainin Indication: FOR OPIOID OVERDOSE OUTPT NITROGLYCERIN 0.4MG SL TAB (Status = Active) DISSOLVE ONE TABLET UNDER THE TONGUE EVERY 5 MINUTES NEEDED ; IF NO IMPROVEMENT AFTER FIRST DOSE CALL 12-26-1. MAY TAKE 2 ADDITIONAL DOSES, 5 MINUTES APART. TAKE WHILE SITTING. Rx# [id number] Last Released: 08/08/24 Qty/Days Supply: 100/30 Rx Expiration Date: 09/04/24 Refills Remainin OUTPT NYSTATIN 168715 UNT/ML SUSP (Status = Active) TAKE 5 ML SWISH & SWALLOW THREE TIMES A DAY THRUSH - SHAKE WELL BEFORE USING. Rx# [id number] Last Released: 08/04/24 Qty/Days Supply: 120/6 Rx Expiration Date: 08/02/25 Refills Remainin Indication: THRUSH OUTPT PQSCD-2-MNTM ETHYL ESTERS 1000MG CAP (Status = Active) TAKE TWO CAPSULES BY MOUTH TWICE A DAY FOR HIGH TRIGLYCERIDES Rx# [id number] Last Released: 03/02/24 Qty/Days Supply: 240/60 Rx Expiration Date: 08/26/24 Refills Remainin Indication: FOR HIGH TRIGLYCERIDES OUTPT PANTOPRAZOLE NA 40MG EC TAB (Status = Active) TAKE ONE TABLET BY MOUTH EVERY MORNING BEFORE A MEAL TO LOWER STOMACH ACID - TAKE 30 MINUTES BEFORE MEAL(S) Rx# [id number] Last Released: 06/15/24 Qty/Days Supply: 90/90 Rx Expiration Date: 08/25/24 Refills Remainin OUTPT PANTOPRAZOLE NA 40MG EC TAB (Status = Pending) TAKE ONE TABLET BY MOUTH EVERY MORNING BEFORE A MEAL TO LOWER STOMACH ACID - TAKE 30 MINUTES BEFORE MEAL(S) Renewed from Rx# [id number] Qty/Days Supply: Login Date: 08/24/24 Refills Ordered: 3 OUTPT POTASSIUM CHLORIDE 10MEQ SA TAB (Status = Active) TAKE ONE TABLET BY MOUTH ONCE A DAY TAKE WITH FOOD Rx# [id number] Last Released: 04/21/24 Qty/Days Supply: Rx Expiration Date: 01/04/25 Refills Remainin OUTPT PREDNISONE 10MG TAB (Status = Discontinued) TAKE THREE TABLETS BY MOUTH ONCE A DAY FOR 5 DAYS, THEN TAKE TWO TABLETS ONCE A DAY FOR 5 DAYS, THEN TAKE ONE TABLET ONCE A DAY TAKE WITH FOOD OR MILK. Rx# [id number] Last Released: 03/30/24 Qty/Days Supply: 100/85 Rx Expiration Date: 03/24/25 Refills Remainin OUTPT PREDNISONE 10MG TAB (Status = Active) TAKE ONE TABLET BY MOUTH ONCE A DAY TAKE WITH FOOD OR MILK. Rx# [id number] Last Released: 07/29/24 Qty/Days Supply: Rx Expiration Date: 07/28/25 Refills Remainin OUTPT PROPRANOLOL HCL 80MG SA CAP (Status = Active) TAKE ONE CAPSULE BY MOUTH ONCE A DAY FOR HIGH BLOOD PRESSURE Rx# [id number] Last Released: 06/16/24 Qty/Days Supply: Rx Expiration Date: 08/25/24 Refills Remainin Indication: FOR HIGH BLOOD PRESSURE OUTPT PROPRANOLOL HCL 80MG SA CAP (Status = Pending) TAKE ONE CAPSULE BY MOUTH ONCE A DAY FOR HIGH BLOOD PRESSURE Renewed from Rx# [id number] Qty/Days Supply: Login Date: 08/24/24 Refills Ordered: 3 OUTPT TRAMADOL HCL 50MG TAB (Status = Discontinued) TAKE 1 TABLET BY MOUTH THREE TIMES A DAY NEEDED FOR PAIN Rx# [id number] Last Released: 04/08/24 Qty/Days Supply: Rx Expiration Date: 09/23/24 Refills Remainin Indication: FOR PAIN OUTPT TRAMADOL HCL 50MG TAB (Status = Active) TAKE 1 TABLET BY MOUTH THREE TIMES A DAY NEEDED FOR PAIN THIS QUANTITY MUST LAST 30 DAYS OR MORE Rx# [id number] Last Released: 08/12/24 Qty/Days Supply: Rx Expiration Date: 02/09/25 Refills Remainin SUPPLIES PHARMACY TERMS AND POSSIBLE PATIENT ACTIONS INPT = DC inpatient order IV = DC intravenous medication OUTPT = DC outpatient prescription PHARMACY POSSIBLE PATIENT TERMS EXPLANATION ACTIONS -------- ---- ACTIVE A prescription that can be If you have refills, filled at the local DC pharmacy. you may request a refill of this prescription from your DC pharmacy. CLINIC A medication you received during If you have questions a visit to a DC clinic or about this medication emergency department. contact your DC healthcare team. DISCONTINUED A prescription your provider has Contact your DC stopped. It is no longer healthcare team if you available to be sent to you or need more of this picked up at the DC pharmacy medication. window. A prescription which is too old Contact your VA to fill. This does not refer to healthcare team if you the expiration date of the need more of this medication in the container. medication. NON-VA A medication that came from If this medication someplace other than a VA information is pharmacy. This may be a incorrect or out of prescription from either the DC date, please tell your or non VA providers that was VA healthcare team. filled outside the VA. Or, it may be an iptf-khw-fvgywwe (OTC), herbal, dietary supplements or sample medication. ON HOLD An active prescription that will Contact your VA not be filled until pharmacy pharmacy when you need resolves the issue. more of this medication. PARKED An active prescription that will Contact your VA not be filled until the patient pharmacy when you need requests it. this medication. PENDING This prescription order has been If you have been sent to the pharmacy for review instructed to start and is not ready yet. this medication now, contact your VA pharmacy. SUSPENDED An active prescription that is Contact your DC not scheduled to be filled yet. pharmacy if you need You should receive it before this medication now. you run out. Medication list reviewed with Patient Patient/Caregiver reports taking medications as ordered. Amilodipine 5mg daily. Flexeril 5mg three times a day PRN IS PATIENT TAKING ANY OVER THE COUNTER MEDICATIONS, SUCH VITAMINS OR HERBAL SUPPLEMENTS, INCLUDING ANY MEDICATIONS PRESCRIBED BY ANOTHER PHYSICIAN? No Does patient have any new allergies to report since last visit? NO VITALS: TEMPERATURE: 97.3 F [36.3 C] (08/01/2024 10:35) BP: 146/95 (08/01/2024 10:35) RESP: 20 (08/01/2024 10:35) PULSE: 96 (08/01/2024 10:35) HT: 72.0 in [182.9 cm] (02/18/2024 09:32) WT: 250.7 lb [113.72 kg] (08/01/2024 10:35) BMI: 34.1 PAIN ASSESSMENT: (Most Recent Pain Score in Vitals Package: 0 (08/01/2024 10:35) ) The patient indicated that they and their close contacts have not traveled outside of the [place] in the past 21 days. The patient reports the following symptoms: No symptoms present The patient is immunocompromised. Comment: Reumatoid arthritis with medications The patient does not report having a history of Multi Drug Resistant Organism (MDRO) within the last five years. The patient does not report having been exposed to measles, chickenpox, or zoster in last 30 days. STRESS: Thank you for your service. Now let us serve you. At the [facility], we strive to provide you with exceptional health care that improves your health and well-being. Are you feeling sad, empty, or depressed? No Do you need to talk about things in your life that worry you or cause you stress? No Do you need to talk about personal problems, family problems, alcohol use, drug use, or mental or emotional illness? No SUICIDE SCREENING: The patient was asked, Over the past two weeks, how often have you been bothered by thoughts that you would be better off or of hurting yourself in some way? Not At All SPIRITUAL ASSESSMENT: Are there confucianism practices or spiritual concerns you want the research scholar, your physician, and other health care team members to immediately know about? No Patient advised to call the clinic for any concerns, questions, or symptoms. Patient and/or caregiver verbalized understanding of plan of care. Depression Monitoring (PHQ-9) - M,N,P,PH,PS,R,S,T: PHQ-9 A PHQ-9 screen was performed. The score was 2. 1. Little interest or pleasure in doing things Not at all 2. Feeling down, depressed, or hopeless Not at all 3. Trouble falling or staying asleep, or sleeping too much Several days 4. Feeling tired or having little energy Several days 5. Poor appetite or overeating Not at all 6. Feeling bad about yourself or that you are a failure or have let yourself or your family down Not at all 7. Trouble concentrating on things, such as reading the newspaper or watching television Not at all 8. Moving or speaking so slowly that other people could have noticed. Or the opposite being so fidgety or restless that you have been moving around a lot more than usual Not at all 9. Thoughts that you would be better off or of hurting yourself in some way Not at all 10. If you checked off any problems, how DIFFICULT have these problems made it for you to do your work, take care of things at home or get along with other people? Not difficult at all had no previous PHQ-9 score to compare to current score to guage improvement PHQ-9 results discussed with patient Comment: voiced understanding Interprofessional Communication: No communication needed Pain Assessment: - PAIN ASSESSMENT: .. This patient's last pain assessment score was: 0 (08/01/2024 10:35). A detailed pain assessment showed the following: Pain characteristics (per patient's own words) Constant, Aching Location of current pain Generalize Joint Pain Onset/Duration of the current pain. Constant or variable? More than a year Patient's self identified pain goal: 0 URINE DRUG SCREEN: Patients on chronic opioid therapy for chronic non-malignant pain are required to have an UDS at least every 6 months. In addition, documentation of verbal consent for ongoing UDS is required at least every 6 months Verbal consent for Urine Drug Screen was obtained on this date. Patient/Nurse Interview: * * Patient stated that adequate information was received regarding the condition and/or treatment. HTN Assess for Elevated BP>=140/90 - N,P,PH: Repeat blood pressure: 120/85 Per A Directive 1605.06, wristband documentation: Patient wristband was removed and destroyed by (staff name) Castillo Kirk and placed in the designated [employer] bin. /es/ Castillo Kirk MANAGEMENT PROFESSOR ROE ALMANZA [facility] Signed: 08/24/2024 10:49 CASTILLO KIRK [facility]
--- OUTSIDE RECORDS SUMMARY | 2024-08-29 09:02 | XMS_ITS | Encounter Summary ---
Author Name [facility] [place] [facility] [place] Address [address] [place] [id number] Care Team Providers Care Product Evangelist Name Role Phone SIMRAN PINEDA Primary Care [...] to Policy Cruz BRITTANI BROOKS [facility] (WNR) MEDICARE ADVANTAGE [facility] (WNR) Jan 26, 2020 [id number] [phone] TRAY,ER IC PATIENT MEDICARE (WNR) MEDICARE (M) PART B Jan 26, 2020 PART B [id number] [phone] TRAY,ER IC PATIENT MEDICARE (WNR) MEDICARE (M) PART A August 26, 2019 PART A [id number] [phone] TRAY,ER IC PATIENT Selected Encounter This section includes the information on record at [place] for the Encounter. Date/Time Encounter Type Encounter Description Reason Provider Source August 29, 2024 03:02 PM Outpatient Encounter ADMIN PAT ACTIVTIES (MASNONCT) ICD-10-CM Z12.2 Encntr screen for malignant neoplasm of respiratory organs ROE SOMERS Encounter Template Text not used by [place] Assessments - Encounter Diagnoses This section includes the primary and secondary diagnoses documented for the Encounter. Date/Time Primary/Secondary Diagnosis Diagnosis Name Provider Source August 29, 2024 03:02 PM PRIMARY Encntr screen for malignant neoplasm of respiratory organs [facility] Plan of Treatment: Future Appointments (+ 6 months) and Future Tests (+/- 45 days) The Plan of Treatment section includes future care activities for the patient from all [place] [facility]. This section includes future appointments and future orders which are active, pending or scheduled. Future Appointments This section includes appointments that were scheduled to occur 6 months from the date of the Encounter, up to a maximum of 20 appointments. The data comes from all [place] treatment [facility]. Appointment Date/Time Appointment Type Appointme nt Facility Name September 20, 2024 08:00 AM AMBULATORY - MEDICINE [facility] [facility] September 21, 2024 03:45 PM AMBULATORY - MEDICINE [facility] Sep 27, 2024 03:30 PM AMBULATORY - MEDICINE [facility] Oct 18, 2024 09:30 AM AMBULATORY - MEDIC[facility] Oct 26, 2024 08:00 AM AMBULATORY - MEDIC[facility] Oct 26, 2024 01:45 PM AMBULATORY - MEDICINE [facility] Nov 10, 2024 03:00 PM AMBULATORY - MEDICINE [facility] Nov 14, 2024 11:30 AM AMBULATORY - MEDICINE [facility] Nov 24, 2024 10:45 AM AMBULATORY - MEDIC[facility] Feb 17, 2025 08:30 AM AMBULATORY - MEDICINE [facility] Active, Pending, and Scheduled Orders This section includes a listing of several types of active, pending, and scheduled orders, including clinic medications orders, diagnostic test orders, procedure orders and consult orders; where the start date of the order is 45 days before the date of the Encounter or 45 days after the date of theEncounter. The data comes from all [facility]. Test Date/Time Test Type Test Details Facility Name Aug 17, 2024 06:30 AM Consult Order [facility] 657A4 Cons Flake Or Shred Roll Operator's Choice [facility] Aug 17, 2024 04:26 PM Consult Order [facility] 657A4 Cons Flake Or Shred Roll Operator's Choice [facility] Aug 24, 2024 11:20 AM Consult Order [facility] 657A4 Cons Flake Or Shred Roll Operator's Choice [facility] August 30, 2024 01:02 PM Consult Order [facility] 657A4 Cons Flake Or Shred Roll Operator's Choice [facility] [facility] Sep 28, 2024 07:01 AM Consult Order [facility] 657A4 Cons Flake Or Shred Roll Operator's Choice [facility] Lab Results: +/- 30 days of the encounter This section includes the Chemistry and Hematology Lab Results on record with [place] for the patient. Radiology Reports and Pathology Reports are provided separately, in subsequent sections. Lab Results This section contains the Chemistry/Hematology Results that were resulted 30 days before or 30 daysafter the date of the Encounter. Date/Time Source Result Type Result - Unit Interpretation Reference Range Specimen Type Comment September 20, 2024 08:45 AM [facility] URIC ACID PLASMA Specimen Type: PLASMA No comment entered. Ordering Provider: RANDEE NOGUEIRA Report Released Date/Time: Aug 24, 2024 01:14 PM Reporting Lab: [place] [facility] [address] [place] [address] Performing Lab: [facility] [facility] [address] [place] [address] URIC ACID 6.4 mg/dL 3.5-7.2 September 20, 2024 08:45 AM [facility] IRON PLASM A Specimen Type: PLASMA No comment entered. Ordering Provider: RANDEE NOGUEIRA Report Released Date/Time: Aug 24, 2024 01:14 PM Reporting Lab: [place] [facility] [facility] [address] [place] [address] Performing Lab: [facility] [facility] [address] [place] [address] IRON 134 ug/dL 65-175 September 20, 2024 08:45 AM [facility] DIRECT LDL (MA-PB) PLASMA Specimen Type: PLASM A No comment entered. Ordering Provider: RANDEE NOGUEIRA Report Released Date/Time: Aug 24, 2024 01:14 PM Reporting Lab: [facility] [facility] [address] [place] [address] Performing Lab: [facility] [facility] [facility] [address] [place] [address] DIRECT LDL 145.0 mg/dL H 0-99.9 September 20, 2024 08:45 AM [facility] CHOLESTEROL PANEL (PB) PLASMA Specimen Type: P LASMA No comment entered. Ordering Provider: RANDEE NOGUEIRA Report Released Date/Time: Aug 24, 2024 01:14 PM Reporting Lab: [place] [facility] [facility] [address] [place] [address] Performing Lab: [place] [facility] [address] [place] [address] CHOLESTEROL 232 mg/dL H 0-200 TRIGLYCERIDE 165 mg/dL H 0-150 CALCULATED LDL 132.6 mg/dL HDL(New) 66.4 mg/dL H >40 HDL % OF TOTAL CHOLESTEROL (PB) 28.6 >25 September 20, 2024 08:45 AM [facility] RHEUMATOID FACTOR (PB) SERUM Specimen Type: S KURT No comment entered. Ordering Provider: RANDEE NOGUEIRA Report Released Date/Time: Aug 24, 2024 01:14 PM Reporting Lab: [place] [facility] [facility] [address] [place] [address] Performing Lab: [place] [facility] [facility] [address] [place] [address] RHEUMATOID FACTOR (PB) <13 [IU]/mL L 0-30 September 20, 2024 08:45 AM [facility] VITAMIN D, 25-HYDROXY SERUM Specimen Type: SE RUM No comment entered. Ordering Provider: RANDEE NOGUEIRA Report Released Date/Time: Aug 24, 2024 01:14 PM Reporting Lab: [facility] [facility] [address] [place] [address] Performing Lab: [facility] [facility] [facility] [address] [place] [address] VITAMIN D, 25-HYDROXY 52.8 ng/mL 30-September 20, 2024 08:45 AM [facility] MAGNESIUM PLASMA Specimen Typ e: PLASMA No comment entered. Ordering Provider: RANDEE NOGUEIRA Report Released Date/Time: Aug 24, 2024 01:14 PM Reporting Lab: [facility] [facility] [address] [place] [address] Performing Lab: [facility] [facility] [address] [place] [address] MAGNESIUM 2.08 mg/dL 1.6-2.6 September 20, 2024 08:45 AM [facility] URINE ALBUMIN PROFILE-ih (PB) URINE Specimen Type: URINE No comment entered. Ordering Provider: RANDEE NOGUEIRA Report Released Date/Time: Aug 24, 2024 01:14 PM Reporting Lab: [facility] [facility] [address] [place] [address] Performing Lab: [facility] [facility] [address] [place] [address] URINE ALBUMIN (PB-STL) 293.26 mg/L uACR (PB-MA) 193.43 mg/g H 0-30 CREATININE URINE/OTHERS 151.61 mg/dL September 20, 2024 08:45 AM [facility] B12 SERUM Specimen Type: SERUM No comment entered. Ordering Provider: RANDEE NOGUEIRA Report Released Date/Time: Aug 24, 2024 01:14 PM Reporting Lab: [place] [facility] [address] [place] [address] Performing Lab: [facility] [facility] [address] [place] [address] B12 712 pg/mL 213-816 September 20, 2024 08:45 AM [facility] FOLATE (PB) SERUM Specimen Typ e: SERUM No comment entered. Ordering Provider: RANDEE NOGUEIRA Report Released Date/Time: Aug 24, 2024 01:14 PM Reporting Lab: [facility] [facility] [facility] [address] [place] [address] Performing Lab: [facility] [facility] [address] [place] [address] FOLATE (PB) 12.5 ng/mL 7-20 September 20, 2024 08:45 AM [facility] HGA1C BLOOD Specimen Type: BLOOD No comment entered. Ordering Provider: RANDEE NOGUEIRA Report Released Date/Time: Aug 24, 2024 01:14 PM Reporting Lab: [place] [facility] [address] [place] [address] Performing Lab: [place] [facility] [address] [place] [address] HGA1C 6.2 H 4.0-6.0 September 20, 2024 08:45 AM [facility] COMPREHENSIVE METABOLIC PANEL PLASMA Specimen Type: PLASMA No comment entered. Ordering Provider: RANDEE NOGUEIRA Report Released Date/Time: Aug 24, 2024 01:14 PM Reporting Lab: [facility] [facility] [address] [place] [address] Performing Lab: [facility] [facility] [address] [place] [address] CREATININE 1.25 mg/dL 0.7-1.3 UREA NITROGEN 21 [...] 2020) 62 September 20, 2024 08:45 AM [facility] CBC BLOOD Specimen Type: BLOOD No comment entered. Ordering Provider: RANDEE NOGUEIRA Report Released Date/Time: Aug 24, 2024 01:14 PM Reporting Lab: [place] [facility] [address] [place] [address] Performing Lab: [place] [facility] [address] [place] [address] WBC 7.9 10*3/uL 3.6-11.2 RBC 4.37 10*6/uL [...] 0. 00-0.05 September 20, 2024 08:44 AM [facility]-inhouse (PB) URINE Specimen Type: URINE No comment entered. Ordering Provider: JANE PANCHAL Report Released Date/Time: Aug 24, 2024 11:02 AM Reporting Lab: [place] [facility] [address] [facility] [address] Performing Lab: [facility] [address] [facility] [address] METHADONE Negative Negative OPIATES (PB) Negative Negative COCAINE... Negative Negative THC(Marijuana... Negative Negative BENZODIAZEPINE (PB) Negative Negative AMPHETAMINE... Negative Negative CREATININE URINE/OTHERS 149.80 mg/dL OXYCODONE (KYLEN-RRX-QS) Negative Negati ve BUPRENORPHINE (STL-PB-MA) Negative ng/mL Negative ETHANOL URINE <10 mg/dL L 0-20 FENTANYL, URINE (PB) Negative ng/mL Aug 18, 2024 09:07 AM [facility] HGA1C BLOOD Specimen Type: BLOOD No comment entered. Ordering Provider: RANDEE NOGUEIRA Report Released Date/Time: May 20, 2024 04:09 PM Reporting Lab: [place] [facility] [address] [address] Performing Lab: [facility] [address] [facility] [address] HGA1C 6.4 H 4.0-6.0 Aug 18, 2024 09:07 AM [facility] CHOLESTEROL PANEL (PB) PLASMA Specimen Type: P LASMA No comment entered. Ordering Provider: RANDEE NGOUEIRA Report Released Date/Time: May 20, 2024 04:09 PM Reporting Lab: [place] [facility] [address] [place] [address] Performing Lab: [place] [facility] [address] [place] [address] CHOLESTEROL 225 mg/dL H 0-200 TRIGLYCERIDE 164 mg/dL H 0-150 CALCULATED LDL 134.2 mg/dL HDL(New) 58.0 mg/dL H >40 HDL % OF TOTAL CHOLESTEROL (PB) 25.8 >25 Aug 18, 2024 09:07 AM [facility] DIRECT LDL (MA-PB) PLASMA Specimen Type: PLASM A No comment entered. Ordering Provider: RANDEE NOGUEIRA Report Released Date/Time: May 20, 2024 04:09 PM Reporting Lab: [place] [facility] [address] [place] [address] Performing Lab: [place] [facility] [address] [place] [address] DIRECT LDL 155.7 mg/dL H 0-99.9 Aug 18, 2024 09:07 AM [facility] IRON PLASM A Specimen Type: PLASMA No comment entered. Ordering Provider: RANDEE NOGUEIRA Report Released Date/Time: May 20, 2024 04:09 PM Reporting Lab: [place] [facility] [address] [place] [address] Performing Lab: [place] [facility] [address] [place] [address] IRON 103 ug/dL 65-175 Aug 18, 2024 09:07 AM [facility] VITAMIN D, 25-HYDROXY SERUM Specimen Type: SE RUM No comment entered. Ordering Provider: RANDEE NOGUEIRA Report Released Date/Time: May 20, 2024 04:09 PM Reporting Lab: [place] [facility] [address] [place] [address] Performing Lab: [place] [facility] [address] [place] [address] VITAMIN D, 25-HYDROXY 46.0 ng/mL 30-96 Aug 18, 2024 09:07 AM [facility] RHEUMATOID FACTOR (PB) SERUM Specimen Type: S KURT No comment entered. Ordering Provider: RANDEE NOGUEIRA Report Released Date/Time: May 20, 2024 04:09 PM Reporting Lab: [place] [facility] [address] [place] [address] Performing Lab: [place] [facility] [address] [place] [address] RHEUMATOID FACTOR (PB) <13 [IU]/mL L 0-30 Aug 18, 2024 09:07 AM [facility] PHOSPHOROUS PLASMA Specimen Typ e: PLASMA No comment entered. Ordering Provider: RANDEE NOGUEIRA Report Released Date/Time: May 20, 2024 04:09 PM Reporting Lab: [place] [facility] [address] [place] [address] Performing Lab: [place] [facility] [address] [place] [address] PHOSPHOROUS 3.3 mg/dL 2.3-4.7 Aug 18, 2024 09:07 AM [facility] MAGNESIUM PLASMA Specimen Typ e: PLASMA No comment entered. Ordering Provider: RANDEE NOGUEIRA Report Released Date/Time: May 20, 2024 04:09 PM Reporting Lab: [place] [facility] [address] [place] [address] Performing Lab: [place] [facility] [address] [place] [address] MAGNESIUM 2.02 mg/dL 1.6-2.6 Aug 18, 2024 09:07 AM [facility] FOLATE (PB) SERUM Specimen Typ e: SERUM No comment entered. Ordering Provider: RANDEE NOGUEIRA Report Released Date/Time: May 20, 2024 04:09 PM Reporting Lab: [place] [facility] [address] [place] [address] Performing Lab: [place] [facility] [address] [place] [address] FOLATE (PB) 12.9 ng/mL 7-20 Aug 18, 2024 09:07 AM [facility] B12 SERUM Specimen Type: SERUM No comment entered. Ordering Provider: RANDEE NOGUEIRA Report Released Date/Time: May 20, 2024 04:09 PM Reporting Lab: [place] [facility] [address] [place] [address] Performing Lab: [place] [facility] [address] [place] [address] B12 716 pg/mL 213-816 Aug 18, 2024 09:07 AM [facility] COMPREHENSIVE METABOLIC PANEL PLASMA Specimen Type: PLASMA No comment entered. Ordering Provider: RANDEE NOGUEIRA Report Released Date/Time: May 20, 2024 04:09 PM Reporting Lab: [place] [facility] [address] [place] [address] Performing Lab: [place] [facility] [address] [place] [address] CREATININE 1.20 mg/dL 0.7-1.3 UREA NITROGEN 22 [...] U/L H 8-40 EGFR (CKD-EPI 2020) 65 Radiology Reports: +/- 30 days of the [...] the Encounter. The data comes from all [place] treatment facilities. Date/Time Radiology Report Provider Source August 25, 2024 11:24 AM LDCT [facility] 1, 3 OR 6 MONTH FOLLOW UP: THOMPSON FELIZ [id number] M Exm Date: AUGUST 25, 2024@11:24 Req Phys: JANE PANCHAL Pat Loc: PB-ADMIN LUNG SCREENING (Req'g Img Loc: PB-CT IMAGING Service: Unknown [facility] [place] [id number] (Case [id number] COMPLETE) LDCT LCS 1, 3 OR 6 MONTH FOLLOW U(CT Detailed) CPT:73820 Reason for Study: LCS 6 Month F/U Clinical History: Attending: Jane Panchal Contact #: [id number] 02/26/2024: LRADS 3 Smoking history: 0.5 x 50 yrs, former smoker, quit 2017 Report Status: Verified Date Reported: AUGUST 26, 2024 Date Verified: AUGUST 26, 2024 [employer] E-Sig:/ES/MARIELA OKEEFE Report: EXAM: LDCT [facility] 1, 3 OR 6 MONTH FOLLOW UP ADDITIONAL HISTORY: N/A COMPARISON: February 26, 2024 PROTOCOL: Screening protocol, low dose, non-contrast CT chest was performed at the local [place] facility in accordance with Lung-Rads 2021. Additional coronal and sagittal reconstructions. MIP reconstructions [...] LUNG-RADS MODIFIER: N/A. Primary Interpreting Staff: MARIELA OKEEFE, RADIOLOGIST ([employer]) /MARIELA Vasquez [facility] Encounter Notes: All associated encounter notes This section contains the clinical notes associated to the Encounter. Date/Time Encounter Note(s) Provider Source August 29, 2024 03:07 PM PRIMARY CARE LETTE RS: LOCAL TITLE: TEST RESULT LETTER PB STANDARD TITLE: PRIMARY CARE LETTERS DATE OF NOTE: AUGUST 29, 2024@15:07 ENTRY DATE: AUGUST 29, 2024@15:09:49 AUTHOR: ROE SOMERS EXP COSIGNER: URGENCY: STATUS: COMPLETED Juan [facility] [address], [place] [address] AUGUST 29, 2024 THOMPSON FELIZ [id number] [place], [place] [address] Dear Thompson Feliz, There were no concerning lung nodules noted per your CT results. An order has been placed to repeat this in 1 year for lung cancer screening. You will recieve a call to schedule this test for this time next year. Your primary care provider and/or PACT team may be in contact with you as well to discuss these results and any incidental findings noted that are unrelated to lung cancer screening. RADIOLOGY (NON-INVASIVE TEST RESULTS): Low Dose CT for Lung Cancer Screening DATE of EXAM: 08.25.24 Findings: No suspicious pulmonary nodules. Lung-RADS category 2: Benign appearance or behavior. Nodules with a very low likelihood of becoming a clinically active cancer due to size or lack of growth. MANAGEMENT RECOMMENDATION: Continue annual screening with low-dose CT in 12 months. You will be due for your next Lung Cancer Screen imaging on 08.25.25. If you have a cold or any lung congestion when you are due for your next screen, it is best to reschedule for 3-4 weeks to allow time for potential mucous to clear. Lung cancer screening can detect lung cancer, but it does not prevent it. Rarely, a CT scan can miss a small lung cancer. Contact your primary care provider if you develop new symptoms like worsening shortness of breath, change in a cough, or coughing up blood. Should you have any questions, and/or need assistance to stop if remain smoking, please contact your Primary Care provider. Please continue to refrain from smoking as our records indicate you had quit. Great work! We understand that quitting cigarette smoking is difficult, but it is the best way to improve your health. I would like to update you on your recent test results. FUTURE APPOINTMENTS: 09/20/2024 08:00 [facility]-ORTHOPEDICS 657A 10/26/2024 13:45 COM CARE-ORTHOPEDICS 657A 11/24/2024 10:45 COM CARE-RHEUMATOLOGY 657 02/17/2025 08:30 PB-YU PACT NATARAJAN BIOMEDICAL REPAIR TECHNICIAN ROE SOMERS [facility] August 29, 2024 03:02 PM PRIMARY CARE DIAGN OSTIC STUDY NOTE: LOCAL TITLE: LDCT FOLLOW-UP NOTE PB STANDARD TITLE: PRIMARY CARE DIAGNOSTIC STUDY NOTE DATE OF NOTE: AUGUST 29, 2024@15:02 ENTRY DATE: AUGUST 29, 2024@15:02:14 AUTHOR: ROE SOMERS EXP COSIGNER: URGENCY: STATUS: COMPLETED TRAYTHOMPSON is a 68 y.o.MALE. Completed [facility]CS LDCT on 08.25.24 with LRADS 2 with no suspiscious nodules noted. LCS Coordinator will notify with LDCT results and radiology recommendations via test results letter. LCS LDCT annual f/u order placed and held for pcp signature. PCP to review for any incidental findings and to address as necessary. TRACKING OF NODULE INDICATED: Date of current image: Date: August 25, 2024 Lung RADS Score: 2 Incidental Findings: No incidental findings were noted. Plan: Interval until next LDCT scan is due: 12 months Patient Notification of results: Results letter sent to patient. /walter/ [facility]É [facility] Signed: 08/29/2024 15:07 ROE SOMERS [facility]
--- OUTSIDE RECORDS SUMMARY | 2024-09-27 09:30 | XMS_ITS | Encounter Summary ---
Author Name [facility] [place] [place] Organization [place] Address [address] [place] [id number] Care Team Providers Care Food And Nutrition Supervisor Name Role Phone SIMRAN PINEDA Primary Care [...] Patient's Relationship to Policy Cruz BRITTANI BROOKS [facility] (WNR) MEDICARE ADVANTAGE [facility] (WNR) Jan 26, 2020 [id number] [phone] TRAY,ER IC PATIENT MEDICARE ([place]) MEDICARE (M) PART B Jan 26, 2020 PART B [id number] [phone] TRAY,ER IC PATIENT MEDICARE [place] MEDIC[place] ([place]) PART A August 26, 2019 PART A [id number] TRAY,ER IC PATIENT Selected Encounter This section includes the information on record at [place] for the Encounter. Date/Time Encounter Type Encounter Description Reason Provider Source Sep 27, 2024 03:30 PM OFFICE O/P EST MOD 30 MIN PRIMARY CARE/MEDICINE ICD-10-CM M54.50 Low back pain, unspecified JANE KELLEY Encounter Template Text not used by [facility] Assessments - Encounter Diagnoses This section includes the primary and secondary diagnoses documented for the Encounter. Date/Time Primary/Secondary Diagnosis Diagnosis Name Provider Source Sep 30, 2024 02:35 PM PRIMARY Low back pain, unspecified [facility] Sep 30, 2024 02:35 PM SECONDARY Chest pain, unspecified [facility] [place] [facility] Sep 30, 2024 02:35 PM SECONDARY Psoriatic arthritis mutilans [facility] [place] [facility] Sep 30, 2024 02:35 PM SECONDARY Rheumatoid arthritis, unspecified [place] [place] [facility] Plan of Treatment: Future Appointments (+ 6 months) and Future Tests (+/- 45 days) The Plan of Treatment section includes future care activities for the patient from all [place] [facility]. This section includes future appointments and future orders which are active, pending or scheduled. Future Appointments This section includes appointments that were scheduled to occur 6 months from the date of the Encounter, up to a maximum of 20 appointments. The data comes from all [place] treatment [facility]. Appointment Date/Time Appointment Type Appointme nt Facility Name Oct 18, 2024 09:30 AM AMBULATORY - MEDICINE [place] [facility] Oct 26, 2024 08:00 AM [facility]ATORY - MEDIC[facility] [place] [facility] Oct 26, 2024 01:45 PM AMBULATORY - MEDICINE [place] [facility] Nov 10, 2024 03:00 PM AMBULATORY - MEDICINE [place] [facility] Nov 14, 2024 11:30 AM AMBULATORY - MEDICINE [facility] Nov 24, 2024 10:45 AM [facility]BULATORY - MEDICINE [place] [facility] Feb 17, 2025 08:30 AM AMBULATORY - MEDICINE [facility] Active, Pending, and Scheduled Orders This section includes a listing of several types of active, pending, and scheduled orders, including clinic medications orders, diagnostic test orders, procedure orders and consult orders; where the start date of the order is 45 days before the date of the Encounter or 45 days after the date of theEncounter. The data comes from all [facility]. Test Date/Time Test Type Test Details Facility Name Aug 17, 2024 06:30 AM Consult Order [facility]-ORTHOPEDICS 657A4 Cons Ux Interaction Designer's Choice [place] [facility] Aug 17, 2024 04:26 PM Consult Order [facility] CARE-ORTHOPEDICS 657A4 Cons Ux Interaction Designer's Choice [place] [facility] Aug 24, 2024 11:20 AM Consult Order COMM[facility]ITY CARE-DERMATOLOGY 657A4 Cons Ux Interaction Designer's Choice [facility] August 30, 2024 01:02 PM Consult Order COMMUNITY [facility]-VASCULAR 657A4 Cons Ux Interaction Designer's Choice [place] [facility] Sep 28, 2024 07:01 AM Consult Order COMMUNITY [facility]-PHYSICAL THERAPY 657A4 Cons Ux Interaction Designer's Choice [facility] Lab Results: +/- 30 days of the encounter This section includes the Chemistry and Hematology Lab Results on record with [place] for the patient. Radiology Reports and Pathology Reports are provided separately, in subsequent sections. Lab Results This section contains the Chemistry/Hematology Results that were resulted 30 days before or 30 daysafter the date of the Encounter. Date/Time Source Result Type Result - Unit Interpretation Reference Range Specimen Type Comment Oct 20, 2024 11:24 AM [place] [facility] BASIC METABOLIC PANEL PLASMA Specimen Type: PLASMA No comment entered. Ordering Provider: SIMRAN PINEDA III Report Released Date/Time: Oct 18, 2024 04:29 PM Reporting Lab: [place] [facility] [address] [place] [address] Performing Lab: [place] [facility] [address] [place] [address] CREATININE 1.09 mg/dL 0.7-1.3 UREA NITROGEN 25 mg/dL 9-25 GLUCOSE 109 mg/dL H 72-99 SODIUM 140 meq/L 136-145 POTASSIUM 4.5 meq/L 3.5-5 CHLORIDE 102 meq/L 98-107 CARBON DIOXIDE 26 meq/L 22-31 CALCIUM 10.2 mg/dL 8.4-10.4 EGFR (CKD-EPI 2020) 73 Oct 17, 2024 03:07 PM [facility] BRAIN NATRIURETIC PEPTIDE PLASMA Specimen Type : PLASMA No comment entered. Ordering Provider: JANE KELLEY Report Released Date/Time: Oct 17, 2024 03:06 PM Reporting Lab: [place] [facility] [address] [place] [address] Performing Lab: [place] [facility] [address] [place] [address] BRAIN NATRIURETIC PEPTIDE 54 pg/mL 0-100 Oct 17, 2024 03:07 PM [facility] COMPREHENSIVE METABOLIC PANEL PLASMA Specimen Type: PLASMA No comment entered. Ordering Provider: JANE KELLEY Report Released Date/Time: Oct 17, 2024 03:06 PM Reporting Lab: [place] [facility] [address] [place] [address] Performing Lab: [place] [facility] [address] [place] [facility] CREATININE 1.10 mg/dL 0.7-1.3 UREA NITROGEN 23 mg/dL 9-25 GLUCOSE 134 mg/dL H 72-99 SODIUM 141 meq/L 136-145 POTASSIUM 5.4 meq/L H 3.5-5 CHLORIDE 105 meq/L 98-107 CARBON DIOXIDE 28 meq/L 22-31 CALCIUM 10.2 mg/dL 8.4-10.4 PROTEIN 6.9 g/dL 6-8.6 ALBUMIN 4.1 g/dL 3.4-5 TOTAL BILIRUBIN 0.6 mg/dL 0.2-1.2 ALKALINE PHOSPHATASE 70 U/L 40-150 AST/SGOT 76 U/L H 5-34 ALT/SGPT 132 U/L H 8-40 EGFR (CKD-EPI 2020) 72 Oct 17, 2024 03:07 PM [facility] CBC BLOOD Specimen Type: BLOOD No comment entered. Ordering Provider: JANE KELLEY Report Released Date/Time: Oct 17, 2024 03:06 PM Reporting Lab: [place] [facility] [address] [place] [facility] Performing Lab: [place] [facility] [address] [place] [facility] WBC 8.6 10*3/uL 3.6-11.2 RBC 3.91 10*6/uL L 4.10-5.70 HGB 12.4 g/dL L 13.1-16.8 HCT 38.0 L 38.2-48.4 MCV 97.2 fL 80.0-100.0 MCH 31.7 pg 27.0-34.0 MCHC 32.6 g/dL L 33.0-36.0 PLT 244 10*3/uL 150-400 MPV 10.8 fL 7.5-11.2 RDW 14.5 11.8-15.1 LYMPHOCYTES, AUTO % 17.3 MONOCYTES, AUTO % 7.5 NEUTROPHILS, AUTO % 73.8 EOSINOPHILS, AUTO % 0.4 BASOPHILS, AUTO % 0.5 LYMPHOCYTES, ABSOLUTE 1.48 10*3/uL 0.77- 4.50 MONOCYTES, ABSOLUTE 0.64 10*3/uL 0.19-0. 8 NEUTROPHILS, ABSOLUTE 6.33 10*3/uL 2.10- 8.00 EOSINOPHILS, ABSOLUTE 0.03 10*3/uL 0.00- 0.60 BASOPHILS, ABSOLUTE 0.04 10*3/uL 0.00-0. 20 IMMATURE GRANS, AUTO % 0.5 IMMATURE GRANS, AUTO ABS 0.04 10*3/uL 0. 00-0.05 September 20, 2024 08:45 AM [place] [facility] URIC ACID PLASMA Specimen Typ e: PLASMA No comment entered. Ordering Provider: RANDEE NOGUEIRA Report Released Date/Time: Aug 24, 2024 01:14 PM Reporting Lab: [place] [facility] [address] [place] [address] Performing Lab: [place] [facility] [address] [place] [address] URIC ACID 6.4 mg/dL 3.5-7.2 September 20, 2024 08:45 AM [facility] IRON PLASM A Specimen Type: PLASMA No comment entered. Ordering Provider: RANDEE NOGUEIRA Report Released Date/Time: Aug 24, 2024 01:14 PM Reporting Lab: [place] [facility] [address] [place] [address] Performing Lab: [place] [facility] [address] [place] [address] IRON 134 ug/dL 65-175 September 20, 2024 08:45 AM [facility] DIRECT LDL (MA-PB) PLASMA Specimen Type: PLASM A No comment entered. Ordering Provider: RANDEE NOGUEIRA Report Released Date/Time: Aug 24, 2024 01:14 PM Reporting Lab: [place] [facility] [address] [place] [address] Performing Lab: [place] [facility] [address] [place] [address] DIRECT LDL 145.0 mg/dL H 0-99.9 September 20, 2024 08:45 AM [facility] CHOLESTEROL PANEL (PB) PLASMA Specimen Type: P LASMA No comment entered. Ordering Provider: RANDEE NOGUEIRA Report Released Date/Time: Aug 24, 2024 01:14 PM Reporting Lab: [place] [facility] [address] [place] [address] Performing Lab: [place] [facility] [address] [place] [address] CHOLESTEROL 232 mg/dL H 0-200 TRIGLYCERIDE 165 mg/dL H 0-150 CALCULATED LDL 132.6 mg/dL HDL(New) 66.4 mg/dL H >40 HDL % OF TOTAL CHOLESTEROL (PB) 28.6 >25 September 20, 2024 08:45 AM [facility] RHEUMATOID FACTOR (PB) SERUM Specimen Type: S KURT No comment entered. Ordering Provider: RANDEE NOGUEIRA Report Released Date/Time: Aug 24, 2024 01:14 PM Reporting Lab: [place] [facility] [address] [place] [address] Performing Lab: [place] [facility] [address] [place] [address] RHEUMATOID FACTOR (PB) <13 [IU]/mL L 0-September 20, 2024 08:45 AM [facility] VITAMIN D, 25-HYDROXY SERUM Specimen Type: SE RUM No comment entered. Ordering Provider: RANDEE NOGUEIRA Report Released Date/Time: Aug 24, 2024 01:14 PM Reporting Lab: [place] [facility] [address] [place] [address] Performing Lab: [place] [facility] [address] [place] [address] VITAMIN D, 25-HYDROXY 52.8 ng/mL -September 20, 2024 08:45 AM [facility] URINE ALBUMIN PROFILE-ih (PB) URINE Specimen Type: URINE No comment entered. Ordering Provider: RANDEE NOGUEIRA Report Released Date/Time: Aug 24, 2024 01:14 PM Reporting Lab: [place] [facility] [address] [place] [address] Performing Lab: [place] [facility] [address] [place] [address] URINE ALBUMIN (PB-STL) 293.26 mg/L uACR (PB-MA) 193.43 mg/g H 0-30 CREATININE URINE/OTHERS 151.61 mg/dL September 20, 2024 08:45 AM [place] [facility] MAGNESIUM PLASMA Specimen Typ e: PLASMA No comment entered. Ordering Provider: RANDEE NOGUEIRA Report Released Date/Time: Aug 24, 2024 01:14 PM Reporting Lab: [place] [facility] [address] [place] [address] Performing Lab: [place] [facility] [address] [place] [address] MAGNESIUM 2.08 mg/dL 1.6-2.6 September 20, 2024 08:45 AM [facility] FOLATE (PB) SERUM Specimen Typ e: SERUM No comment entered. Ordering Provider: RANDEE NOGUEIRA Report Released Date/Time: Aug 24, 2024 01:14 PM Reporting Lab: [place] [facility] [address] [place] [address] Performing Lab: [place] [facility] [address] [place] [address] FOLATE (PB) 12.5 ng/mL 7-20 September 20, 2024 08:45 AM [facility] B12 SERUM Specimen Type: SERUM No comment entered. Ordering Provider: RANDEE NOGUEIRA Report Released Date/Time: Aug 24, 2024 01:14 PM Reporting Lab: [place] [facility] [address] [place] [address] Performing Lab: [place] [facility] [address] [place] [address] B12 712 pg/mL 213-816 September 20, 2024 08:45 AM [facility] COMPREHENSIVE METABOLIC PANEL PLASMA Specimen Type: PLASMA No comment entered. Ordering Provider: RANDEE NOGUEIRA Report Released Date/Time: Aug 24, 2024 01:14 PM Reporting Lab: [place] [facility] [address] [place] [address] Performing Lab: [place] [facility] [address] [place] [address] CREATININE 1.25 mg/dL 0.7-1.3 UREA NITROGEN 21 [...] 2020) 62 September 20, 2024 08:45 AM [facility] HGA1C BLOOD Specimen Type: BLOOD No comment entered. Ordering Provider: RANDEE NOGUEIRA Report Released Date/Time: Aug 24, 2024 01:14 PM Reporting Lab: [place] [facility] [address] [place] [address] Performing Lab: [place] [facility] [address] [place] [address] HGA1C 6.2 H 4.0-6.0 September 20, 2024 08:45 AM [facility] CBC BLOOD Specimen Type: BLOOD No comment entered. Ordering Provider: RANDEE NOGUEIRA Report Released Date/Time: Aug 24, 2024 01:14 PM Reporting Lab: [place] [facility] [address] [place] [address] Performing Lab: [place] [facility] [address] [place] [address] WBC 7.9 10*3/uL 3.6-11.2 RBC 4.37 10*6/uL [...] 0. 00-0.05 September 20, 2024 08:44 AM [facility] DRUG SCREEN URINE-inhouse (PB) URINE Specimen Type: URINE No comment entered. Ordering Provider: JANE KELLEY Report Released Date/Time: Aug 24, 2024 11:02 AM Reporting Lab: [place] [facility] [address] [facility] [place] [facility] [address] Performing Lab: [place] [facility] [address] [facility] [address] METHADONE Negative Negative OPIATES (PB) Negative Negative COCAINE... Negative Negative THC(Marijuana... Negative Negative BENZODIAZEPINE (PB) Negative Negative AMPHETAMINE... Negative Negative CREATININE URINE/OTHERS 149.80 mg/dL OXYCODONE ([id number]) Negative Negati ve BUPRENORPHINE (STL-PB-MA) Negative ng/mL Negative ETHANOL URINE <10 mg/dL L 0-20 FENTANYL, URINE (PB) Negative ng/mL Vital Signs: All taken on the encounter date This section contains inpatient and outpatient Vital Signs collected on the date of the Encounter. Date/Time Temperature Pulse Blood Pressure Respiratory Rate SP02 Pain Height Weight Body Mass Index Source Sep 27, 2024 03:32 PM 98.0 77 138/88 18 95 6 251.0 34 [facility] Social History: Smoking Status (Most current) and Tobacco Use (All prior to encounter date) This section includes the most current, and the historical, smoking and tobacco- related health factors from the [place] facility where the Encounter took place. Current Smoking Status This section includes the most current smoking, or tobacco-related health factor, from the [place] facility where the Encounter took place. Date/Time Current Smoking Status Comment Facil ity Feb 18, 2024 09:30 AM VA-TOBACCO FORMER USER [facility] Tobacco Use History This section includes a history of the smoking, or tobacco-related health factors, that were collected on or before the date of the Encounter. The data comes from the [place] facility where the Encounter took place. Date/Time Smoking Status/Tobacco Use Comment F acility Feb 18, 2024 09:30 AM VA-TOBACCO QUIT 5 TO < 15 YRS [facility] Feb 16, 2023 02:00 PM VA-TOBACCO FORMER USER [facility] Feb 16, 2023 02:00 PM VA-TOBACCO QUIT 5 TO < 15 YRS [facility] Feb 19, 2022 11:30 AM VA-TOBACCO FORMER USER [facility] Feb 19, 2022 11:30 AM VA-TOBACCO QUIT 1 TO < 5 YRS [facility] Mar 04, 2021 08:30 AM VA-TOBACCO FORMER USER [facility] Mar 04, 2021 08:30 AM VA-TOBACCO QUIT 1 TO < 5 YRS [facility] Mar 08, 2019 11:49 AM VA-TOBACCO DOESNT USE WI 30 MIN WAKEUP [facility] Mar 08, 2019 11:49 AM VA-TOBACCO USE 30 YEARS OR MORE [facility] Mar 08, 2019 11:49 AM VA-TOBACCO USE ADVICE [facility] Mar 08, 2019 11:49 AM VA-TOBACCO USE OIL FIELD ROUSTABOUT NO [facility] Mar 08, 2019 11:49 AM VA-TOBACCO USE MED NOTIFY PROVIDER [facility] Mar 08, 2019 11:49 AM VA-TOBACCO USER EVERY DAY [facility] Mar 17, 2018 01:22 PM CURRENT TOBACCO USER [facility] Mar 17, 2018 01:22 PM CURRENT TOBACCO US ER (READY TO QUIT) [facility] Mar 17, 2018 01:22 PM SMOKELESS TOBACCO AMOUNT/LENGTH V15 45yr history [facility] Mar 17, 2018 01:22 PM TOBACCO CESSATION REFERRAL DECLINED [facility] Mar 17, 2018 01:22 PM TOBACCO USER OFFERED MEDS [place] [facility] Aug 20, 2017 10:37 AM CURRENT TOBACCO USER [place] [facility] Aug 20, 2017 10:37 AM CURRENT TOBACCO US ER (NOT READY TO QUIT) [place] [facility] Aug 20, 2017 10:37 AM SMOKELESS TOBACCO AMOUNT/LENGTH V15 50yr history 1 can every week [facility] [place] [facility] Aug 20, 2017 10:37 AM TOBACCO CESSATION REFERRAL DECLINED [place] [facility] Aug 20, 2017 10:37 AM TOBACCO MEDS OFFER ED BUT DECLINED [place] [facility] Aug 20, 2017 10:37 AM TOBACCO USER [facility]ERED [facility] [place] [facility] Feb 24, 2017 07:10 AM CURRENT TOBACCO USER [place] [facility] Feb 24, 2017 07:10 AM CURRENT TOBACCO US ER (NOT READY TO QUIT) [facility] [place] [facility] Feb 24, 2017 07:10 AM TOBACCO CESSATION REFERRAL DECLINED [place] [facility] Feb 24, 2017 07:10 AM TOBACCO MEDS OFFER ED BUT DECLINED [place] [facility] Feb 24, 2017 07:10 AM TOBACCO USER OFFERED MED[facility] [place] [facility] Dec 18, 2016 11:06 AM CURRENT TOBACCO USER [facility] Dec 18, 2016 11:06 AM CURRENT TOBACCO US ER (NOT READY TO QUIT) [place] [facility] Dec 18, 2016 11:06 AM TOBACCO CESSATION REFERRAL DECLINED [place] [facility] Dec 18, 2016 11:06 AM TOBACCO MEDS OFFER ED BUT DECLINED [place] [facility] Dec 18, 2016 11:06 AM TOBACCO USER OFFERED MEDS [place] [facility] Jan 29, 2016 07:57 AM CURRENT TOBACCO USER [facility] Jan 29, 2016 07:[address] [facility] Oct 13, 2014 08:33 AM CURRENT TOBACCO USER [facility] Oct 13, 2014 08:[address] [facility] Oct 06, 2013 10:38 AM CURRENT TOBACCO USER [facility] Oct 06, 2013 10:[address] [facility] Jun 28, 2012 02:19 PM CURRENT TOBACCO USER [facility] Jun 28, 2012 02:[address] [facility]MO[facility] Jan 06, 2011 02:53 PM CURRENT TOBACCO USER [facility] Jan 06, 2011 02:53 PM TOBACCO MEDS OFFER ED BUT DECLINED [facility] Jan 06, 2011 02:53 PM TOBACCO OFFERED PT MEDS (PROVIDER) [facility] Jan 06, 2011 02:[address] OP SMOKING CLINIC [facility] Aug 13, 2009 02:36 PM CURRENT TOBACCO USER [facility] Aug 13, 2009 02:36 PM TOBACCO MEDS OFFER ED BUT DECLINED [facility] Aug 13, 2009 02:36 PM TOBACCO OFFERED PT MEDS (PROVIDER) [facility] Aug 13, 2009 02:[address] OP SMOKING CLINIC [facility] Mar 03, 2008 08:34 AM CURRENT TOBACCO USER [facility] Mar 03, 2008 08:[address] OP SMOKING CLINIC [facility] Jul 21, 2007 11:40 AM CURRENT TOBACCO USER [facility] Dec 08, 2006 08:18 AM CURRENT TOBACCO USER [facility] Dec 08, 2006 08:18 AM TOBACCO MEDS OFFER ED BUT DECLINED [facility] Jul 25, 2005 10:39 AM CURRENT NON-TOBACC O USER-HX OF USE [facility] Jan 27, 2005 11:41 AM CURRENT NON-TOBACC O USER-HX OF USE [facility] Jul 29, 2004 08:37 AM CURRENT NON-TOBACC O USER-HX OF USE Stopped since last visit. Gained 5 pounds [facility] Jan 29, 2004 09:02 AM CURRENT NON-TOBACC O USER-HX OF USE Stopped about 3-4 months ago [facility] Jul 28, 2003 10:08 AM CURRENT NON-TOBACC O USER-HX OF USE [facility] August 26, 2002 10:28 AM CURRENT NON-TOBACC O USER-HX OF USE [facility] Mar 11, 2002 09:39 AM CURRENT NON-TOBACC O USER-HX OF USE [facility] Apr 08, 2001 11:01 AM CURRENT NON-TOBACC O USER-HX OF USE Stopped 1996 [facility] Oct 22, 2000 01:27 PM CURRENT NON-TOBACC O USER-HX OF USE 1 pack a da y for years / stopped 4 yrs [facility] Radiology Reports: +/- 30 days of the [...] the Encounter. The data comes from all [place] treatment facilities. Date/Time Radiology Report Provider Source Oct 17, 2024 02:52 PM CHEST X-RAY, 2 VIE WS: THOMPSON FELIZ [id number] -[id number] M Exm Date: OCT 17, 2024@14:52 Req Phys: JANE KELLEY Pat Loc: PB-YU PACT NATARAJAN PCP (Req'g L Img Loc: PB-XRAY [place] Service: [place] [address] (Case [id number] COMPLETE) CHEST X-RAY, 2 VIEWS (RAD Detailed) CPT:24515 Reason for Study: cough and congestion Clinical History: Report Status: Verified Date Reported: OCT 17, 2024 Date Verified: OCT 17, 2024 Curriculum Facilitator E-Sig: Report: PA and lateral views of the chest reveal moderate degenerative skeletal change with atherosclerotic calcification and mild bilateral pulmonary hyperaeration. There is no infiltrate or effusion. Heart size is normal. Impression: No acute process Primary Interpreting Staff: MARIELA OKEEFE RADIOLOGIST (Curriculum Facilitator, no e-sig) /MARIELA Vasquez [facility] Encounter Notes: All associated encounter notes This section contains the clinical notes associated to the Encounter. Date/Time Encounter Note(s) Provider Source Sep 27, 2024 04:22 PM ORTHOTICS PROSTHET ICS EDUCATION NOTE: LOCAL TITLE: NURSING PROSTHETIC ITEM PATIENT EDUCATION NOTE PB STANDARD TITLE: ORTHOTICS PROSTHETICS EDUCATION NOTE DATE OF NOTE: SEP 27, 2024@16:22 ENTRY DATE: SEP 27, 2024@16:22:14 AUTHOR: TAMIKA LE COSIGNER: URGENCY: STATUS: COMPLETED Prosthetic Patient Education Learner: Patient Given to [place] in office today Moist heat wrap medibeads Method: Individual Evaluation of Learning: Able to Perform/Verbalize Items: Hot/Cool Pack Hot/Cold Therapy Wrap Cold Wrap: Store in the freezer for a minimum of 2 hours. Store in plastic bag while the wraps in the freezer. Place the gel wrap with the cover on the site for up to 20 minutes. Can use 1 an hour as needed for pain or swelling. Monitor the skin. Do not add water to the gel pad. After use place back in the plastic bag and place back in the freezer. Hot Wrap: Use microwave for heating therapy wrap following instructions on the package. A barrier, such as a towel, between the wrap and skin is recommended. The wrap should feel warm and not hot to touch. Recommend 20 minutes durations with 1 hour rest between each use. Warnings: Do not use while sleeping. Do not use on any area that has decreased sensation. Do not use on any skin with open wounds or abrasions. A copy of this document was provided to the patient. /walter/ TAMIKA LE LPN [facility] Signed: 09/27/2024 16:26 TAMIKA LE [facility] Sep 27, 2024 04:05 PM PRIMARY CARE PROGR ESS NOTE: LOCAL TITLE: PRIMARY CARE CLINIC PROGRESS NOTE PB STANDARD TITLE: PRIMARY CARE PROGRESS NOTE DATE OF NOTE: SEP 27, 2024@16:05 ENTRY DATE: SEP 27, 2024@16:05:29 AUTHOR: JANE KELLEY EXP COSIGNER: URGENCY: STATUS: COMPLETED Date & Time: Sep@16:05 This is a 69 year old MALE Allergies: HORSE SERUM PROTEINS, PENICILLIN, AZITHROMYCIN, ASPIRIN RELATED MEDICATIONS LOVASTATIN, SIMVASTATIN, ROSUVASTATIN, LIPITOR, THIAZIDES/RELATED DIURETICS METHOTREXATE, CODEINE, COLESTIPOL, SULFASALAZINE, HUMIRA, COSENTYX CC: Chest pain, arm pain and increased fatigue HPI: presented today for a scheduled appointment for some increased and shortness of breath and fatigue, has also describes some chest pressure across his chest of which he has also followed up and inquired about going back to his thiokol operator he is already called to get in sooner and is awaiting a callback from them currently. Will do EKG today EKG appears to be within normal limits nothing acute currently not having chest pain today or shortness of breath main shortness of breath is worsened with exertion emma is also not having any relief by Flexeril is going to attempt to try the Flexeril again if not he will come by and we will try a different muscle relaxer. Emma has a lot of med allergies and he is aware of when to stop taking medication and when to stop meds so not to worsen allergies and what to do if he does have a reaction like Rick prescription and told him not to fill it and wait wanting to know what you gave him we did and we did an EKG and was waiting to see what cardiology said we need to find Castillo and we need to try back and get in touch back with them because I was going to increase his blood pressure medicine but you know his blood pressures, where he was having weird symptoms and stop Temperature: 98.0 F [36.7 C] (09/27/2024 15:32) Respiratory Rate: 18 (09/27/2024 15:32) Pulse Rate: 77 (09/27/2024 15:32) Blood Pressure: 138/88 (09/27/2024 15:32) HT: 72.0 in [182.9 cm] (02/18/2024 09:32) WT: 251.0 lb [113.85 kg] (09/27/2024 15:32) BMI: 34.1 95% (09/27/2024 15:32) REVIEW OF SYSTEMS: HEENT: increasing fatigue and SOB RESPIRATORY: SOB, no cough, wheezing, or sputum production. CARDIOVASCULAR: chest pain, No palpitations, tachycardia, PND, or orthopnea. MUSCULOSKELETAL: back pain. SKIN: No rash, lesions, or infection PSYCH: No depression and anxious at this time. Not suicidal. 1) Fasciitis * (ICD-9-CM 729.4) 2) Psoriasis (SNOMED CT 3816779) 3) Essential hypertension (SNOMED CT 25077828) 4) Attention deficit disorder (SNOMED CT 26162317) 5) Shoulder Arthritis 6) Resistant hypertension (SNOMED CT 746351837756182) 7) Colon Polyps 8) Narcolepsy (SNOMED CT 53456720) 9) Dyslexia (SNOMED CT 01433946) 10) Stimulant dependence (SNOMED CT 015186291) 11) Chronic ulcer of foot 12) RA - Rheumatoid arthritis 13) Depression ([facility] 25155259) 14) Psoriatic arthritis 15) Coronary arteriosclerosis 16) Hyperlipidemia ([facility] 12814088) 17) Prediabetes 18) Low back pain 19) Sleep apnea syndrome 20) Congestive heart failure Active Outpatient Medications (including Supplies): Active Outpatient Medications Status 1) ALIROCUMAB 150MG/ML INJ 1ML PEN INJECT 150MG UNDER THE SKIN ACTIVE EVERY MONTH Indication: FOR HIGH CHOLESTEROL 2) AMLODIPINE BESYLATE 5MG TAB TAKE ONE TABLET BY MOUTH EVERY ACTIVE MORNING Indication: FOR HIGH BLOOD PRESSURE 3) CYCLOBENZAPRINE HCL 10MG TAB TAKE ONE TABLET BY MOUTH THREE ACTIVE (S) TIMES A DAY NEEDED FOR MUSCLE SPASM. MAY CAUSE DROWSINESS. DO NOT DRINK ALCOHOL WHILE TAKING THIS MEDICATION. 4) EPI(EQV-ADRENACLICK)0.3MG/0. 3ML INJCTR INJECT 1 PEN ACTIVE (0.3MG/0.3ML) INTRAMUSCULARLY ONE-TIME 5) ETANERCEPT 50MG/ML INJ SYRINGE INJECT 50MG UNDER THE SKIN ACTIVE EVERY WEEK KEEP REFRIGERATED. ADMINISTER SUBCUTANEOUSLY ON THE SAME DAY(S) EACH WEEK. 6) EZETIMIBE 10MG TAB TAKE ONE TABLET BY MOUTH ONCE A DAY TO ACTIVE LOWER CHOLESTEROL 7) FLUCONAZOLE 150MG TAB TAKE ONE TABLET BY MOUTH EVERY OTHER ACTIVE DAY Indication: FOR FUNGAL INFECTION 8) FUROSEMIDE 20MG TAB TAKE ONE TABLET BY MOUTH ONCE A DAY ACTIVE 9) LEFLUNOMIDE 10MG TAB TAKE ONE TABLET BY MOUTH ONCE A DAY ACTIVE TAKE AT SAME TIME EACH DAY. 10) LOSARTAN 50MG TAB TAKE ONE TABLET BY MOUTH TWICE A DAY ACTIVE 11) MICONAZOLE NITRATE 2% TOP PWDR APPLY LIGHTLY TO AFFECTED ACTIVE (S) AREA(S) THREE TIMES A DAY NEEDED FOR TOPICAL USE ONLY. Indication: FOR FUNGAL INFECTION 12) NALOXONE HCL 4MG/SPRAY SOLN NASAL SPRAY USE 1 SPRAY (4MG) ACTIVE INTO ONE NOSTRIL ONLY ONE-TIME DO NOT PRIME NASAL SPRAY. SPRAY ONE DOSE IN ONE NOSTRIL, GIVE ADDITIONAL DOSE IF PATIENT DOES NOT START BREATHING WITHIN 2-3 MINUTES OR STOPS BREATHING AGAIN. CALL 911. IF USED, NOTIFY PROVIDER. Indication: FOR OPIOID OVERDOSE 13) NYSTATIN [id number] UNT/ML SUSP TAKE 5 ML SWISH & SWALLOW THREE ACTIVE TIMES A DAY - SHAKE WELL BEFORE USING. Indication: THRUSH 14) ASEIH-1-GICC ETHYL ESTERS 1000MG CAP TAKE TWO CAPSULES BY ACTIVE MOUTH TWICE A DAY Indication: FOR HIGH TRIGLYCERIDES 15) PANTOPRAZOLE NA 40MG EC TAB TAKE ONE TABLET BY MOUTH EVERY ACTIVE MORNING BEFORE A MEAL TO LOWER STOMACH ACID - TAKE 30 MINUTES BEFORE MEAL(S) 16) POTASSIUM CHLORIDE 10MEQ SA TAB TAKE ONE TABLET BY MOUTH ACTIVE ONCE A DAY TAKE WITH FOOD 17) PREDNISONE 10MG TAB TAKE ONE TABLET BY MOUTH ONCE A DAY TAKE ACTIVE WITH FOOD OR MILK. 18) PROPRANOLOL HCL 80MG SA CAP TAKE ONE CAPSULE BY MOUTH ONCE A ACTIVE DAY Indication: FOR HIGH BLOOD PRESSURE 19) TRAMADOL HCL 50MG TAB TAKE 1 TABLET BY MOUTH THREE TIMES A ACTIVE DAY NEEDED FOR PAIN THIS QUANTITY MUST LAST 30 DAYS OR MORE Active Non-VA Medications Status 1) Non-VA ASPIRIN 81MG EC TAB 81MG BY MOUTH ONCE A DAY ACTIVE Indication: FOR CARDIOVASCULAR DISEASE 20 Total Medications OBJECTIVE: Physical Exam General: NAD noted, A&Ox3, pleasant, appears stated age HEENT: NCAT, TM's clear, nares and oropharynx clear Neck: Supple with normal active ROM, without any lymphadenopathy Heart: RRR, no murmur, clicks, or rub Resp: Lungs CTA bilaterally, respirations even and unlabored Abdomen: Soft, non-distended, non-tender Ext: No clubbing, cyanosis, edema or obvious deformity Neuro: Grossly intact Psych: Affect normal, answers questions appropriately throughout visit Assessment/Plan: chest pain -current plan EKG, plans to get into see cardiology has already 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 Discussed with patient [...] appointments. Medications Reconciled. See AVS given to [place]. Time spent 30 minutes. Jane NÚÑEZ /walter/ NOÉ Almonte, MSN, Pedro Pablo Espinosahing [facility] Signed: 09/30/2024 14:42 JANE KELLEY [facility] Sep 27, 2024 03:23 PM PRIMARY CARE NURSI NG NOTE: LOCAL TITLE: PRIMARY CARE NURSING PROGRESS NOTE (TEXT) NURSING P STANDARD TITLE: PRIMARY CARE NURSING NOTE DATE OF NOTE: SEP 27, 2024@15:23 ENTRY DATE: SEP 27, 2024@15:24:03 AUTHOR: TAMIKA LE EXP COSIGNER: URGENCY: STATUS: COMPLETED Established Patient THOMPSON FELIZ IS A 69 YEAR OLD MALE BEING SEEN IN CLINIC SEP 27, 2024. = = REASON FOR VISIT: Nexus letter, states had dizziness and diarrhea with flexeril. Are you receiving care any [facility] other than [facility]? No HEALTH AND SURGICAL HISTORY: Does patient report using home oxygen? CURRENT ACTIVE MEDICATIONS FOR REVIEW: If the list for review does not include a component, then it was not applicable to this patient. Allergies/ADRs (Tool #5) FACILITY ALLERGY/ADR -------- [facility]ENICILL[facility] ASPIRIN RELATED MEDICATIONS . [facility] AZITHROMYCIN [facility] CODEINE [facility] COLESTIPOL [facility] COSENTYX [facility] HORSE SERUM PROTEINS [facility] HUMIRA [facility] LIPITOR [facility] LOVASTATIN [facility] METHOTREXATE [facility] PENICILLIN [facility] ROSUVASTATIN [facility] SIMVASTATIN [facility] SULFASALAZINE [facility] THIAZIDES/RELATED DIURETICS Med. Reconciliation (Tool #1) INCLUDED IN THIS LIST: Alphabetical list of active outpatient prescriptions dispensed from this [place] (local) and dispensed from another [place] or [facility] facility (remote) as well as inpatient orders (local pending and active), local clinic medications, locally documented non-VA medications, and local prescriptions that have or been discontinued in the past 90 days. Non-VA Meds Last Documented On: Nov 20, 2022 NOTE The display of VA prescriptions dispensed from another [place] or [facility] facility (remote) is limited to active outpatient prescription entries matched to National Drug File at the originating site and may not include some items such as investigational drugs, compounds, etc. NOT INCLUDED IN THIS LIST: Medications self-entered by the patient into personal health records (i.e. [employer]) are NOT included in this list. Non-VA medications documented outside this [place], remote inpatient orders (regardless of status) and remote clinic medications are NOT included in this list. The patient and provider must always discuss medications the patient is taking, regardless of where the medication was dispensed or obtained. OUTPT ALIROCUMAB 150MG/ML INJ 1ML PEN (Status = Discontinued) INJECT 150MG UNDER THE SKIN EVERY MONTH FOR HIGH CHOLESTEROL Rx# [id number] Last Released: 06/09/24 Qty/Days Supply: Rx Expiration Date: 10/19/24 Refills Remainin Indication: FOR HIGH CHOLESTEROL OUTPT ALIROCUMAB 150MG/ML INJ 1ML PEN (Status = Discontinued) INJECT 150MG UNDER THE SKIN EVERY MONTH FOR HIGH CHOLESTEROL Rx# [id number] Last Released: 07/25/24 Qty/Days Supply: Rx Expiration Date: 09/19/24 Refills Remainin Indication: FOR HIGH CHOLESTEROL OUTPT ALIROCUMAB 150MG/ML INJ 1ML PEN (Status = Active) INJECT 150MG UNDER THE SKIN EVERY MONTH FOR HIGH CHOLESTEROL Rx# [id number] Last Released: 08/31/24 Qty/Days Supply: Rx Expiration Date: 08/25/25 Refills Remainin Indication: FOR HIGH CHOLESTEROL OUTPT AMLODIPINE BESYLATE 5MG TAB (Status = Active) TAKE ONE TABLET BY MOUTH EVERY MORNING FOR HIGH BLOOD PRESSURE Rx# [id number] Last Released: 08/26/24 Qty/Days Supply: 90 Rx Expiration Date: 08/25/25 Refills Remainin Indication: FOR HIGH BLOOD PRESSURE Non-VA ASPIRIN 81MG EC TAB TAKE ONE TABLET BY MOUTH ONCE A DAY Nov 20, 2022 Non-VA medication recommended by [place] provider Patient wants to buy from Non-[place] pharmacy Indication: FOR CARDIOVASCULAR DISEASE OUTPT CYCLOBENZAPRINE HCL 10MG TAB (Status = Discontinued) TAKE ONE TABLET BY MOUTH THREE TIMES A DAY NEEDED FOR MUSCLE SPASM MAY CAUSE DROWSINESS. DO NOT DRINK ALCOHOL WHILE TAKING THIS MEDICATION. Rx# [id number] Last Released: 08/26/24 Qty/Days Supply: 270/ Rx Expiration Date: 08/25/25 Refills Remainin Indication: FOR MUSCLE SPASM OUTPT CYCLOBENZAPRINE HCL 10MG TAB (Status = Active/Suspended) TAKE ONE TABLET BY MOUTH THREE TIMES A DAY NEEDED FOR MUSCLE SPASM. MAY CAUSE DROWSINESS. DO NOT DRINK ALCOHOL WHILE TAKING THIS MEDICATION. Rx# [id number] Last Released: Qt Supply: Rx Expiration Date: 09/15/25 Refills Remainin OUTPT EPI(EQV-ADRENACLICK)0.3MG/0. 3ML INJCTR (Status = Active) INJECT 1 PEN (0.3MG/0.3ML) INTRAMUSCULARLY ONE-TIME Rx# [id number] Last Released: 02/27/24 Qty/Days Supply: Rx Expiration Date: 02/23/25 Refills Remainin OUTPT ETANERCEPT 50MG/ML INJ SYRINGE (Status = Active) INJECT 50MG UNDER THE SKIN EVERY WEEK KEEP REFRIGERATED. ADMINISTER SUBCUTANEOUSLY ON THE SAME DAY(S) EACH WEEK. Rx# [id number] Last Released: 08/30/24 Qty/Days Supply: 08/22 Rx Expiration Date: 06/08/25 Refills Remainin OUTPT EZETIMIBE 10MG TAB (Status = Discontinued) TAKE ONE TABLET BY MOUTH ONCE A DAY TO LOWER CHOLESTEROL Rx# [id number] Last Released: 07/11/24 Qty/Days Supply: Rx Expiration Date: 08/25/24 Refills Remainin OUTPT EZETIMIBE 10MG TAB (Status = Active) TAKE ONE TABLET BY MOUTH ONCE A DAY TO LOWER CHOLESTEROL Rx# [id number] Last Released: 09/13/24 Qty/Days Supply: Rx Expiration Date: 08/25/25 Refills Remainin OUTPT FLUCONAZOLE 150MG TAB (Status = Active) TAKE ONE TABLET BY MOUTH EVERY OTHER DAY FOR FUNGAL INFECTION Rx# [id number] Last Released: 08/02/24 Qty/Days Supply: 06/30 Rx Expiration Date: 08/02/25 Refills Remainin Indication: FOR FUNGAL INFECTION OUTPT FUROSEMIDE 20MG TAB (Status = Active) TAKE ONE TABLET BY MOUTH ONCE A DAY Rx# [id number] Last Released: 04/21/24 Qty/Days Supply: Rx Expiration Date: 12/29/24 Refills Remainin OUTPT HYDROCODONE 5MG/ACETAMINOPHEN 325MG TAB (Status = Discontinued) TAKE 1 TABLET BY MOUTH EVERY EIGHT(8) HOURS NEEDED FOR PAIN THIS QUANTITY MUST LAST 30 DAYS OR MORE CAUTION: DO NOT EXCEED 4000MG PER DAY ACETAMINOPHEN (APAP) FROM ALL MEDS. Rx# [id number] Last Released: 08/01/24 Qty/Days Supply: 60 Rx Expiration Date: 08/27/24 Refills Remainin OUTPT LEFLUNOMIDE 10MG TAB (Status = Active) TAKE ONE TABLET BY MOUTH ONCE A DAY TAKE AT SAME TIME EACH DAY. Rx# [id number] Last Released: 08/03/24 Qty/Days Supply: Rx Expiration Date: 08/02/25 Refills Remainin OUTPT LEFLUNOMIDE 20MG TAB (Status = Discontinued) TAKE ONE TABLET BY MOUTH ONCE A DAY TAKE AT SAME TIME EACH DAY. Rx# [id number] Last Released: 05/30/24 Qty/Days Supply: Rx Expiration Date: 03/24/25 Refills Remainin OUTPT LEFLUNOMIDE 20MG TAB (Status = Discontinued) TAKE ONE TABLET BY MOUTH ONCE A DAY TAKE AT SAME TIME EACH DAY. Rx# [id number] Last Released: Qty/Days Supply: Rx Expiration Date: 07/28/25 Refills Remainin OUTPT LOSARTAN 100MG TAB (Status = Discontinued) TAKE ONE-HALF TABLET BY MOUTH ONCE A DAY FOR HIGH BLOOD PRESSURE Rx# [id number] Last Released: 06/02/24 Qty/Days Supply: 45 Rx Expiration Date: 08/26/24 Refills Remainin Indication: FOR HIGH BLOOD PRESSURE OUTPT LOSARTAN 50MG TAB (Status = Active) TAKE ONE TABLET BY MOUTH TWICE A DAY Rx# [id number] Last Released: 08/08/24 Qty/Days Supply: 180 Rx Expiration Date: 08/06/25 Refills Remainin OUTPT MICONAZOLE NITRATE 2% TOP PWDR (Status = Discontinued) APPLY LIGHTLY TO AFFECTED AREA(S) THREE TIMES A DAY NEEDED FOR FUNGAL INFECTION FOR TOPICAL USE ONLY. Rx# [id number] Last Released: 08/03/24 Qty/Days Supply: 270/90 Rx Expiration Date: 10/30/24 Refills Remainin Indication: FOR FUNGAL INFECTION OUTPT MICONAZOLE NITRATE 2% TOP PWDR (Status = Active/Suspended) APPLY LIGHTLY TO AFFECTED AREA(S) THREE TIMES A DAY NEEDED FOR FUNGAL INFECTION FOR TOPICAL USE ONLY. Rx# [id number] Last Released: Qty/Days Supply: 270/90 Rx Expiration Date: 11/22/24 Refills Remainin Indication: FOR FUNGAL INFECTION OUTPT NALOXONE HCL 4MG/SPRAY SOLN NASAL SPRAY (Status = Active) USE 1 SPRAY (4MG) INTO ONE NOSTRIL ONLY ONE-TIME FOR OPIOID OVERDOSE DO NOT PRIME NASAL SPRAY. SPRAY ONE DOSE IN ONE NOSTRIL, GIVE ADDITIONAL DOSE IF PATIENT DOES NOT START BREATHING WITHIN 2-3 MINUTES OR STOPS BREATHING AGAIN. CALL 911. IF USED, NOTIFY PROVIDER. Rx# [id number] Last Released: 02/22/24 Qty/Days Supply: 05/28 Rx Expiration Date: 02/18/25 Refills Remainin Indication: FOR OPIOID OVERDOSE OUTPT NITROGLYCERIN 0.4MG SL TAB (Status = ) DISSOLVE ONE TABLET UNDER THE TONGUE EVERY 5 MINUTES NEEDED ; IF NO IMPROVEMENT AFTER FIRST DOSE CALL 12-26-1. MAY TAKE 2 ADDITIONAL DOSES, 5 MINUTES APART. TAKE WHILE SITTING. Rx# [id number] Last Released: 08/08/24 Qty/Days Supply: 100/30 Rx Expiration Date: 09/04/24 Refills Remainin OUTPT NYSTATIN [id number] UNT/ML SUSP (Status = Active) TAKE 5 ML SWISH & SWALLOW THREE TIMES A DAY THRUSH - SHAKE WELL BEFORE USING. Rx# [id number] Last Released: 08/04/24 Qty/Days Supply: 120/6 Rx Expiration Date: 08/02/25 Refills Remainin Indication: THRUSH OUTPT [id number]-[id number] ETHYL ESTERS 1000MG CAP (Status = Discontinued) TAKE TWO CAPSULES BY MOUTH TWICE A DAY FOR HIGH TRIGLYCERIDES Rx# [id number] Last Released: 03/02/24 Qty/Days Supply: 240/60 Rx Expiration Date: 08/26/24 Refills Remainin Indication: FOR HIGH TRIGLYCERIDES OUTPT CCLDT-1-BUSZ ETHYL ESTERS 1000MG CAP (Status = Active) TAKE TWO CAPSULES BY MOUTH TWICE A DAY FOR HIGH TRIGLYCERIDES Rx# [id number] Last Released: 09/20/24 Qty/Days Supply: 240/60 Rx Expiration Date: 09/17/25 Refills Remainin Indication: FOR HIGH TRIGLYCERIDES OUTPT PANTOPRAZOLE NA 40MG EC TAB (Status = Discontinued) TAKE ONE TABLET BY MOUTH EVERY MORNING BEFORE A MEAL TO LOWER STOMACH ACID - TAKE 30 MINUTES BEFORE MEAL(S) Rx# [id number] Last Released: 06/15/24 Qty/Days Supply: 90 Rx Expiration Date: 08/25/24 Refills Remainin OUTPT PANTOPRAZOLE NA 40MG EC TAB (Status = Active) TAKE ONE TABLET BY MOUTH EVERY MORNING BEFORE A MEAL TO LOWER STOMACH ACID - TAKE 30 MINUTES BEFORE MEAL(S) Rx# [id number] Last Released: 08/26/24 Qty/Days Supply: Rx Expiration Date: 08/25/25 Refills Remainin OUTPT POTASSIUM CHLORIDE 10MEQ SA TAB (Status = Active) TAKE ONE TABLET BY MOUTH ONCE A DAY TAKE WITH FOOD Rx# [id number] Last Released: 04/21/24 Qty/Days Supply: Rx Expiration Date: 01/04/25 Refills Remainin OUTPT PREDNISONE 10MG TAB (Status = Discontinued) TAKE THREE TABLETS BY MOUTH ONCE A DAY FOR 5 DAYS, THEN TAKE TWO TABLETS ONCE A DAY FOR 5 DAYS, THEN TAKE ONE TABLET ONCE A DAY TAKE WITH FOOD OR MILK. Rx# [id number] Last Released: 03/30/24 Qty/Days Supply: 100/85 Rx Expiration Date: 03/24/25 Refills Remainin OUTPT PREDNISONE 10MG TAB (Status = Active) TAKE ONE TABLET BY MOUTH ONCE A DAY TAKE WITH FOOD OR MILK. Rx# [id number] Last Released: 07/29/24 Qty/Days Supply: Rx Expiration Date: 07/28/25 Refills Remainin OUTPT PROPRANOLOL HCL 80MG SA CAP (Status = Discontinued) TAKE ONE CAPSULE BY MOUTH ONCE A DAY FOR HIGH BLOOD PRESSURE Rx# [id number] Last Released: 06/16/24 Qty/Days Supply: 90 Rx Expiration Date: 08/25/24 Refills Remainin Indication: FOR HIGH BLOOD PRESSURE OUTPT PROPRANOLOL HCL 80MG SA CAP (Status = Active) TAKE ONE CAPSULE BY MOUTH ONCE A DAY FOR HIGH BLOOD PRESSURE Rx# [id number] Last Released: 08/26/24 Qty/Days Supply: 90/ Rx Expiration Date: 08/25/25 Refills Remainin Indication: FOR HIGH BLOOD PRESSURE OUTPT TRAMADOL HCL 50MG TAB (Status = Discontinued) TAKE 1 TABLET BY MOUTH THREE TIMES A DAY NEEDED FOR PAIN Rx# [id number] Last Released: 04/08/24 Qty/Days Supply: Rx Expiration Date: 09/23/24 Refills Remainin Indication: FOR PAIN OUTPT TRAMADOL HCL 50MG TAB (Status = Active) TAKE 1 TABLET BY MOUTH THREE TIMES A DAY NEEDED FOR PAIN THIS QUANTITY MUST LAST 30 DAYS OR MORE Rx# [id number] Last Released: 09/26/24 Qty/Days Supply: Rx Expiration Date: 02/09/25 Refills Remainin SUPPLIES PHARMACY TERMS AND POSSIBLE PATIENT ACTIONS INPT = [place] inpatient order IV = [place] intravenous medication OUTPT = [place] outpatient prescription PHARMACY POSSIBLE PATIENT TERMS EXPLANATION ACTIONS -------- ---- ACTIVE A prescription that can be If you have refills, filled at the local [place] pharmacy. you may request a refill of this prescription from your [place] pharmacy. CLINIC A medication you received during If you have questions a visit to a [place] clinic or about this medication emergency department. contact your [place] healthcare team. DISCONTINUED A prescription your provider has Contact your [facility] stopped. It is no longer healthcare team if you available to be sent to you or need more of this picked up at the [place] pharmacy medication. window. A prescription which is [...] or out of prescription from either the VA date, please tell your or non VA providers that was VA healthcare team. filled outside the VA. Or, it may be an [id number] (OTC), herbal, dietary supplements or sample medication. [...] An active prescription that is Contact your [place] not scheduled to be filled yet. pharmacy if you need You should receive it before this medication now. you run out. Medication list reviewed with Patient Patient/Caregiver reports taking meds other than as directed/ordered: Stopped flexeril IS PATIENT TAKING ANY OVER THE COUNTER MEDICATIONS, SUCH VITAMINS OR HERBAL SUPPLEMENTS, INCLUDING ANY MEDICATIONS PRESCRIBED BY ANOTHER PHYSICIAN? No Does patient have any new allergies to report since last visit? NO VITALS: TEMPERATURE: 97.7 F [36.5 C] (08/24/2024 10:47) BP: 120/85 (08/24/2024 10:48) RESP: 18 (08/24/2024 10:47) PULSE: 99 (08/24/2024 10:47) HT: 72.0 in [182.9 cm] (02/18/2024 09:32) WT: 254.0 lb [115.21 kg] (08/24/2024 10:47) BMI: 34.5 PAIN ASSESSMENT: (Most Recent Pain Score in Vitals Package: 6 (08/24/2024 10:47) ) The patient indicated that they and their close contacts have not traveled outside of the [place] in the past 21 days. The patient reports the following symptoms: No symptoms present The patient is not immunocompromised. The patient does not report having a history of Multi Drug Resistant Organism (MDRO) within the last five years. The patient does not report having been exposed to measles, chickenpox, or zoster in last 30 days. STRESS: Thank you for your service. Now let us serve you. 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 No Patient advised to call the clinic for any concerns, questions, or symptoms. Patient and/or caregiver verbalized understanding of plan of care. Per [facility] Directive 1605.06, wristband documentation: Patient wristband was removed and destroyed by (staff name) Tamika Le and placed in the designated [employer] bin. COVID-19 Immunization-L,N,P,PH,U: Refused Moderna Monovalent COVID-19 vaccine Immunization: COVID-19 (MODERNA), MRNA, LNP-S, PF, 50 MCG/0.5 ML (AGES 12+ YEARS) Refusal Reason: PATIENT DECISION Patient refuses all immunization(s) in the COVID-19 group Date Documented: 09/27/24 15:30 Pain Assessment: - PAIN ASSESSMENT: .. This patient's last pain assessment score was: 6 (08/24/2024 10:47). A detailed pain assessment showed the following: Location of current pain Joints Patient's self identified pain goal: 6 [facility] DIGITAL DIVIDE CAPABILITY REMINDER: Patient is not interested in VVC at this time. 'S RIGHT TO DECLINE STATEMENT understands they have the right to decline the use of Telehealth Technology at any time without adverse affects on their continued access to healthcare. Patient/Nurse Interview: * * Patient stated that adequate information was received regarding the condition and/or treatment. [facility] MAP: PERSONAL HEALTH PLAN INVENTORY & MAP 's Response: Breathing /es/ PAT [facility] Signed: 09/27/2024 15:31 TAMIKA LE DE [facility]
--- OUTSIDE RECORDS SUMMARY | 2024-10-17 08:48 | XMS_ITS | Encounter Summary ---
Author Name [facility] [place] Organization [facility] [place] Address [address] [place] [id number] Care Team Providers Care Slat Grader Name Role Phone SIMRAN PINEDA Primary Care [...] Patient's Relationship to Policy Cruz BRITTANI BROOKS [facility] (WNR) MEDICARE ADVANTAGE [facility] (WNR) Jan 26, 2020 [id number] [phone] TRAY,ER IC PATIENT MEDICARE (WNR) MEDICARE (M) PART B Jan 26, 2020 PART B [id number] TRAY,ER IC PATIENT MEDICARE ([place]) MEDICARE ([place]) PART A August 26, 2019 PART A [id number] [phone] TRAY,ER IC PATIENT Selected Encounter This section includes the information on record at [place] for the Encounter. Date/Time Encounter Type Encounter Description Reason Provider Source Oct 17, 2024 02:48 PM OFFICE O/P EST LOW 20 MIN PRIMARY CARE/MEDICINE ICD-10-CM R06.02 Shortness of breath JANE KELLEY IHSimón Encounter Template Text not used by [facility] Assessments - Encounter Diagnoses This section includes the primary and secondary diagnoses documented for the Encounter. Date/Time Primary/Secondary Diagnosis Diagnosis Name Provider Source Oct 17, 2024 04:19 PM PRIMARY Shortness of breath JANE KELLEY CB Oct 17, 2024 04:19 PM SECONDARY Edema, unspecified JANE KELLEY [facility] Oct 17, 2024 04:19 PM SECONDARY Heart failure, unspecified JANE KELLEY [facility] Plan of Treatment: Future Appointments (+ 6 months) and Future Tests (+/- 45 days) The Plan of Treatment section includes future care activities for the patient [facility] [place] [facility] This section includes future appointments and future orders which are active, pending or scheduled. Future Appointments This section includes appointments that were scheduled to occur 6 months from the date of the Encounter, up to a maximum of 20 appointments. The data comes from all [facility] hospital. Appointment Date/Time Appointment Type Appointme nt Facility Name Oct 18, 2024 09:30 AM AMBULATORY - [place]IC[place] [facility] Oct 26, 2024 08:00 AM [facility]BULATORY - [place]IC[place] [facility] Oct 26, 2024 01:45 PM AMBULATORY - MEDIC[place] [facility] Nov 10, 2024 03:00 PM AMBULATORY - MEDICINE [facility] [place] [facility] Nov 14, 2024 11:30 AM AMBULATORY - MEDICINE [facility] Nov 24, 2024 10:45 AM [place] [facility] Feb 17, 2025 08:30 AM AMBULATORY - MEDICINE [facility] Active, Pending, and Scheduled Orders This section includes a listing of several types of active, pending, and scheduled orders, including clinic medications orders, diagnostic test orders, procedure orders and consult orders; where the start date of the order is 45 days before the date of the Encounter or 45 days after the date of theEncounter. The data comes from all [facility] hospital. 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 Radiology Reports and Pathology Reports are provided separately, in subsequent sections. Lab Results This section contains the Chemistry/Hematology Results that were resulted 30 days before or 30 daysafter the date of the Encounter. Date/Time Source Result Type Result - Unit Interpretation Reference Range Specimen Type Comment Oct 20, 2024 11:24 AM [place] [facility] BASIC METABOLIC PANEL PLASMA Specimen Type: PLASMA No comment entered. Ordering Provider: SIMRAN PINEDA III Report Released Date/Time: Oct 18, 2024 04:29 PM Reporting Lab: [place] [facility] [address] [place] [id number] Performing Lab: [place] [facility] [address] [place] [id number] CREATININE 1.09 mg/dL 0.7-1.3 UREA NITROGEN 25 mg/dL 9-25 GLUCOSE 109 mg/dL H 72-99 SODIUM 140 meq/L 136-145 POTASSIUM 4.5 meq/L 3.5-5 CHLORIDE 102 meq/L 98-107 CARBON DIOXIDE 26 meq/L 22-31 CALCIUM 10.2 mg/dL 8.4-10.4 EGFR (CKD-EPI 2020) 73 Oct 17, 2024 03:07 PM [facility] BRAIN NATRIURETIC PEPTIDE PLASMA Specimen Type : PLASMA No comment entered. Ordering Provider: JANE KELLEY Report Released Date/Time: Oct 17, 2024 03:06 PM Reporting Lab: [place] [facility] [address] [place] [id number] Performing Lab: [place] [facility] [address] [place] [id number] BRAIN NATRIURETIC PEPTIDE 54 pg/mL 0-100 Oct 17, 2024 03:07 PM [facility] COMPREHENSIVE METABOLIC PANEL PLASMA Specimen Type: PLASMA No comment entered. Ordering Provider: JANE KELLEY Report Released Date/Time: Oct 17, 2024 03:06 PM Reporting Lab: [place] [facility] [address] [place] [id number] Performing Lab: [place] [facility] [address] [place] [id number] CREATININE 1.10 mg/dL 0.7-1.3 UREA NITROGEN 23 [...] 2024 03:06 PM Reporting Lab: [place] [facility] [address] [facility] [place] [facility] [address] Performing Lab: [place] [facility] [address] [facility] [address] WBC 8.6 10*3/uL 3.6-11.2 RBC 3.91 10*6/uL [...] 0. 00-0.05 September 20, 2024 08:45 AM [place] [facility] URIC ACID PLASMA Specimen Typ e: PLASMA No comment entered. Ordering Provider: RANDEE NOGUEIRA Report Released Date/Time: Aug 24, 2024 01:14 PM Reporting Lab: [place] [facility] [address] [place] [address] Performing Lab: [place] [facility] [address] [place] [address] URIC ACID 6.4 mg/dL 3.5-7.2 September 20, 2024 08:45 AM [place] [facility] IRON PLASM A Specimen Type: PLASMA No comment entered. Ordering Provider: RANDEE NOGUEIRA Report Released Date/Time: Aug 24, 2024 01:14 PM Reporting Lab: [place] [facility] [address] [place] [address] Performing Lab: [place] [facility] [address] [place] [address] IRON 134 ug/dL 65-175 September 20, 2024 08:45 AM [place] [facility] DIRECT LDL (MA-PB) PLASMA Specimen Type: PLASM A No comment entered. Ordering Provider: RANDEE NOGUEIRA Report Released Date/Time: Aug 24, 2024 01:14 PM Reporting Lab: [place] [facility] [address] [place] [address] Performing Lab: [place] [facility] [address] [place] [address] DIRECT LDL 145.0 mg/dL H 0-99.9 September 20, 2024 08:45 AM [place] [facility] CHOLESTEROL PANEL (PB) PLASMA Specimen Type: P LASMA No comment entered. Ordering Provider: RANDEE NOGUEIRA Report Released Date/Time: Aug 24, 2024 01:14 PM Reporting Lab: [place] [facility] [address] [place] [address] Performing Lab: [place] [facility] [address] [place] [address] CHOLESTEROL 232 mg/dL H 0-200 TRIGLYCERIDE 165 [...] Reporting Lab: [place] [facility] [address] [place] [id number] Performing Lab: [place] [facility] [address] [place] [address] RHEUMATOID FACTOR (PB) <13 [IU]/mL L 0-30 September 20, 2024 08:45 AM [facility] VITAMIN D, 25-HYDROXY SERUM Specimen Type: SE RUM No comment entered. Ordering Provider: RANDEE NOGUEIRA Report Released Date/Time: Aug 24, 2024 01:14 PM Reporting Lab: [place] [facility] [address] [place] [id number] Performing Lab: [place] [facility] [address] [place] [address] VITAMIN D, 25-HYDROXY 52.8 ng/mL 30-96 September 20, 2024 08:45 AM [facility] URINE ALBUMIN PROFILE-ih (PB) URINE Specimen Type: URINE No comment entered. Ordering Provider: RANDEE NOGUEIRA Report Released Date/Time: Aug 24, 2024 01:14 PM Reporting Lab: [place] [facility] [address] [place] [address] Performing Lab: [place] [facility] [address] [place] [address] URINE ALBUMIN (PB-STL) 293.26 mg/L uACR (PB-MA) 193.43 mg/g H 0-30 CREATININE URINE/OTHERS 151.61 mg/dL September 20, 2024 08:45 AM [facility] MAGNESIUM PLASMA Specimen Typ e: PLASMA No comment entered. Ordering Provider: RANDEE NOGUEIRA Report Released Date/Time: Aug 24, 2024 01:14 PM Reporting Lab: [place] [facility] [address] [place] [address] Performing Lab: [place] [facility] [address] [place] [id number] MAGNESIUM 2.08 mg/dL 1.6-2.6 September 20, 2024 08:45 AM [facility] FOLATE (PB) SERUM Specimen Typ e: SERUM No comment entered. Ordering Provider: RANDEE NOGUEIRA Report Released Date/Time: Aug 24, 2024 01:14 PM Reporting Lab: [place] [facility] [address] [place] [address] Performing Lab: [place] [facility] [address] [place] [address] FOLATE (PB) 12.5 ng/mL -September 20, 2024 08:45 AM [facility] B12 SERUM Specimen Type: SERUM No comment entered. Ordering Provider: RANDEE NOGUEIRA Report Released Date/Time: Aug 24, 2024 01:14 PM Reporting Lab: [place] [facility] [address] [place] [address] Performing Lab: [place] [facility] [address] [place] [address] B12 712 pg/mL 213-816 September 20, 2024 08:45 AM [facility] COMPREHENSIVE METABOLIC PANEL PLASMA Specimen Type: PLASMA No comment entered. Ordering Provider: RANDEE NOGUEIRA Report Released Date/Time: Aug 24, 2024 01:14 PM Reporting Lab: [place] [facility] [address] [place] [address] Performing Lab: [place] [facility] [address] [place] [id number] CREATININE 1.25 mg/dL 0.7-1.3 UREA NITROGEN 21 [...] Reporting Lab: [place] [facility] [address] [place] [id number] Performing Lab: [place] [facility] [address] [place] [id number] HGA1C 6.2 H 4.0-6.0 September 20, 2024 08:45 AM [place] [facility] CBC BLOOD Specimen Type: BLOOD No comment entered. Ordering Provider: RANDEE NOGUEIRA Report Released Date/Time: Aug 24, 2024 01:14 PM Reporting Lab: [place] [facility] [address] [place] [address] Performing Lab: [place] [facility] [address] [place] [address] WBC 7.9 10*3/uL 3.6-11.2 RBC 4.37 10*6/uL [...] 0. 00-0.05 September 20, 2024 08:44 AM [facility] DRUG SCREEN URINE-inhouse (PB) URINE Specimen Type: URINE No comment entered. Ordering Provider: JANE KELLEY Report Released Date/Time: Aug 24, 2024 11:02 AM Reporting Lab: [place] [facility] [address] [place] [address] Performing Lab: [place] [facility] [address] [place] [address] METHADONE Negative Negative OPIATES (PB) Negative Negative COCAINE... Negative Negative THC(Marijuana... Negative Negative BENZODIAZEPINE (PB) Negative Negative AMPHETAMINE... Negative Negative CREATININE URINE/OTHERS 149.80 mg/dL OXYCODONE ([id number]) Negative Negati ve BUPRENORPHINE (STL-PB-MA) Negative ng/mL Negative ETHANOL URINE <10 mg/dL L 0-20 FENTANYL, URINE (PB) Negative ng/mL Vital Signs: All taken on the encounter date This section contains inpatient and outpatient Vital Signs collected on the date of the Encounter. Date/Time Temperature Pulse Blood Pressure Respiratory Rate SP02 Pain Height Weight Body Mass Index Source Oct 17, 2024 02:52 PM 97.6 F 83 /min 160/74 mm[Hg] 20 /min 96 % [facility] Social History: Smoking Status (Most current) and Tobacco Use (All prior to encounter date) This section includes the most current, and the historical, smoking and tobacco- related health factors from the [place] facility where the Encounter took place. Current Smoking Status This section includes the most current smoking, or tobacco-related health factor, from the [place] facility where the Encounter took place. Date/Time Current Smoking Status Comment Facil ity Feb 18, 2024 09:30 AM [place]-TOBAC[place] FORMER USER [facility] Tobacco Use History This section includes a history of the smoking, or tobacco-related health factors, that were collected on or before the date of the Encounter. The data comes from the [place] facility where the Encounter took place. Date/Time Smoking Status/Tobacco Use Comment F acility Feb 18, 2024 09:30 AM [place]-TO[place]AC[place] QUIT 5 TO < 15 YRS [facility] Feb 16, 2023 02:00 PM [place] FOR[place] US[place] [facility] Feb 16, 2023 02:00 PM VA-TOBACCO QUIT 5 TO < 15 YRS [place] [facility] Feb 19, 2022 11:30 AM [place]-TOBACCO FORMER US[place] [facility] Feb 19, 2022 11:30 AM VA-TOBACCO QUIT 1 TO < 5 YRS [place] [facility] Mar 04, 2021 08:30 AM VA-TOBACCO FORMER USER [place] [facility] Mar 04, 2021 08:30 AM VA-TOBACCO QUIT 1 TO < 5 YRS [place] [facility] Mar 08, 2019 11:49 AM VA-TOBACCO DOESNT USE WI 30 MIN WAKEUP [place] [facility] Mar 08, 2019 11:49 AM VA-TOBACCO USE 30 YEARS OR MORE [place] [facility] Mar 08, 2019 11:49 AM VA-TOBACCO USE ADVICE [facility] Mar 08, 2019 11:49 AM VA-TOBACCO USE HOST/HOSTESS GROUND NO [place] [facility] Mar 08, 2019 11:49 AM VA-TOBACCO USE MED NOTIFY PROVIDER [facility] Mar 08, 2019 11:49 AM VA-TOBACCO USER EVERY DAY [facility] Mar 17, 2018 01:22 PM CURRENT TOBACCO USER [facility] Mar 17, 2018 01:22 PM CURRENT TOBACCO US ER (READY TO QUIT) [facility] Mar 17, 2018 01:22 PM SMOKELESS TOBACCO AMOUNT/LENGTH V15 45yr history [facility] Mar 17, 2018 01:22 PM TOBACCO CESSATION REFERRAL DECLINED [facility] Mar 17, 2018 01:22 PM TOBACCO USER OFFERED MEDS [facility] Aug 20, 2017 10:37 AM CURRENT TOBACCO USER [facility] Aug 20, 2017 10:37 AM CURRENT TOBACCO US ER (NOT READY TO QUIT) [facility] Aug 20, 2017 10:37 AM SMOKELESS TOBACCO AMOUNT/LENGTH V15 50yr history 1 can every week [place] [facility] Aug 20, 2017 10:37 AM TOBACCO CESSATION REFERRAL DECLINED [facility] Aug 20, 2017 10:37 AM TOBACCO MEDS OFFER ED BUT DECLINED [place] [facility] Aug 20, 2017 10:37 AM TOBACCO USER OFFERED MEDS [facility] Feb 24, 2017 07:10 AM CURRENT [...] 2017 07:10 AM TOBACCO USER OFFERED MEDS [facility] [place] [facility] Dec 18, 2016 11:06 [...] 2016 11:06 AM TOBACCO USER OFFERED MEDS [place] [facility] Jan 29, 2016 07:57 AM CURRENT TOBACCO USER [facility] Jan 29, 2016 07:[address] [facility] Oct 13, 2014 08:33 AM CURRENT TOBACCO USER [facility] Oct 13, 2014 08:[address] [facility] Oct 06, 2013 10:38 AM CURRENT TOBACCO USER [facility] Oct 06, 2013 10:[address] [facility] Jun 28, 2012 02:19 PM CURRENT TOBACCO USER [facility] Jun 28, 2012 02:[address] [facility] Jan 06, 2011 02:53 PM CURRENT TOBACCO USER [facility] Jan 06, 2011 02:53 PM TOBACCO MEDS OFFER ED BUT DECLINED [place] [facility] Jan 06, 2011 02:53 PM TOBACCO OFFERED PT MEDS (PROVIDER) [facility] Jan 06, 2011 02:[address] [facility] Aug 13, 2009 02:36 PM CURRENT TOBACCO USER [facility] Aug 13, 2009 02:36 PM TOBACCO MEDS OFFER ED BUT DECLINED [place] [facility] Aug 13, 2009 02:36 PM TOBACCO OFFERED PT MEDS (PROVIDER) [facility] Aug 13, 2009 02:[address] [facility] Mar 03, 2008 08:34 AM [...] NON-TOBACC O USER-HX OF USE Stopped 1996 [facility] Oct 22, 2000 01:27 PM CURRENT NON-TOBACC O USER-HX OF USE 1 pack a da y for years / stopped 4 yrs [facility] Radiology Reports: +/- 30 days of [...] the Encounter. The data comes from all [place] treatment facilities. Date/Time Radiology Report Provider Source Oct 17, 2024 02:52 PM CHEST X-RAY, 2 VIE WS: THOMPSON FELIZ [id number] -[id number] M Exm Date: OCT 17, 2024@14:52 Req Phys: JANE KELLEY Pat Loc: PB-YU PACT NATARAJAN PCP (Req'g L Img Loc: PB-XRAY [place] Service: [place] [address] (Case [id number] COMPLETE) CHEST X-RAY, 2 VIEWS (RAD Detailed) CPT:81618 Reason for Study: cough and congestion Clinical History: Report Status: Verified Date Reported: OCT 17, 2024 Date Verified: OCT 17, 2024 Lobster Fisherman E-Sig: Report: PA and lateral views of the chest reveal moderate degenerative skeletal change with atherosclerotic calcification and mild bilateral pulmonary hyperaeration. There is no infiltrate or effusion. Heart size is normal. Impression: No acute process Primary Interpreting Staff: MARIELA OKEEFE, RADIOLOGIST (Lobster Fisherman, no e-sig) /MARIELA Vasquez [place] [facility] Encounter Notes: All associated encounter notes This section contains the clinical notes associated to the Encounter. Date/Time Encounter Note(s) Provider Source Oct 18, 2024 04:11 PM PHYSICIAN LETTERS: LOCAL TITLE: TEST RESULT GENERAL LETTER STL STANDARD TITLE: PHYSICIAN LETTERS DATE OF NOTE: OCT 18, 2024@16:11 ENTRY DATE: OCT 18, 2024@16:11:45 AUTHOR: SIMRAN PINEDA III EXP COSIGNER: URGENCY: STATUS: COMPLETED [facility] [address] [place] [address] OCT 18, 2024 THOMPSON FELIZ [id number] [place], [place] [address] Dear Thompson Feliz, I would like to update you on your recent test results. GLUCOSE - Your blood sugar or glucose level result GLUCOSE GLUCOSE 134 H mg/dL 10/17/2024 15:07 These results are abnormal. Mildly elevated, watch sugars CBC - A complete blood count (CBC) gives important information about the kinds and numbers of cells in the blood, especially red blood cells, white blood cells, and platelets. HGB 12.4 L g/dL 10/17/2024 15:07 HEMATOCRIT 38.0 % L (10/17/24 15:07) PLT 244 10*3/uL 10/17/2024 15:07 WHITE BLOOD COUNT 8.6 10*3/uL (10/17/24 15:07) These results are abnormal. Mild anemia-will work up more at next visit as needed CHEM 7 - This is important information about the current status of your kidneys, liver, and electrolyte and acid/base balance as well as of your blood sugar and blood proteins. SODIUM 141 mEq/L 10/17/2024 15:07 POTASSIUM 5.4 H mEq/L 10/17/2024 15:07 CHLORIDE 105 mEq/L 10/17/2024 15:07 UREA NITROGEN 23 mg/dL 10/17/2024 15:07 CREATININE 1.10 mg/dL 10/17/2024 15:07 CALCIUM 10.2 mg/dL 10/17/2024 15:07 CARBON DIOXIDE 28 mEq/L 10/17/2024 15:07 GLUCOSE 134 H mg/dL 10/17/2024 15:07 EGFR (CKD-EPI 2020) 72 10/17/2024 15:07 These results are abnormal. Hold potassium and call to recheck late in week LIVER FUNCTION PANEL - These are tests for liver function: PROTEIN 6.9 g/dL 10/17/2024 15:07 ALBUMIN 4.1 g/dL 10/17/2024 15:07 TOTAL BILIRUBIN 0.6 mg/dL 10/17/2024 15:07 ALKALINE PHOSPHATASE 70 U/L 10/17/2024 15:07 AST/SGOT 76 H U/L 10/17/2024 15:07 ALT/SGPT 132 H U/L 10/17/2024 15:07 These results are abnormal. Liver function tests up a bit. Need to discuss this with your Rhematologist MILTON PLAN I have reviewed your test results and we need to adjust your medication as follows: Hold potassium, recheck later in week, discuss elevated liver tests with Arthritis Docnithya ROSE Please remember that the same medication may have two different names. We ask that you compare your bottle with your paperwork before taking the medication. FUTURE APPOINTMENTS: 10/26/2024 08:00 COM CARE-VASCULAR 657A4 10/26/2024 13:45 COM CARE-ORTHOPEDICS 657A 11/10/2024 15:00 PB-CAP PHONE PACT PHARM 2 11/24/2024 10:45 COM CARE-RHEUMATOLOGY 657 02/17/2025 08:30 PB-YU PACT NATARAJAN PCP Sincerely, MD ROE MEAD III [facility] THOMPSON FELIZ HOMER E III [facility] Oct 17, 2024 04:30 PM PHYSICIAN LETTERS: LOCAL TITLE: TEST RESULT GENERAL LETTER STL STANDARD TITLE: PHYSICIAN LETTERS DATE OF NOTE: OCT 17, 2024@16:30 ENTRY DATE: OCT 17, 2024@16:30:49 AUTHOR: SIMRAN PINEDA III EXP COSIGNER: URGENCY: STATUS: COMPLETED [facility] [address] [place] [address] OCT 17, 2024 THOMPSON FELIZ [id number] [place], [place] [address] Dear Thompson Feliz, I would like to update you on your recent test results. OTHER TEST RESULTS RADIOLOGY (NON-INVASIVE TEST RESULTS): Report: PA and lateral views of the chest reveal moderate degenerative skeletal change with atherosclerotic calcification and mild bilateral pulmonary hyperaeration. There is no infiltrate or effusion. Heart size is normal. Impression: No acute process FUTURE APPOINTMENTS: 10/18/2024 09:30 COM CARE-DERMATOLOGY 657A 10/26/2024 08:00 COM CARE-VASCULAR 657A4 10/26/2024 13:45 COM CARE-ORTHOPEDICS 657A 11/10/2024 15:00 PB-CAP PHONE PACT PHARM 2 11/24/2024 10:45 COM CARE-RHEUMATOLOGY 657 02/17/2025 08:30 PB-YU PACT NATARAJAN PCP Sincerely, MD ROE MEAD III [facility] THOMPSON FELIZ HOMER E III [facility] Oct 17, 2024 02:48 PM PRIMARY CARE PROGR ESS NOTE: LOCAL TITLE: PRIMARY CARE CLINIC PROGRESS NOTE PB STANDARD TITLE: PRIMARY CARE PROGRESS NOTE DATE OF NOTE: OCT 17, 2024@14:48 ENTRY DATE: OCT 17, 2024@14:48:40 AUTHOR: JANE KELLEY COSIGNER: URGENCY: STATUS: COMPLETED Date & Time: Sep@15:10 This is a 69 year old MALE Allergies: HORSE SERUM PROTEINS, PENICILLIN, AZITHROMYCIN, ASPIRIN RELATED MEDICATIONS LOVASTATIN, SIMVASTATIN, ROSUVASTATIN, LIPITOR, THIAZIDES/RELATED DIURETICS METHOTREXATE, CODEINE, COLESTIPOL, SULFASALAZINE, HUMIRA, COSENTYX CC: SOB HPI: presented today to the clinic for a walk as a walk-in unscheduled appointment for increased shortness of breath, cough and possible exacerbation of congestive heart failure has increased edema to his lower extremities and hands. Recently had an echo and a stress test but has not seen the sow manager yet and was wanting to know if I can get him in sooner I explained to him I did not have the power but if he had any chest pain or any increased shortness of breath past his normal that he needed to go to the ER for further evaluation we will do a chest x-ray today to rule out pneumonia since breath sounds were diminished on the right side. does have increased pitting edema to lower extremities Temperature: 97.6 F [36.4 C] (10/17/2024 14:52) Respiratory Rate: 20 (10/17/2024 14:52) Pulse Rate: 83 (10/17/2024 14:52) Blood Pressure: 160/74 (10/17/2024 14:52) HT: 72.0 in [182.9 cm] (02/18/2024 09:32) WT: 251.0 lb [113.85 kg] (09/27/2024 15:32) BMI: 34.1 96% (10/17/2024 14:52) REVIEW OF SYSTEMS: RESPIRATORY: Productive cough with green sputum shortness of breath with exertion. CARDIOVASCULAR: No chest pain, palpitations, tachycardia, PND, or orthopnea. Lower extremity pitting edema 2++ edema to hands MUSCULOSKELETAL: No muscle or joint pain. SKIN: No rash, lesions, or infection PSYCH: No depression and anxious at this time. Not suicidal. 1) Fasciitis * (ICD-9-CM 729.4) 2) Psoriasis (SNOMED CT 3922944) 3) Essential hypertension (SNOMED CT 38477349) 4) Attention deficit disorder (SNOMED CT 70254378) 5) Shoulder Arthritis 6) Resistant hypertension (SNOMED CT 721616145253879) 7) Colon Polyps 8) Narcolepsy (SNOMED CT 17303611) 9) Dyslexia (SNOMED CT 31471730) 10) Stimulant dependence (SNOMED CT 263536322) 11) Chronic ulcer of foot 12) RA - Rheumatoid arthritis 13) Depression (SCT 27668270) 14) Psoriatic arthritis 15) Coronary arteriosclerosis 16) Hyperlipidemia (SCT 75997480) 17) Prediabetes 18) Low back pain 19) [...] TAB TAKE ONE TABLET BY MOUTH THREE HOLD TIMES A DAY NEEDED FOR MUSCLE SPASM. [...] BY MOUTH TWICE A DAY ACTIVE 11) NALOXONE HCL 4MG/SPRAY SOLN NASAL SPRAY USE 1 SPRAY (4MG) ACTIVE INTO ONE NOSTRIL ONLY ONE-TIME DO NOT PRIME NASAL SPRAY. SPRAY ONE DOSE IN ONE NOSTRIL, GIVE ADDITIONAL DOSE IF PATIENT DOES NOT START BREATHING WITHIN 2-3 MINUTES OR STOPS BREATHING AGAIN. CALL 911. IF USED, NOTIFY PROVIDER. Indication: FOR OPIOID OVERDOSE 12) NYSTATIN [id number] UNT/ML SUSP TAKE 5 ML SWISH & SWALLOW THREE ACTIVE TIMES A DAY - SHAKE WELL BEFORE USING. Indication: THRUSH 13) BEZTU-9-UNFH ETHYL ESTERS 1000MG CAP TAKE TWO CAPSULES BY ACTIVE MOUTH TWICE A DAY Indication: FOR HIGH TRIGLYCERIDES 14) PANTOPRAZOLE NA 40MG EC TAB TAKE ONE TABLET BY MOUTH EVERY ACTIVE MORNING BEFORE A MEAL TO LOWER STOMACH ACID - TAKE 30 MINUTES BEFORE MEAL(S) 15) POTASSIUM CHLORIDE 10MEQ SA TAB TAKE ONE TABLET BY MOUTH ACTIVE ONCE A DAY TAKE WITH FOOD 16) PREDNISONE 10MG TAB TAKE ONE TABLET BY MOUTH ONCE A DAY TAKE ACTIVE WITH FOOD OR MILK. 17) PROPRANOLOL HCL 80MG SA CAP TAKE ONE CAPSULE BY MOUTH ONCE A ACTIVE DAY Indication: FOR HIGH BLOOD PRESSURE 18) TRAMADOL HCL 50MG TAB TAKE 1 TABLET BY MOUTH THREE TIMES A ACTIVE DAY NEEDED FOR PAIN THIS QUANTITY MUST LAST 30 DAYS OR MORE Active Non-VA Medications Status 1) Non-VA ASPIRIN 81MG EC TAB 81MG BY MOUTH ONCE A DAY ACTIVE Indication: FOR CARDIOVASCULAR DISEASE 19 Total Medications OBJECTIVE: Physical Exam General: NAD noted, A&Ox3, pleasant, appears stated age HEENT: NCAT, TM's clear, nares and oropharynx clear Neck: Supple with normal active ROM, without any lymphadenopathy Heart: RRR, no murmur, clicks, or rub Resp: Lungs auscultation diminished breath sounds on the right but no advantageous sounds noted does complain of some wheezing and shortness of breath with exertion, respirations even and unlabored Abdomen: Soft, non-distended, non-tender Ext: No clubbing, cyanosis. 2+ pitting edema to lower extremities and hands Neuro: Grossly intact Psych: Affect normal, answers questions appropriately throughout visit Assessment/Plan: Shortness of breath -current Plan chest x-ray, will do labs as follow today BNP, CBC and CMP Edema -current Plan chest x-ray and will do labs today Congestive heart failure -current Plan to increase furosemide to 40 mg for 5 days daily, plan chest x-ray today and labs verbalized understanding of instructions and agrees with plan of care at this time Follow-up: as needed. Discussed with patient that in [...] appointments. Medications Reconciled. See AVS given to [place]. Time spent 30 minutes. Jane NÚÑEZ /walter/ NOÉ Almonte, MSN, Roe Espinosahing [facility] Signed: 10/17/2024 16:22 JANE KELLEY [facility]
--- OUTSIDE RECORDS SUMMARY | 2024-10-18 03:30 | XMS_ITS | Encounter Summary ---
Author Name [facility] ([place]) Organization [facility] ([place]) Address [address] [place] [id number] Care Team Providers Care Hoister Name Role Phone SIMRAN PINEDA Primary Care [...] Patient's Relationship to Policy Cruz BRITTANI BROOKS [facility] (WNR) MEDICARE ADVANTAGE [facility] (WNR) Jan 26, 2020 [id number] [phone] TRAY,ER IC PATIENT MEDICARE (WNR) MEDICARE (M) PART B Jan 26, 2020 PART B [id number] [phone] TRAY,ER IC PATIENT MEDICARE (WNR) MEDICARE (M) PART A August 26, 2019 PART A [id number] TRAY,ER IC PATIENT Selected Encounter This section includes the information on record at OR for the Encounter. Date/Time Encounter Type Encounter Description Reason Pro vider Source Oct 18, 2024 09:30 AM Outpatient Encounter [facility]ITY [facility]ARE CONSULT IHE Encounter Template Text not used by [facility] Plan of Treatment: Future Appointments (+ 6 months) and Future Tests (+/- 45 days) The Plan of Treatment section includes future care activities for the [facility] This section includes future appointments and future orders which are active, pending or scheduled. Future Appointments This section includes appointments that were scheduled to occur 6 months from the date of the Encounter, up to a maximum of 20 appointments. The data comes from all OR treatment facilities. Appointment Date/Time Appointment Type Appointme nt Facility Name Oct 26, 2024 08:00 AM AM[facility]ORY [place] [facility] Oct 26, 2024 01:45 PM [facility] [place] [facility] Nov 10, 2024 03:00 PM [facility] - [place]IC[place] [facility] Nov 14, 2024 11:30 AM AMBULATORY - MEDICINE [facility] Nov 24, 2024 10:45 AM [facility]ORY - [facility] [place] [facility] Feb 17, 2025 08:30 AM AMBULATORY - MEDICINE [facility] Active, Pending, and Scheduled Orders This section includes a listing of several types of active, pending, and scheduled orders, including clinic medications orders, diagnostic test orders, procedure orders and consult orders; where the start date of the order is 45 days before the date of the Encounter or 45 days after the date of theEncounter. The data comes from all [facility]. Test Date/Time Test Type Test Details Facility Name Sep 28, 2024 07:01 AM Consult Order [facility]-PHYSICAL THERAPY [id number] Cons Fire Marshal's Choice [facility] Lab Results: +/- 30 days of the encounter This section includes the Chemistry and Hematology Lab Results on record with OR for the patient. Radiology Reports and Pathology Reports are provided separately, in subsequent sections. Lab Results This section contains the Chemistry/Hematology Results that were resulted 30 days before or 30 daysafter the date of the Encounter. Date/Time Source Result Type Result - Unit Interpretation Reference Range Specimen Type Comment Oct 20, 2024 11:24 AM [facility] BASIC METABOLIC PANEL PLASMA Specimen Type: PLASMA No comment entered. Ordering Provider: SIMRAN PINEDA III Report Released Date/Time: Oct 18, 2024 04:29 PM Reporting Lab: [place] [facility] [address] [place] [address] Performing Lab: [place] [facility] [address] [place] [facility] [address] CREATININE 1.09 mg/dL 0.7-1.3 UREA NITROGEN 25 mg/dL 9-25 GLUCOSE 109 mg/dL H 72-99 SODIUM 140 meq/L 136-145 POTASSIUM 4.5 meq/L 3.5-5 CHLORIDE 102 meq/L 98-107 CARBON DIOXIDE 26 meq/L 22-31 CALCIUM 10.2 mg/dL 8.4-10.4 EGFR (CKD-EPI 2020) 73 Oct 17, 2024 03:07 PM [facility] BRAIN NATRIURETIC PEPTIDE PLASMA Specimen Type : PLASMA No comment entered. Ordering Provider: CLAUDIO KELLEY Report Released Date/Time: Oct 17, 2024 03:06 PM Reporting Lab: [place] [facility] [address] [place] [address] Performing Lab: [place] [facility] [address] [place] [address] BRAIN NATRIURETIC PEPTIDE 54 pg/mL 0-100 Oct 17, 2024 03:07 PM [facility] COMPREHENSIVE METABOLIC PANEL PLASMA Specimen Type: PLASMA No comment entered. Ordering Provider: CLAUDIO KELLEY Report Released Date/Time: Oct 17, 2024 03:06 PM Reporting Lab: [place] [facility] [address] [place] [address] Performing Lab: [place] [facility] [address] [place] [address] CREATININE 1.10 mg/dL 0.7-1.3 UREA NITROGEN 23 [...] 2020) 72 Oct 17, 2024 03:07 PM [facility] CBC BLOOD Specimen Type: BLOOD No comment entered. Ordering Provider: CLAUDIO KELLEY Report Released Date/Time: Oct 17, 2024 03:06 PM Reporting Lab: [place] [facility] [address] [place] [address] Performing Lab: [place] [facility] [address] [place] [address] WBC 8.6 10*3/uL 3.6-11.2 RBC 3.91 10*6/uL [...] 0. 00-0.05 September 20, 2024 08:45 AM [facility] URIC ACID PLASMA Specimen Typ e: PLASMA No comment entered. Ordering Provider: RANDEE NOGUEIRA Report Released Date/Time: Aug 24, 2024 01:14 PM Reporting Lab: [place] [facility] [address] [place] [address] Performing Lab: [place] [facility] [address] [place] [address] URIC ACID 6.4 mg/dL 3.5-7.2 September 20, 2024 08:45 AM [facility] CHOLESTEROL PANEL (PB) PLASMA Specimen Type: P LASMA No comment entered. Ordering Provider: RANDEE NOGUEIRA Report Released Date/Time: Aug 24, 2024 01:14 PM Reporting Lab: [place] [facility] [address] [place] [address] Performing Lab: [place] [facility] [address] [place] [address] CHOLESTEROL 232 mg/dL H 0-200 TRIGLYCERIDE 165 mg/dL H 0-150 CALCULATED LDL 132.6 mg/dL HDL(New) 66.4 mg/dL H >40 HDL % OF TOTAL CHOLESTEROL (PB) 28.6 >25 September 20, 2024 08:45 AM [place] [place] [facility] IRON PLASM A Specimen Type: PLASMA No comment entered. Ordering Provider: RANDEE NOGUEIRA Report Released Date/Time: Aug 24, 2024 01:14 PM Reporting Lab: [place] [facility] [address] [place] [address] Performing Lab: [place] [facility] [address] [place] [address] IRON 134 ug/dL 65-175 September 20, 2024 08:45 AM [place] [facility] DIRECT LDL (MA-PB) PLASMA Specimen Type: PLASM A No comment entered. Ordering Provider: RANDEE NOGUEIRA Report Released Date/Time: Aug 24, 2024 01:14 PM Reporting Lab: [place] [facility] [address] [place] [address] Performing Lab: [place] [facility] [address] [place] [address] DIRECT LDL 145.0 mg/dL H 0-99.9 September 20, 2024 08:45 AM [facility] [place] [facility] RHEUMATOID FACTOR (PB) SERUM Specimen Type: S KURT No comment entered. Ordering Provider: RANDEE NOGUEIRA Report Released Date/Time: Aug 24, 2024 01:14 PM Reporting Lab: [place] [facility] [address] [place] [address] Performing Lab: [place] [facility] [address] [place] [address] RHEUMATOID FACTOR (PB) <13 [IU]/mL L 0-30 September 20, 2024 08:45 AM [facility] VITAMIN D, 25-HYDROXY SERUM Specimen Type: SE RUM No comment entered. Ordering Provider: RANDEE NOGUEIRA Report Released Date/Time: Aug 24, 2024 01:14 PM Reporting Lab: [place] [facility] [address] [place] [address] Performing Lab: [place] [facility] [address] [place] [address] VITAMIN D, 25-HYDROXY 52.8 ng/mL 30-96 September 20, 2024 08:45 AM [facility] MAGNESIUM PLASMA Specimen Typ e: PLASMA No comment entered. Ordering Provider: RANDEE NOGUEIRA Report Released Date/Time: Aug 24, 2024 01:14 PM Reporting Lab: [place] [facility] [address] [place] [address] Performing Lab: [place] [facility] [address] [place] [address] MAGNESIUM 2.08 mg/dL 1.6-2.6 September 20, 2024 08:45 AM [facility] URINE ALBUMIN PROFILE-ih (PB) URINE Specimen Type: URINE No comment entered. Ordering Provider: RANDEE NOGUEIRA Report Released Date/Time: Aug 24, 2024 01:14 PM Reporting Lab: [place] [facility] [address] [place] [address] Performing Lab: [place] [facility] [address] [place] [address] URINE ALBUMIN (PB-STL) 293.26 mg/L uACR (PB-MA) 193.43 mg/g H 0-30 CREATININE URINE/OTHERS 151.61 mg/dL September 20, 2024 08:45 AM [facility] B12 SERUM Specimen Type: SERUM No comment entered. Ordering Provider: RANDEE NOGUEIRA Report Released Date/Time: Aug 24, 2024 01:14 PM Reporting Lab: [place] [facility] [address] [place] [address] Performing Lab: [place] [facility] [address] [place] [address] B12 712 pg/mL 213-816 September 20, 2024 08:45 AM [facility] FOLATE (PB) SERUM Specimen Typ e: SERUM No comment entered. Ordering Provider: RANDEE NOGUEIRA Report Released Date/Time: Aug 24, 2024 01:14 PM Reporting Lab: [place] [facility] [address] [place] [address] Performing Lab: [place] [facility] [address] [place] [address] FOLATE (PB) 12.5 ng/mL 7-September 20, 2024 08:45 AM [facility] COMPREHENSIVE METABOLIC PANEL PLASMA Specimen Type: PLASMA No comment entered. Ordering Provider: RANDEE NOGUEIRA Report Released Date/Time: Aug 24, 2024 01:14 PM Reporting Lab: [place] [facility] [address] [place] [address] Performing Lab: [place] [facility] [address] [place] [address] CREATININE 1.25 mg/dL 0.7-1.3 UREA NITROGEN 21 [...] 2020) 62 September 20, 2024 08:45 AM [facility] HGA1C BLOOD Specimen Type: BLOOD No comment entered. Ordering Provider: RANDEE NOGUEIRA Report Released Date/Time: Aug 24, 2024 01:14 PM Reporting Lab: [place] [facility] [address] [place] [address] Performing Lab: [place] [facility] [address] [place] [address] HGA1C 6.2 H 4.0-6.0 September 20, 2024 08:45 AM [facility] CBC BLOOD Specimen Type: BLOOD No comment entered. Ordering Provider: RANDEE NOGUEIRA Report Released Date/Time: Aug 24, 2024 01:14 PM Reporting Lab: [place] [facility] [address] [place] [address] Performing Lab: [place] [facility] [address] [place] [address] WBC 7.9 10*3/uL 3.6-11.2 RBC 4.37 10*6/uL [...] 0. 00-0.05 September 20, 2024 08:44 AM [facility] DRUG SCREEN URINE-inhouse (PB) URINE Specimen Type: URINE No comment entered. Ordering Provider: CLAUDIO KELLEY Report Released Date/Time: Aug 24, 2024 11:02 AM Reporting Lab: [place] [facility] [address] [place] [address] Performing Lab: [place] [facility] [address] [place] [address] METHADONE Negative Negative OPIATES (PB) Negative Negative COCAINE... Negative Negative THC(Marijuana... Negative Negative BENZODIAZEPINE (PB) Negative Negative AMPHETAMINE... Negative Negative CREATININE URINE/OTHERS 149.80 mg/dL OXYCODONE ([id number]) Negative Negati ve BUPRENORPHINE (STL-PB-MA) Negative ng/mL Negative ETHANOL URINE <10 mg/dL L 0-20 FENTANYL, URINE (PB) Negative ng/mL Radiology Reports: +/- 30 days of the [...] the Encounter. The data comes from all OR treatment facilities. Date/Time Radiology Report Provider Source Oct 17, 2024 02:52 PM CHEST X-RAY, 2 VIE WS: THOMPSON FELIZ [id number] -1955 M Exm Date: OCT 17, 2024@14:52 Req Phys: CLAUDIO KELLEY Pat Loc: PB-YU PACT NATARAJAN PCP (Req'g L Img Loc: PB-XRAY [facility] Service: [place] [address] (Case [id number] COMPLETE) CHEST X-RAY, 2 VIEWS (RAD Detailed) CPT:27032 Reason for Study: cough and congestion Clinical History: Report Status: Verified Date Reported: OCT 17, 2024 Date Verified: OCT 17, 2024 Vacuum Evaporation Operator E-Sig: Report: PA and lateral views of the chest reveal moderate degenerative skeletal change with atherosclerotic calcification and mild bilateral pulmonary hyperaeration. There is no infiltrate or effusion. Heart size is normal. Impression: No acute process Primary Interpreting Staff: MARIELA OKEEFE RADIOLOGIST (Vacuum Evaporation Operator, no e-sig) /MARIELA Vasquez [facility] Encounter Notes: All associated encounter notes This section contains the clinical notes associated to the Encounter. Date/Time Encounter Note(s) Provider Source Oct 18, 2024 04:30 PM TELEPHONE ENCOUNTE R NOTE: LOCAL TITLE: TELEPHONE NOTE STANDARD TITLE: TELEPHONE ENCOUNTER NOTE DATE OF NOTE: OCT 18, 2024@16:30 ENTRY DATE: OCT 18, 2024@16:30:25 AUTHOR: MALENA HARDEN EXP COSIGNER: URGENCY: STATUS: COMPLETED [place] contacted and made aware of lab and to hold potassium and repeat lab on Thursday. 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 [place] voiced understanding and in agreement. /walter/ MALENA HARDEN LPN Signed: 10/18/2024 16:31 MALENA HARDEN [facility]
--- OUTSIDE RECORDS SUMMARY | 2024-11-24 04:45 | XMS_ITS | Encounter Summary ---
Author Name [facility] [facility] [place] Address [address] [place] [address] Care Team Providers Care Rn House Supervisor Name Role Phone SIMRAN PINEDA Primary [...] to Policy Cruz BRITTANI BROOKS [facility] (WNR) MEDICARE ADVANTAGE [facility] (WNR) Jan 26, 2020 [id number] [phone] TRAY,ER IC PATIENT MEDICARE (WNR) MEDICARE (M) PART B Jan 26, 2020 PART B [id number] [phone] TRAY,ER IC PATIENT MEDICARE (WNR) MEDICARE (M) PART A August 26, 2019 PART A [id number] [phone] TRAY,ER IC PATIENT Selected Encounter This section includes the information on record at [place] for the Encounter. Date/Time Encounter Type Encounter Description Reason Pro vider Source Nov 24, 2024 10:45 AM Outpatient Encounter COMMUNITY CARE CONSULT [facility] Encounter Template Text not used by [facility] Plan of Treatment: Future Appointments (+ 6 months) and Future Tests (+/- 45 days) The Plan of Treatment section includes future care activities for the patient from all [place] [facility]. This section includes future appointments and future orders which are active, pending or scheduled. Future Appointments This section includes appointments that were scheduled to occur 6 months from the date of the Encounter, up to a maximum of 20 appointments. The data comes from all [place] treatment facilities. Appointment Date/Time Appointment Type Appointme nt Facility Name Feb 07, 2025 08:30 AM AMBULATORY - MEDICINE [facility] Feb 07, 2025 09:00 AM AMBULATORY - MEDICINE [facility] Feb 08, 2025 03:00 PM AM[facility]ULATORY - MEDICINE [facility] Feb 09, 2025 11:15 AM AMBULATORY - MEDICINE [facility] Feb 10, 2025 11:00 AM AMBULATORY - MEDICINE [facility] Feb 17, 2025 08:30 AM AMBULATORY - MEDICINE [facility] Feb 17, 2025 09:00 AM AMBULATORY - MEDICINE [facility] Mar 02, 2025 01:00 PM [facility] Apr 04, 2025 03:15 PM [facility] - [facility] Encounter Notes: All associated encounter notes This section contains the clinical notes associated to the Encounter. Date/Time Encounter Note(s) Provider Source Jul 27, 2024 02:48 PM NONVA CONSULT: LOCAL TITLE: COMMUNITY CARE-CONSULT RESULT NOTE PB STANDARD TITLE: NONVA CONSULT DATE OF NOTE: JUL 27, 2024@14:48 ENTRY DATE: AUG 23, 2024@14:48:48 AUTHOR: ESTELITA LONDON EXP COSIGNER: URGENCY: STATUS: COMPLETED Community provider/Non-VA documentation associated with this consult has been previously incorporated into the medical record and is currently linked to the following progress note in CPRS: Note Title- COMMUNITY CARE-REQUEST FOR SERVICES Date of Note-Jul Author- Estelita London Consult Number-[id number] Community Care Consult: COMMUNITY DCMO-[id number] Consult Number: [id number] Authorization Number: [id number] Date sent to scanning: Jul /maximiliano LONDON SCANNER,BUSINESS OFFICE Signed: 08/23/2024 14:49 ESTELITA LONDON [facility]
--- OUTSIDE RECORDS SUMMARY | 2025-02-07 02:30 | XMS_ITS | Encounter Summary ---
Author Name [facility] [place] [facility] [place] [facility] [place] [facility] [place] Address [address] [place] [address] Care Team Providers Care Occupational Health Physiotherapist Name Role Phone SIMRAN PINEDA Primary Care [...] to Policy Cruz BRITTANI BROOKS [facility] (WNR) MEDICARE ADVANTAGE [facility] (WNR) Jan 26, 2020 [id number] [phone] TRAY,ER IC PATIENT MEDICARE (WNR) MEDICARE (M) PART B Jan 26, 2020 PART B [id number] TRAY,ER IC PATIENT MEDICARE (WNR) MEDICARE (M) PART A August 26, 2019 PART A [id number] TRAY,ER IC PATIENT Selected Encounter This section includes the information on record at [place] for the Encounter. Date/Time Encounter Type Encounter Description Reason Provider Source Feb 07, 2025 08:30 AM OFF/OP EST AUGUST X REQ PHY/QHP PRIMARY CARE/MEDICINE ICD-10-CM M79.645 Pain in left finger(s) CASTILLO KIRK IHE Encounter Template Text not used by [facility] Assessments - Encounter Diagnoses This section includes the primary and secondary diagnoses documented for the Encounter. Date/Time Primary/Secondary Diagnosis Diagnosis Name Provider Source Feb 07, 2025 09:15 AM PRIMARY Pain in left finger(s) CASTILLO KIRK [facility] Plan of Treatment: Future Appointments (+ 6 months) and Future Tests (+/- 45 days) The Plan of Treatment section includes future care activities for the patient from all [place] [facility] This section includes future appointments and future orders which are active, pending or scheduled. Future Appointments This section includes appointments that were scheduled to occur 6 months from the date of the Encounter, up to a maximum of 20 appointments. The data comes from all [place] treatment facilities. Appointment Date/Time Appointment Type Appointme nt Facility Name Feb 08, 2025 03:00 PM AMBULATORY - MEDICINE [facility] Feb 09, 2025 11:15 AM AMBULATORY - MEDICINE [facility] Feb 10, 2025 11:00 AM AMBULATORY - MEDICINE [facility] Feb 17, 2025 08:30 AM AMBULATORY - MEDICINE [facility] Feb 17, 2025 09:00 AM AMBULATORY - MEDICINE [facility] Mar 02, 2025 01:00 PM [facility]IC[facility] Apr 04, 2025 03:15 PM AMBULATORY - MEDICINE [facility] Active, Pending, and Scheduled Orders This section includes a listing of several types of active, pending, and scheduled orders, including clinic medications orders, diagnostic test orders, procedure orders and consult orders; where the start date of the order is 45 days before the date of the Encounter or 45 days after the date of theEncounter. The data comes from all [facility]. Test Date/Time Test Type Test Details Facility Name Feb 01, 2025 09:56 AM Consult Order [facility]ITY [facility]ARE-RHEUMATOLOGY [id number] Cons Glue Spreader's Choice [facility] Feb 17, 2025 03:14 PM Consult Order COMMUNITY CARE-CHIROPRACTIC [id number] Cons Glue Spreader's Choice [facility] Lab Results: +/- 30 days of the encounter This section includes the Chemistry and Hematology Lab Results on record with [place] for the patient. Radiology Reports and Pathology Reports are provided separately, in subsequent sections. Lab Results This section contains the Chemistry/Hematology Results that were resulted 30 days before or 30 daysafter the date of the Encounter. Date/Time Source Result Type Result - Unit Interpretation Reference Range Specimen Type Comment Feb 17, 2025 09:22 AM [facility] FOLATE (PB) SERUM Specimen Type: SERUM No comment entered. Ordering Provider: SIMRAN PINEDA III Report Released Date/Time: Feb 17, 2025 09:16 AM Reporting Lab: [place] [facility] [address] [place] [address] Performing Lab: [place] [facility] [address] [place] [address] FOLATE (PB) 12.3 ng/mL 7-20 Feb 17, 2025 09:22 AM [facility] B12 SERUM Specimen Type: SERUM No comment entered. Ordering Provider: SIMRAN PINEDA III Report Released Date/Time: Feb 17, 2025 09:16 AM Reporting Lab: [place] [facility] [address] [place] [address] Performing Lab: [place] [facility] [address] [place] [address] B12 388 pg/mL 213-816 Feb 17, 2025 09:22 AM [facility] HGA1C BLOOD Specimen Type: BLOOD No comment entered. Ordering Provider: SIMRAN PINEDA III Report Released Date/Time: Feb 17, 2025 09:16 AM Reporting Lab: [place] [facility] [address] [place] [address] Performing Lab: [place] [facility] [address] [place] [address] HGA1C 6.2 H 4.0-6.0 Feb 17, 2025 09:22 AM [facility] MAGNESIUM PLASM A Specimen Type: PLASMA No comment entered. Ordering Provider: SIMRAN PINEDA III Report Released Date/Time: Feb 17, 2025 09:16 AM Reporting Lab: [place] [facility] [address] [place] [address] Performing Lab: [place] [facility] [address] [place] [address] MAGNESIUM 2.19 mg/dL 1.6-2.6 Feb 17, 2025 09:22 AM [facility] CHOLESTEROL PANEL (PB) PLASMA Specimen Type: P LASMA No comment entered. Ordering Provider: SIMRAN PINEDA III Report Released Date/Time: Feb 17, 2025 09:16 AM Reporting Lab: [place] [facility] [address] [place] [address] Performing Lab: [place] [facility] [address] [place] [address] CHOLESTEROL 234 mg/dL H 0-200 TRIGLYCERIDE 190 mg/dL H 0-150 CALCULATED LDL 126.6 mg/dL HDL(New) 69.4 mg/dL H >40 HDL % OF TOTAL CHOLESTEROL (PB) 29.7 >25 Feb 17, 2025 09:22 AM [facility] URINE ALBUMIN PROFILE-ih (PB) URINE Specimen Type: URINE No comment entered. Ordering Provider: SIMRAN PINEDA III Report Released Date/Time: Feb 17, 2025 09:16 AM Reporting Lab: [place] [facility] [address] [place] [address] Performing Lab: [place] [facility] [address] [place] [address] URINE ALBUMIN (PB-STL) 276.59 mg/L uACR (PB-MA) 225.97 mg/g H 0-30 CREATININE URINE/OTHERS 122.40 mg/dL Feb 17, 2025 09:22 AM [facility] VITAMIN D, 25-HYDROXY SERUM Specimen Type: SE RUM No comment entered. Ordering Provider: SMIRAN PINEDA III Report Released Date/Time: Feb 17, 2025 09:17 AM Reporting Lab: [place] [facility] [address] [place] [address] Performing Lab: [place] [facility] [address] [place] [address] VITAMIN D, 25-HYDROXY 42.9 ng/mL 30-96 Feb 17, 2025 09:22 AM [facility] TSH (MA-PB) SERUM Specimen Typ e: SERUM No comment entered. Ordering Provider: SIMRAN PINEDA III Report Released Date/Time: Feb 17, 2025 09:17 AM Reporting Lab: [place] [facility] [address] [place] [address] Performing Lab: [place] [facility] [address] [place] [address] TSH 0.917 u[IU]/mL 0.47-5 Feb 17, 2025 09:22 AM [facility] COMPREHENSIVE METABOLIC PANEL PLASMA Specimen Type: PLASMA No comment entered. Ordering Provider: SIMRAN PINEDA III Report Released Date/Time: Feb 17, 2025 09:17 AM Reporting Lab: [place] [facility] [address] [place] [address] Performing Lab: [place] [facility] [address] [place] [address] CREATININE 1.01 mg/dL 0.7-1.3 UREA NITROGEN 28 mg/dL H 9-25 GLUCOSE 108 mg/dL H 72-99 SODIUM 144 meq/L 136-145 POTASSIUM 3.8 meq/L 3.5-5 CHLORIDE 100 meq/L 98-107 CARBON DIOXIDE 30 meq/L 22-31 CALCIUM 10.4 mg/dL 8.4-10.4 PROTEIN 7.3 g/dL 6-8.6 ALBUMIN 4.4 g/dL 3.4-5 TOTAL BILIRUBIN 0.5 mg/dL 0.2-1.2 ALKALINE PHOSPHATASE 46 U/L 40-150 AST/SGOT 38 U/L H 5-34 ALT/SGPT 33 U/L 8-40 EGFR (CKD-EPI 2020) 80 Feb 17, 2025 09:22 AM [facility] CB CBC BLOOD Specimen Type: BLOOD No comment entered. Ordering Provider: SIMRAN PINEDA III Report Released Date/Time: Feb 17, 2025 09:16 AM Reporting Lab: [place] [facility] [address] [place] [address] Performing Lab: [place] [facility] [address] [place] [address] WBC 10.5 10*3/uL 3.6-11.2 RBC 4.55 10*6/uL 4.10-5.70 HGB 13.9 g/dL 13.1-16.8 HCT 41.4 38.2-48.4 MCV 91.0 fL 80.0-100.0 MCH 30.5 pg 27.0-34.0 MCHC 33.6 g/dL 33.0-36.0 PLT 246 10*3/uL 150-400 MPV 11.3 fL H 7.5-11.2 RDW 15.1 11.8-15.1 LYMPHOCYTES, AUTO % 17.7 MONOCYTES, AUTO % 12.2 NEUTROPHILS, AUTO % 68.7 EOSINOPHILS, AUTO % 0.8 BASOPHILS, AUTO % 0.2 LYMPHOCYTES, ABSOLUTE 1.86 10*3/uL 0.77- 4.50 MONOCYTES, ABSOLUTE 1.28 10*3/uL H 0.19-0. 8 NEUTROPHILS, ABSOLUTE 7.20 10*3/uL 2.10- 8.00 EOSINOPHILS, ABSOLUTE 0.08 10*3/uL 0.00- 0.60 BASOPHILS, ABSOLUTE 0.02 10*3/uL 0.00-0. 20 IMMATURE GRANS, AUTO % 0.4 IMMATURE GRANS, AUTO ABS 0.04 10*3/uL 0. 00-0.05 Feb 17, 2025 09:22 AM [facility] DRUG SCREEN URINE-inhouse (PB) URINE Specimen Type: URINE No comment entered. Ordering Provider: SIMRAN PINEDA III Report Released Date/Time: Feb 17, 2025 09:17 AM Reporting Lab: [facility] [address] [facility] [address] Performing Lab: [facility] [address] [facility] [address] METHADONE Negative Negative OPIATES (PB) Negative Negative COCAINE... Negative Negative THC(Marijuana... Negative Negative BENZODIAZEPINE (PB) Negative Negative AMPHETAMINE... Negative Negative CREATININE URINE/OTHERS 122.59 mg/dL OXYCODONE (ABTQY-HKB-SV) Negative Negati ve BUPRENORPHINE (STL-PB-MA) Negative ng/mL Negative ETHANOL URINE <10 mg/dL L 0-20 FENTANYL, URINE (PB) Negative ng/mL Feb 17, 2025 09:22 AM [facility] W/O REFLEX CX (STL-PB) URINE Speci men Type: URINE No comment entered. Ordering Provider: SIMRAN PINEDA III Report Released Date/Time: Feb 17, 2025 09:17 AM Reporting Lab: [place] [facility] [address] [place] [address] Performing Lab: [place] [facility] [address] [place] [address] URINE COLOR Yellow Yellow U.BILIRUBIN NEGATIVE mg/dL Negative U.PH 5.5 5.0-8.0 URINE WBC/HPF 2 /[HPF] 0-5 URINE RBC/HPF <1 /[HPF] 0-5 APPEARANCE CLEAR Clear U.NITRITE NEGATIVE mg/dL Negative MUCUS RARE /[LPF] Negative-Rare CA OXYLATE CRYSTALS OCCASIONAL /[HPF] H Ne gative-Rare URN.GLUCOSE NORMAL mg/dL Negative URN.PROTEIN 50 mg/dL H URN.UROBILINOGEN NORMAL mg/dL Normal URN.BLOOD NEGATIVE mg/dL Negative-Trace URN.KETONES NEGATIVE mg/dL Negative-Trac e URN.LEUK.EST. NEGATIVE Negative-Trace URN.SPECIFIC GRAVITY 1.028 1.005-1.029 Vital Signs: All taken on the encounter date This section contains inpatient and outpatient Vital Signs collected on the date of the Encounter. Date/Time Temperature Pulse Blood Pressure Respiratory Rate SP02 Pain Height Weight Body Mass Index Source Feb 07, 2025 08:42 AM 97.7 F 79 /min 147/106 mm[Hg] 20 /min 95 % 2 249.1 lb 34 [facility] Social History: Smoking Status (Most current) and Tobacco Use (All prior to encounter date) This section includes the most current, and the historical, smoking and tobacco- related health factors from the [place] facility where the Encounter took place. Current Smoking Status This section includes the most current smoking, or tobacco-related health factor, from the [place] facility where the Encounter took place. Date/Time Current Smoking Status Comment Facil ity Feb 18, 2024 09:30 AM [place]-TOBACCO FORMER USER [facility] Tobacco Use History This section includes a history of the smoking, or tobacco-related health factors, that were collected on or before the date of the Encounter. The data comes from the [place] facility where the Encounter took place. Date/Time Smoking Status/Tobacco Use Comment F acility Feb 18, 2024 09:30 AM [place]-TO[place]ACCO QUIT 5 TO < 15 YRS [facility] Feb 16, 2023 02:00 PM [place] US[place] [facility] Feb 16, 2023 02:00 PM VA-TOBACCO QUIT 5 TO < 15 YRS [facility] Feb 19, 2022 11:30 AM [place] [facility] [facility] Feb 19, 2022 11:30 AM VA-TOBACCO QUIT 1 TO < 5 YRS [facility] Mar 04, 2021 08:30 AM [place]-TOBACCO [facility] [facility] Mar 04, 2021 08:30 AM VA-TOBACCO QUIT 1 TO < 5 YRS [facility] Mar 08, 2019 11:49 AM VA-TOBACCO DOESNT USE WI 30 MIN WAKEUP [facility] Mar 08, 2019 11:49 AM VA-TOBACCO USE 30 YEARS OR MORE [facility] Mar 08, 2019 11:49 AM VA-TOBACCO USE ADVICE [facility] Mar 08, 2019 11:49 AM 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 [facility] Mar 08, 2019 11:49 AM VA-TOBACCO USE MED NOTIFY PROVIDER [facility] Mar 08, 2019 11:49 AM VA-TOBACCO USER EVERY DAY [facility] Mar 17, 2018 01:22 PM CURRENT TOBACCO USER [facility] Mar 17, 2018 01:22 PM CURRENT TOBACCO US ER (READY TO QUIT) [facility] Mar 17, 2018 01:22 PM SMOKELESS TOBACCO AMOUNT/LENGTH V15 45yr history [facility] Mar 17, 2018 01:22 PM TOBACCO CESSATION REFERRAL DECLINED [facility] Mar 17, 2018 01:22 PM TOBACCO USER OFFERED MEDS [facility] Aug 20, 2017 10:37 AM CURRENT TOBACCO USER [facility] Aug 20, 2017 10:37 AM CURRENT TOBACCO US ER (NOT READY TO QUIT) [facility] Aug 20, 2017 10:37 AM SMOKELESS TOBACCO AMOUNT/LENGTH V15 50yr history 1 can every week [facility] Aug 20, 2017 10:37 AM TOBACCO CESSATION REFERRAL DECLINED [facility] Aug 20, 2017 10:37 AM TOBACCO MEDS OFFER ED BUT DECLINED [facility] Aug 20, 2017 10:37 AM TOBACCO USER OFFERED MEDS [facility] Feb 24, 2017 07:10 AM CURRENT TOBACCO USER [facility] Feb 24, 2017 07:10 AM CURRENT TOBACCO US ER (NOT READY TO QUIT) [facility] Feb 24, 2017 07:10 AM TOBACCO CESSATION REFERRAL DECLINED [facility] Feb 24, 2017 07:10 AM TOBACCO MEDS OFFER ED BUT DECLINED [facility] Feb 24, 2017 07:10 AM TOBACCO USER OFFERED MEDS [facility] Dec 18, 2016 11:06 AM CURRENT TOBACCO USER [facility] Dec 18, 2016 11:06 AM CURRENT TOBACCO US ER (NOT READY TO QUIT) [facility] Dec 18, 2016 11:06 AM TOBACCO CESSATION REFERRAL DECLINED [facility] Dec 18, 2016 11:06 AM TOBACCO MEDS OFFER ED BUT DECLINED [facility] Dec 18, 2016 11:06 AM TOBACCO USER OFFERED MEDS [facility] Jan 29, 2016 07:57 AM CURRENT TOBACCO USER [facility] Jan 29, 2016 07:[address] OP SMOKING CLINIC [facility] Oct 13, 2014 08:33 AM CURRENT TOBACCO USER [facility] Oct 13, 2014 08:[address] OP SMOKING [facility] Oct 06, 2013 10:38 AM CURRENT TOBACCO USER [facility] Oct 06, 2013 10:[address] [facility] SMOKING [facility] Jun 28, 2012 02:19 PM CURRENT TOBACCO USER [facility] Jun 28, 2012 02:[address] OP SMOKING [facility] Jan 06, 2011 02:53 PM CURRENT TOBACCO USER [facility] Jan 06, 2011 02:53 PM TOBACCO MEDS OFFER ED BUT DECLINED [facility] Jan 06, 2011 02:53 PM TOBACCO OFFERED PT MEDS (PROVIDER) [facility] Jan 06, 2011 02:[address] OP SMOKING CLINIC [facility] Aug 13, 2009 02:36 PM CURRENT TOBACCO USER [facility] Aug 13, 2009 02:36 PM TOBACCO MEDS OFFER ED BUT DECLINED [facility] Aug 13, 2009 02:36 PM TOBACCO OFFERED PT MEDS (PROVIDER) [facility] Aug 13, 2009 02:[address] OP SMOKING CLINIC [facility] Mar 03, 2008 08:34 AM CURRENT TOBACCO USER [facility] Mar 03, 2008 08:[address] OP SMOKING CLINIC [facility] Jul 21, 2007 11:40 AM CURRENT TOBACCO USER [facility] Dec 08, 2006 08:18 AM CURRENT TOBACCO USER [facility] Dec 08, 2006 08:18 AM TOBACCO MEDS OFFER ED BUT DECLINED [facility] Jul 25, 2005 10:39 AM CURRENT NON-TOBACC O USER-HX OF USE [facility] Jan 27, 2005 11:41 AM CURRENT NON-TOBACC O USER-HX OF USE [facility] Jul 29, 2004 08:37 AM CURRENT NON-TOBACC O USER-HX OF USE Stopped since last visit. Gained 5 pounds [facility] Jan 29, 2004 09:02 AM CURRENT NON-TOBACC O USER-HX OF USE Stopped about 3-4 months ago [facility] Jul 28, 2003 10:08 AM CURRENT NON-TOBACC O USER-HX OF USE [facility] August 26, 2002 10:28 AM CURRENT NON-TOBACC O USER-HX OF USE [facility] Mar 11, 2002 09:39 AM CURRENT NON-TOBACC O USER-HX OF USE [facility] Apr 08, 2001 11:01 AM CURRENT NON-TOBACC O USER-HX OF USE Stopped 1996 [facility] Oct 22, 2000 01:27 PM CURRENT NON-TOBACC O USER-HX OF USE 1 pack a da y for years / stopped 4 yrs [facility] Encounter Notes: All associated encounter notes This section contains the clinical notes associated to the Encounter. Date/Time Encounter Note(s) Provider Source Feb 07, 2025 08:48 AM NURSING PROGRESS N OTE: LOCAL TITLE: NURSING NOTE PB STANDARD TITLE: NURSING PROGRESS NOTE DATE OF NOTE: FEB 07, 2025@08:48 ENTRY DATE: FEB 07, 2025@08:48:23 AUTHOR: CASTILLO KIRK EXP COSIGNER: URGENCY: STATUS: COMPLETED NURSING NOTE PB Has ADDENDA This is a 69 year old MALE with known Allergies as noted: HORSE SERUM PROTEINS, PENICILLIN, AZITHROMYCIN, ASPIRIN RELATED MEDICATIONS LOVASTATIN, SIMVASTATIN, ROSUVASTATIN, LIPITOR, THIAZIDES/RELATED DIURETICS METHOTREXATE, CODEINE, COLESTIPOL, SULFASALAZINE, HUMIRA, COSENTYX, PERCOCET FLEXERIL On the following Active Medications: Active Outpatient Medications (including Supplies): Active Outpatient Medications Status 1) ALIROCUMAB 150MG/ML INJ 1ML PEN INJECT 150MG UNDER THE SKIN ACTIVE EVERY MONTH Indication: FOR HIGH CHOLESTEROL 2) AMLODIPINE BESYLATE 2.5MG TAB TAKE ONE TABLET BY MOUTH TWICE ACTIVE A DAY 3) AMLODIPINE BESYLATE 5MG TAB TAKE ONE TABLET BY MOUTH EVERY HOLD MORNING Indication: FOR HIGH BLOOD PRESSURE 4) APIXABAN 5MG TAB TAKE ONE TABLET BY MOUTH TWICE A DAY ACTIVE Indication: FOR ANTICOAGULATION 5) EPI(EQV-ADRENACLICK)0.3MG/0. 3ML INJCTR INJECT 1 PEN ACTIVE (0.3MG/0.3ML) INTRAMUSCULARLY ONE-TIME 6) ETANERCEPT 50MG/ML INJ SYRINGE INJECT 50MG UNDER THE SKIN ACTIVE EVERY WEEK KEEP REFRIGERATED. ADMINISTER SUBCUTANEOUSLY ON THE SAME DAY(S) EACH WEEK. 7) EZETIMIBE 10MG TAB TAKE ONE TABLET BY MOUTH ONCE A DAY TO ACTIVE LOWER CHOLESTEROL 8) FLUCONAZOLE 150MG TAB TAKE ONE TABLET BY MOUTH EVERY OTHER ACTIVE DAY Indication: FOR FUNGAL INFECTION 9) FUROSEMIDE 20MG TAB TAKE 1-3 TABLET(S) BY MOUTH EACH MORNING ACTIVE NEEDED FOR SWELLING 10) LEFLUNOMIDE 10MG TAB TAKE ONE TABLET BY MOUTH ONCE A DAY ACTIVE TAKE AT SAME TIME EACH DAY. 11) LOSARTAN 50MG TAB TAKE ONE TABLET BY MOUTH TWICE A DAY ACTIVE 12) NALOXONE HCL 4MG/SPRAY SOLN NASAL SPRAY USE 1 SPRAY (4MG) ACTIVE INTO ONE NOSTRIL ONLY ONE-TIME DO NOT PRIME NASAL SPRAY. SPRAY ONE DOSE IN ONE NOSTRIL, GIVE ADDITIONAL DOSE IF PATIENT DOES NOT START BREATHING WITHIN 2-3 MINUTES OR STOPS BREATHING AGAIN. CALL 911. IF USED, NOTIFY PROVIDER. Indication: FOR OPIOID OVERDOSE 13) [id number] ETHYL ESTERS 1000MG CAP TAKE TWO CAPSULES BY ACTIVE MOUTH TWICE A DAY Indication: FOR HIGH TRIGLYCERIDES 14) PANTOPRAZOLE NA 40MG EC TAB TAKE ONE TABLET BY MOUTH EVERY ACTIVE MORNING BEFORE A MEAL TO LOWER STOMACH ACID - TAKE 30 MINUTES BEFORE MEAL(S) 15) PREDNISONE 10MG TAB TAKE ONE TABLET BY MOUTH ONCE A DAY TAKE ACTIVE WITH FOOD OR MILK. 16) PREDNISONE 20MG TAB TAKE TWO TABLETS BY MOUTH EVERY DAY ACTIVE NEEDED FOR ARTHRITIS FLARE.TAKE WITH FOOD OR MILK. 17) PROPRANOLOL HCL [...] Indication: FOR CARDIOVASCULAR DISEASE 19 Total Medications C/C: Infection on left thumb S: [place] presents to the clinic as a walk-in. reports that he began to have an what he thought is an infection around the nail bed of his left thumb that began 3 days ago. [place] reports pain a t a 2/10 and clear drainage. is immune compromised r/t medications. O/A: ambulated to exam room with steady gait and the assistance of 2 single point canes. [place] alert and oriented x4 with unlabored breathing. Erythema noted to the left thumb around the skin of the nail bed. clear to straw colored drainage noted and edema. [place] is hypertensive in clinic. has taken his BP medication/ [place] is normally hypertensive in clinic but normal BP at home. Vital Signs: see cover sheet Weight: 249.1 pounds P: Reviewed with Provider. Escalated to PCP visit. Provider to call in medication to [facility]. Immediate need called and form given to [place]. Education provided on medication and to keep area clean and dry. Advised [place] to report any new or worsening symptoms. voiced understanding and all questions and concerns addressed at this time. escorted to lobby in satisfactory condition. RTC: Advised [place] to return to clinic as needed or report to ER if symptoms worsen. /es/ MILY [facility]AN[facility] Signed: 02/07/2025 09:11 Receipt Acknowledged By: * AWAITING SIGNATURE * PINEDAKAREEMAmmy Gr III 02/07/2025 ADDENDUM STATUS: COMPLETED Per [facility] Directive 1605.06, wristband documentation: Patient wristband was removed and destroyed by (staff name) Castillo Kirk and placed in the designated [employer] bin. /es/ MILY [facility]ANTE [facility] Signed: 02/07/2025 09:12 CASTILLO KIRK [facility]
--- OUTSIDE RECORDS SUMMARY | 2025-02-07 03:00 | XMS_ITS | Encounter Summary ---
Author Name [facility] ([place] Organization [facility] ([place]) Address [address] [place] [address] Care Team Providers Care Veneer Matcher Name Role Phone EDWINSIMRAN Primary Care Provider Unavailabl e Insurance Providers: [...] Patient's Relationship to Policy Cruz BRITTANI BROOKS [facility] (WNR) MEDICARE ADVANTAGE [facility] (WNR) Jan 26, 2020 [id number] [phone] TRAY,ER IC PATIENT MEDICARE (WNR) MEDICARE (M) PART B Jan 26, 2020 PART B [id number] TRAY,ER IC PATIENT MEDICARE (WNR) MEDICARE (M) PART A August 26, 2019 PART A [id number] [phone] TRAY,ER IC PATIENT Selected Encounter This section includes the information on record at [place] for the Encounter. Date/Time Encounter Type Encounter Description Reason Provider Source Feb 07, 2025 09:00 AM OFFICE O/P EST LOW 20 MIN PRIMARY CARE/MEDICINE ICD-10-CM L98.9 Disorder of the skin and subcutaneous tissue, unspecified EDWINKAREEMAmmy Gr III IHE Encounter Template Text not used by [place] Assessments - Encounter Diagnoses This section includes the primary and secondary diagnoses documented for the Encounter. Date/Time Primary/Secondary Diagnosis Diagnosis Name Provider Source Feb 07, 2025 09:11 AM PRIMARY Disorder of the skin and subcutaneous tissue, unspecified KAREEM PINEDAR E III ARGELIA POWELL [facility] Feb 07, 2025 09:11 AM SECONDARY Essential (primary) hypertension PINEDASIMRAN Simón DEL [facility] Plan of Treatment: Future Appointments (+ 6 months) and Future Tests (+/- 45 days) The Plan of Treatment section includes future care activities for the patient from all [place] [facility] This section includes future appointments and future orders which are active, pending or scheduled. Future Appointments This section includes appointments that were scheduled to occur 6 months from the date of the Encounter, up to a maximum of 20 appointments. The data comes from all [place] treatment [facility]. Appointment Date/Time Appointment Type Appointme nt Facility Name Feb 08, 2025 03:00 PM AMBULATORY - MEDIC[place] [facility] Feb 09, 2025 11:15 AM AMBULATORY - MEDICINE [facility] Feb 10, 2025 11:00 AM AMBULATORY - MEDICINE [facility] Feb 17, 2025 08:30 AM AMBULATORY - MEDICINE [facility] Feb 17, 2025 09:00 AM AMBULATORY - MEDICINE [facility] Mar 02, 2025 01:00 PM AMBULATORY - MEDIC[facility] [place] [facility] Apr 04, 2025 03:15 PM AMBULATORY - MEDICINE [place] [facility] Active, Pending, and Scheduled Orders This section includes a listing of several types of active, pending, and scheduled orders, including clinic medications orders, diagnostic test orders, procedure orders and consult orders; where the start date of the order is 45 days before the date of the Encounter or 45 days after the date of theEncounter. The data comes from all [facility]. Test Date/Time Test Type Test Details Facility Name Feb 01, 2025 09:56 AM Consult Order COMMUNITY CARE-RHEUMATOLOGY 657A4 Cons Dried Fruit Washer's Choice [place] [facility] Feb 17, 2025 03:14 PM Consult Order COMMUNITY CARE-CHIROPRACTIC 657A4 Cons Dried Fruit Washer's Choice [facility] Lab Results: +/- 30 days of the encounter This section includes the Chemistry and Hematology Lab Results [facility] record with [facility] for the [facility]. Radiology Reports and Pathology Reports are provided separately, in subsequent sections. Lab Results This section contains the Chemistry/Hematology Results that were resulted 30 days before or 30 daysafter the date of the Encounter. Date/Time Source Result Type Result - Unit Interpretation Reference Range Specimen Type Comment Feb 17, 2025 09:22 AM [facility] [place] [facility] B12 SERUM Specimen Type: SERUM No comment entered. Ordering Provider: SIMRAN PINEDA III Report Released Date/Time: Feb 17, 2025 09:16 AM Reporting Lab: [place] [facility] [address] [place] [address] Performing Lab: [place] [facility] [address] [place] [address] B12 388 pg/mL 213-816 Feb 17, 2025 09:22 AM [facility] [place] [facility] FOLATE (PB) SERUM Specimen Typ e: SERUM No comment entered. Ordering Provider: SIMRAN PINEDA III Report Released Date/Time: Feb 17, 2025 09:16 AM Reporting Lab: [place] [facility] [address] [place] [address] Performing Lab: [place] [facility] [address] [place] [address] FOLATE (PB) 12.3 ng/mL 7-20 Feb 17, 2025 09:22 AM [facility] [facility] HGA1C BLOOD Specimen Type: BLOOD No comment entered. Ordering Provider: SIMRAN PINEDA III Report Released Date/Time: Feb 17, 2025 09:16 AM Reporting Lab: [place] [facility] [address] [place] [address] Performing Lab: [place] [facility] [address] [place] [address] HGA1C 6.2 H 4.0-6.0 Feb 17, 2025 09:22 AM [facility] [place] [facility] MAGNESIUM PLASM A Specimen Type: PLASMA No comment entered. Ordering Provider: SIMRAN PINEDA III Report Released Date/Time: Feb 17, 2025 09:16 AM Reporting Lab: [place] [facility] [address] [place] [address] Performing Lab: [place] [facility] [address] [place] [address] MAGNESIUM 2.19 mg/dL 1.6-2.6 Feb 17, 2025 09:22 AM [facility] URINE ALBUMIN PROFILE-ih (PB) URINE Specimen Type: URINE No comment entered. Ordering Provider: SIMRAN PINEDA III Report Released Date/Time: Feb 17, 2025 09:16 AM Reporting Lab: [place] [facility] [address] [place] [address] Performing Lab: [place] [facility] [address] [place] [address] URINE ALBUMIN (PB-STL) 276.59 mg/L uACR (PB-MA) 225.97 mg/g H 0-30 CREATININE URINE/OTHERS 122.40 mg/dL Feb 17, 2025 09:22 AM [facility] CHOLESTEROL PANEL (PB) PLASMA Specimen Type: P LASMA No comment entered. Ordering Provider: SIMRAN PINEDA III Report Released Date/Time: Feb 17, 2025 09:16 AM Reporting Lab: [place] [facility] [address] [place] [address] Performing Lab: [place] [facility] [address] [place] [address] CHOLESTEROL 234 mg/dL H 0-200 TRIGLYCERIDE 190 mg/dL H 0-150 CALCULATED LDL 126.6 mg/dL HDL(New) 69.4 mg/dL H >40 HDL % OF TOTAL CHOLESTEROL (PB) 29.7 >25 Feb 17, 2025 09:22 AM [facility] VITAMIN D, 25-HYDROXY SERUM Specimen Type: SE RUM No comment entered. Ordering Provider: SIMRAN PINEDA III Report Released Date/Time: Feb 17, 2025 09:17 AM Reporting Lab: [place] [facility] [address] [place] [address] Performing Lab: [place] [facility] [address] [place] [address] VITAMIN D, 25-HYDROXY 42.9 ng/mL 30-96 Feb 17, 2025 09:22 AM [facility] TSH (MA-PB) SERUM Specimen Typ e: SERUM No comment entered. Ordering Provider: SIMRAN PINEDA III Report Released Date/Time: Feb 17, 2025 09:17 AM Reporting Lab: [place] [facility] [address] [place] [address] Performing Lab: [place] [facility] [address] [place] [address] TSH 0.917 u[IU]/mL 0.47-5 Feb 17, 2025 09:22 AM [facility] COMPREHENSIVE METABOLIC PANEL PLASMA Specimen Type: PLASMA No comment entered. Ordering Provider: SIMRAN PINEDA III Report Released Date/Time: Feb 17, 2025 09:17 AM Reporting Lab: [place] [facility] [address] [place] [address] Performing Lab: [place] [facility] [address] [place] [address] CREATININE 1.01 mg/dL 0.7-1.3 UREA NITROGEN 28 [...] 2020) 80 Feb 17, 2025 09:22 AM [facility] CBC BLOOD Specimen Type: BLOOD No comment entered. Ordering Provider: SIMRAN PINEDA III Report Released Date/Time: Feb 17, 2025 09:16 AM Reporting Lab: [place] [facility] [address] [place] [address] Performing Lab: [place] [facility] [address] [place] [address] WBC 10.5 10*3/uL 3.6-11.2 RBC 4.55 10*6/uL [...] 0. 00-0.05 Feb 17, 2025 09:22 AM [facility] URINALYSIS W/O REFLEX CX (STL-PB) URINE Speci men Type: URINE No comment entered. Ordering Provider: SIMARN PINEDA III Report Released Date/Time: Feb 17, 2025 09:17 AM Reporting [facility] [address] [facility] [address] Performing Lab: [place] [facility] [address] [facility] [address] URINE COLOR Yellow Yellow U.BILIRUBIN NEGATIVE mg/dL [...] URN.LEUK.EST. NEGATIVE Negative-Trace URN.SPECIFIC GRAVITY 1.028 1.005-1.029 Feb 17, 2025 09:22 AM [facility] DRUG SCREEN URINE-inhouse (PB) URINE Specimen Type: URINE No comment entered. Ordering Provider: SIMRAN PINEDA III Report Released Date/Time: Feb 17, 2025 09:17 AM Reporting Lab: [place] [facility] [address] [facility] [place] [facility] [address] Performing Lab: [place] [facility] [address] [facility] [address] METHADONE Negative Negative OPIATES (PB) Negative Negative COCAINE... Negative Negative THC(Marijuana... Negative Negative BENZODIAZEPINE (PB) Negative Negative AMPHETAMINE... Negative Negative CREATININE URINE/OTHERS 122.59 mg/dL OXYCODONE (ITMML-IVC-DZ) Negative Negati ve BUPRENORPHINE (STL-PB-MA) Negative ng/mL [...] /min 95 % 2 249.1 lb 34 [facility] Social History: Smoking Status (Most current) and Tobacco Use (All prior to encounter date) This section includes the most current, and the historical, smoking and tobacco- related health factors from the [place] facility where the Encounter took place. Current Smoking Status This section includes the most current smoking, or tobacco-related health factor, from the [place] facility where the Encounter took place. Date/Time Current Smoking Status Comment Facil ity Feb 18, 2024 09:30 AM [place]-TOBACCO FORMER USER [facility] Tobacco Use History This section includes a history of the smoking, or tobacco-related health factors, that were collected on or before the date of the Encounter. The data comes from the [place] facility where the Encounter took place. Date/Time Smoking Status/Tobacco Use Comment F acility Feb 18, 2024 09:30 AM VA-TOBACCO QUIT 5 TO < 15 YRS [facility] [facility] Feb 16, 2023 02:00 PM VA-TOBACCO FORMER USER [facility] Feb 16, 2023 02:00 PM VA-TOBACCO QUIT 5 TO < 15 YRS [place] [facility] Feb 19, 2022 11:30 AM VA-TOBACCO FORMER USER [place] [facility] Feb 19, 2022 11:30 AM VA-TOBACCO QUIT 1 TO < 5 YRS [place] [facility] Mar 04, 2021 08:30 AM VA-TOBACCO FORMER USER [place] [facility] Mar 04, 2021 08:30 AM VA-TOBACCO QUIT 1 TO < 5 YRS [place] [facility] Mar 08, 2019 11:49 AM VA-TOBACCO DOESNT USE WI 30 MIN WAKEUP [place] [facility] Mar 08, 2019 11:49 AM VA-TOBACCO USE 30 YEARS OR MORE [place] [facility] Mar 08, 2019 11:49 AM VA-TOBACCO USE ADVICE [place] [facility] Mar 08, 2019 11:49 AM VA-TOBACCO USE PHYSICIAN EXECUTIVE NO [place] [facility] Mar 08, 2019 11:49 AM VA-TOBACCO USE MED NOTIFY PROVIDER [place] [facility] Mar 08, 2019 11:49 AM VA-TOBACCO USER EVERY DAY [place] [facility] Mar 17, 2018 01:22 PM CURRENT TOBACCO USER [place] [facility] Mar 17, 2018 01:22 PM CURRENT TOBACCO US ER (READY TO QUIT) [place] [facility] Mar 17, 2018 01:22 PM SMOKELESS TOBACCO AMOUNT/LENGTH V15 45yr history [place] [facility] Mar 17, 2018 01:22 PM TOBACCO CESSATION REFERRAL DECLINED [facility] Mar 17, 2018 01:22 PM TOBACCO USER OFFERED MEDS [place] [facility] Aug 20, 2017 10:37 AM CURRENT TOBACCO USER [place] [facility] Aug 20, 2017 10:37 AM CURRENT TOBACCO US ER (NOT READY TO QUIT) [place] [facility] Aug 20, 2017 10:37 AM SMOKELESS TOBACCO AMOUNT/LENGTH V15 50yr history 1 can every week [place] [facility] Aug 20, 2017 10:37 AM TOBACCO CESSATION REFERRAL DECLINED [place] [facility] Aug 20, 2017 10:37 AM TOBACCO MEDS OFFER ED BUT DECLINED [place] [facility] Aug 20, 2017 10:37 AM TOBACCO USER OFFERED MEDS [place] [facility] Feb 24, 2017 [...] 2017 07:10 AM TOBACCO USER OFFERED MEDS [place] [facility] Dec 18, 2016 11:06 [...] 2016 11:06 AM TOBACCO USER OFFERED MEDS [place] [facility] Jan 29, 2016 07:57 AM CURRENT TOBACCO USER [facility] Jan 29, 2016 07:[address] OP SMOKING CLINIC [facility] Oct 13, 2014 08:33 AM CURRENT TOBACCO USER [facility] Oct 13, 2014 08:[address] OP SMOKING CLINIC [facility] Oct 06, 2013 10:38 AM CURRENT TOBACCO USER [facility] Oct 06, 2013 10:[address] OP SMOKING CLINIC [facility] Jun 28, 2012 02:19 PM CURRENT TOBACCO USER [facility] Jun 28, 2012 02:[address] OP SMOKING CLINIC [facility] Jan 06, 2011 02:53 PM CURRENT TOBACCO USER [facility] Jan 06, 2011 02:53 PM TOBACCO MEDS OFFER ED BUT DECLINED [place] [facility] Jan 06, 2011 02:53 PM TOBACCO OFFERED PT MEDS (PROVIDER) [facility] Jan 06, 2011 02:[address] OP SMOKING CLINIC [facility] Aug 13, 2009 02:36 PM CURRENT TOBACCO USER [facility] Aug 13, 2009 02:36 PM TOBACCO MEDS OFFER ED BUT DECLINED [place] [facility] Aug 13, 2009 02:36 PM TOBACCO OFFERED PT MEDS (PROVIDER) [facility] Aug 13, 2009 02:[address] OP SMOKING CLINIC [facility] Mar 03, 2008 08:34 AM CURRENT TOBACCO USER [facility] Mar 03, 2008 08:[address] OP SMOKING CLINIC [facility] Jul 21, 2007 11:40 AM CURRENT TOBACCO USER [facility] Dec 08, 2006 08:18 AM CURRENT TOBACCO USER [facility] Dec 08, 2006 08:18 AM TOBACCO MEDS OFFER ED BUT DECLINED [facility] Jul 25, 2005 10:39 AM CURRENT NON-TOBACC O USER-HX OF USE [facility] Jan 27, 2005 11:41 AM CURRENT NON-TOBACC O USER-HX OF USE [facility] Jul 29, 2004 08:37 AM CURRENT NON-TOBACC O USER-HX OF USE Stopped since last visit. Gained 5 pounds [facility] Jan 29, 2004 09:02 AM CURRENT NON-TOBACC O USER-HX OF USE Stopped about 3-4 months ago [facility] Jul 28, 2003 10:08 AM CURRENT NON-TOBACC O USER-HX OF USE [facility] August 26, 2002 10:28 AM CURRENT NON-TOBACC O USER-HX OF USE [facility] Mar 11, 2002 09:39 AM CURRENT NON-TOBACC O USER-HX OF USE [facility] Apr 08, 2001 11:01 AM CURRENT NON-TOBACC O USER-HX OF USE Stopped 1996 [facility] Oct 22, 2000 01:27 PM CURRENT NON-TOBACC O USER-HX OF USE 1 pack a da y for years / stopped 4 yrs [facility] Encounter Notes: All associated encounter notes This section contains the clinical notes associated to the Encounter. Date/Time Encounter Note(s) Provider Source Feb 07, 2025 09:03 AM PRIMARY CARE PROGR ESS NOTE: LOCAL TITLE: PRIMARY CARE CLINIC PROGRESS NOTE PB STANDARD TITLE: PRIMARY CARE PROGRESS NOTE DATE OF NOTE: FEB 07, 2025@09:03 ENTRY DATE: FEB 07, 2025@09:03:47 AUTHOR: SIMRAN PINEDA III EXP COSIGNER: URGENCY: STATUS: COMPLETED CC: Infected thumb HPI: 69-year-old comes in today for above-noted problem is an unscheduled visit/walk-in. He is unable to take tetanus shots so he is not up-to-date. He noticed some pain and swelling with some drainage in his left thumb a few days ago. They have been using some Epsom salt soaks as well as triple antibiotic ointment. He goes to see vascular surgery later today for his legs. No other complaints today. Past medical history includes: 1) Fasciitis * (ICD-9-CM 729.4) 2) Psoriasis (SNOMED CT 7242472) 3) Essential hypertension (SNOMED CT 61981181) 4) Attention deficit disorder (SNOMED CT 83867061) 5) Shoulder Arthritis 6) Resistant hypertension (SNOMED CT 027873097292207) 7) Colon Polyps 8) Narcolepsy (SNOMED CT 28889994) 9) Dyslexia (SNOMED CT 20553420) 10) Stimulant dependence (SNOMED CT 881366516) 11) Chronic ulcer of foot 12) RA - Rheumatoid arthritis 13) Depression (SCT 00869622) 14) Psoriatic arthritis 15) Coronary arteriosclerosis 16) Hyperlipidemia (SCT 62331128) 17) Prediabetes 18) Low back pain 19) [...] NOTIFY PROVIDER. Indication: FOR OPIOID OVERDOSE 13) MYJHW-4-UOAH ETHYL ESTERS 1000MG CAP TAKE TWO CAPSULES [...] FOR CARDIOVASCULAR DISEASE 19 Total Medications OBJECTIVE: Vital Signs Temperature: 97.7 F [36.5 C] (02/07/2025 08:42) Respiratory Rate: 20 (02/07/2025 08:42) Pulse Rate: 79 (02/07/2025 08:42) Blood Pressure: 147/106 (02/07/2025 08:42) HT: 72.0 in [182.9 cm] (02/18/2024 09:32) WT: 249.1 lb [112.99 kg] (02/07/2025 08:42) BMI: 33.9 95% (02/07/2025 08:42) Review of Systems: as per HPI and Systemic: Denies fatigue, fever, chills, or significant weight loss CV: Denies chest pain, palpitations Pulmonary: Denies hemoptysis, Shortness of breath, dyspnea on exertion GI: Denies constipation, bloody stools, diarrhea, indigestion, or n/v Ext: Has swelling in his legs and sometimes some difficulty walking Neuro: Denies slurred speech or dizziness Skin: Denies abnormal lesions; denies any new rashes PSYCH: Denies SI/HI; denies nightmares Physical Exam General: NAD noted, A&Ox3, pleasant, appears stated age HEENT: NCAT, speech clear and appropriate, oropharynx clear Neck: Supple with normal active ROM Heart: RRR, no murmur Resp: Lungs CTA bilaterally, respirations even and unlabored Abdomen: Soft, non-distended, non-tender Ext: Chronic leg edema left greater than right. He has a paronychia of the left thumb. There is some clear to light caldera drainage. Neuro: Grossly intact Psych: Affect normal, answers questions appropriately throughout visit Assessment/Plan: Paronychia> due to multiple allergies and previous successful use ofwe will give him doxycycline 100 mg p.o. twice daily x 10 days. He is advised to avoid excessive sunlight etc. He will take with food but not dairy or iron supplementation. He will come back and see me on Thursday and we will continue local measures as outlined above. Hypertension> chronically elevated during visits to the doctor. Will watch at home and advise appropriately. Follow-up: As planned/needed. Anticipatory guidance given. Call or return for any problems. Call for any test results if you have not heard anything in 2 weeks.All questions answered; agrees to plan of care. Follow up as listed above, annually, and as needed. Keep all appointments. Medications Reconciled. See AVS given to . /es/ HOMER MD ROE PADILLA IIISHANTE [facility] Signed: 02/07/2025 09:09 SIM[facility]AN PINEDA III [facility]
--- OUTSIDE RECORDS SUMMARY | 2025-02-17 02:30 | XMS_ITS | Encounter Summary ---
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 Date/Time Encounter Type Encounter Description Reason Provider Source Feb 17, 2025 08:30 AM OFFICE O/P EST MOD 30 MIN PRIMARY CARE/MEDICINE ICD-10-CM I10 Essential (primary) hypertension SIMRAN PINEDA E III IHE Encounter Template Text not used by [place] Assessments - Encounter Diagnoses This section includes the primary and secondary diagnoses documented for the Encounter. Date/Time Primary/Secondary Diagnosis Diagnosis Name Provider Source Feb 17, 2025 03:22 PM PRIMARY Essential (primary) hypertension KAREEM PINEDAR [facility] Feb 17, 2025 03:22 PM SECONDARY Heart failure, unspecified KAREEM PINEDAR E III [facility] Feb 17, 2025 03:22 PM SECONDARY Hyperlipidemia, unspecified PINEDA,KAREEMR E III [facility] Feb 17, 2025 03:22 PM SECONDARY Rheumatoid arthritis, unspecified PINEDA,KAREEMR E [facility] Plan of Treatment: Future Appointments (+ 6 months) and Future Tests (+/- 45 days) The Plan of Treatment section includes future care activities for the patient [facility] This section includes future appointments and future orders which are active, pending or scheduled. Future Appointments This section includes appointments that were scheduled to occur 6 months from the date of the Encounter, up to a maximum of 20 appointments. The data comes from all [place] treatment facilities. Appointment Date/Time Appointment Type Appointme nt Facility Name Mar 02, 2025 01:00 PM AMBULATORY - MEDICINE [place] [facility] Apr 04, 2025 03:15 PM AMBULATORY - MEDICINE [facility] [facility] Active, Pending, and Scheduled Orders This section includes a listing of several types of active, pending, and scheduled orders, including clinic medications orders, diagnostic test orders, procedure orders and consult orders; where the start date of the order is 45 days before the date of the Encounter or 45 days after the date of theEncounter. The data comes from all [place] treatment facilities. Test Date/Time Test Type Test Details Facility Name Feb 01, 2025 09:56 AM Consult Order COMMUNITY CARE-RHEUMATOLOGY 657A4 Cons Steward/Stewardess Third's Choice [place] [facility] Feb 17, 2025 03:14 PM Consult Order COMMUNITY CARE-CHIROPRACTIC [id number] Cons Steward/Stewardess Third[facility] Choice [facility] Lab Results: +/- 30 days of the encounter This section includes the Chemistry and Hematology Lab Results on record with [place] for the patient. Radiology Reports and Pathology Reports are provided separately, in subsequent sections. Lab Results This section contains the Chemistry/Hematology Results that were resulted 30 days before or 30 daysafter the date of the Encounter. Date/Time Source Result Type Result - Unit Interpretation Reference Range Specimen Type Comment Feb 17, 2025 09:22 AM [facility] B12 SERUM Specimen Type: SERUM No comment entered. Ordering Provider: SIMRAN PINEDA III Report Released Date/Time: Feb 17, 2025 09:16 AM Reporting Lab: [place] [facility] [address] [place] [address] Performing Lab: [place] [facility] [address] [place] [address] B12 388 pg/mL 213-816 Feb 17, 2025 09:22 AM [facility] FOLATE (PB) SERUM Specimen Typ e: SERUM No comment entered. Ordering Provider: SIMRAN PINEDA III Report Released Date/Time: Feb 17, 2025 09:16 AM Reporting Lab: [place] [facility] [address] [place] [address] Performing Lab: [place] [facility] [address] [place] [address] FOLATE (PB) 12.3 ng/mL 7-20 Feb 17, 2025 09:22 AM [facility] [place] [facility] HGA1C BLOOD Specimen Type: BLOOD No comment entered. Ordering Provider: SIMRAN PINEDA III Report Released Date/Time: Feb 17, 2025 09:16 AM Reporting Lab: [place] [facility] [address] [place] [address] Performing Lab: [place] [facility] [address] [place] [address] HGA1C 6.2 H 4.0-6.0 Feb 17, 2025 09:22 AM [facility] MAGNESIUM PLASM A Specimen Type: PLASMA No comment entered. Ordering Provider: SIMRAN PINEDA III Report Released Date/Time: Feb 17, 2025 09:16 AM Reporting Lab: [place] [facility] [address] [place] [address] Performing Lab: [place] [facility] [address] [place] [address] MAGNESIUM 2.19 mg/dL 1.6-2.6 Feb 17, 2025 09:22 AM [facility] CHOLESTEROL PANEL (PB) PLASMA Specimen Type: P LASMA No comment entered. Ordering Provider: SIMRAN PINEDA III Report Released Date/Time: Feb 17, 2025 09:16 AM Reporting Lab: [place] [facility] [address] [place] [address] Performing Lab: [place] [facility] [address] [place] [address] CHOLESTEROL 234 mg/dL H 0-200 TRIGLYCERIDE 190 mg/dL H 0-150 CALCULATED LDL 126.6 mg/dL HDL(New) 69.4 mg/dL H >40 HDL % OF TOTAL CHOLESTEROL (PB) 29.7 >25 Feb 17, 2025 09:22 AM [facility] URINE ALBUMIN PROFILE-ih (PB) URINE Specimen Type: URINE No comment entered. Ordering Provider: SIMRAN PINEDA III Report Released Date/Time: Feb 17, 2025 09:16 AM Reporting Lab: [place] [facility] [address] [place] [address] Performing Lab: [place] [facility] [address] [place] [address] URINE ALBUMIN (PB-STL) 276.59 mg/L uACR (PB-MA) 225.97 mg/g H 0-30 CREATININE URINE/OTHERS 122.40 mg/dL Feb 17, 2025 09:22 AM [facility] VITAMIN D, 25-HYDROXY SERUM Specimen Type: SE RUM No comment entered. Ordering Provider: SIMRAN PINEDA III Report Released Date/Time: Feb 17, 2025 09:17 AM Reporting Lab: [place] [facility] [address] [place] [address] Performing Lab: [place] [facility] [address] [place] [address] VITAMIN D, 25-HYDROXY 42.9 ng/mL 30-96 Feb 17, 2025 09:22 AM [facility] TSH (MA-PB) SERUM Specimen Typ e: SERUM No comment entered. Ordering Provider: SIMRAN PINEDA III Report Released Date/Time: Feb 17, 2025 09:17 AM Reporting Lab: [place] [facility] [address] [place] [address] Performing Lab: [place] [facility] [address] [place] [address] TSH 0.917 u[IU]/mL 0.47-5 Feb 17, 2025 09:22 AM [facility] CBC BLOOD Specimen Type: BLOOD No comment entered. Ordering Provider: SIMRAN PINEDA III Report Released Date/Time: Feb 17, 2025 09:16 AM Reporting Lab: [place] [facility] [address] [place] [address] Performing Lab: [place] [facility] [address] [facility] [place] [address] WBC 10.5 10*3/uL 3.6-11.2 RBC 4.55 10*6/uL [...] 0. 00-0.05 Feb 17, 2025 09:22 AM [facility] COMPREHENSIVE METABOLIC PANEL PLASMA Specimen Type: PLASMA No comment entered. Ordering Provider: SIMRAN PINEDA III Report Released Date/Time: Feb 17, 2025 09:17 AM Reporting Lab: [place] [facility] [address] [place] [address] Performing Lab: [place] [facility] [address] [facility] [place] [phone] CREATININE 1.01 mg/dL 0.7-1.3 UREA NITROGEN 28 [...] 2020) 80 Feb 17, 2025 09:22 AM [facility] URINE-inhouse (PB) URINE Specimen Type: URINE No comment entered. Ordering Provider: SIMRAN PINEDA III Report Released Date/Time: Feb 17, 2025 09:17 AM Reporting Lab: [place] [facility] [address] [place] [phone] Performing Lab: [place] [facility] [address] [facility] [place] [phone] METHADONE Negative Negative OPIATES (PB) Negative Negative COCAINE... Negative Negative THC(Marijuana... Negative Negative BENZODIAZEPINE (PB) Negative Negative AMPHETAMINE... Negative Negative CREATININE URINE/OTHERS 122.59 mg/dL OXYCODONE ([id number]) Negative Negati ve BUPRENORPHINE (STL-PB-MA) Negative ng/mL Negative ETHANOL URINE <10 mg/dL L 0-20 FENTANYL, URINE (PB) Negative ng/mL Feb 17, 2025 09:22 AM [facility] URINALYS[facility] W/O REFLEX CX (STL-PB) URINE Speci men Type: URINE No comment entered. Ordering Provider: SIMRAN PINEDA III Report Released Date/Time: Feb 17, 2025 09:17 AM Reporting Lab: [place] [facility] [address] [facility] [place] [phone] Performing Lab: [facility] [address] [place] [place] [address] URINE COLOR Yellow Yellow U.BILIRUBIN NEGATIVE mg/dL [...] Height Weight Body Mass Index Source Feb 17, 2025 09:20 AM 168/104 mm[Hg] [facility] Feb 17, 2025 09:13 AM 168/104 mm[Hg] [facility] Feb 17, 2025 09:02 AM 98 F 94 /min 186/110 mm[Hg] 22 /min 97 % 7 250.5 lb 34 [facility] Social History: Smoking Status (Most current) and Tobacco Use (All prior to encounter date) This section includes the most current, and the historical, smoking and tobacco- related health factors from the [place] facility where the Encounter took place. Current Smoking Status This section includes the most current smoking, or tobacco-related health factor, from the [place] facility where the Encounter took place. Date/Time Current Smoking Status Comment Facil ity Feb 17, 2025 08:30 AM MI-TOBACCO NEVER USED OTHER TYPE [facility] Tobacco Use History This section includes a history of the smoking, or tobacco-related health factors, that were collected on or before the date of the Encounter. The data comes from the [place] facility where the Encounter took place. Date/Time Smoking Status/Tobacco Use Comment F acility Feb 17, 2025 08:30 AM MI-TOBACCO USE FOR [place] CIGARETTES [facility] Feb 18, 2024 09:30 AM VA-TOBACCO FORMER USER [place] [facility] Feb 18, 2024 09:30 AM VA-TOBACCO QUIT 5 TO < 15 YRS [place] [facility] Feb 16, 2023 02:00 PM VA-TOBACCO FORMER USER [facility] [facility] Feb 16, 2023 02:00 PM VA-TOBACCO QUIT 5 TO < 15 YRS [place] [facility] Feb 19, 2022 11:30 AM VA-TOBACCO FORMER USER [facility] [facility] Feb 19, 2022 11:30 AM VA-TOBACCO QUIT 1 TO < 5 YRS [facility] Mar 04, 2021 08:30 AM VA-TOBACCO FORMER USER [facility] Mar 04, 2021 08:30 AM VA-TOBACCO QUIT 1 TO < 5 YRS [facility] Mar 08, 2019 11:49 AM VA-TOBACCO DOESNT USE WI 30 MIN WAKEUP [place] [facility] Mar 08, 2019 11:49 AM VA-TOBACCO USE 30 YEARS OR MORE [place] Mar 08, 2019 11:49 AM VA-TOBACCO USE ADVICE [facility] Mar 08, 2019 11:49 AM VA-TOBACCO USE TELECOMMUNICATOR NO [facility] Mar 08, 2019 11:49 AM VA-TOBACCO USE MED NOTIFY PROVIDER [facility] Mar 08, 2019 11:49 AM VA-TOBACCO USER EVERY DAY [facility] Mar 17, 2018 01:22 PM CURRENT TOBACCO USER [facility] Mar 17, 2018 01:22 PM CURRENT TOBACCO US ER (READY TO QUIT) [facility] Mar 17, 2018 01:22 PM SMOKELESS TOBACCO AMOUNT/LENGTH V15 45yr history [facility] Mar 17, 2018 01:22 PM TOBACCO CESSATION REFERRAL DECLINED [facility] Mar 17, 2018 01:22 PM TOBACCO USER OFFERED MEDS [facility] Aug 20, 2017 10:37 AM CURRENT TOBACCO USER [facility] Aug 20, 2017 10:37 AM CURRENT TOBACCO US ER (NOT READY TO QUIT) [facility] Aug 20, 2017 10:37 AM SMOKELESS TOBACCO AMOUNT/LENGTH V15 50yr history 1 can every week [facility] Aug 20, 2017 10:37 AM TOBACCO CESSATION REFERRAL DECLINED [place] [facility] Aug 20, 2017 10:37 AM TOBACCO MEDS OFFER ED BUT DECLINED [place] [facility] Aug 20, 2017 10:37 AM TOBACCO USER OFFERED MEDS [place] [facility] Feb 24, 2017 07:10 [...] 2017 07:10 AM TOBACCO USER OFFERED MEDS [place] [facility] Dec 18, 2016 11:06 AM CURRENT TOBACCO USER [facility] Dec 18, 2016 11:06 AM CURRENT TOBACCO US ER (NOT READY TO QUIT) [place] [place] Dec 18, 2016 11:06 AM TOBACCO CESSATION REFERRAL DECLINED [place] [facility] Dec 18, 2016 11:06 AM TOBACCO MEDS OFFER ED BUT DECLINED [place] [facility] Dec 18, 2016 11:06 AM TOBACCO USER OFFERED MEDS [place] [facility] Jan 29, 2016 07:57 AM CURRENT TOBACCO USER [facility] Jan 29, 2016 07:[address] OP SMOKING CLINIC [facility] Oct 13, 2014 08:33 AM CURRENT TOBACCO USER [facility] Oct 13, 2014 08:[address] [facility] SMOKING [facility] Oct 06, 2013 10:38 AM CURRENT TOBACCO USER [facility] Oct 06, 2013 10:[address] [facility] SMOKING [facility] Jun 28, 2012 02:19 PM CURRENT TOBACCO USER [facility] Jun 28, 2012 02:[address] OP SMOKING [facility] Jan 06, 2011 02:53 PM CURRENT TOBACCO USER [facility] Jan 06, 2011 02:53 PM TOBACCO MEDS OFFER ED BUT DECLINED [place] [facility] Jan 06, 2011 02:53 PM TOBACCO OFFERED PT MEDS (PROVIDER) [facility] Jan 06, 2011 02:[address] OP SMOKING [facility] Aug 13, 2009 02:36 PM CURRENT TOBACCO USER [facility] Aug 13, 2009 02:36 PM TOBACCO MEDS OFFER ED BUT DECLINED [place] [facility] Aug 13, 2009 02:36 PM TOBACCO OFFERED PT MEDS (PROVIDER) [facility] Aug 13, 2009 02:[address] OP SMOKING CLINIC [facility] Mar 03, 2008 08:34 AM CURRENT TOBACCO USER [facility] Mar 03, 2008 08:[address] OP SMOKING CLINIC [facility] Jul 21, 2007 11:40 AM CURRENT TOBACCO USER [facility] Dec 08, 2006 08:18 AM CURRENT TOBACCO USER [facility] Dec 08, 2006 08:18 AM TOBACCO MEDS OFFER ED BUT DECLINED [facility] Jul 25, 2005 10:39 AM CURRENT NON-TOBACC O USER-HX OF USE [facility] Jan 27, 2005 11:41 AM CURRENT NON-TOBACC O USER-HX OF USE [facility] Jul 29, 2004 08:37 AM CURRENT NON-TOBACC O USER-HX OF USE Stopped since last visit. Gained 5 pounds [facility] Jan 29, 2004 09:02 AM CURRENT NON-TOBACC O USER-HX OF USE Stopped about 3-4 months ago [facility] Jul 28, 2003 10:08 AM CURRENT NON-TOBACC O USER-HX OF USE [facility] August 26, 2002 10:28 AM CURRENT NON-TOBACC O USER-HX OF USE [facility] Mar 11, 2002 09:39 AM CURRENT NON-TOBACC O USER-HX OF USE [facility] Apr 08, 2001 11:01 AM CURRENT NON-TOBACC O USER-HX OF USE Stopped 1996 [facility] Oct 22, 2000 01:27 PM CURRENT NON-TOBACC O USER-HX OF USE 1 pack a da y for years / stopped 4 yrs [facility] Encounter Notes: All associated encounter notes This section contains the clinical notes associated to the Encounter. Date/Time Encounter Note(s) Provider Source Feb 17, 2025 03:11 PM PRIMARY CARE PROGR ESS NOTE: LOCAL TITLE: PRIMARY CARE CLINIC PROGRESS NOTE PB STANDARD TITLE: PRIMARY CARE PROGRESS NOTE DATE OF NOTE: FEB 17, 2025@15:11 ENTRY DATE: FEB 17, 2025@15:11:16 AUTHOR: SIMRAN PINEDA III EXP COSIGNER: URGENCY: STATUS: COMPLETED SUBJECTIVE: TRAYTHOMPSON CAEVEDO is a 69 years old MALE. HPI: Presents to the clinic today for a periodic health maintenance visit. They are eventually wanting a [employer] letter but unfortunately I am unable to provide these at this time. Has seen vascular surgery for left lower extremity DVT which apparently extends above the knee. He is on Eliquis for this. He would like to see a chiropractor for his back. Had flu shot, requests COVID but I would wait with current DVT and come back in about 2 weeks. He will go back to see his vascular surgeon and we discussed the normal flow of this particular etiology. Blood pressure is up a bit down to 138/85 at home yesterday but it still just a little bit high so we will going to adjust his medication as below and he will keep a blood pressure log. Past medical history include: 1) Fasciitis * (ICD-9-CM 729.4) 2) Psoriasis (SNOMED CT 0086575) 3) Essential hypertension (SNOMED CT 02203695) 4) Attention deficit disorder (SNOMED CT 32429688) 5) Shoulder Arthritis 6) Resistant hypertension (SNOMED CT 084754190453853) 7) Colon Polyps 8) Narcolepsy (SNOMED CT 63817829) 9) Dyslexia (SNOMED CT 09976738) 10) Stimulant dependence (SNOMED CT 566403277) 11) Chronic ulcer of foot 12) RA - Rheumatoid arthritis 13) Depression (SCT 48994341) 14) Psoriatic arthritis 15) Coronary arteriosclerosis 16) Hyperlipidemia (SCT 42217111) 17) Prediabetes 18) Low back pain 19) Sleep apnea syndrome 20) Congestive heart failure 21) Hypertension Active Outpatient Medications (including Supplies): Active Outpatient Medications Status 1) ALIROCUMAB 150MG/ML INJ 1ML PEN INJECT 150MG UNDER THE SKIN ACTIVE EVERY MONTH Indication: FOR HIGH CHOLESTEROL 2) AMLODIPINE BESYLATE 2.5MG TAB TAKE ONE TABLET BY MOUTH TWICE ACTIVE A DAY 3) APIXABAN 5MG TAB TAKE ONE TABLET BY MOUTH TWICE A DAY ACTIVE Indication: FOR ANTICOAGULATION 4) EPI(EQV-ADRENACLICK)0.3MG/0. 3ML INJCTR INJECT 1 PEN [...] FUNGAL INFECTION 8) FUROSEMIDE 20MG TAB TAKE 1-3 TABLET(S) BY MOUTH EACH MORNING ACTIVE NEEDED FOR SWELLING 9) LEFLUNOMIDE 10MG TAB TAKE ONE TABLET BY MOUTH ONCE A DAY ACTIVE TAKE AT SAME TIME EACH DAY. 10) NALOXONE HCL 4MG/SPRAY SOLN NASAL SPRAY USE 1 SPRAY (4MG) ACTIVE INTO ONE NOSTRIL ONLY ONE-TIME DO NOT PRIME NASAL SPRAY. SPRAY ONE DOSE IN ONE NOSTRIL, GIVE ADDITIONAL DOSE IF PATIENT DOES NOT START BREATHING WITHIN 2-3 MINUTES OR STOPS BREATHING AGAIN. CALL 911. IF USED, NOTIFY PROVIDER. Indication: FOR OPIOID OVERDOSE 11) VBROH-5-OUOZ ETHYL ESTERS 1000MG CAP TAKE TWO CAPSULES BY ACTIVE MOUTH TWICE A DAY Indication: FOR HIGH TRIGLYCERIDES 12) PANTOPRAZOLE NA 40MG EC TAB TAKE ONE TABLET BY MOUTH EVERY ACTIVE MORNING BEFORE A MEAL TO LOWER STOMACH ACID - TAKE 30 MINUTES BEFORE MEAL(S) 13) PREDNISONE 10MG TAB TAKE ONE TABLET BY MOUTH ONCE A DAY TAKE ACTIVE WITH FOOD OR MILK. 14) PREDNISONE 20MG TAB TAKE TWO TABLETS BY MOUTH EVERY DAY ACTIVE NEEDED FOR ARTHRITIS FLARE.TAKE WITH FOOD OR MILK. 15) PROPRANOLOL HCL 80MG SA CAP TAKE ONE CAPSULE BY MOUTH ONCE A ACTIVE DAY Indication: FOR HIGH BLOOD PRESSURE 16) TRAMADOL HCL 50MG TAB TAKE 1 TABLET BY MOUTH THREE TIMES A ACTIVE DAY NEEDED Indication: FOR PAIN Active Non-VA Medications Status 1) Non-VA ASPIRIN 81MG EC TAB 81MG BY MOUTH ONCE A DAY ACTIVE Indication: FOR CARDIOVASCULAR DISEASE 17 Total Medications Allergies: HORSE SERUM PROTEINS, PENICILLIN, AZITHROMYCIN, ASPIRIN RELATED MEDICATIONS LOVASTATIN, SIMVASTATIN, ROSUVASTATIN, LIPITOR, THIAZIDES/RELATED DIURETICS METHOTREXATE, CODEINE, COLESTIPOL, SULFASALAZINE, HUMIRA, COSENTYX, PERCOCET FLEXERIL Interestingly he did have some balance issues with the doxycycline but these have resolved. Review of Systems: as per HPI and Systemic: Denies fatigue, fever, chills, or significant weight loss CV: Denies chest pain, palpitations Pulmonary: Denies hemoptysis, Shortness of breath, dyspnea on exertion GI: Denies constipation, bloody stools, diarrhea, indigestion, or n/v Ext: Denies swelling or gait problems Neuro: Denies slurred speech or dizziness Skin: Denies abnormal lesions; denies any new rashes PSYCH: Denies SI/HI; denies nightmares OBJECTIVE: Vital Signs Temperature: 98 F [36.7 C] (02/17/2025 09:02) Respiratory Rate: 22 (02/17/2025 09:02) Pulse Rate: 94 (02/17/2025 09:02) Blood Pressure: 168/104 (02/17/2025 09:20) HT: 72.0 in [182.9 cm] (02/18/2024 09:32) WT: 250.5 lb [113.62 kg] (02/17/2025 09:02) BMI: 34.0 97% (02/17/2025 09:02) Physical Exam General: NAD noted, A&Ox3, pleasant, appears stated age HEENT: NCAT, speech clear and appropriate, oropharynx clear Neck: Supple with grossly normal active ROM Heart: RRR, no murmur appreciated Resp: Lungs CTA bilaterally, respirations even and unlabored Ext: 3+ edema, L>R; no obvious deformity Skin: Warm and dry, no rashes Neuro: Distal neurovascular grossly intact Psych: Affect normal, answers questions appropriately throughout visit, maintains eye contact A/P: ASSESSMENT and PLAN: Low back pain> refer to chiropractor Requests COVID vaccination> hold off for about 2 weeks, but can go ahead if requested Hypertension> increase amlodipine to 5 mg 3 times daily and watch blood pressure. If this becomes a more chronic plan will send new prescription to the pharmacy. Congestive heart failure> overall appears stable, pulse ox 97% Steroid-dependent rheumatoid arthritis> continue current Labs will be reviewed with [place] when available Chronic medical conditions appear otherwise stable. Discussed medications with patient; med rec completed. Continue current regimen as prescribed by PCP and specialists. RTC as needed if developing any new or worsening symptoms. Follow-up: __ months with fasting labs prior to appointment and/or as needed. Anticipatory guidance given. All questions answered; agrees to plan of care. Call for any test results if you have not heard anything in 2 weeks Follow up as listed above, annually, and as needed. Keep all appointments. Medications Reconciled. See AVS given to . Time spent minutes. /es/ MD ROE MEAD III [facility] Signed: 02/17/2025 15:22 SIMRAN PINEDA III [facility] CB Feb 17, 2025 09:04 AM PRIMARY CARE NURSI SHANTE NOTE: LOCAL TITLE: PRIMARY CARE NURSING PROGRESS NOTE (TEXT) NURSING P STANDARD TITLE: PRIMARY CARE NURSING NOTE DATE OF NOTE: FEB 17, 2025@09:04 ENTRY DATE: FEB 17, 2025@09:04:26 AUTHOR: MALENA HARDEN EXP COSIGNER: URGENCY: STATUS: COMPLETED PRIMARY CARE NURSING PROGRESS NOTE (TEXT) NURSING PB Has ADDENDA Established Patient THOMPSON FELIZ IS A 69 YEAR OLD MALE BEING SEEN IN CLINIC FEB 17, 2025. = = REASON FOR VISIT: Here for annual follow up on chronic health conditions. Has gross edema to lower ext. BP is elevated today but reports at home yesterday it was 138/85. [facility] you [facility] No HEALTH AND SURGICAL HISTORY: Does patient report using home oxygen? CURRENT ACTIVE MEDICATIONS FOR REVIEW: If the list for review does not include a component, then it was not applicable to this patient. Allergies/ADRs (Tool #5) FACILITY ALLERGY/ADR -------- RANDEE CONKLIN [facility] DIV[facility] ASPIRIN RELATED MEDICATIONS [facility] AZITHROMYCIN [facility] CODEINE [facility] COLESTIPOL [facility] [facility] FLEXERIL [facility] HORSE SERUM PROTEINS [facility] HUMIRA [facility] LIPITOR [facility] LOVASTATIN [facility] METHOTREXATE [facility] PENICILLIN [facility] PERCOCET [facility] ROSUVASTATIN [facility] SIMVASTATIN [facility] SULFASALAZINE [facility] THIAZIDES/RELATED DIURETICS Med. Reconciliation (Tool #1) INCLUDED IN THIS LIST: Alphabetical list of active outpatient prescriptions dispensed from this [place] (local) and dispensed from another [place] or [facility] facility (remote) as well as inpatient orders (local pending and active), local clinic medications, locally documented non-VA medications, and local prescriptions that have or been discontinued in the past 90 days. Non-VA Meds Last Documented On: Nov 20, 2022 NOTE The display of VA prescriptions dispensed from another [place] or [facility] facility (remote) is limited to active outpatient prescription entries matched to National Drug File at the originating site and may not include some items such as investigational drugs, compounds, etc. NOT INCLUDED IN THIS LIST: Medications self-entered by the patient into personal health records (i.e. [employer]) are NOT included in this list. Non-VA medications documented outside this [place], remote inpatient orders (regardless of status) and remote clinic medications are NOT included in this list. The patient and provider must always discuss medications the patient is taking, regardless of where the medication was dispensed or obtained. OUTPT ALIROCUMAB 150MG/ML INJ 1ML PEN (Status = Active) INJECT 150MG UNDER THE SKIN EVERY MONTH FOR HIGH CHOLESTEROL Rx# [id number] Last Released: 01/02/25 Qty/Days Supply: Rx Expiration Date: 08/25/25 Refills Remainin Indication: FOR HIGH CHOLESTEROL OUTPT AMLODIPINE BESYLATE 2.5MG TAB (Status = Active) TAKE ONE TABLET BY MOUTH TWICE A DAY Rx# [id number] Last Released: 01/31/25 Qty/Days Supply: 180/ Rx Expiration Date: 11/11/25 Refills Remainin OUTPT AMLODIPINE BESYLATE 5MG TAB (Status = On Hold) TAKE ONE TABLET BY MOUTH EVERY MORNING FOR HIGH BLOOD PRESSURE Rx# [id number] Last Released: 08/26/24 Qty/Days Supply: 90 Rx Expiration Date: 08/25/25 Refills Remainin Indication: FOR HIGH BLOOD PRESSURE OUTPT APIXABAN 5MG TAB (Status = Discontinued) TAKE ONE TABLET BY MOUTH TWICE A DAY Rx# [id number] Last Released: 01/10/25 Qty/Days Supply: 6030 Rx Expiration Date: 02/07/25 Refills Remainin OUTPT APIXABAN 5MG TAB (Status = Active) TAKE ONE TABLET BY MOUTH TWICE A DAY FOR ANTICOAGULATION Rx# [id number] Last Released: 01/31/25 Qty/Days Supply: 6030 Rx Expiration Date: 01/28/26 Refills Remainin Indication: FOR ANTICOAGULATION Non-VA ASPIRIN 81MG EC TAB TAKE ONE TABLET BY MOUTH ONCE A DAY Nov 20, 2022 Non-VA medication recommended by [place] provider Patient wants to buy from Non-VA pharmacy Indication: FOR CARDIOVASCULAR DISEASE OUTPT EPI(EQV-ADRENACLICK)0.3MG/0. 3ML INJCTR (Status = Active) INJECT 1 PEN (0.3MG/0.3ML) INTRAMUSCULARLY ONE-TIME Rx# [id number] Last Released: 02/27/24 Qty/Days Supply: Rx Expiration Date: 02/23/25 Refills Remainin OUTPT ETANERCEPT 50MG/ML INJ SYRINGE (Status = Discontinued) INJECT 50MG UNDER THE SKIN EVERY WEEK KEEP REFRIGERATED. ADMINISTER SUBCUTANEOUSLY ON THE SAME DAY(S) EACH WEEK. Rx# [id number] Last Released: 10/03/24 Qty/Days Supply: 08/22 Rx Expiration Date: 06/08/25 Refills Remainin OUTPT ETANERCEPT 50MG/ML INJ SYRINGE (Status = Active) INJECT 50MG UNDER THE SKIN EVERY WEEK KEEP REFRIGERATED. ADMINISTER SUBCUTANEOUSLY ON THE SAME DAY(S) EACH WEEK. Rx# [id number] Last Released: 02/16/25 Qty/Days Supply: 08/22 Rx Expiration Date: 11/25/25 Refills Remainin OUTPT EZETIMIBE 10MG TAB (Status = Active) TAKE ONE TABLET BY MOUTH ONCE A DAY TO LOWER CHOLESTEROL Rx# [id number] Last Released: 01/10/25 Qty/Days Supply: Rx Expiration Date: 08/25/25 Refills Remainin OUTPT FLUCONAZOLE 150MG TAB (Status = Active) TAKE ONE TABLET BY MOUTH EVERY OTHER DAY FOR FUNGAL INFECTION Rx# [id number] Last Released: 09/30/24 Qty/Days Supply: 06/30 Rx Expiration Date: 08/02/25 Refills Remainin Indication: FOR FUNGAL INFECTION OUTPT FUROSEMIDE 20MG TAB (Status = Discontinued) TAKE ONE TABLET BY MOUTH ONCE A DAY Rx# [id number] Last Released: 11/16/24 Qty/Days Supply: Rx Expiration Date: 12/29/24 Refills Remainin OUTPT FUROSEMIDE 20MG TAB (Status = Discontinued) TAKE ONE TABLET BY MOUTH EVERY MORNING Rx# [id number] Last Released: Qty/Days Supply: Rx Expiration Date: 12/13/25 Refills Remainin OUTPT FUROSEMIDE 20MG TAB (Status = Active) TAKE 1-3 TABLET(S) BY MOUTH EACH MORNING NEEDED FOR SWELLING Rx# [id number] Last Released: 01/17/25 Qty/Days Supply: Rx Expiration Date: 01/13/26 Refills Remainin OUTPT LEFLUNOMIDE 10MG TAB (Status = Discontinued) TAKE ONE TABLET BY MOUTH ONCE A DAY TAKE AT SAME TIME EACH DAY. Rx# [id number] Last Released: 11/16/24 Qty/Days Supply: 90 Rx Expiration Date: 08/02/25 Refills Remainin OUTPT LEFLUNOMIDE 10MG TAB (Status = Active) TAKE ONE TABLET BY MOUTH ONCE A DAY TAKE AT SAME TIME EACH DAY. Rx# [id number] Last Released: 01/23/25 Qty/Days Supply: 90 Rx Expiration Date: 03/05/25 Refills Remainin OUTPT LOSARTAN 50MG TAB (Status = Discontinued) TAKE ONE TABLET BY MOUTH TWICE A DAY Rx# [id number] Last Released: 08/08/24 Qty/Days Supply: 180/ Rx Expiration Date: 08/06/25 Refills Remainin OUTPT METOCLOPRAMIDE HCL 10MG TAB (Status = Discontinued) TAKE ONE TABLET BY MOUTH EVERY EIGHT(8) HOURS NEEDED FOR NAUSEA AND VOMITING Rx# [id number] Last Released: 11/28/24 Qty/Days Supply: 60/20 Rx Expiration Date: 12/24/24 Refills Remainin OUTPT NALOXONE HCL 4MG/SPRAY SOLN NASAL SPRAY (Status = Active) USE 1 SPRAY (4MG) INTO ONE NOSTRIL ONLY ONE-TIME FOR OPIOID OVERDOSE DO NOT PRIME NASAL SPRAY. SPRAY ONE DOSE IN ONE NOSTRIL, GIVE ADDITIONAL DOSE IF PATIENT DOES NOT START BREATHING WITHIN 2-3 MINUTES OR STOPS BREATHING AGAIN. CALL 911. IF USED, NOTIFY PROVIDER. Rx# [id number] Last Released: 02/22/24 Qty/Days Supply: 05/28 Rx Expiration Date: 02/18/25 Refills Remainin Indication: FOR OPIOID OVERDOSE OUTPT NYSTATIN [id number] UNT/ML SUSP (Status = ) TAKE 5 ML SWISH & SWALLOW FOUR TIMES A DAY FOR 14 DAYS - SHAKE WELL BEFORE USING. Rx# [id number] Last Released: 11/07/24 Qty/Days Supply: 480/14 Rx Expiration Date: 12/03/24 Refills Remainin OUTPT [id number] ETHYL ESTERS 1000MG CAP (Status = Active) TAKE TWO CAPSULES BY MOUTH TWICE A DAY FOR HIGH TRIGLYCERIDES Rx# [id number] Last Released: 01/19/25 Qty/Days Supply: 240/60 Rx Expiration Date: 09/17/25 Refills Remainin Indication: FOR HIGH TRIGLYCERIDES OUTPT ONDANSETRON 4MG ORAL DISINTEGRATING TAB (Status = ) TAKE ONE TABLET UNDER THE TONGUE EVERY 6 HOURS NEEDED FOR NAUSEA/VOMITING Rx# [id number] Last Released: 11/16/24 Qty/Days Supply: Rx Expiration Date: 12/14/24 Refills Remainin Indication: FOR NAUSEA/VOMITING OUTPT PANTOPRAZOLE NA 40MG EC TAB (Status = Active) TAKE ONE TABLET BY MOUTH EVERY MORNING BEFORE A MEAL TO LOWER STOMACH ACID - TAKE 30 MINUTES BEFORE MEAL(S) Rx# [id number] Last Released: 12/29/24 Qty/Days Supply: Rx Expiration Date: 08/25/25 Refills Remainin OUTPT POTASSIUM CHLORIDE 10MEQ SA TAB (Status = ) TAKE ONE TABLET BY MOUTH ONCE A DAY TAKE WITH FOOD Rx# [id number] Last Released: 04/21/24 Qty/Days Supply: Rx Expiration Date: 01/04/25 Refills Remainin OUTPT PREDNISONE 10MG TAB (Status = Active) TAKE ONE TABLET BY MOUTH ONCE A DAY TAKE WITH FOOD OR MILK. Rx# [id number] Last Released: 07/29/24 Qty/Days Supply: Rx Expiration Date: 07/28/25 Refills Remainin OUTPT PREDNISONE 20MG TAB (Status = Active) TAKE TWO TABLETS BY MOUTH EVERY DAY NEEDED FOR ARTHRITIS FLARE.TAKE WITH FOOD OR MILK. Rx# [id number] Last Released: 12/05/24 Qty/Days Supply: Rx Expiration Date: 11/25/25 Refills Remainin OUTPT PROPRANOLOL HCL 80MG SA CAP (Status = Active) TAKE ONE CAPSULE BY MOUTH ONCE A DAY FOR HIGH BLOOD PRESSURE Rx# [id number] Last Released: 01/10/25 Qty/Days Supply: Rx Expiration Date: 08/25/25 Refills Remainin Indication: FOR HIGH BLOOD PRESSURE OUTPT TRAMADOL HCL 50MG TAB (Status = Discontinued) TAKE 1 TABLET BY MOUTH THREE TIMES A DAY NEEDED FOR PAIN THIS QUANTITY MUST LAST 30 DAYS OR MORE Rx# [id number] Last Released: 09/26/24 Qty/Days Supply: Rx Expiration Date: 02/09/25 Refills Remainin OUTPT TRAMADOL HCL 50MG TAB (Status = Active) TAKE 1 TABLET BY MOUTH THREE TIMES A DAY NEEDED FOR PAIN Rx# [id number] Last Released: 01/11/25 Qty/Days Supply: Rx Expiration Date: 06/16/25 Refills Remainin Indication: FOR PAIN SUPPLIES PHARMACY TERMS AND POSSIBLE PATIENT ACTIONS INPT = [place] inpatient order IV = [place] intravenous medication OUTPT = [place] outpatient prescription PHARMACY POSSIBLE PATIENT TERMS EXPLANATION ACTIONS -------- ---- ACTIVE A prescription that can be If you have refills, filled at the local [place] pharmacy. you may request a refill of this prescription from your [place] pharmacy. CLINIC A medication you received during If you have questions a visit to a [place] clinic or about this medication emergency department. contact your [place] healthcare team. DISCONTINUED A prescription your provider has Contact your [facility] stopped. It is no longer healthcare team if you available to be sent to you or need more of this picked up at the [place] pharmacy medication. window. A prescription which is [...] the VA. Or, it may be an [id number] (OTC), herbal, dietary supplements or sample medication. [...] An active prescription that is Contact your [facility] not scheduled to be filled yet. pharmacy if you need You should receive it before this medication now. you run out. Medication list reviewed with Caregiver Furosemide is 20mg 3 tab every am. IS PATIENT TAKING ANY OVER THE COUNTER MEDICATIONS, SUCH VITAMINS OR HERBAL SUPPLEMENTS, INCLUDING ANY MEDICATIONS PRESCRIBED BY ANOTHER PHYSICIAN? No Does patient have any new allergies to report since last visit? VITALS: TEMPERATURE: 98 F [36.7 C] (02/17/2025 09:02) BP: 186/110 (02/17/2025 09:02) RESP: 22 (02/17/2025 09:02) PULSE: 94 (02/17/2025 09:02) HT: 72.0 in [182.9 cm] (02/18/2024 09:32) WT: 250.5 lb [113.62 kg] (02/17/2025 09:02) BMI: 34.0 PAIN ASSESSMENT: (Most Recent Pain Score in Vitals Package: 7 (02/17/2025 09:02) ) The patient indicated that they and their close contacts have not traveled outside of the [place] in the past 21 days. The patient reports the following symptoms: No symptoms present The patient is immunocompromised. The patient does not report having a history of Multi Drug Resistant Organism (MDRO) within the last five years. The patient does not report having been exposed to measles, chickenpox, or zoster in last 30 days. STRESS: Thank you for your service. Now let us serve you. At the [facility], we strive to provide you with [...] Not At All SPIRITUAL ASSESSMENT: Are there confucianist practices or spiritual concerns you want the medical payment poster, your physician, and other health care team members to immediately know about? Patient advised to call the clinic for any concerns, questions, or symptoms. Patient and/or caregiver verbalized understanding of plan of care. Suicide Screen - V: C-SSRS Screening [place] Suicide Severity Rating Scale (C-SSRS) screener 1. Over the past month, have you wished you were or wished you could go to sleep and not wake up? No 2. Over the past month, have you had any actual thoughts of killing yourself? No 3. Over the past month, have you been thinking about how you might do this? Response not required due to responses to other questions. 4. Over the past month, have you had these thoughts and had some intention of acting on them? Response not required due to responses to other questions. 5. Over the past month, have you started to work out or worked out the details of how to kill yourself? Response not required due to responses to other questions. 6. If yes, at any time in the past month did you intend to carry out this plan? Response not required due to responses to other questions. 7. In your lifetime, have you ever done anything, started to do anything, or prepared to do anything to end your life (for example, collected pills, obtained a gun, gave away valuables, went to the roof but didn't jump)? No 8. If YES, was this within the past 3 months? Response not required due to responses to other questions. HTN Assess for Elevated BP>=140/90 - N,P,PH: Repeat blood pressure: 168/104 Tobacco Use Screening - AT,DE,L,M,N,P,PH,PS,RT,S,U: The patient is a former cigarette smoker. The patient has never used other types of tobacco. Alcohol Use Screen (AUDIT-C) - V: Alcohol Screen: SCREEN FOR ALCOHOL (AUDIT-C) An alcohol screening test (AUDIT-C) was negative (score=0). 1. How often did you have a drink containing alcohol in the past year? Consider a drink to be a 12 ounce can or bottle of regular beer, 8 ounces of malt liquor, a 5 ounce glass of table wine, or a 1.5 ounce shot of liquor (like scotch, gin, or vodka). Never 2. How many drinks containing alcohol did you have on a typical day when you were drinking in the past year? Response not required due to responses to other questions. 3. How often did you have six or more drinks on one occasion in the past year? Response not required due to responses to other questions. URINE DRUG SCREEN: Patients on chronic opioid therapy for chronic non-malignant pain are required to have an UDS at least every 6 months. In addition, documentation of verbal consent for ongoing UDS is required at least every 6 months Verbal consent for Urine Drug Screen was obtained on this date. /maximiliano HARDEN LPN Signed: 02/17/2025 09:14 02/17/2025 ADDENDUM STATUS: COMPLETED HTN Assess for Elevated BP>=140/90 - N,P,PH: Repeat blood pressure: 168/104 /maximiliano HARDEN LPN Signed: 02/17/2025 09:20 MALENA HARDEN [facility]
--- OUTSIDE RECORDS SUMMARY | 2025-02-21 09:11 | XMS_ITS | Encounter Summary ---
Author Name [facility] Organization [facility] [place] Address [address] [place] [address] Care Team Providers Care Shipping Clerk Name Role Phone SIMRAN PINEDA Primary Care [...] Relationship to Policy Cruz BRITTANI BROOKS [place] [facility] (WNR) MEDICARE ADVANTAGE [facility] (WNR) Jan 26, 2020 [id number] [phone] TRAY,ER IC PATIENT MEDICARE (WNR) MEDICARE (M) PART B Jan 26, 2020 PART B [id number] TRAY,ER IC PATIENT MEDICARE (WNR) MEDICARE (M) PART A August 26, 2019 PART A [id number] [phone] TRAY,ER IC PATIENT Selected Encounter This section includes the information on record at [place] for the Encounter. Date/Time Encounter Type Encounter Description Reason Provider Source Feb 21, 2025 03:11 PM Outpatient Encounter ADMIN PAT ACTIVTIES (MASNONCT) JENNIFER ANDERSON IHE Encounter Template Text not used by [place] Plan of Treatment: Future Appointments (+ 6 months) and Future Tests (+/- 45 days) The Plan of Treatment section includes future care activities for the patient from all [place] [facility] This section includes future appointments and future orders which are active, pending or scheduled. Future Appointments This section includes appointments that were scheduled to occur 6 months from the date of the Encounter, up to a maximum of 20 appointments. The data comes from all [place] treatment facilities. Appointment Date/Time Appointment Type Appointme nt Facility Name Mar 02, 2025 01:00 PM [facility] [facility] Apr 04, 2025 03:15 PM AMBULATORY - MEDICINE [facility] Active, Pending, and Scheduled Orders This section includes a listing of several types of active, pending, and scheduled orders, including clinic medications orders, diagnostic test orders, procedure orders and consult orders; where the start date of the order is 45 days before the date of the Encounter or 45 days after the date of theEncounter. The data comes from all [place] treatment [facility]. Test Date/Time Test Type Test Details Facility Name Feb 01, 2025 09:56 AM Consult Order [facility]-RHEUMATOLOGY [id number] [facility] [employer] [facility] Feb 17, 2025 03:14 PM Consult Order COMMUNITY CARE-CHIROPRACTIC [id number] [facility] Logistics And Planning Manager's [facility] Lab Results: +/- 30 days of the encounter This section includes the Chemistry and Hematology Lab Results on record with [place] for the patient. Radiology Reports and Pathology Reports are provided separately, in subsequent sections. Lab Results This section contains the Chemistry/Hematology Results that were resulted 30 days before or 30 daysafter the date of the Encounter. Date/Time Source Result Type Result - Unit Interpretation Reference Range Specimen Type Comment Feb 17, 2025 09:22 AM [facility] B12 SERUM Specimen Type: SERUM No comment entered. Ordering Provider: SIMRAN PINEDA III Report Released Date/Time: Feb 17, 2025 09:16 AM Reporting Lab: [place] [facility] [address] [place] [address] Performing Lab: [place] [facility] [address] [place] [address] B12 388 pg/mL 213-816 Feb 17, 2025 09:22 AM [facility] FOLATE (PB) SERUM Specimen Typ e: SERUM No comment entered. Ordering Provider: SIMRAN PINEDA III Report Released Date/Time: Feb 17, 2025 09:16 AM Reporting Lab: [place] [facility] [address] [place] [address] Performing Lab: [place] [facility] [address] [place] [address] FOLATE (PB) 12.3 ng/mL 7-20 Feb 17, 2025 09:22 AM [facility] HGA1C BLOOD Specimen Type: BLOOD No comment entered. Ordering Provider: SIMRAN PINEDA III Report Released Date/Time: Feb 17, 2025 09:16 AM Reporting Lab: [place] [facility] [address] [place] [address] Performing Lab: [place] [facility] [address] [place] [address] HGA1C 6.2 H 4.0-6.0 Feb 17, 2025 09:22 AM [facility] MAGNESIUM PLASM A Specimen Type: PLASMA No comment entered. Ordering Provider: SIMRAN PINEDA III Report Released Date/Time: Feb 17, 2025 09:16 AM Reporting Lab: [place] [facility] [address] [place] [address] Performing Lab: [place] [facility] [address] [place] [address] MAGNESIUM 2.19 mg/dL 1.6-2.6 Feb 17, 2025 09:22 AM [facility] CHOLESTEROL PANEL (PB) PLASMA Specimen Type: P LASMA No comment entered. Ordering Provider: SIMRAN PINEDA III Report Released Date/Time: Feb 17, 2025 09:16 AM Reporting Lab: [place] [facility] [address] [place] [address] Performing Lab: [place] [facility] [address] [place] [address] CHOLESTEROL 234 mg/dL H 0-200 TRIGLYCERIDE 190 mg/dL H 0-150 CALCULATED LDL 126.6 mg/dL HDL(New) 69.4 mg/dL H >40 HDL % OF TOTAL CHOLESTEROL (PB) 29.7 >25 Feb 17, 2025 09:22 AM [facility] VITAMIN D, 25-HYDROXY SERUM Specimen Type: SE RUM No comment entered. Ordering Provider: SIMRAN PINEDA III Report Released Date/Time: Feb 17, 2025 09:17 AM Reporting Lab: [place] [facility] [address] [place] [address] Performing Lab: [place] [facility] [address] [place] [address] VITAMIN D, 25-HYDROXY 42.9 ng/mL 30-96 Feb 17, 2025 09:22 AM [facility] URINE ALBUMIN PROFILE-ih (PB) URINE Specimen Type: URINE No comment entered. Ordering Provider: SIMRAN PINEDA III Report Released Date/Time: Feb 17, 2025 09:16 AM Reporting Lab: [place] [facility] [address] [place] [address] Performing Lab: [place] [facility] [address] [place] [address] URINE ALBUMIN (PB-STL) 276.59 mg/L uACR (PB-MA) 225.97 mg/g H 0-30 CREATININE URINE/OTHERS 122.40 mg/dL Feb 17, 2025 09:22 AM [facility] TSH (MA-PB) SERUM Specimen Typ e: SERUM No comment entered. Ordering Provider: SIMRAN PINEDA III Report Released Date/Time: Feb 17, 2025 09:17 AM Reporting Lab: [place] [facility] [address] [place] [address] Performing Lab: [place] [facility] [address] [place] [address] TSH 0.917 u[IU]/mL 0.47-5 Feb 17, 2025 09:22 AM [facility] CBC BLOOD Specimen Type: BLOOD No comment entered. Ordering Provider: SIMRAN PINEDA III Report Released Date/Time: Feb 17, 2025 09:16 AM Reporting Lab: [place] [facility] [address] [place] [address] Performing Lab: [place] [facility] [address] [place] [address] WBC 10.5 10*3/uL 3.6-11.2 RBC 4.55 10*6/uL [...] 0. 00-0.05 Feb 17, 2025 09:22 AM [facility] COMPREHENSIVE METABOLIC PANEL PLASMA Specimen Type: PLASMA No comment entered. Ordering Provider: SIMRAN PINEDA III Report Released Date/Time: Feb 17, 2025 09:17 AM Reporting Lab: [place] [facility] [address] [place] [address] Performing Lab: [place] [facility] [address] [place] [address] CREATININE 1.01 mg/dL 0.7-1.3 UREA NITROGEN 28 [...] 2020) 80 Feb 17, 2025 09:22 AM [facility]-inhouse (PB) URINE Specimen Type: URINE No comment entered. Ordering Provider: SIMRAN PINEDA III Report Released Date/Time: Feb 17, 2025 09:17 AM Reporting Lab: [place] [facility] [address] [facility] [place] [address] Performing Lab: [place] [facility] [address] METHADONE Negative Negative OPIATES (PB) Negative Negative COCAINE... Negative Negative THC(Marijuana... Negative Negative BENZODIAZEPINE (PB) Negative Negative AMPHETAMINE... Negative Negative CREATININE URINE/OTHERS 122.59 mg/dL OXYCODONE (UYJRQ-FES-ON) Negative Negati ve BUPRENORPHINE (STL-PB-MA) Negative ng/mL Negative ETHANOL URINE <10 mg/dL L 0-20 FENTANYL, URINE (PB) Negative ng/mL Feb 17, 2025 09:22 AM [facility] URINALYSIS W/O REFLEX CX (STL-PB) URINE Speci men Type: URINE No comment entered. Ordering Provider: SIMRAN PINEDA III Report Released Date/Time: Feb 17, 2025 09:17 AM Reporting Lab: [place] [facility] [address] [facility] [place] [id number] Performing Lab: [facility] [address] [facility] [address] URINE COLOR Yellow Yellow U.BILIRUBIN NEGATIVE mg/dL [...] URN.LEUK.EST. NEGATIVE Negative-Trace URN.SPECIFIC GRAVITY 1.028 1.005-1.029 Social History: Smoking Status (Most current) and Tobacco Use (All prior to encounter date) This section includes the most current, and the historical, smoking and tobacco- related health factors from the [place] facility where the Encounter took place. Current Smoking Status This section includes the most current smoking, or tobacco-related health factor, from the [place] facility where the Encounter took place. Date/Time Current Smoking Status Comment Facil ity Feb 17, 2025 08:30 AM [facility]-TOBACCO USE FORMER CIGARETTES [facility] Tobacco Use History This section includes a history of the smoking, or tobacco-related health factors, that were collected on or before the date of the Encounter. The data comes from the [place] facility where the Encounter took place. Date/Time Smoking Status/Tobacco Use Comment F acility Feb 17, 2025 08:30 AM VA-TOBACCO USE FOR [place] CIGARETTES [facility] Feb 18, 2024 09:30 AM VA-TOBACCO FORMER USER [facility] Feb 18, 2024 09:30 AM VA-TOBACCO QUIT 5 TO < 15 YRS [facility] Feb 16, 2023 02:00 PM VA-TOBACCO FORMER USER [facility] Feb 16, 2023 02:00 PM VA-TOBACCO QUIT 5 TO < 15 YRS [facility] Feb 19, 2022 11:30 AM VA-TOBACCO FORMER USER [facility] Feb 19, 2022 11:30 AM VA-TOBACCO QUIT 1 TO < 5 YRS [facility] Mar 04, 2021 08:30 AM VA-TOBACCO FORMER USER [facility] Mar 04, 2021 08:30 AM VA-TOBACCO QUIT 1 TO < 5 YRS [facility] Mar 08, 2019 11:49 AM VA-TOBACCO DOESNT USE WI 30 MIN WAKEUP [facility] Mar 08, 2019 11:49 AM VA-TOBACCO USE 30 YEARS OR MORE [facility] Mar 08, 2019 11:49 AM VA-TOBACCO USE ADVICE [facility] Mar 08, 2019 11:49 AM VA-TOBACCO USE MRI SPECIAL PROCEDURES TECHNOLOGIST NO [facility] Mar 08, 2019 11:49 AM VA-TOBACCO USE MED NOTIFY PROVIDER [facility] Mar 08, 2019 11:49 AM VA-TOBACCO USER EVERY DAY [facility] Mar 17, 2018 01:22 PM CURRENT TOBACCO USER [facility] Mar 17, 2018 01:22 PM CURRENT TOBACCO US ER (READY TO QUIT) [facility] Mar 17, 2018 01:22 PM SMOKELESS TOBACCO AMOUNT/LENGTH V15 45yr history [facility] Mar 17, 2018 01:22 PM TOBACCO CESSATION REFERRAL DECLINED [facility] Mar 17, 2018 01:22 PM TOBACCO USER OFFERED MEDS [facility] Aug 20, 2017 10:37 AM CURRENT TOBACCO USER [facility] Aug 20, 2017 10:37 AM CURRENT TOBACCO US ER (NOT READY TO QUIT) [facility] Aug 20, 2017 10:37 AM SMOKELESS TOBACCO AMOUNT/LENGTH V15 50yr history 1 can every week [facility] Aug 20, 2017 10:37 AM TOBACCO CESSATION REFERRAL DECLINED [facility] Aug 20, 2017 10:37 AM TOBACCO MEDS OFFER ED BUT DECLINED [facility] Aug 20, 2017 10:37 AM TOBACCO USER OFFERED MEDS [facility] Feb 24, 2017 07:10 AM CURRENT TOBACCO USER [facility] Feb 24, 2017 07:10 AM CURRENT TOBACCO US ER (NOT READY TO QUIT) [facility] Feb 24, 2017 07:10 AM TOBACCO CESSATION REFERRAL DECLINED [facility] Feb 24, 2017 07:10 AM TOBACCO MEDS OFFER ED BUT DECLINED [facility] Feb 24, 2017 07:10 AM TOBACCO USER OFFERED MEDS [facility] Dec 18, 2016 11:06 AM CURRENT TOBACCO USER [facility] Dec 18, 2016 11:06 AM CURRENT TOBACCO US ER (NOT READY TO QUIT) [facility] Dec 18, 2016 11:06 AM TOBACCO CESSATION REFERRAL DECLINED [facility] Dec 18, 2016 11:06 AM TOBACCO MEDS OFFER ED BUT DECLINED [facility] Dec 18, 2016 11:06 AM TOBACCO USER OFFERED MEDS [facility] Jan 29, 2016 07:57 AM CURRENT TOBACCO USER [facility] Jan 29, 2016 07:[address] OP SMOKING CLINIC [facility] Oct 13, 2014 08:33 AM CURRENT TOBACCO USER [facility] Oct 13, 2014 08:[address] [facility] [place] [facility] Oct 06, 2013 10:38 AM CURRENT TOBACCO USER [facility] [facility] Oct 06, 2013 10:[address] [facility] [place] [facility] Jun 28, 2012 02:19 PM CURRENT TOBACCO USER [facility] [facility] Jun 28, 2012 02:[address] [facility] [place] [facility] Jan 06, 2011 02:53 PM CURRENT TOBACCO USER [facility] [facility] Jan 06, 2011 02:53 PM TOBACCO MEDS OFFER ED BUT DECLINED [place] [facility] Jan 06, 2011 02:53 PM TOBACCO OFFERED PT MEDS (PROVIDER) [facility] Jan 06, 2011 02:[address] [facility] [place] [facility] Aug 13, 2009 02:36 PM CURRENT TOBACCO USER [facility] [facility] Aug 13, 2009 02:36 PM TOBACCO MEDS OFFER ED BUT DECLINED [place] [facility] Aug 13, 2009 02:36 PM TOBACCO OFFERED PT MEDS (PROVID[facility] [facility] Aug 13, 2009 02:[address] [facility] [place] [facility] Mar 03, 2008 08:34 AM CURRENT TOBACCO USER [place] [facility] Mar 03, 2008 08:[address] OP SMOKING CLINIC [facility] Jul 21, 2007 11:40 AM CURRENT TOBACCO USER [facility] Dec 08, 2006 08:18 AM CURRENT TOBACCO USER [place] [facility] Dec 08, 2006 08:18 AM TOBACCO MEDS OFFER ED BUT DECLINED [facility] Jul 25, 2005 10:39 AM CURRENT NON-TOBACC O USER-HX OF USE [place] [facility] Jan 27, 2005 11:41 AM CURRENT NON-TOBACC O USER-HX OF USE [place] [facility] Jul 29, 2004 08:37 AM CURRENT NON-TOBACC O USER-HX OF USE Stopped since last visit. Gained 5 pounds [place] [facility] Jan 29, 2004 09:02 AM CURRENT NON-TOBACC O USER-HX OF USE Stopped about 3-4 months ago [place] [facility] Jul 28, 2003 10:08 AM CURRENT NON-TOBACC O USER-HX OF USE [facility] August 26, 2002 10:28 AM CURRENT NON-TOBACC O USER-HX OF USE [facility] Mar 11, 2002 09:39 AM CURRENT NON-TOBACC O USER-HX OF USE [facility] Apr 08, 2001 11:01 AM CURRENT NON-TOBACC O USER-HX OF USE Stopped 1996 [facility] Oct 22, 2000 01:27 PM CURRENT NON-TOBACC O USER-HX OF USE 1 pack a da y for years / stopped 4 yrs [facility] Encounter Notes: All associated encounter notes This section contains the clinical notes associated to the Encounter. Date/Time Encounter Note(s) Provider Source Feb 21, 2025 03:11 PM LETTERS: LOCAL TITLE: TELE-EYE RESULTS LETTER STANDARD TITLE: LETTERS DATE OF NOTE: FEB 21, 2025@15:11 ENTRY DATE: FEB 21, 2025@15:11:45 AUTHOR: JENNIFER ANDERSON COSIGNER: URGENCY: STATUS: COMPLETED FEB 21, 2025 THOMPSON FELIZ [id number] [place], [place] [id number] Dear Thompson Feliz: You are receiving this letter in regard to your recent [facility] E[facility] SCREENING. The purpose of the screening is to detect specific vision-threatening conditions such as diabetic retinopathy (if you are diabetic), macular degeneration, and glaucoma. Early detection of eye disease can be important to reduce the risk of permanent vision loss. Your information and testing was reviewed by a licensed [facility] eye care provider. The date of review and findings are noted below: Screening Exam Findings 02/21/2025 *FURTHER ASSESSMENT/MONITORING NEEDED FOR MACULAR DEGENERATION* No glaucoma apparent Recommendations: 02/21/2025 Return to [facility] in 1 YEAR *Please note that incidental findings outside the primary focus of this screening may be noted within the detailed report of the visit. This report can be accessed online through [employer] (www.[email or web address].gov) or requested through your [facility] Medical Records/Release of Information office. If you have been seen by a non-VA eye care provider, please bring your records to your next [facility] appointment to be scanned into your medical record. If you are a tobacco user, VA provides tobacco cessation services which can reduce the risk of eye disease as well as risks to your overall health. Please discuss with your [facility] Primary Care team for more information. Thank you for allowing us to serve you. [place] Healthcare Team Digital retinal imaging has been shown to be an effective method of screening for specific eye conditions, but cannot substitute for a comprehensive eye exam. Comprehensive eye exams are recommended every 1-2 years, or more frequently as determined by the presence of risk factors, early signs or symptoms, or known history of eye disease. [facility]ER ANDERSON [facility]
--- OUTSIDE RECORDS SUMMARY | 2025-02-28 03:36 | XMS_ITS | Encounter Summary ---
Author Name [facility] Organization [facility] [place] Address [address] [place] [address] Care Team Providers Care Print Washer Name Role Phone SIMRAN PINEDA Primary Care [...] Patient's Relationship to Policy Cruz BRITTANI BROOKS [facility] (WNR) MEDICARE ADVANTAGE [facility] (WNR) Jan 26, 2020 [id number] [phone] TRAY,ER IC PATIENT MEDICARE (WNR) MEDICARE (M) PART B Jan 26, 2020 PART B [id number] [phone] TRAY,ER IC PATIENT MEDICARE (WNR) MEDICARE (M) PART A August 26, 2019 PART A [id number] [phone] TRAY,ER IC PATIENT Selected Encounter This section includes the information on record at [place] for the Encounter. Date/Time Encounter Type Encounter Description Reason Pro vider Source Feb 28, 2025 09:36 AM Outpatient Encounter COMMUNITY CARE CONSULT IHE Encounter Template Text not used by [facility] Plan of Treatment: Future Appointments (+ 6 months) and Future Tests (+/- 45 days) The Plan of Treatment section includes future care activities for the patient from all [place] [facility]. This section includes future appointments and future orders which are active, pending or scheduled. Future Appointments This section includes appointments that were scheduled to occur 6 months from the date of the Encounter, up to a maximum of 20 appointments. The data comes from all [facility]. Appointment Date/Time Appointment Type Appointme nt Facility Name Mar 02, 2025 01:00 PM AMBULATORY - MEDICINE [place] [facility] Apr 04, 2025 03:15 PM AMBULATORY - [place]IC[place] [facility] August 25, 2025 01:00 PM AMBULATORY - NONE [place] [facility] Active, Pending, and Scheduled Orders This section includes a listing of several types of active, pending, and scheduled orders, including clinic medications orders, diagnostic test orders, procedure orders and consult orders; where the start date of the order is 45 days before the date of the Encounter or 45 days after the date of theEncounter. The data comes from all [facility]. Test Date/Time Test Type Test Details Facility Name Feb 01, 2025 09:56 AM Consult Order COMMUNITY CARE-RHEUMATOLOGY 657A4 Cons [employer] [facility] Feb 17, 2025 03:14 PM Consult Order COMMUNITY CARE-CHIROPRACTIC [id number] [facility] Lab Results: +/- 30 days of the encounter This section includes the Chemistry and Hematology Lab Results on record with [place] for the patient. Radiology Reports and Pathology Reports are provided separately, in subsequent sections. Lab Results This section contains the Chemistry/Hematology Results that were resulted 30 days before or 30 daysafter the date of the Encounter. Date/Time Source Result Type Result - Unit Interpretation Reference Range Specimen Type Comment Feb 17, 2025 09:22 AM [facility] B12 SERUM Specimen Type: SERUM No comment entered. Ordering Provider: SIMRAN PINEDA III Report Released Date/Time: Feb 17, 2025 09:16 AM Reporting Lab: [place] [facility] [address] [place] [address] Performing Lab: [place] [facility] [address] [place] [address] B12 388 pg/mL 213-816 Feb 17, 2025 09:22 AM [facility] FOLATE (PB) SERUM Specimen Typ e: SERUM No comment entered. Ordering Provider: SIMRAN PINEDA III Report Released Date/Time: Feb 17, 2025 09:16 AM Reporting Lab: [place] [facility] [address] [place] [address] Performing Lab: [place] [facility] [address] [place] [address] FOLATE (PB) 12.3 ng/mL 7-20 Feb 17, 2025 09:22 AM [facility] HGA1C BLOOD Specimen Type: BLOOD No comment entered. Ordering Provider: SIMRAN PINEDA III Report Released Date/Time: Feb 17, 2025 09:16 AM Reporting Lab: [place] [facility] [address] [place] [address] Performing Lab: [place] [facility] [address] [place] [address] HGA1C 6.2 H 4.0-6.0 Feb 17, 2025 09:22 AM [facility] MAGNESIUM PLASM A Specimen Type: PLASMA No comment entered. Ordering Provider: SIMRAN PINEDA III Report Released Date/Time: Feb 17, 2025 09:16 AM Reporting Lab: [place] [facility] [address] [place] [address] Performing Lab: [place] [facility] [address] [place] [address] MAGNESIUM 2.19 mg/dL 1.6-2.6 Feb 17, 2025 09:22 AM [facility] CHOLESTEROL PANEL (PB) PLASMA Specimen Type: P LASMA No comment entered. Ordering Provider: SIMRAN PINEDA III Report Released Date/Time: Feb 17, 2025 09:16 AM Reporting Lab: [place] [facility] [address] [place] [address] Performing Lab: [place] [facility] [address] [place] [address] CHOLESTEROL 234 mg/dL H 0-200 TRIGLYCERIDE 190 mg/dL H 0-150 CALCULATED LDL 126.6 mg/dL HDL(New) 69.4 mg/dL H >40 HDL % OF TOTAL CHOLESTEROL (PB) 29.7 >25 Feb 17, 2025 09:22 AM [facility] VITAMIN D, 25-HYDROXY SERUM Specimen Type: SE RUM No comment entered. Ordering Provider: SIMRAN PINEDA III Report Released Date/Time: Feb 17, 2025 09:17 AM Reporting Lab: [place] [facility] [address] [place] [address] Performing Lab: [place] [facility] [address] [place] [address] VITAMIN D, 25-HYDROXY 42.9 ng/mL 30-96 Feb 17, 2025 09:22 AM [facility] URINE ALBUMIN PROFILE-ih (PB) URINE Specimen Type: URINE No comment entered. Ordering Provider: SIMRAN PINEDA III Report Released Date/Time: Feb 17, 2025 09:16 AM Reporting Lab: [place] [facility] [address] [place] [address] Performing Lab: [place] [facility] [address] [place] [address] URINE ALBUMIN (PB-STL) 276.59 mg/L uACR (PB-MA) 225.97 mg/g H 0-30 CREATININE URINE/OTHERS 122.40 mg/dL Feb 17, 2025 09:22 AM [facility] TSH (MA-PB) SERUM Specimen Typ e: SERUM No comment entered. Ordering Provider: SIMRAN PINEDA III Report Released Date/Time: Feb 17, 2025 09:17 AM Reporting Lab: [place] [facility] [address] [place] [address] Performing Lab: [place] [facility] [address] [place] [address] TSH 0.917 u[IU]/mL 0.47-5 Feb 17, 2025 09:22 AM [facility] CBC BLOOD Specimen Type: BLOOD No comment entered. Ordering Provider: SIMRAN PINEDA III Report Released Date/Time: Feb 17, 2025 09:16 AM Reporting Lab: [place] [facility] [address] [place] [address] Performing Lab: [place] [facility] [address] [place] [address] WBC 10.5 10*3/uL 3.6-11.2 RBC 4.55 10*6/uL [...] 0. 00-0.05 Feb 17, 2025 09:22 AM [facility] COMPREHENSIVE METABOLIC PANEL PLASMA Specimen Type: PLASMA No comment entered. Ordering Provider: SIMRAN PINEDA III Report Released Date/Time: Feb 17, 2025 09:17 AM Reporting Lab: [place] [facility] [address] [facility] [place] [facility] [address] Performing Lab: [place] [facility] [address] [facility] [place] [facility] [address] CREATININE 1.01 mg/dL 0.7-1.3 UREA NITROGEN 28 [...] 2020) 80 Feb 17, 2025 09:22 AM [facility] DRUG SCREEN URINE-inhouse (PB) URINE Specimen Type: URINE No comment entered. Ordering Provider: SIMRAN PINEDA III Report Released Date/Time: Feb 17, 2025 09:17 AM Reporting Lab: [place] [facility] [address] [facility] [place] [address] Performing Lab: [facility] [address] [facility] [address] METHADONE Negative Negative OPIATES (PB) Negative Negative COCAINE... Negative Negative THC(Marijuana... Negative Negative BENZODIAZEPINE (PB) Negative Negative AMPHETAMINE... Negative Negative CREATININE URINE/OTHERS 122.59 mg/dL OXYCODONE (JWOCQ-TKF-DL) Negative Negati ve BUPRENORPHINE (STL-PB-MA) Negative ng/mL Negative ETHANOL URINE <10 mg/dL L 0-20 FENTANYL, URINE (PB) Negative ng/mL Feb 17, 2025 09:22 [facility]O REFLEX CX (STL-PB) URINE Speci men Type: URINE No comment entered. Ordering Provider: SIMRAN PINEDA III Report Released Date/Time: Feb 17, 2025 09:17 AM Reporting Lab: [place] [facility] [address] [facility] [place] [phone] Performing Lab: [place] [facility] [address] [facility] [address] URINE COLOR Yellow Yellow U.BILIRUBIN NEGATIVE mg/dL [...] and tobacco- related health factors from the NE facility where the Encounter took place. Current Smoking Status This section includes the most current smoking, or tobacco-related health factor, from the NE facility where the Encounter took place. Date/Time Current Smoking Status Comment Facil ity Aug 16, 2007 05:54 PM CURRENT TOBACCO USER [facility] Encounter Notes: All associated encounter notes This section contains the clinical notes associated to the Encounter. Date/Time Encounter Note(s) Provider Source Feb 28, 2025 09:36 AM LETTERS: LOCAL TITLE: COMMUNITY CARE-REFERRAL PB (AUTO-PRINT) STANDARD TITLE: LETTERS DATE OF NOTE: FEB 28, 2025@09:36:55 ENTRY DATE: FEB 28, 2025@09:36:55 AUTHOR: [place] COSIGNER: URGENCY: STATUS: COMPLETED [place] [address] [place], [place] [address] Dear THOMPSON FELIZ, Your VA provider has referred you to a provider within the community for care. Your medical care for Chiropractor has been authorized with the Community Care Provider listed below. DO NOT REPORT TO THE [facility] [place] Provider info: An appointment has been scheduled for you on: Office Name: [facility] Address: [address] [place] [address] Address: Auth #: [id number] Referral Issue Date: 02/23/25 Expiration Date: 07/03/25 If you are unable to keep this appointment or the appointment is no longer needed, please contact the community provider above for notification/rescheduling and then call the [facility] [place] Community Care Office at [phone] ext [phone]. If you need additional care/services not mentioned above, please contact your primary care provider for a new referral. Co-Payments: If you are required to pay a VA co-payment, you will be billed by the NE for each authorized visit that you attend. However, you are NOT REQUIRED to make co-payments to a Community Provider. Prescriptions: Your community provider may write a prescription related to the authorized care. If there is an immediate need for your prescriptions from your community care visit, you may be able to get up to a 14-day fill of your prescription at your own expense for the cost of the medication, and may seek reimbursement from the VA. If you require more than a 14-day supply or if the prescribed medication is not immediately needed, your community provider will send a prescription to a VA pharmacy so that the VA can provide you with your routine medication. In-network locations can be found at https://www.va.gov/find-loc ations/ Medical Devices: Your community provider may recommend that medical devices, adapted equipment, or other items be provided for the treatment or rehabilitation of your medical condition. Veterans are generally required to obtain these items through the Prosthetics and Sensory Aids Service (PSAS) in your referring facility. Emergency/Inpatient Services: You, your community provider, or your family must provide notification within 72hr or ER visit and/or admission by [phone]. Thank you for the opportunity to serve you and for your service to our great nation! Sierra Jansen Curry [facility] Care in the Community [address] [facility] [place] [address] [place] [facility]
--- OUTSIDE RECORDS SUMMARY | 2025-03-04 16:39 | XMS_ITS | Continuity of Care Document ---
Author Name [facility] Organization [facility] Care Team Providers Care Button Sewer Hand Name Role Phone [facility] Unavailable Unavailable Problems Combined list of problems from 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 It does not include entries that were removed or entered in error. Problem Status Onset Date Problem Type Date of Resolution Comments Source Attention deficit disorder (SNOMED CT 51143284) Active Condition [place] [facility] Chronic ulcer of foot Active Condition [facility] [facility] [facility] Colon Polyps Active Condition [facility] [facility] [facility] Congestive heart failure Active Condition September 17, 2023 Entered By: KAILA LOMAX Comment: Class III [place] [facility] Coronary arteriosclerosis Active Condition Mar 04, 2021 Entered By: YULISSA HURTADO Comment: Stents x2. [facility] Depression (SCT 05198030) Active Condition [facility] [facility] Dyslexia (SNOMED CT 92247408) Active Condition [facility] [facility] [facility] Essential hypertension (SNOMED CT 01653716) Active Condition [facility] [facility] Fasciitis * (ICD-9-CM 729.4) Active Condition [facility] [facility] Hyperlipidemia (SCT 62233303) Active Condition [facility] [facility] Hypertension Active Condition [facility] Low back pain Active Condition [facility] [place] [facility] Narcolepsy (SNOMED CT 72790519) Active Condition [facility] [facility] Prediabetes Active Condition [facility] Psoriasis (SNOMED CT 0699754) Active Condition [facility] Psoriatic arthritis Active Condition [facility] RA - Rheumatoid arthritis Active Condition [place] [facility] Resistant hypertension (SNOMED CT 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 [facility] [facility] Stimulant dependence (SNOMED CT 894963286) Active Condition [facility] Encounters for other Specified Administrative Purpose (ICD-9-CM V68.89) Inactive Condition 12/08/2014 [facility] Issue of Repeat Prescriptions (ICD-9-CM V68.1) Inactive Condition 12/08/2014 [facility] Routine General Medical Examination at a Health Care Facility * (ICD-9-CM V70.0) Inactive Condition 12/08/2014 [facility] SCREENING FOR ALCOHOLISM Inactive Condition 03/14/2020 [facility] Unresolved Inactive Condition 03/14/2020 [facility] Diagnosis: ICD-10-CM Z13.5 Encounter for screening for eye and ear disorders Active Diagnosis [facility] Diagnosis: ICD-10-CM I10 Essential (primary) hypertension Active Diagnosis [facility] Diagnosis: ICD-10-CM M79.645 Pain in left finger(s) Active Diagnosis [facility] Diagnosis: ICD-10-CM I50.9 Heart failure, unspecified Active Diagnosis [facility] Diagnosis: ICD-10-CM L98.9 Disorder of the skin and subcutaneous tissue, unspecified Active Diagnosis [facility] Diagnosis: ICD-10-CM Z51.81 Encounter for therapeutic drug level monitoring Active Diagnosis [facility] Diagnosis: ICD-10-CM T81.89XA Oth complications of procedures, NEC, init Active Diagnosis [facility] Diagnosis: ICD-10-CM Z71.89 Other specified counseling Active Diagnosis [facility] [place] [facility] Diagnosis: ICD-10-CM R06.02 Shortness of breath Active Diagnosis [facility] Diagnosis: ICD-10-CM M54.50 Low back pain, unspecified Active Diagnosis [facility] Diagnosis: ICD-10-CM E78.5 Hyperlipidemia, unspecified Active Diagnosis [facility] Diagnosis: ICD-10-CM Z12.2 Encntr screen for malignant neoplasm of respiratory organs Active Diagnosis [facility] Diagnosis: ICD-10-CM Z09 Encntr for f/u exam aft trtmt for cond oth than malig neoplm Active Diagnosis [facility] Diagnosis: ICD-10-CM B37.9 Candidiasis, unspecified Active Diagnosis [facility] Diagnosis: ICD-10-CM B37.0 Candidal stomatitis Active Diagnosis [facility] Diagnosis: ICD-10-CM 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 [facility] [facility] [facility] Diagnosis: ICD-10-CM R11.2 Nausea with vomiting, unspecified Active Diagnosis [facility] Diagnosis: ICD-10-CM R05.9 Cough, unspecified Active Diagnosis [facility] Diagnosis: ICD-10-CM J01.80 Other acute sinusitis Active Diagnosis [facility] Diagnosis: ICD-10-CM R05.1 Acute cough Active Diagnosis [facility] Diagnosis: ICD-10-CM Z00.01 Encounter for general adult medical exam w abnormal findings Active Diagnosis [facility] Diagnosis: ICD-10-CM Z23 Encounter for immunization Active Diagnosis [facility] Diagnosis: ICD-10-CM E87.6 Hypokalemia Active Diagnosis [place] [facility] Medications Combined list of outpatient medications from 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Medications provided include 1) outpatient medications from the last 15 months, and 2) patient-reported medications. Medication Details Route Status Indication(s) Patie nt Instructions Prescription Expires Prescription Number Last Dispense Date Ordering Provider Order Date Order Qty Source ALIROCUMAB 150MG/ML INJ,PEN,1ML INJECT 150MG UNDER THE SKIN EVERY MONTH FOR HIGH CHOLESTE ROL SUBCUT ANEOUS ACTIVE 08/25/2025 [id number] 5 RANDEE NOGUEIRA 2024 2 [facility] ALIROCUMAB 150MG/ML INJ,PEN,1ML INJECT 150MG UNDER THE SKIN EVERY MONTH FOR HIGH CHOLESTE ROL SUBCUT ANEOUS DISCONT INUED (EDIT) 09/19/2024 [id number] 5 RANDEE NOGUEIRA 2024 2 [facility] ALIROCUMAB 150MG/ML INJ,PEN,1ML INJECT 150MG UNDER THE SKIN EVERY MONTH FOR HIGH CHOLESTE ROL SUBCUT ANEOUS DISCONT INUED 10/19/2024 [id number] 5 RANDEE NOGUEIRA 2023 2 [facility] AMLODIPINE BESYLATE 2.5MG TAB TAKE ONE TABLET BY MOUTH TWICE A DAY ORAL ACTIVE 11/11/2025 [id number] 5 CHEYENNE HOPKINS MMAD F 2024 180 [place] [facility] AMLODIPINE BESYLATE 5MG TAB TAKE ONE TABLET BY MOUTH EVERY MORNING FOR HIGH BLOOD PRESSURE ORAL DISCONT INUED BY CHELSEA R 08/25/2025 [id number] 5 RANDEE NOGUEIRA 2024 90 [facility] APIXABAN 5MG TAB TAKE ONE TABLET BY MOUTH TWICE A DAY FOR ANTICOAG ULATION ORAL ACTIVE 01/28/2026 [id number] 5 SYDNEY EGAN 2024 60 [place] [facility] APIXABAN 5MG TAB TAKE ONE TABLET BY MOUTH TWICE A DAY ORAL DISCONT INUED 02/07/2025 [id number] 5 SYDNEY EGAN 2024 60 [place] [facility] ASPIRIN 81MG TAB,EC TAKE ONE TABLET BY MOUTH ONCE A DAY ORAL ACTIVE RANDEE NOGUEIRA 2022 [facility] CYCLOBENZAP RINE HCL 10MG TAB TAKE ONE TABLET BY MOUTH THREE TIMES A DAY NEEDED FOR MUSCLE SPASM. MAY CAUSE DROWSINE SS. DO NOT DRINK ALCOHOL WHILE TAKING THIS MEDICATI ON. ORAL DISCONT INUED 09/15/2025 [id number] 5 ZARI FOX G 2024 90 [facility] [facility] CYCLOBENZAP RINE HCL 10MG TAB TAKE ONE TABLET BY MOUTH THREE TIMES A DAY NEEDED FOR MUSCLE SPASM MAY CAUSE DROWSINE SS. DO NOT DRINK ALCOHOL WHILE TAKING THIS MEDICATI ON. ORAL DISCONT INUED 08/25/2025 [id number] 5 MIHAELA KELLEY G 2024 270 [facility] EPINEPHRINE (EQV-ADRENA CLICK) 0.3MG/0.3ML INJECTOR INJECT 1 PEN (0.3MG/0 .3ML) INTRAMUS CULARLY ONE-TIME INTRAM USCULA R 02/23/2025 [id number] 4 CONOR MONTANA 2023 2 [facility] ETANERCEPT 50MG/ML INJ SYRINGE INJECT 50MG UNDER THE SKIN EVERY WEEK KEEP REFRIGER ATED. ADMINIST ER SUBCUTAN EOUSLY ON THE SAME DAY(S) EACH WEEK. SUBCUT ANEOUS ACTIVE 11/25/2025 [id number] 5 CONOR MONTANA 2024 4 [facility] ETANERCEPT 50MG/ML INJ SYRINGE INJECT 50MG UNDER THE SKIN EVERY WEEK KEEP REFRIGER ATED. ADMINIST ER SUBCUTAN EOUSLY ON THE SAME DAY(S) EACH WEEK. SUBCUT ANEOUS DISCONT INUED 06/08/2025 [id number] 5 CONOR MONTANA 2024 4 [facility] EZETIMIBE 10MG TAB TAKE ONE TABLET BY MOUTH ONCE A DAY TO LOWER CHOLESTE ROL ORAL ACTIVE 08/25/2025 [id number] 5 RANDEE ONGUEIRA 2024 90 [facility] EZETIMIBE 10MG TAB TAKE ONE TABLET BY MOUTH ONCE A DAY TO LOWER CHOLESTE ROL ORAL DISCONT INUED 08/25/2024 [id number] 5 PRINCESS HURTADO 2023 90 [facility] FLUCONAZOLE 150MG TAB TAKE ONE TABLET BY MOUTH EVERY OTHER DAY FOR FUNGAL INFECTIO N ORAL ACTIVE 08/02/2025 [id number] 5 MIHAELA KELLEY 2024 3 [facility] FUROSEMIDE 20MG TAB TAKE 1-3 TABLET(S ) BY MOUTH EACH MORNING NEEDED FOR SWELLING ORAL ACTIVE 01/13/2026 [id number] 5 CHEYENNE HOPKINS MMAD F 2024 270 [facility] FUROSEMIDE 20MG TAB TAKE ONE TABLET BY MOUTH EVERY MORNING ORAL DISCONT INUED 12/13/2025 [id number] 5 CHEYENNE HOPKINSD F 2024 90 [facility] FUROSEMIDE 20MG TAB TAKE ONE TABLET BY MOUTH ONCE A DAY ORAL DISCONT INUED 12/29/2024 [id number] 5 CHEYENNE HOPKINS MMAD F 2023 90 [facility] HYDROCODONE 5MG/ACETAMI NOPHEN 325MG TAB TAKE 1 TABLET BY MOUTH EVERY EIGHT(8) HOURS NEEDED FOR PAIN THIS QUANTITY MUST LAST 30 DAYS OR MORE CAUTION: DO NOT EXCEED 4000MG PER DAY ACETAMIN OPHEN (APAP) FROM ALL MEDS. ORAL DISCONT INUED 08/27/2024 [id number] 5 CONOR MONTANA 2024 60 [facility] LEFLUNOMIDE 10MG TAB TAKE ONE TABLET BY MOUTH ONCE A DAY TAKE AT SAME TIME EACH DAY. ORAL ACTIVE 03/05/2025 [id number] 5 CONOR MONTANA 2024 90 [facility] LEFLUNOMIDE 10MG TAB TAKE ONE TABLET BY MOUTH ONCE A DAY TAKE AT SAME TIME EACH DAY. ORAL DISCONT INUED 08/02/2025 [id number] 5 CONOR MONTANA 2024 90 [facility] LEFLUNOMIDE 20MG TAB TAKE ONE TABLET BY MOUTH ONCE A DAY TAKE AT SAME TIME EACH DAY. ORAL DISCONT INUED 07/28/2025 [id number] 5 CONOR MONTANA 2024 90 [facility] LEFLUNOMIDE 20MG TAB TAKE ONE TABLET BY MOUTH ONCE A DAY TAKE AT SAME TIME EACH DAY. ORAL DISCONT INUED 03/24/2025 [id number] 5 CONOR MONTANA 2024 90 [facility] LEFLUNOMIDE 20MG TAB TAKE ONE TABLET BY MOUTH ONCE A DAY TAKE AT SAME TIME EACH DAY. ORAL DISCONT INUED 11/11/2024 [id number] 4 CONOR MONTANA 2023 90 [facility] LOSARTAN 50MG TAB TAKE ONE TABLET BY MOUTH TWICE A DAY ORAL DISCONT INUED 08/06/2025 [id number] 5 CHEYENNE HOPKINS LATANYA F 2024 180 [facility] [facility] [facility] LOSARTAN POTASSIUM 100MG TAB TAKE ONE-HALF TABLET BY MOUTH ONCE A DAY FOR HIGH BLOOD PRESSURE ORAL DISCONT INUED (EDIT) 08/26/2024 [id number] 5 PRINCESS HURTADO 2023 45 [facility] MELOXICAM 15MG TAB TAKE ONE TABLET BY MOUTH EVERY MORNING FOR RHEUMATO ID ARTHRITI S ORAL DISCONT INUED BY PROVIDE R 02/18/2025 [id number] 4 MIHAELA KELLEY ISTEL G 2023 90 [facility] METOCLOPRAM ISIDRA HCL 10MG TAB TAKE ONE TABLET BY MOUTH EVERY EIGHT(8) HOURS NEEDED FOR NAUSEA AND VOMITING ORAL DISCONT INUED 12/24/2024 [id number] 5 CONOR MONTANA 2024 60 [facility] [facility] MICONAZOLE NITRATE 2% PWDR,TOP APPLY LIGHTLY TO AFFECTED AREA(S) THREE TIMES A DAY NEEDED FOR FUNGAL INFECTIO N FOR TOPICAL USE ONLY. TOPICA L DISCONT INUED BY PROVIDE R 11/22/2024 [id number] 5 RANDEE NOGUEIRA 2024 270 [facility] MICONAZOLE NITRATE 2% PWDR,TOP APPLY LIGHTLY TO AFFECTED AREA(S) THREE TIMES A DAY NEEDED FOR FUNGAL INFECTIO N FOR TOPICAL USE ONLY. TOPICA L DISCONT INUED 10/30/2024 [id number] 5 MIHAELA KELLEY ISTEL G 2024 270 [facility] NALOXONE HCL 4MG/SPRAY SOLN,SPRAY, NASAL USE 1 SPRAY (4MG) INTO ONE NOSTRIL ONLY ONE-TIME FOR OPIOID OVERDOSE DO NOT PRIME NASAL SPRAY. SPRAY ONE DOSE IN ONE NOSTRIL, GIVE ADDITION AL DOSE IF PATIENT DOES NOT START BREATHIN G WITHIN 2-3 MINUTES OR STOPS BREATHIN G AGAIN. CALL 911. IF USED, NOTIFY PROVIDER . NASAL 02/18/2025 [id number] 4 MIHAELA KELLEY ISTEL G 2023 2 [facility] NITROGLYCER IN 0.4MG TAB,SUBLING UAL DISSOLVE ONE TABLET UNDER THE TONGUE EVERY 5 MINUTES NEEDED ; IF NO IMPROVEM ENT AFTER FIRST DOSE CALL 9-1-1. MAY TAKE 2 ADDITION AL DOSES, 5 MINUTES APART. TAKE WHILE SITTING. SUBLIN GUAL 09/04/2024 [id number] 5 CHEYENNE HOPKINS AIDAD F 2024 100 [place] [facility] NYSTATIN [id number] L SUSP,ORAL TAKE 5 ML SWISH and SWALLOW THREE TIMES A DAY THRUSH - SHAKE WELL BEFORE USING. ORAL DISCONT INUED 08/02/2025 [id number] 5 MIHAELA KELLEY ISTEL G 2024 120 [facility] NYSTATIN [id number] L SUSP,ORAL TAKE 5 ML SWISH and SWALLOW FOUR TIMES A DAY FOR 14 DAYS - SHAKE WELL BEFORE USING. ORAL 12/03/2024 [id number] 5 LA PEDERSEN 2024 480 [place] [facility] OMEGA-3-ACI D ETHYL ESTERS 1000MG CAP,ORAL TAKE TWO CAPSULES BY MOUTH TWICE A DAY FOR HIGH TRIGLYCE RIDES ORAL ACTIVE 09/17/2025 [id number] 5 MIHAELA KELLEY ISTETeresa G 2024 240 [facility] OMEGA-3-ACI D ETHYL ESTERS 1000MG CAP,ORAL TAKE TWO CAPSULES BY MOUTH TWICE A DAY FOR HIGH TRIGLYCE RIDES ORAL DISCONT INUED 08/26/2024 [id number] 4 PRINCESS HURTADO 2023 240 [facility] ONDANSETRON HCL 4MG TAB,ORALLY DISINTEGRAT ING TAKE ONE TABLET UNDER THE TONGUE EVERY 6 HOURS NEEDED FOR NAUSEA/V OMITING SUBLIN GUAL 12/14/2024 [id number] 5 SILVERIO PINEDA E III 2024 30 [facility] PANTOPRAZOL E NA 40MG TAB,EC TAKE ONE TABLET BY MOUTH EVERY MORNING BEFORE A MEAL TO LOWER STOMACH ACID - TAKE 30 MINUTES BEFORE MEAL(S) ORAL ACTIVE 08/25/2025 [id number] 5 RANDEE NOGUEIRA 2024 90 [facility] PANTOPRAZOL E NA 40MG TAB,EC TAKE ONE TABLET BY MOUTH EVERY MORNING BEFORE A MEAL TO LOWER STOMACH ACID - TAKE 30 MINUTES BEFORE MEAL(S) ORAL DISCONT INUED 08/25/2024 [id number] 5 PRINCESS HURTADO 2023 90 [facility] POTASSIUM CHLORIDE 10MEQ TAB,SA TAKE ONE TABLET BY MOUTH ONCE A DAY TAKE WITH FOOD ORAL 01/04/2025 [id number] 4 HOPKINSCHEYENNE SIMENTAL MMAD F 2023 90 [facility] [facility] PREDNISONE 10MG TAB TAKE ONE TABLET BY MOUTH ONCE A DAY TAKE WITH FOOD OR MILK. ORAL ACTIVE 07/28/2025 [id number] 5 CONOR MONTANA 2024 90 [facility] [place] [facility] PREDNISONE 10MG TAB TAKE THREE TABLETS BY MOUTH ONCE A DAY FOR 5 DAYS, THEN TAKE TWO TABLETS ONCE A DAY FOR 5 DAYS, THEN TAKE ONE TABLET ONCE A DAY TAKE WITH FOOD OR MILK. ORAL DISCONT INUED 03/24/2025 [id number] 4 CONOR MONTANA 2023 100 [facility] [place] [facility] PREDNISONE 10MG TAB TAKE ONE TABLET BY MOUTH ONCE A DAY TAKE WITH FOOD OR MILK. ORAL DISCONT INUED 11/11/2024 [id number] 4 CONOR MONTANA 2023 90 [facility] [place] [facility] PREDNISONE 20MG TAB TAKE TWO TABLETS BY MOUTH EVERY DAY NEEDED FOR ARTHRITI S FLARE.TA KE WITH FOOD OR MILK. ORAL ACTIVE 11/25/2025 [id number] 5 CONOR MONTANA 2024 30 [facility] [place] [facility] PREDNISONE 20MG TAB TAKE TWO TABLETS BY MOUTH ONCE A DAY FOR 7 DAYS NEEDED FOR PSORIATI C ARTHRITI S. TAKE WITH FOOD OR MILK. ORAL DISCONT INUED 02/23/2025 [id number] 4 CONOR MONTANA 2023 60 [facility] [place] [facility] PROPRANOLOL HCL 80MG CAP,SA TAKE ONE CAPSULE BY MOUTH ONCE A DAY FOR HIGH BLOOD PRESSURE ORAL ACTIVE 08/25/2025 [id number] 5 RANDEE NOGUEIRA 2024 90 [facility] PROPRANOLOL HCL 80MG CAP,SA TAKE ONE CAPSULE BY MOUTH ONCE A DAY FOR HIGH BLOOD PRESSURE ORAL DISCONT INUED 08/25/2024 [id number] 5 PRINCESS HURTADO 2023 90 [facility] TRAMADOL HCL 50MG TAB TAKE 1 TABLET BY MOUTH THREE TIMES A DAY NEEDED FOR PAIN ORAL ACTIVE 06/16/2025 [id number] 5 CONOR MONTANA 2024 90 [facility] [facility] TRAMADOL HCL 50MG TAB TAKE 1 TABLET BY MOUTH THREE TIMES A DAY NEEDED FOR PAIN THIS QUANTITY MUST LAST 30 DAYS OR MORE ORAL DISCONT INUED 02/09/2025 [id number] 5 CONOR MONTANA 2024 90 [facility] [facility] TRAMADOL HCL 50MG TAB TAKE 1 TABLET BY MOUTH THREE TIMES A DAY NEEDED FOR PAIN ORAL DISCONT INUED 09/23/2024 [id number] 4 CONOR MONTANA 2023 90 [facility] [place] [facility] TRAMADOL HCL 50MG TAB TAKE 1 TABLET BY MOUTH TWICE DAILY NEEDED FOR PAIN SCALE 7-10. ORAL DISCONT INUED 08/25/2024 [id number] 4 CONOR MONTANA 2023 60 [facility] [place] [facility] TRAMADOL HCL 50MG TAB TAKE 1 TABLET BY MOUTH TWICE DAILY NEEDED FOR PAIN SCALE 7-10. ORAL DISCONT INUED 05/14/2024 [id number] 4 CONOR MONTANA 2023 60 [facility] [facility] UPADACITINI B 15MG 24HR TAB,SA TAKE ONE TABLET BY MOUTH ONCE A DAY ORAL DISCONT INUED BY CHELSEA R 03/24/2025 [id number] CONOR MONTANA 2023 30 [facility] [facility] Allergies, Adverse Reactions, Alerts Combined list of allergies from 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 It does not include entries that were removed or entered in error. Substance Category Reaction Severity Reaction type Status Date Reported Comments Source ASPIRIN RELATED MEDICATIONS Propensity to adverse reactions to drug (finding) Tinnitus active 6 [facility] AZITHROMYCIN Propensity to adverse reactions to drug (finding) Urticaria MODERATE active 5 [facility] CODEINE Propensity to adverse reactions to drug (finding) active 7 [facility] COLESTIPOL Propensity to adverse reactions to drug (finding) Muscle pain active 7 [facility] COSENTYX Propensity to adverse reactions to drug (finding) Eruption MILD active 9 [facility] FLEXERIL Propensity to adverse reactions to drug (finding) Dizziness MODERATE active 5 [facility] HORSE SERUM PROTEINS Propensity to adverse reaction (finding) active 3 [facility] HUMIRA Propensity to adverse reactions to drug (finding) Eruption MODERATE active 9 [facility] LIPITOR Propensity to adverse reactions to drug (finding) active 6 [facility] LOVASTATIN Propensity to adverse reactions to drug (finding) Muscle pain active 6 [facility] METHOTREXATE Propensity to adverse reactions to drug (finding) Liver enzymes abnormal active 7 [facility] PENICILLIN Propensity to adverse reactions to drug (finding) active 3 [facility] PENICILLIN Propensity to adverse reactions to drug (finding) Eruption, Dyspnea active 1 [facility] PERCOCET Propensity to adverse reactions to drug (finding) Nausea and vomiting MODERATE active 5 [facility] ROSUVASTATIN Propensity to adverse reactions to drug (finding) Muscle pain active 6 [facility] SIMVASTATIN Propensity to adverse reactions to drug (finding) Muscle pain active 6 [facility] SULFASALAZIN E Propensity to adverse reactions to drug (finding) Nausea and vomiting, Chill active 8 [facility] THIAZIDES/RE LATED DIURETICS Propensity to adverse reactions to drug (finding) Urticaria SEVERE active 6 [facility] Immunizations Combined list of available immunizations from the 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 Designer Status Comments Source INFLUENZA, ADJUVANTED, TRIVALENT, PF 2024 JUAN ESCAMILL[place] RIGHT [place] [id number] 168 complet ed [facility] COVID-19 (MODERNA), MRNA, LNP-S, PF, 50 MCG/0.5 ML (AGES 12+ YEARS) 2023 JUAN ESCAMILLA RIGHT DELTO ID [id number] 312 complet ed [facility] INFLUENZA, HIGH-DOSE, TRIVALENT, PF 2023 JUAN ESCAMILLA R LEFT DELTO ID [id number] 135 complet ed [facility] RSV, BIVALENT, PROTEIN SUBUNIT RSVPREF, DILUENT RECONSTITUTED , 0.5 ML, PF 2022 JOSH BENDER LEFT DELTO ID [id number] 305 complet ed [facility] COVID-19 (MODERNA), MRNA, LNP-S, PF, 50 MCG/0.5 ML (AGES 12+ YEARS) 1 2022 CLEMENCIA GONZALEZ D LEFT DELTO ID [id number] 312 complet ed [facility] INFLUENZA, HIGH-DOSE, QUADRIVALENT 2022 CLEMENCIA GONZALEZ D LEFT DELTO ID [id number] A 197 complet ed [facility] PNEUMOCOCCAL CONJUGATE PCV20, POLYSACCHARID E [id number] CONJUGATE, ADJUVANT, PF 2021 216 complet ed [facility] COVID-19 (MODERNA), MRNA, LNP-S, BIVALENT BOOSTER, PF, 50 MCG/0.5 ML OR 25MCG/0.25 ML DOSE 1 2021 229 complet ed MOD; [id number]; 3 [facility] INFLUENZA, INJECTABLE, QUADRIVALENT, PRESERVATIVE FREE 2021 150 complet ed [facility] ZOSTER RECOMBINANT [address] [facility] INFLUENZA, INJECTABLE, QUADRIVALENT, PRESERVATIVE FREE 2020 150 complet ed [facility] PNEUMOCOCCAL POLYSACCHARID E [id number] 2020 33 complet ed [facility] ZOSTER RECOMBINANT [address] [facility] COVID-19 (PFIZER), MRNA, LNP-S, PF, 30 MCG/0.3 ML DOSE 3 2020 208 complet ed HISTORICA L INFORMATI ON - FROM OTHER REGISTRY, [facility] COVID-19 (PFIZER), MRNA, LNP-S, PF, 30 MCG/0.3 ML DOSE 2 2020 208 complet ed PFR; [id number]; 1 [facility] COVID-19 (PFIZER), MRNA, LNP-S, PF, 30 MCG/0.3 ML DOSE 1 2020 208 complet ed PFR; [id number]; 1 [facility] INFLUENZA, INJECTABLE, QUADRIVALENT, PRESERVATIVE FREE 2018 150 complet [facility] PNEUMOCOCCAL CONJUGATE PCV 13 2017 133 complet ed [facility] TD(ADULT) UNSPECIFIED FORMULATION 2002 139 complet [facility] Results Combined list of recent chemistry, hematology and other laboratory results from Department of Defense and Veterans Affairs, ranging from 15 months to all on record, depending upon the facility. Order Name Results Value Reference Range Date Interpretation Specimen Comments Source B12 COBALAMIN (VITAMIN B12) [MASS/VOLUM E] IN SERUM OR PLASMA 388 pg/mL 213 - 816 02/17 Specimen Type: SERUM No comment entered. Ordering Provider: SILVERIO PINEDA III Report Released Date/Time : Feb 17, 2025 09:16 AM Reporting Lab: [place] [facility] [address] [place] [address] Performin g Lab: [place] [facility] [address] [place] [address] [facility] FOLATE (PB) FOLATE [MASS/VOLUM E] IN SERUM OR PLASMA 12.3 ng/mL 7 - 20 02/17 Specimen Type: SERUM No comment entered. Ordering Provider: SILVERIO PINEDA III Report Released Date/Time : Feb 17, 2025 09:16 AM Reporting Lab: [place] [facility] [address] [place] [address] Performin g Lab: [place] [facility] [address] [place] [address] [facility] HGA1C HEMOGLOBIN A1C/HEMOGLO BIN.TOTAL IN BLOOD 6.2 4.0 - 6.0 02/17 H Specimen Type: BLOOD No comment entered. Ordering Provider: SILVERIO PINEDA III Report Released Date/Time : Feb 17, 2025 09:16 AM Reporting Lab: [place] [facility] [address] [place] [address] Performin g Lab[facility] [place] [facility] [address] [place] [address] [facility] URINE ALBUMIN PROFILE-ih (PB) ALBUMIN [MASS/VOLUM E] IN URINE 276.59 mg/L 02/17 Specimen Type: URINE No comment entered. Ordering Provider: SILVERIO PINEDA III Report Released Date/Time : Feb 17, 2025 09:16 AM Reporting Lab: [place] [facility] [address] [place] [address] Performin g Lab: [place] [facility] [address] [place] [address] [facility] URINE ALBUMIN PROFILE-ih (PB) ALBUMIN/CRE ATININE [MASS RATIO] IN URINE 225.97 mg/g 0 - 30 02/17 H Specimen Type: URINE No comment entered. Ordering Provider: SILVERIO PINEDA III Report Released Date/Time : Feb 17, 2025 09:16 AM Reporting Lab: [place] [facility] [address] [place] [address] 8 Performin g Lab: [place] [facility] [address] [place] [address] 8 [facility] URINE ALBUMIN PROFILE-ih (PB) CREATININE [MASS/VOLUM E] IN URINE 122.40 mg/dL 02/17 Specimen Type: URINE No comment entered. Ordering Provider: SILVERIO PINEDA III Report Released Date/Time : Feb 17, 2025 09:16 AM Reporting Lab: [place] [facility] [address] [place] [address] 8 Performin g Lab: [place] [facility] [address] [place] [address] 8 [facility] CHOLESTERO L PANEL (PB) CHOLESTEROL [MASS/VOLUM E] IN SERUM OR PLASMA 234 mg/dL 0 - 200 02/17 H Specimen Type: PLASMA No comment entered. Ordering Provider: SILVERIO PINEDA III Report Released Date/Time : Feb 17, 2025 09:16 AM Reporting Lab: [place] [facility] [address] [place] [address] 8 Performin g Lab: [place] [facility] [address] [place] [address] 8 [facility] CHOLESTERO L PANEL (PB) TRIGLYCERID E [MASS/VOLUM E] IN SERUM OR PLASMA 190 mg/dL 0 - 150 02/17 H Specimen Type: PLASMA No comment entered. Ordering Provider: SILVERIO PINEDA III Report Released Date/Time : Feb 17, 2025 09:16 AM Reporting Lab: [place] [facility] [address] [place] [address] 8 Performin g Lab: [place] [facility] [address] [place] [address] 8 [facility] CHOLESTERO L PANEL (PB) CHOLESTEROL IN LDL [MASS/VOLUM E] IN SERUM OR PLASMA BY CALCULATION 126.6 mg/dL 02/17 Specimen Type: PLASMA No comment entered. Ordering Provider: SILVERIO PINEDA III Report Released Date/Time : Feb 17, 2025 09:16 AM Reporting Lab: [place] [facility] [address] [place] [address] 8 Performin g Lab: [place] [facility] [address] [place] [address] 8 [facility] CHOLESTERO L PANEL (PB) CHOLESTEROL IN HDL [MASS/VOLUM E] IN SERUM OR PLASMA 69.4 mg/dL 40 02/17 H Specimen Type: PLASMA No comment entered. Ordering Provider: SILVERIO PINEDA III Report Released Date/Time : Feb 17, 2025 09:16 AM Reporting Lab: [place] [facility] [address] [place] [address] 8 Performin g Lab: [place] [facility] [address] [place] [address] 8 [facility] CHOLESTERO L PANEL (PB) CHOLESTEROL IN HDL/CHOLEST WILLIAM.TOTAL [MASS RATIO] IN SERUM OR PLASMA 29.7 25 02/17 Specimen Type: PLASMA No comment entered. Ordering Provider: SILVERIO PINEDA III Report Released Date/Time : Feb 17, 2025 09:16 AM Reporting Lab: [place] [facility] [address] [place] [address] 8 Performin g Lab: [place] [facility] [address] [place] [address] 8 [facility] VITAMIN D, 25-HYDROXY 25-HYDROXYV ITAMIN D3 [MASS/VOLUM E] IN SERUM OR PLASMA 42.9 ng/mL 30 - 96 02/17 Specimen Type: SERUM No comment entered. Ordering Provider: SILVERIO PINEDA III Report Released Date/Time : Feb 17, 2025 09:17 AM Reporting Lab: [place] [facility] [address] [place] [address] 8 Performin g Lab: [place] [facility] [address] [place] [address] 8 [facility] MAGNESIUM MAGNESIUM [MASS/VOLUM E] IN SERUM OR PLASMA 2.19 mg/dL 1.6 - 2.6 02/17 Specimen Type: PLASMA No comment entered. Ordering Provider: SILVERIO PINEDA III Report Released Date/Time : Feb 17, 2025 09:16 AM Reporting Lab: [place] [facility] [address] [place] [address] 8 Performin g Lab: [place] [facility] [address] [place] [address] 8 [facility] TSH (MA-PB) THYROTROPIN [UNITS/VOLU ME] IN SERUM OR PLASMA 0.917 u[IU]/mL 0.47 - 5 02/17 Specimen Type: SERUM No comment entered. Ordering Provider: SILVERIO PINEDA E III Report Released Date/Time : Feb 17, 2025 09:17 AM Reporting Lab: [place] [facility] [address] [place] [address] 8 Performin g Lab: [place] [facility] [address] [place] [address] 8 [facility] COMPREHENS SYLVAIN METABOLIC PANEL CREATININE [MASS/VOLUM E] IN SERUM OR PLASMA 1.01 mg/dL 0.7 - 1.3 02/17 Specimen Type: PLASMA No comment entered. Ordering Provider: SILVERIO PINEDA III Report Released Date/Time : Feb 17, 2025 09:17 AM Reporting Lab: [place] [facility] [address] [place] [address] 8 Performin g Lab: [place] [facility] [address] [place] [address] 8 [facility] COMPREHENS SYLVAIN METABOLIC PANEL UREA NITROGEN [MASS/VOLUM E] IN SERUM OR PLASMA 28 mg/dL 9 - 25 02/17 H Specimen Type: PLASMA No comment entered. Ordering Provider: SILVERIO PINEDA III Report Released Date/Time : Feb 17, 2025 09:17 AM Reporting Lab: [place] [facility] [address] [place] [address] 8 Performin g Lab: [place] [facility] [address] [place] [address] 8 [facility] COMPREHENS SYLVAIN METABOLIC PANEL GLUCOSE [MASS/VOLUM E] IN SERUM OR PLASMA 108 mg/dL 72 - 99 02/17 H Specimen Type: PLASMA No comment entered. Ordering Provider: SILVERIO PINEDA III Report Released Date/Time : Feb 17, 2025 09:17 AM Reporting Lab: [place] [facility] [address] [place] [address] 8 Performin g Lab: [place] [facility] [address] [place] [address] 8 [facility] COMPREHENS SYLVAIN METABOLIC PANEL SODIUM [MOLES/VOLU ME] IN SERUM OR PLASMA 144 meq/L 136 - 145 02/17 Specimen Type: PLASMA No comment entered. Ordering Provider: SILVERIO PINEDA III Report Released Date/Time : Feb 17, 2025 09:17 AM Reporting Lab: [place] [facility] [address] [place] [address] 8 Performin g Lab: [place] [facility] [address] [place] [address] 8 [facility] COMPREHENS SYLVAIN METABOLIC PANEL POTASSIUM [MOLES/VOLU ME] IN SERUM OR PLASMA 3.8 meq/L 3.5 - 5 02/17 Specimen Type: PLASMA No comment entered. Ordering Provider: SILVERIO PINEDA III Report Released Date/Time : Feb 17, 2025 09:17 AM Reporting Lab: [place] [facility] [address] [place] [address] 8 Performin g Lab: [place] [facility] [address] [place] [address] 8 [facility] COMPREHENS SYLVAIN METABOLIC PANEL CHLORIDE [MOLES/VOLU ME] IN SERUM OR PLASMA 100 meq/L 98 - 107 02/17 Specimen Type: PLASMA No comment entered. Ordering Provider: SILVERIO PINEDA III Report Released Date/Time : Feb 17, 2025 09:17 AM Reporting Lab: [place] [facility] [address] [place] [address] 8 Performin g Lab: [place] [facility] [address] [place] [address] 8 [facility] COMPREHENS SYLVAIN METABOLIC PANEL CARBON DIOXIDE, TOTAL [MOLES/VOLU ME] IN SERUM OR PLASMA 30 meq/L 22 - 31 02/17 Specimen Type: PLASMA No comment entered. Ordering Provider: PINEDA,HO HILTON E III Report Released Date/Time : Feb 17, 2025 09:17 AM Reporting Lab: [place] [facility] [address] [place] [address] 8 Performin g Lab: [place] [facility] [address] [place] [address] 8 [facility] COMPREHENS SYLVAIN METABOLIC PANEL CALCIUM [MASS/VOLUM E] IN SERUM OR PLASMA 10.4 mg/dL 8.4 - 10.4 02/17 Specimen Type: PLASMA No comment entered. Ordering Provider: SILVERIO PINEDA E III Report Released Date/Time : Feb 17, 2025 09:17 AM Reporting Lab: [place] [facility] [address] [place] [address] 8 Performin g Lab: [place] [facility] [address] [place] [address] 8 [facility] COMPREHENS SYLVAIN METABOLIC PANEL PROTEIN [MASS/VOLUM E] IN SERUM OR PLASMA 7.3 g/dL 6 - 8.6 02/17 Specimen Type: PLASMA No comment entered. Ordering Provider: SILVERIO PINEDA E III Report Released Date/Time : Feb 17, 2025 09:17 AM Reporting Lab: [place] [facility] [address] [place] [address] 8 Performin g Lab: [place] [facility] [address] [place] [address] 8 [facility] COMPREHENS SYLVAIN METABOLIC PANEL ALBUMIN [MASS/VOLUM E] IN SERUM OR PLASMA 4.4 g/dL 3.4 - 5 02/17 Specimen Type: PLASMA No comment entered. Ordering Provider: SILVERIO PINEDA E III Report Released Date/Time : Feb 17, 2025 09:17 AM Reporting Lab: [place] [facility] [address] [place] [address] 8 Performin g Lab: [place] [facility] [address] [place] [address] 8 [facility] COMPREHENS SYLVAIN METABOLIC PANEL BILIRUBIN.T OTAL [MASS/VOLUM E] IN SERUM OR PLASMA 0.5 mg/dL 0.2 - 1.2 02/17 Specimen Type: PLASMA No comment entered. Ordering Provider: SILVERIO PINEDA E III Report Released Date/Time : Feb 17, 2025 09:17 AM Reporting Lab: [place] [facility] [address] [place] [address] 8 Performin g Lab: [place] [facility] [address] [place] [address] 8 [facility] COMPREHENS SYLVAIN METABOLIC PANEL ALKALINE PHOSPHATASE [ENZYMATIC ACTIVITY/VO LUME] IN SERUM OR PLASMA 46 U/L 40 - 150 02/17 Specimen Type: PLASMA No comment entered. Ordering Provider: SILVERIO PINEDA E III Report Released Date/Time : Feb 17, 2025 09:17 AM Reporting Lab: [place] [facility] [address] [place] [address] 8 Performin g Lab: [place] [facility] [address] [place] [address] 8 [facility] COMPREHENS SYLVAIN METABOLIC PANEL ASPARTATE AMINOTRANSF ERASE [ENZYMATIC ACTIVITY/VO LUME] IN SERUM OR PLASMA 38 U/L 5 - 34 02/17 H Specimen Type: PLASMA No comment entered. Ordering Provider: SILVERIO PINEDA E III Report Released Date/Time : Feb 17, 2025 09:17 AM Reporting Lab: [place] [facility] [address] [place] [address] 8 Performin g Lab: [place] [facility] [address] [place] [address] 8 [facility] COMPREHENS SYLVAIN METABOLIC PANEL ALANINE AMINOTRANSF ERASE [ENZYMATIC ACTIVITY/VO LUME] IN SERUM OR PLASMA 33 U/L 8 - 40 02/17 Specimen Type: PLASMA No comment entered. Ordering Provider: SILVERIO PIENDA E III Report Released Date/Time : Feb 17, 2025 09:17 AM Reporting Lab: [place] [facility] [address] [place] [address] 8 Performin g Lab: [place] [facility] [address] [place] [address] 8 [facility] COMPREHENS SYLVAIN METABOLIC PANEL GLOMERULAR FILTRATION RATE [VOLUME RATE/AREA] IN SERUM, PLASMA OR BLOOD BY CREATININE- BASED FORMULA (CKD-EPI 2020)/1.73 SQ M 80 02/17 Specimen Type: PLASMA No comment entered. Ordering Provider: SILVERIO PINEDA III Report Released Date/Time : Feb 17, 2025 09:17 AM Reporting Lab: [place] [facility] [address] [place] [address] 8 Performin g Lab: [place] [facility] [address] [place] [address] 8 [facility] DRUG SCREEN URINE-inho use (PB) METHADONE [PRESENCE] IN URINE Negative 02/17 Specimen Type: URINE No comment entered. Ordering Provider: SILVERIO PINEDA III Report Released Date/Time : Feb 17, 2025 09:17 AM Reporting Lab: [place] [facility] [address] [place] [address] 8 Performin g Lab: [place] [facility] [address] [place] [address] 8 [facility] DRUG SCREEN URINE-inho use (PB) OPIATES [PRESENCE] IN URINE BY SCREEN METHOD Negative 02/17 Specimen Type: URINE No comment entered. Ordering Provider: SILVERIO PINEDA III Report Released Date/Time : Feb 17, 2025 09:17 AM Reporting Lab: [place] [facility] [address] [place] [address] 8 Performin g Lab: [place] [facility] [address] [place] [address] 8 [facility] DRUG SCREEN URINE-inho use (PB) COCAINE [PRESENCE] IN URINE Negative 02/17 Specimen Type: URINE No comment entered. Ordering Provider: SILVERIO PINEDA III Report Released Date/Time : Feb 17, 2025 09:17 AM Reporting Lab: [place] [facility] [address] [place] [address] 8 Performin g Lab: [place] [facility] [address] [place] [address] 8 [facility] DRUG SCREEN URINE-inho use (PB) TETRAHYDROC ANNABINOL [PRESENCE] IN URINE BY SCREEN METHOD Negative 02/17 Specimen Type: URINE No comment entered. Ordering Provider: SILVERIO PINEDA III Report Released Date/Time : Feb 17, 2025 09:17 AM Reporting Lab: [place] [facility] [address] [place] [address] 8 Performin g Lab: [place] [facility] [address] [place] [address] 8 [facility] DRUG SCREEN URINE-inho use (PB) BENZODIAZEP ADITYA [PRESENCE] IN URINE BY SCREEN METHOD Negative 02/17 Specimen Type: URINE No comment entered. Ordering Provider: SILVERIO PINEDA III Report Released Date/Time : Feb 17, 2025 09:17 AM Reporting Lab: [place] [facility] [address] [place] [address] 8 Performin g Lab: [place] [facility] [address] [place] [address] 8 [facility] DRUG SCREEN URINE-inho use (PB) AMPHETAMINE [PRESENCE] IN URINE BY SCREEN METHOD Negative 02/17 Specimen Type: URINE No comment entered. Ordering Provider: SILVERIO PINEDA III Report Released Date/Time : Feb 17, 2025 09:17 AM Reporting Lab: [place] [facility] [address] [place] [address] 8 Performin g Lab: [place] [facility] [address] [place] [address] 8 [facility] DRUG SCREEN URINE-inho use (PB) CREATININE [MASS/VOLUM E] IN URINE 122.59 mg/dL 02/17 Specimen Type: URINE No comment entered. Ordering Provider: SILVERIO PINEDA III Report Released Date/Time : Feb 17, 2025 09:17 AM Reporting Lab: [place] [facility] [address] [place] [address] 8 Performin g Lab: [place] [facility] [address] [place] [address] 8 [facility] DRUG SCREEN URINE-inho use (PB) OXYCODONE CUTOFF [MASS/VOLUM E] IN URINE FOR SCREEN METHOD Negative 10/24 /2025 Specimen Type: URINE No comment entered. Ordering Provider: SILVERIO PINEDA E III Report Released Date/Time : Feb 17, 2025 09:17 AM Reporting Lab: [place] [facility] [address] [place] [address] 8 Performin g Lab: [place] [facility] [address] [place] [address] 8 [facility] DRUG SCREEN URINE-inho use (PB) BUPRENORPHI NE [PRESENCE] IN URINE Negativen g/mL 02/17 Specimen Type: URINE No comment entered. Ordering Provider: SILVERIO PINEDA III Report Released Date/Time : Feb 17, 2025 09:17 AM Reporting Lab: [place] [facility] [address] [place] [address] 8 Performin g Lab: [place] [facility] [address] [place] [address] 8 [facility] DRUG SCREEN URINE-inho use (PB) ETHANOL [MASS/VOLUM E] IN URINE <10mg/dL 0 - 20 02/17 L Specimen Type: URINE No comment entered. Ordering Provider: SILVERIO PINEDA III Report Released Date/Time : Feb 17, 2025 09:17 AM Reporting Lab: [place] [facility] [address] [place] [address] 8 Performin g Lab: [place] [facility] [address] [place] [address] 8 [facility] DRUG SCREEN URINE-inho use (PB) FENTANYL [PRESENCE] IN URINE Negativen g/mL 02/17 Specimen Type: URINE No comment entered. Ordering Provider: SILVERIO PINEDA III Report Released Date/Time : Feb 17, 2025 09:17 AM Reporting Lab: [place] [facility] [address] [place] [address] 8 Performin g Lab: [place] [facility] [address] [place] [address] 8 [facility] Vital Signs Combined list of inpatient and outpatient Vital Signs from Department of Defense and Veterans Affairs, ranging from 12 months to all on record, depending upon the facility. Vital Sign Value Date Comments Source SYSTOLIC BLOOD PRESSURE 186 02/17/2025 09:02:44 [place] [facility] DIASTOLIC BLOOD PRESSURE 110 02/17/2025 09:02:44 [facility] [place] [facility] PULSE OXIMETRY 97 % 02/17/2025 09:02:44 [facility] [facility] WEIGHT 250.5 02/17/2025 09:02:44 [facility] [place] [place] [facility] BMI 34 kg/m2 02/17/2025 09:02:44 [facility] [place] [facility] PAIN 7 02/17/2025 09:02:44 [facility] [place] [facility] TEMPERATURE 98 02/17/2025 09:02:44 [facility] [place] [facility] PULSE 94 02/17/2025 09:02:44 [place] [facility] RESPIRATION 22 02/17/2025 09:02:44 [place] [facility] SYSTOLIC BLOOD PRESSURE 147 02/07/2025 08:42:00 [place] [facility] DIASTOLIC BLOOD PRESSURE 106 02/07/2025 08:42:00 [place] [facility] PULSE OXIMETRY 95 % 02/07/2025 08:42:00 [facility] WEIGHT 249.1 02/07/2025 08:42:00 [place] [facility] BMI 34 kg/m2 02/07/2025 08:42:00 [place] [facility] PAIN 2 02/07/2025 08:42:00 [place] [facility] TEMPERATURE 97.7 02/07/2025 08:42:00 [place] [facility] PULSE 79 02/07/2025 08:42:00 [place] [facility] RESPIRATION 20 02/07/2025 08:42:00 [place] [facility] SYSTOLIC BLOOD PRESSURE 102 11/14/2024 12:20:23 [facility] [place] [facility] DIASTOLIC BLOOD PRESSURE 78 11/14/2024 12:20:23 [facility] [place] [facility] PULSE OXIMETRY 98 % 11/14/2024 12:20:23 [facility] [place] [facility] WEIGHT 236.8 11/14/2024 12:20:23 [facility] [place] [facility] BMI 32 kg/m2 11/14/2024 12:20:23 [facility] [place] [place] [facility] PAIN 9 11/14/2024 12:20:23 [facility] [place] [facility] TEMPERATURE 97.8 11/14/2024 12:20:23 [place] [facility] PULSE 69 11/14/2024 12:20:23 [facility] RESPIRATION 18 11/14/2024 12:20:23 [facility] SYSTOLIC BLOOD PRESSURE 160 10/17/2024 14:52:05 [facility] [place] [facility] DIASTOLIC BLOOD PRESSURE 74 10/17/2024 14:52:05 [place] [facility] PULSE OXIMETRY 96 % 10/17/2024 14:52:05 [facility] [place] [facility] TEMPERATURE 97.6 10/17/2024 14:52:05 [place] [facility] PULSE 83 10/17/2024 14:52:05 [place] [facility] RESPIRATION 20 10/17/2024 14:52:05 [place] [facility] SYSTOLIC BLOOD PRESSURE 138 09/27/2024 15:32:00 [place] [facility] DIASTOLIC BLOOD PRESSURE 88 09/27/2024 15:32:00 [place] [facility] PULSE OXIMETRY 95 09/27/2024 15:32:00 [facility] [place] [facility] WEIGHT 251.0 09/27/2024 15:32:00 [place] [facility] BMI 34 kg/m2 09/27/2024 15:32:00 [place] [facility] PAIN 6 09/27/2024 15:32:00 [place] [facility] TEMPERATURE 98.0 09/27/2024 15:32:00 [place] [facility] PULSE 77 09/27/2024 15:32:00 [place] [facility] RESPIRATION 18 09/27/2024 15:32:00 [place] [facility] Encounters Combined list of: 1) Encounters from Department of Veterans Affairs facilities going backup to the last 18 months, not all VA inpatient encounters are included; 2) Encounters from the Department of Defense facilities going backup to 280 months. Location Location Details Encounter Type Encounter Number Reason For Visit Attending Provider ADM Date DC Date Status Disposition Source [facility] Outpatient Encounter [id number] 09/08 [facility] Outpatient Encounter [id number] 09/09 [facility] Outpatient Encounter [id number] 09/16 [facility] MTMS BY PHARM ADDL 15 MIN [id number] Diagnos is: ICD-10- CM E78.5 Hyperli pidemia , unspeci fied JERO,J AUSTIN W 09/27 [facility] MTMS BY PHARM ADDL 15 MIN [id number] Diagnos is: ICD-10- CM E78.5 Hyperli pidemia , unspeci fied JERO,J [place] W 10/18 [facility] Outpatient Encounter [id number] 11/11 [facility] Outpatient Encounter [id number] 11/11 [facility] Outpatient Encounter [id number] 11/12 [facility] Outpatient Encounter [id number] 11/24 [facility] Outpatient Encounter [id number] 12/10 [facility] MTMS BY PHARM ADDL 15 MIN [id number] Diagnos is: ICD-10- CM E78.5 Hyperli pidemia , unspeci fied JERO,J [place] W 12/23 [facility] Outpatient Encounter [id number] 12/28 [facility] Outpatient Encounter [id number] 12/28 [facility] QNHP OL DIG ASSMT&MGMT 5-10 [id number] Diagnos is: ICD-10- CM E87.6 Hypokal jessica MORENO,JAILENE V 12/29 [facility] Outpatient Encounter [id number] 01/05 [facility] [id number] 01/12 [facility] Outpatient Encounter [id number] 01/21 [facility] Outpatient Encounter [id number] 01/21 [facility] Outpatient Encounter [id number] 02/05 [facility] Outpatient Encounter [id number] 02/10 [facility] Outpatient Encounter [id number] 02/10 [facility] OFF/OP EST AUGUST X REQ PHY/QHP [id number] Diagnos is: ICD-10- CM Z23 Encount er for immuniz GHADA Escamilla 02/10 [facility] MTMS BY PHARM ADDL 15 MIN [id number] Diagnos is: ICD-10- CM E78.5 Hyperli pidemia , unspeci fied JEROChet KENDRICK W 02/17 [facility] OFFICE O/P EST HI 40 MIN [id number] Diagnos is: ICD-10- CM Z00.01 Encount er for general adult medical exam w abnorma l finding s DIDI KELLEY STETeresa G 02/17 [facility] Outpatient Encounter [id number] 02/17 [facility] [id number] 02/23 [facility] En[facility] [id number] 02/25 [facility] Outpatient Encounter [id number] [place] [place] 02/28 [facility] [id number] [id number] 02/28 [facility] Outpatient Encounter 66537-9.65 [id number] 03/17 [facility] Outpatient Encounter 20614-6.65 [id number] 03/22 [facility] QNHP OL DIG ASSMT&MGMT 21+ 48936-6.65 [id number] Diagnos is: ICD-10- CM L40.52 Psoriat ic arthrit is GAY Hernandez 03/25 [facility] MTMS BY PHARM ADDL 15 MIN [id number] [id number] Diagnos is: ICD-10- CM E78.5 Hyperli pidemia , unspeci fied JEROChet AUSTIN W 04/01 [facility] Outpatient Encounter [id number] [id number] 04/14 [facility] OFF/OP EST MAY X REQ PHY/QHP [id number] [id number] Diagnos is: ICD-10- CM R05.1 Acute cough Chet DANGELO 04/21 [facility] OFFICE O/P EST MOD 30 MIN [id number] [id number] Diagnos is: ICD-10- CM J01.80 Other acute sinusit is DIDI KELLEY STEL G 04/21 [facility] Outpatient Encounter 13399-6.65 [id number] 04/26 [facility] OFF/OP EST MAY X REQ PHY/QHP [id number] [id number] Diagnos is: ICD-10- CM R05.9 Cough, unspeci fied CUSTRED,TO RRI J 05/12 [facility] OFFICE O/P EST MOD 30 MIN [id number] [id number] Diagnos is: ICD-10- CM R11.2 Nausea with vomitin g, unspeci fied DIDI KELLEY STEL G 05/12 [facility] Outpatient Encounter 33235-2.65 [id number] 05/17 [facility] MTMS BY PHARM ADDL 15 MIN [id number] [id number] Diagnos is: ICD-10- CM E78.5 Hyperli pidemia , unspeci fied Chet NOGUEIRA W 05/20 [facility] Outpatient Encounter [id number] [id number] 05/26 [facility] MTMS BY PHARM BRUSH OPERATOR 15 MIN 42086-9.65 [id number] Diagnos is: ICD-10- CM L40.52 Psoriat ic arthrit is JAILENE Han V 06/07 [facility] Outpatient Encounter 72409-4.65 [id number] 06/08 [facility] Outpatient Encounter 21269-7.65 [id number] 5 06/13 [facility] Outpatient Encounter 01553-5.65 [id number] 06/17 [facility] Outpatient Encounter 92516-4.65 [id number] 07/21 [facility] Outpatient Encounter 24363-5.65 [id number] 07/26 [facility] Outpatient Encounter 40039-8.65 [id number] 07/27 [facility] Outpatient Encounter 19515-5.65 [id number] 07/28 [facility] Outpatient Encounter 31865-0.65 [id number] 07/29 [facility] Encounter [id number] [id number] 07/29 [facility] OFFICE O/P EST MOD 30 MIN 02412-2.65 [id number] Diagnos is: ICD-10- CM B37.0 Nury l stomati tis DIDI KELLEY G 08/01 [facility] OFF/OP EST AUGUST X REQ PHY/QHP 70945-6.65 [id number] Diagnos is: ICD-10- CM B37.9 Candidi asis, unspeci fied CELESTIN,AN SERVANDO D 08/01 [facility] Outpatient Encounter [id number] [id number] 08/05 [facility] Outpatient Encounter [id number] [id number] 08/05 [facility] Outpatient Encounter 61579-7.65 [id number] 08/15 [facility] Outpatient Encounter 07050-5.65 [id number] JAZLYN VILLAVICENCIO L 08/15 [facility] Outpatient Encounter 73963-8.65 [id number] 2 08/16 [facility] Outpatient Encounter 30234-4.65 [id number] 1 08/17 [facility] Encounter 85256-7.65 [id number] 08/17 [facility] Encounter 92869-6.65 [id number] REJI PENDLETON 08/18 [facility] Outpatient Encounter 03773-7.65 [id number] REJI PENDLETON A 08/19 [facility] 11422-9.65 [id number] 08/19 [facility] Encounter 09763-4.65 [id number] 08/23 [facility] Encounter [id number] [id number] 08/23 [facility] MTMS BY PHARM ADDL 15 MIN [id number] [id number] Diagnos is: ICD-10- CM E78.5 Hyperli pidemia , unspeci fied Chet NOGUEIRA W 08/24 [facility] OFFICE O/P EST MOD 30 MIN [id number] [id number] Diagnos is: ICD-10- CM Z09 Encntr for f/u exam aft trtmt for cond oth than malig DIDI Mcdonough G 08/24 [facility] En[facility] 30191-3.65 [id number] 08/25 [facility] Outpatient Encounter 01210-3.65 [id number] 08/25 [facility] Outpatient Encounter [id number] [id number] NIKOLE ÁLVAREZ A 08/25 [facility] Encounter [id number] [id number] 08/25 [facility] Outpatient Encounter [id number] [id number] Diagnos is: ICD-10- CM Z12.2 Encntr screen for maligna nt neoplas m of respira tory organs Chet SOMERS 08/29 [place] [facility] Outpatient Encounter 72587-2.65 [id number] DEBBY COWAN 08/31 [facility] Outpatient Encounter 31505-4.65 [id number] 09/05 [facility] Outpatient Encounter [id number] [id number] 09/09 [facility] Outpatient Encounter [id number] [id number] 09/16 [facility] MTMS BY PHARM ADDL 15 MIN [id number] [id number] Diagnos is: ICD-10- CM E78.5 Hyperli pidemia , unspeci Chet Rosas W 09/21 [facility] OFFICE O/P EST MOD 30 MIN [id number] [id number] Diagnos is: ICD-10- CM M54.50 Low back pain, unspeci fied MIHAELA KELLEYI STEL G 09/27 [facility] Outpatient Encounter [id number] [id number] 09/27 [facility] OFFICE O/P EST LOW 20 MIN [id number] [id number] Diagnos is: ICD-10- CM R06.02 Shortne ss of breath WARRENKRI STEL G 10/17 [facility] Outpatient Encounter 24031-6.65 [id number] 10/18 [place] [facility] Encounter 76701-8.56 [id number] 10/25 [facility] Outpatient Encounter 19888-7.65 [id number] JAZLYN VILLAVICENCIO 10/25 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 Encounter 33390-5.56 [id number] 11/03 [facility] Encounter 73619-8.65 [id number] DEBBY GARVEY 11/07 [facility] Outpatient Encounter 92950-3.65 [id number] 11/08 [facility] Outpatient Encounter [id number] [id number] 11/10 [facility] LO [facility] Outpatient Encounter [id number] [id number] 11/10 [facility] Outpatient Encounter 23000-1.65 [id number] 11/10 [facility] Outpatient Encounter 17772-8.65 [id number] 11/14 [facility] OFFICE O/P EST MOD 30 MIN [id number] [id number] Diagnos is: ICD-10- CM T81.89X A Oth complic ations of procedu res, NEC, init PINEDA,SUNNY ER E III 11/14 [facility] Outpatient Encounter 14085-7.65 [id number] DEBBY GARVEY GHAAD 11/18 [facility] En[facility] 43651-1.65 [id number] 11/18 [facility] Outpatient Encounter 74375-9.65 [id number] 11/18 [facility] Outpatient Encounter 46535-8.65 [id number] 11/21 [facility] Outpatient Encounter 23259-5.65 [id number] 6 11/21 [facility] Outpatient Encounter 57052-0.65 [id number] 7 11/21 [facility] Outpatient Encounter 42160-2.65 [id number] 11/24 [facility] Outpatient Encounter 15612-7.65 [id number] 5 12/05 [facility] Outpatient Encounter 39966-2.65 [id number] 12/15 [facility] Encounter 72586-0.65 [id number] GHADA ESCAMILLA 01/02 [facility] Outpatient Encounter [id number] [id number] 01/09 [facility] NQHP OL DIG ASSMT&MGMT 5-10 73647-2.65 [id number] Diagnos is: ICD-10- CM Z51.81 Encount er for therape utic drug level monitor BASIA Andrade 01/09 [facility] Outpatient Encounter [id number] [id number] 01/12 [facility] Encounter 88255-4.65 [id number] 01/24 [facility] Encounter [id number] [id number] DEBBY COWAN J 01/25 [facility] Out[facility] Encounter 96766-6.65 [id number] 01/25 [facility] Out[facility] Encounter 21697-0.65 [id number] 2 01/27 [facility] Encounter 79603-6.65 [id number] 6 01/27 [facility] Outpatient Encounter 48123-2.65 [id number] 01/30 [facility] Outpatient Encounter [id number] [id number] 02/03 [facility] OFF/OP EST MAY X REQ PHY/QHP [id number] [id number] Diagnos is: ICD-10- CM M79.645 Pain in left finger( s) SABI,HOLA SERVANDO D 02[facility]07 [facility] OFFICE O/P EST LOW 20 MIN [id number] [id number] Diagnos is: ICD-10- CM L98.9 Disorde r of the skin and subcuta neous tissue, unspeci fied EDWIN,SUNNY ER E III 02/07 [facility] Outpatient Encounter [id number] [id number] 02/08 [facility] Outpatient Encounter [id number] [id number] 2 02/08 [facility] CB IMMUNIZATI ON ADMIN 12979-4.65 [id number] Diagnos is: ICD-10- CM I50.9 Heart failure , unspeci fiSHELLIE James M 02/09 [facility] OFF/OP EST MAY X REQ PHY/QHP [id number] [id number] Diagnos is: ICD-10- CM M79.645 Pain in left finger( s) SABI,HOLA SERVANDO D 02/10 [facility] OFFICE O/P EST MOD 30 MIN [id number] [id number] Diagnos is: ICD-10- CM I10 Essenti al (primar y) hyperte nsion EDWIN,SUNNY ER E III 02/17 [facility] IMG RTA DETCJ/MNTR DS STAFF [id number] [id number] Diagnos is: ICD-10- CM Z13.5 Encount er for screeni ng for eye and ear disorde rs ZARI ANDERSONSA M 02/17 [facility] [place] [facility] IMG RTA DETC/MNTR DS PHY/QHP 93276-6.65 [id number] Diagnos is: ICD-10- CM Z13.5 Encount er for screeni ng for eye and ear disorde rs YEYOKwabena RALF MOYA 02/21 [place] [facility] Outpatient Encounter [id number] [id number] ZARI ANDERSON M 02/21 [facility] Outpatient Encounter [id number] [id number] 02/28 [facility] N Social History Combined list of available smoking, tobacco, and other social history from 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 Social History Type Response Date Comment Source Tobacco smoking status AKIS MI-TOBACCO NEVER USED OTHER TYPE 02/17/2025 [facility] History of tobacco use MI-TOBACCO USE FORMER CIGARETTES 02/17/2025 [facility] History of tobacco use VA-TOBACCO FORMER USER 02/18/2024 [facility] History of tobacco use VA-TOBACCO QUIT 5 TO < 15 YRS 02/16/2023 [facility] History of tobacco use VA-TOBACCO FORMER USER 02/19/2022 [facility] History of tobacco use VA-TOBACCO FORMER USER 03/04/2021 [facility] History of tobacco use VA-TOBACCO USE 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 03/08/2019 [facility] History of tobacco use TOBACCO USER OFFERED MEDS 03/17/2018 [facility] History of tobacco use TOBACCO USER OFFERED MEDS 08/20/2017 [facility] History of tobacco use TOBACCO USER OFFERED MEDS 02/24/2017 [facility] History of tobacco use TOBACCO USER OFFERED MEDS 12/18/2016 [facility] History of tobacco use TOBACCO OFFERED STOP SMOKING CLINIC 01/29/2016 [facility] History of tobacco use TOBACCO OFFERED STOP SMOKING CLINIC 10/13/2014 [place] [facility] History of tobacco use TOBACCO OFFERED STOP SMOKING CLINIC 10/06/2013 [place] [facility] History of tobacco use TOBACCO OFFERED STOP SMOKING CLINIC 06/28/2012 [facility] History of tobacco use TOBACCO OFFERED PT MEDS (PROVIDER) 03/04/2012 [place] [facility] History of tobacco use TOBACCO OFFERED PT MEDS (PROVIDER) 01/06/2011 [place] [facility] History of tobacco use TOBACCO OFFERED PT MEDS (PROVIDER) 08/13/2009 [facility] History of tobacco use TOBACCO OFFERED STOP SMOKING CLINIC 03/03/2008 [facility] History of tobacco use CURRENT TOBACCO USER 08/16/2007 Laura Sparrow [facility] History of tobacco use CURRENT TOBACCO USER 07/21/2007 [facility] History of tobacco use CURRENT TOBACCO USER 12/08/2006 [facility] History of tobacco use CURRENT NON-TOBACCO USER-HX OF USE 07/25/2005 [facility] History of tobacco use CURRENT NON-TOBACCO USER-HX OF USE 01/27/2005 [facility] History of tobacco use CURRENT NON-TOBACCO USER-HX OF USE 07/29/2004 Stopped since last visit. Gained 5 pounds [facility] History of tobacco use CURRENT NON-TOBACCO USER-HX OF USE 01/29/2004 Stopped about 3-4 months ago [facility] History of tobacco use CURRENT NON-TOBACCO USER-HX OF USE 07/28/2003 [facility] History of tobacco use CURRENT NON-TOBACCO USER-HX OF USE 08/26/2002 [facility] History of tobacco use CURRENT NON-TOBACCO USER-HX OF USE 03/11/2002 [place] [facility] History of tobacco use CURRENT NON-TOBACCO USER-HX OF USE 04/08/2001 Stopped 1996 [place] [facility] History of tobacco use CURRENT NON-TOBACCO USER-HX OF USE 10/22/2000 1 pack a da y for years / stopped 4 yrs [place] [facility] Plan of Care List of future care activities from Department of Veterans Affairs facilities. Additional future care activities may be listed in the Assessment and Plan section. Date/Time Care Activity Care Activity Detail Facili ty 04/04/2025 AMBULATORY - MEDICINE AMBULATORY - MEDICI [facility]OW[facility]
[2025-03-04 22:30] VITALS: BP 172/97; PULSE 93; RESP 18; TEMP 36.8; O2SAT 96; BMI 33.2
--- OUTSIDE RECORDS SUMMARY | 2025-03-04 22:43 | XMS_ITS | Clinical Summary ---
Author Organization [facility] Address [address] [place] [address] Phone Care Team Providers Care Sheet Roller Operator Name Role Phone Unavailable Primary Care Provider Unavailabl e Allergies Active Allergy Reactions Criticality Noted Date Comments Abatacept Other (See Comments) High 10/26/2024 Skin reaction Adalimumab Unknown 10/25/2024 Apremilast Other (See Comments) High 10/26/2024 Anger Aspirin Other (See Comments) 10/25/2024 Ringing in ears Atorvastatin Muscle Pain High 10/25/2024 Azithromycin Unknown 10/25/2024 Certolizumab Pegol Swelling Medium 10/26/2024 Codeine Swelling Low 10/25/2024 Colestipol Unknown 10/26/2024 Cyclobenzaprine Dizziness Low 10/26/2024 Infliximab Swelling Medium 10/26/2024 Lovastatin Muscle Pain Low 10/26/2024 Methotrexate Renal Dysfunctions Medium 10/26/2024 Penicillins Other (See Comments) 10/25/2024 Incontinence Rosuvastatin Muscle Pain Low 10/26/2024 Secukinumab Other (See Comments) 10/25/2024 Hawley Simvastatin Muscle Pain Low 10/26/2024 Sulfasalazine Unknown 10/25/2024 Tetanus And Diphther. Tox (Pf) Nausea and Vomiting Low 10/25/2024 Thiazides Unknown 10/25/2024 Upadacitinib Shortness of Breath/Wheezing High 10/26/2024 Medications propranoloL (INDERAL) 80 mg tablet Take 80 mg by mouth daily. Active losartan (COZAAR) 50 mg tablet Take 50 mg by mouth 2 times daily. Active aspirin (TOMASA CHEWABLE) 81 mg Tablet, Chewable Take 81 mg by mouth daily after supper. Active pantoprazole (PROTONIX) 40 mg Tablet, Delayed Release (E.C.) Take 40 mg by mouth daily. Active ezetimibe (ZETIA) 10 mg tablet Take 10 mg by mouth daily at bedtime. Active predniSONE (DELTASONE) 10 mg tablet Take 10 mg by mouth daily with breakfast. Active alirocumab 150 mg/mL Pen Injector Inject by subcutaneous injection every 30 days. Active omega-3 acid ethyl esters (LOVAZA) 1 gram Capsule Take 1 Gram by mouth 2 times daily with meals. Active leflunomide (ARAVA) 10 mg tablet Take 10 mg by mouth daily. Active coenzyme Q10 100 mg Capsule Take 100 mg by mouth daily at bedtime. Active therapeutic multivitamin (THERA TAB) Tablet Take 1 Tablet by mouth daily at bedtime. Active lutein 20 mg Tablet Take 20 mg by mouth daily at bedtime. Active amLODIPine (NORVASC) 2.5 mg tablet Take 2.5 mg by mouth 2 times daily. Active albuterol sulfate HFA 90 mcg/actuation aerosol inhaler Take 2 Puffs by inhalation every 4 hours as needed for Shortness of Breath or Wheezing. Active nitroglycerin (NITROSTAT) 0.4 mg Tablet, Sublingual Place 0.4 mg under tongue every 5 minutes as needed for Chest Pain. Active isosorbide mononitrate (IMDUR) 30 mg Extended Release 24 hour tablet Take 30 mg by mouth daily in the morning. Active apixaban (Eliquis) 5 mg tablet Take 5 mg by mouth 2 times daily. Active Active Problems Problem Noted Date Diagnosed Date Protein-calorie malnutrition, moderate Cholecystitis with gangrene of gallbladder 10/27 Common bile duct dilatation 10/26/2024 Cholelithiasis 10/26/2024 Suspected acute cholecystitis 10/26/2024 Obesity (BMI 30.0-34.9) 10/26/2024 RUQ abdominal pain 10/26/2024 Elevated LFTs 10/26/2024 Choledocholithiasis 10/26/2024 Bright red blood per rectum 10/26/2024 Rectal bleeding 10/26/2024 Encounters Date Type Department Care Team Description 3:09 PM CDT Anesthesia Event [facility] Endoscopy [address] [place] [phone] Billy Sorenson DO 5 2:20 PM CDT - 5 2:40 PM CDT Surgery [facility] Endoscopy [address] [place] [phone] Billy Figueredo MD ESOPHAGOGASTRODUODENOSCOPY 5 1:05 PM CDT - 5 3:59 PM CDT Hospital Encounter [facility] Endoscopy [address] [place] [phone] Billy Figueredo MD Discharge Disposition: Home or Self Care 5 Orders Only [facility] Gastroenterology - [place] [address] [place] [address] [address] [place] [phone] Billy Figueredo MD Encounter for removal of biliary stent (Primary Dx) 5 Telephone [facility] General and Trauma Surgery[address] [place] [phone] Kadi Owens, CORD CUTTER Question 5 External Device Data STL ABSTRACTION Provider, Abstract 5 Telephone [facility] Trauma Surgery[address] [place] [phone] Gtb, Physician Stent removal 5 External Device Data STL ABSTRACTION Provider, Abstract 5 External Device Data STL ABSTRACTION Provider, Abstract 5 External Device Data STL ABSTRACTION Provider, Abstract 5 External Device Data STL ABSTRACTION Provider, Abstract 5 External Device Data STL ABSTRACTION Provider, Abstract 5 Telephone [facility] Trauma Surgery[address] [place] [phone] Gtb, Physician Question 5 External Device Data STL ABSTRACTION Provider, Abstract 5 External Device Data STL ABSTRACTION Provider, Abstract 5 External Device Data STL ABSTRACTION Provider, Abstract 5 External Device Data STL ABSTRACTION Provider, Abstract 5 External Device Data STL ABSTRACTION Provider, Abstract from Last 3 Months Social History Tobacco Use Types Packs/Day Years Used Date Smoking Tobacco: Former Cigarettes Q uit: 04/27/2017 Passive Smoke Exposure: Past Smokeless Tobacco: Never Tobacco Cessation:Counseling Given: No Feeling Safe Answer Date Recorded Are you in a relationship wi th someone who hurts you emotionally and/or physically? No 02/22/2025 Food Insecurity Answer Date Recorded Patient needs follow up regardin 10/25/2024 Transportation Needs Answer Date Record ed Patient needs follow up regardin 10/25/2024 Utility Needs Answer Date Recorded Patient needs follow up regardin 10/25/2024 Sex and Gender Information Value Date Recorded Sex Assigned at Not on file Legal Sex Male 6:51 AM CDT Gender Identity Not on file Sexual Orientation Not on file Last Filed Vital Signs Vital Sign Reading Time Taken Comments Blood Pressure 165/83 02/22/2025 3:47 PM CDT Pulse 70 02/22/2025 3:47 PM CDT Temperature 37 C (98.6 F) 11/03/2024 2:32 AM CDT Respiratory Rate 21 02/22/2025 3:47 PM CDT Oxygen Saturation 96% 02/22/2025 3:47 PM CDT Inhaled Oxygen Concentration - - Weight 107 kg (236 lb) 11/21/2024 12:09 PM CDT Height 182.9 cm (6') 11/21/2024 12:09 PM CDT Body Mass Index 32.01 11/21/2024 12:09 PM CDT Plan of Treatment Health Maintenance Due Date Last Done Comments Pre-Diabetes and Diabetes Screening 1955 COLORECTAL SCREENING 09/14/1999 Colorectal Cancer Screening 09/14/1999 FIT-DNA Q 3 years 09/14/1999 FIT/FOBT Q 1 year 09/14/1999 Flex Sig/CT Colonography Q 5 years 09/14/1999 DTAP/TDAP/TD VACCINES (1 - Tdap) 08/27/2002 08/27/19 03 RSV VACCINE (60+ or ) (1 - Risk 50-74 years 1-dose series) 2004 ZOSTER VACCINE (1 of 2) 2004 Abdominal Aortic Aneurysm (AAA) Screening 09/14/2019 INFLUENZA VACCINE (#1) 2024 01/28/2023 PNEUMOCOCCAL VACCINE 50+ YEARS Completed 02/12/2022 Medical Devices Implanted Type Area Dispatcher Electric Power Device Identifier Shelf Expiration Date Model / Serial / Lot Gas Roller Operator Ligaclip Endo Rotate Multi Clip 10mm [id number] - [id number] Implanted:Qty: 1 on 10/27/2024 at [facility] Clip [employer] [id number] / / Clip [employer] [id number] [place] [facility] [place] [id number] Implanted:Qty: 1 on 10/27/2024 by Kennedy Terrell DO at [facility] Clip N/A: Abdomen TELEFLEX- [employer]EC[employer]URE SYS [id number] 05/02/2029 [id number] / / [id number] Stent Bili Advanix Rx 10fr 7cm [id number] - [id number] Implanted:Qty: 1 on 10/26/2024 by Bill Rodgers MD at [facility] Stent N/A: Bile Duct [employer] [id number] 06/20/2026 [id number] / / [id number] Procedures Procedure Name Priority Date/Time Associated Diagnosis Comments UPPER ENDOSCOPY REPORT 3:38 PM CDT ANESTHESIA AIRWAY Routine 02/22/2025 3:20 PM CDT MA ESOPHAGOGASTRODUODENOSCOP Y TRANSORAL DIAGNOSTIC 02/22/2025 2:20 PM CDT Stent Removal Case Notes Eliquis (apoxaban) 2 days from Last 3 Months Results * UPPER ENDOSCOPY REPORT (02/22/2025 3:38 PM CDT) Narrative Procedure Note Billy Figueredo MD - 02/22/2025 3:38 PM CDT [facility] GI Patient Name: Alejandro Avilez Procedure Date: 02/22/2025 Date of : 1955 Admit Type: Outpatient Age: 69 Attending MD: Billy Figueredo MD, Procedure: Upper GI endoscopy Indications: stent removal Providers: Billy Figueredo MD Referring MD: Ivan Soto Medicines: Monitored Anesthesia Care Complications: No immediate complications. Procedure: Pre-Anesthesia Assessment: - Prior to the procedure, a History and Physical was performed, and patient medications, allergies and sensitivities were reviewed. The patient's tolerance of previous anesthesia was reviewed. - The risks and benefits of the procedure and the sedation options and risks were discussed with the patient. All questions were answered and informed consent was obtained. After obtaining informed consent, the endoscope was passed under direct vision. Throughout the procedure, the patient's blood pressure, pulse, and oxygen saturations were monitored continuously. The Endoscope was introduced through the mouth, and advanced to the second part of duodenum. Estimated Blood Loss: Estimated blood loss: none. Findings: The esophageal, gastric, and duodenal mucosa was unremarkable. A plastic stent was noted to be extruding from the major papilla. This was removed with a hexagonal stent without difficulty. Impression: Biliary stent, removed with cold snare Recommendation: Follow-up as needed Billy Figueredo MD 02/22/2025 3:38:30 PM Number of Addenda: 0 Note Initiated On: 02/22/2025 3:03 PM Scope Withdrawal Time Scope In: 3:16:58 PM Scope Out: 3:20:11 PM [address], [place] Billy Figueredo MD GI PROCEDURE ORDERABLES F inal Result * Airway (02/22/2025 3:20 PM CDT) Narrative Rocio Moreno CRNA - 02/22/2025 3:20 PM CDT Rocio Moreno CRNA 02/22/2025 3:20 PM Airway Date/Time: 02/22/2025 3:20 PM Location: Other [facility] Non OR Location: GI Plan: elective intubation Patient Identity Confirmed by: Verbally with patient Airway: not difficult Staffing Performed: Anesthesiologist (/) and FIRST AID INSTRUCTOR/CAA Authorized by: Billy Sorenson DO Performed by: Moreno, Rocio Anna, FIRST AID INSTRUCTOR Indications and Patient Condition: Indications for Airway Management: Anesthesia Sedation Level: sedation Final Airway Details: Final Airway Type: Mask Billy Sorenson DO PROCEDURE/MINOR SURGICA L ORDERABLES Final Result from Last 3 Months Insurance [facility] DUAL COMPLETE HMO [facility] [id number] [facility] DUAL COMPLETE HMO [facility] [id number] [facility] [employer] Advance Directives For more information, please contact: [phone] * Full Code (Latest Code Status on File) Date Activated Date Inactivated Comments 02/22/2025 2:11 PM 02/22/2025 5:59 PM * Full Code Date Activated Date Inactivated Comments 10/25/2024 10:17 PM 11/03/2024 4:12 PM
--- NOTE | 2025-03-05 02:27 | CTR_ITS ---
PROCEDURE INFORMATION: Exam: CT Head Without Contrast Exam date and time: 03/05/2025 2:40 AM Age: 69 years old Clinical indication: Pain; Headache; BRADEN with hypertension; Additional info: Headache, HTN TECHNIQUE: Imaging protocol: Computed tomography of the head without contrast. Radiation optimization: All CT scans at this facility use at least one of these dose optimization techniques: automated exposure control; mA and/or kV adjustment per patient size (includes targeted exams where dose is matched to clinical indication); or iterative reconstruction. COMPARISON: No relevant prior studies available. RADIATION DOSE METRICS: Total DLP (mGy-cm): 1136.4 FINDINGS: Brain: No hemorrhage, mass effect or midline shift. No acute, major vascular distribution infarction identified. There are foci of decreased attenuation in the periventricular and subcortical white matter, likely representing chronic small vessel ischemic changes. Mild cerebral volume loss is present. No intra-axial or extra-axial fluid collection seen. Cerebral ventricles: No ventriculomegaly. Paranasal sinuses: Visualized sinuses are unremarkable. No fluid levels. Mastoid air cells: Visualized mastoid air cells are well aerated. Bones: Unremarkable. No acute fracture. Soft tissues: Unremarkable. CT/CT head wo con* [id number] IMPRESSION: No acute intracranial abnormality.
[2025-03-05 02:41] LABS: Hematocrit 37.6 % (37-53); Hemoglobin 12.40 g/dL (11.27-16.99); Mean Corpuscular HGB Conc 33.0 g/dL (30-55); Mean Corpuscular Hemoglobin 30.5 pg (27-33); Mean Corpuscular Volume 92.4 fl (82-101); Nucleated Red Blood Cells % 0 %; Platelet Count 197 10^3/cmm (157-399); Red Blood Count 4.07 10^6/uL (3.85-5.65); White Blood Count 7.06 10^3/uL (3.29-11.43)
[2025-03-05 03:08] VITALS: BP 189/111; PULSE 69; RESP 18; O2SAT 96
[2025-03-05 03:09] LABS: Alanine Aminotransferase 30 U/L (0-41); Albumin Level 4.2 g/dL (3.5-5.2); Alkaline Phosphatase 47 U/L (40-130); Anion Gap 14.6 (5-19); Aspartate Amino Transferase 25 U/L (0-40); Blood Urea Nitrogen 24 mg/dL (8-23); Calcium 9.7 mg/dL (8.5-10.5); Carbon Dioxide 30 mmol/L (22-29); Chloride 100 mmol/L (98-107); Creatinine Clr Calc Pharmacy 88.4839; Globulin 2.4 g/dL (1.3-4.6); Glucose 94 mg/dL (65-115); Magnesium 2.4 mg/dL (1.7-2.3); NT Pro B Type Natriuretic Pept 241 pg/mL (0-125); Osmolality Calculated 296 mOsm/kg (285-295); Potassium 3.6 mmol/L (3.5-5.1); Sodium 141 mmol/L (136-145); Total Protein 6.6 g/dL (6.6-8.7)
[2025-03-05] MEDS: metoprolol tartrate 1 mg/1 mL SDV 5 mL 5 MG IVP (03:14)
[2025-03-05] MEDS: FUROsemide 10 mg/mL SDV 4mL 60 MG IVP (03:17)
--- NOTE | 2025-03-05 03:56 | W.ED.HA ---
HPI - Headache General: Chief Complaint: Headache Stated Complaint: BP high headache Time Seen by Provider: 03/05/25 02:22 History of Present Illness: Patient is a 69-year-old male presenting with headache and elevated blood pressure. He reports mild headache with no associated vision changes, weakness, or speech abnormalities. Patient notes some recent irritation in his left eye but attributes this to possibly rubbing his eye at night. He denies chest pain or shortness of breath. 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 Subsequently, his amlodipine dosage was increased from 2.5mg TID to 5mg BID. Patient also reports having a blood clot in his left leg behind the knee and calf, for which he is taking anticoagulants. He states the clot is dissolving and has moved lower, but he continues to experience significant swelling in the affected leg. Patient also reports experiencing dizziness upon standing quickly and has balance issues requiring the use of canes for ambulation. Related Data Home Medications ?Medication ?Instructions ?Recorded ?Confirmed propranolol 80 mg tablet 80 mg PO QAM 05/29/20 02/08/25 omega-3 fatty acids 1,000 mg 2,000 mg PO BID 08/14/21 02/08/25 capsule pantoprazole 40 mg tablet,delayed 40 mg PO QAM 05/20/22 02/08/25 release multivitamin 1 tab PO QPM 11/18/22 02/08/25 lutein 20 mg capsule 20 mg PO QPM 01/22/24 02/08/25 alirocumab 150 mg/mL subcutaneous 150 mg SUBCUT .Q30D 08/13/24 02/08/25 pen injector (Praluent Pen) aspirin 81 mg tablet,delayed 81 mg PO QAM 08/13/24 02/08/25 release ezetimibe 10 mg tablet (Zetia) 10 mg PO QPM 08/13/24 02/08/25 potassium chloride 10 mEq 10 meq PO DAILY 10/25/24 02/08/25 tablet,extended release apixaban 5 mg tablet (Eliquis) 5 mg PO BID 02/08/25 02/08/25 Previous Rx's ?Medication ?Instructions ?Recorded left economy hinged knee brace #1 ea 01/22/24 right medial fitting room checker brace #1 ea 01/22/24 Left Knee Lateral Production Proofreader Brace #1 ea 02/11/24 epinephrine 0.3 mg/0.3 mL 0.3 mg (0.3 mL) IM Q10M PRN 02/23/24 injection, auto-injector anaphylaxis #2 ea Right Hinged Knee Brace #1 ea 07/26/24 nitroglycerin 0.4 mg sublingual 0.4 mg sublingual Q5M PRN chest 08/05/24 tablet pain #25 tabs prednisone 20 mg tablet See Rx Instructions PO .COMPLEX 11/24/24 PRN joint pain flare #30 tabs furosemide 20 mg tablet (Lasix) 20 mg PO QAM #90 tabs 01/12/25 amlodipine 2.5 mg tablet 5 mg (2 x 2.5 mg) PO BID #180 tabs 03/02/25 etanercept 50 mg/mL (1 mL) 50 mg SUBCUT Q7D #4 mL 03/02/25 subcutaneous syringe (Enbrel) leflunomide 10 mg tablet 10 mg PO DAILY #90 tabs 03/02/25 prednisone 10 mg tablet 10 mg PO DAILY joint pain #90 tabs 03/02/25 tramadol 50 mg tablet 50 mg PO TID PRN pain #90 tabs 03/02/25 lisinopril 10 mg tablet 10 mg PO DAILY #30 tabs 03/05/25 Allergies Allergy/AdvReac Type Severity Reaction Status Date / Time abatacept (From Orencia) Allergy Severe ALGY-Rash Verified 03/04/25 22:38 upadacitinib (From Rinvoq) Allergy Intermediate Flu like Verified 03/04/25 22:38 symptoms certolizumab pegol (From Allergy Unknown Unknown Verified 03/04/25 22:38 Cimzia) acetaminophen (From Percocet) Allergy nausea Verified 03/04/25 22:38 adalimumab (From Humira) Allergy ADR-Swelling Verified 03/04/25 22:38 of the Eye aspirin Allergy Unknown Verified 03/04/25 22:38 atorvastatin (From Lipitor) Allergy Unknown Verified 03/04/25 22:38 azithromycin Allergy Unknown Verified 03/04/25 22:38 codeine Allergy Unknown Verified 03/04/25 22:38 fentanyl Allergy ADR-Gastrointestinal Verified 03/04/25 22:38 Upset infliximab Allergy ALGY-Swell Verified 03/04/25 22:38 Lip/Tongue/Throat lovastatin Allergy Unknown Verified 03/04/25 22:38 methotrexate Allergy ALGY-Anaphy Verified 03/04/25 22:38 laxis oxycodone (From Percocet) Allergy nausea Verified 03/04/25 22:38 Penicillins Allergy ADR-Diarrhe Verified 03/04/25 22:38 a rosuvastatin Allergy ADR-Muscle Verified 03/04/25 22:38 Pain secukinumab (From Cosentyx) Allergy Unknown Verified 03/04/25 22:38 simvastatin Allergy ADR-Muscle Verified 03/04/25 22:38 Pain Thiazides Allergy Unknown Verified 03/04/25 22:38 PFSH ED PFSH: Medical History CAD (coronary artery disease) Hyperlipidemia associated with type 2 diabetes mellitus CHF (congestive heart failure), NYHA class III Immunization counseling High risk medication use Plaque psoriasis Psoriatic arthritis Statin intolerance Atherosclerotic heart disease [place] coronary artery w/angina pectoris Rheumatoid arthritis Hyperlipidemia HTN (hypertension) Surgical History H/O shoulder surgery History of colonoscopy 05/23/2019: Normal, repeat in 10 years Social History Smoking and tobacco/nicotine status: never used tobacco/nicotine Quit status (tobacco/nicotine): has quit using Alcohol intake: current Alcohol intake frequency: few times a month Substance/Drug Use: never Physical Exam Const: COMMON NORMALS: no acute distress and alert GENERAL APPEARANCE: cooperative; not ill appearing and not frail appearing HENMT: COMMON NORMALS: normocephalic, atraumatic and Normal external nose present HEAD & SCALP: normocephalic and atraumatic FACE & SINUS: normal facial exam and face symmetric NOSE: Normal external nose present Eye: COMMON NORMALS: Equal, round and reactive pupils present and EOMs intact bilaterally PUPIL: Yes Equal, round and reactive pupils present Neck/C-Spine: GENERAL: Yes trachea midline Chest: CHEST: Yes Symmetrical chest wall rise Resp: COMMON NORMALS: normal respiratory effort, No retractions, No use of accessory muscles and clear to auscultation bilaterally AUSCULTATION: clear to auscultation bilaterally Cardio: COMMON NORMALS: regular rate and regular rhythm RATE: regular rate RHYTHM: regular rhythm GI: COMMON NORMALS: Normal to inspection, nondistended, normoactive bowel sounds present Extremity: COMMON NORMALS: no pedal edema Neuro: CULLEN COMA SCALE: document GCS findings Cullen coma scale eye opening: Spontaneous [place] coma scale verbal response: Orientated [place]ullen coma scale motor response: Obey commands Cullen coma scale total score: 15 SENSORIUM/ORIENTATION: Yes alert COORDINATION/BALANCE: [id number] test normal SPEECH: speech normal SENSORY EXAM: Yes extremities (intact) MOTOR EXAM: Pronator motor function not present and Normal motor muscle tone present throughout COORDINATION: [id number] test normal Psych: COMMON NORMALS: speech normal SPEECH: Yes normal speech Skin: COMMON NORMALS: no rashes or lesions noted GENERAL SKIN EXAM: no rashes or lesions noted Course Vital Signs: Vital signs: Vital Signs Temperature 98.3 F 03/04/25 22:30 Pulse Rate 76 03/05/25 04:54 Respiratory Rate 18 03/05/25 04:54 Blood Pressure 122/67 03/05/25 04:54 Pulse Oximetry 94 03/05/25 04:54 Oxygen Delivery Me thod Room Air 03/05/25 04:22 MDM - Headache Medical Decision Making Headache improved after Toradol. He is given metoprolol and Vasotec with significant improvement in his blood pressure. Current blood pressure is 122/67. Heart rate 76. CBC and BMP are not remarkable. Urinalysis is negative. BNP is only 241. Head CT is negative. He is currently on propranolol and amlodipine. Be prescribed lisinopril. If his blood pressures are staying above 150 systolic, he may take the lisinopril. He is to follow-up with his doctor this coming week. Return for new or worsening symptoms. Stable for discharge at the moment. Lab Data 03/05/25 02:36 03/05/25 02:[address] 03/05/25 02:27 IMPRESSION: No acute intracranial abnormality. Laboratory Results WBC 7.06 10^3/uL (3.29-11.43) 03/05/25 02:36 RBC 4.07 10^6/uL (3.85-5.65) 03/05/25 02:36 Hgb 12.40 g/dL (11.27-16.99) 03/05/25 02:36 Hct 37.6 % (37-53) 03/05/25 02:36 MCV 92.4 fl (82-101) 03/05/25 02:36 MCH 30.5 pg (27-33) 03/05/25 02:36 MCHC 33.0 g/dL (30-55) 03/05/25 02:36 RDW 14.9 % (12.1-15.1) 03/05/25 02:36 Plt Count 197 10^3/cmm (157-399) 03/05/25 02:36 MPV 9.2 fL (7.4-10.4) 03/05/25 02:36 Neut % (Auto) 56.0 % 03/05/25 02:36 Lymph % (Auto) 27.8 % 03/05/25 02:36 Yell % (Auto) 14.2 % 03/05/25 02:36 Eos % (Auto) 1.1 % 03/05/25 02:36 Baso % (Auto) 0.6 % 03/05/25 02:36 Neut # (Auto) 3.96 10^3/uL (1.8-7.7) 03/05/25 02:36 Lymph # (Auto) 2.0 10^3/uL (0.8-4.8) 03/05/25 02:36 Yell # (Auto) 1.0 10^3/uL (0.2-0.9) H 03/05/25 02:36 Eos # (Auto) 0.1 10^3/uL (0.0-0.8) 03/05/25 02:36 Baso # (Auto) 0.0 10^3/uL (0.0-0.1) 03/05/25 02:36 Nucleated RBC % (auto) 0 % 03/05/25 02:36 Nucleated RBCs # 0.0 /100WBC 03/05/25 02:36 Sodium 141 mmol/L (136-145) 03/05/25 02:36 Potassium 3.6 mmol/L (3.5-5.1) 03/05/25 02:36 Chloride 100 mmol/L (98-107) 03/05/25 02:36 Carbon Dioxide 30 mmol/L (22-29) H 03/05/25 02:36 Anion Gap 14.6 (5-19) 03/05/25 02:36 BUN 24 mg/dL (8-23) H 03/05/25 02:36 Creatinine 1.0 mg/dL (0.7-1.2) 03/05/25 02:36 GFR Calculation 73.9 mL/min (90-130) L 03/05/25 02:36 Glucose 94 mg/dL (65-115) 03/05/25 02:36 Calculated Osmolality 296 mOsm/kg (285-295) H 03/05/25 02:36 Calcium 9.7 mg/dL (8.5-10.5) 03/05/25 02:36 Magnesium 2.4 mg/dL (1.7-2.3) H 03/05/25 02:36 Total Bilirubin 0.3 mg/dL (0.15-1.2) 03/05/25 02:36 AST 25 U/L (0-40) 03/05/25 02:36 ALT 30 U/L (0-41) 03/05/25 02:36 Alkaline Phosphatase 47 U/L (40-130) 03/05/25 02:36 NT-Pro-B Natriuret Pep 241 pg/mL (0-125) H 03/05/25 02:36 Total Protein 6.6 g/dL (6.6-8.7) 03/05/25 02:36 Albumin 4.2 g/dL (3.5-5.2) 03/05/25 02:36 Globulin 2.4 g/dL (1.3-4.6) 03/05/25 02:36 Urine Color Yellow (Yellow) 03/05/25 04:27 Urine Appearance Clear (CLEAR) 03/05/25 04:27 Urine pH 6.0 (5-7) 03/05/25 04:27 Ur Specific [place] 1.013 (1.005-1.030) 03/05/25 04:27 Urine Protein Negative (Negative) 03/05/25 04:27 Urine Glucose (UA) Negative (Normal) 03/05/25 04:27 Urine Ketones Negative (Negative) 03/05/25 04:27 Urine Blood Negative (Negative) 03/05/25 04:27 Urine Nitrate Negative (Negative) 03/05/25 04:27 Urine Bilirubin Negative (Negative) 03/05/25 04:27 Urine Urobilinogen 0.2 mg/dL (Negative) 03/05/25 04:27 Ur Leukocyte Esterase Negative (Negative) 03/05/25 04:27 Urine RBC 0-2 /hpf (0-2) 03/05/25 04:27 Urine WBC 0-5 /hpf (0-5) 03/05/25 04:27 Ur Squamous Epith Cells 0-5 /hpf (0-5) 03/05/25 04:27 Amorphous Sediment Not Reportable 03/05/25 04:27 Urine Bacteria None seen /hpf (NONE) 03/05/25 04:27 Hyaline Casts 3.30 /lpf 03/05/25 04:27 All radiology interpretation(s) finalized by discharge Discharge Plan Discharge Patient Disposition: Home Clinical Impression: Hypertensive urgency Condition: Stable Prescriptions: New lisinopril 10 mg tablet 10 mg PO DAILY Qty: 30 0RF No Action omega-3 fatty acids 1,000 mg capsule 2,000 mg PO BID propranolol 80 mg tablet 80 mg PO QAM multivitamin Tablet 1 tab PO QPM lutein 20 mg capsule 20 mg PO QPM Rx Instructions: give with meal/snack (DME) right medial fitting room checker brace See Rx Instructions .Route .MEDSUPPLY Qty: 1 0RF Rx Instructions: As directed (DME) left economy hinged knee brace See Rx Instructions .Route .MEDSUPPLY Qty: 1 0RF Rx Instructions: As directed (DME) Right Hinged Knee Brace See Rx Instructions .Route .MEDSUPPLY Qty: 1 0RF Rx Instructions: As directed Enbrel 50 mg/mL (1 mL) syringe 50 mg SUBCUT Q7D Qty: 4 5RF leflunomide 10 mg tablet 10 mg PO DAILY Qty: 90 1RF prednisone 10 mg tablet 10 mg PO DAILY Qty: 90 1RF tramadol 50 mg tablet 50 mg PO TID PRN (Reason: pain) Qty: 90 1RF pantoprazole 40 mg tablet,delayed release (DR/EC) 40 mg PO QAM (DME) Left Knee Lateral Production Proofreader Brace See Rx Instructions .Route .MEDSUPPLY Qty: 1 0RF Rx Instructions: As directed nitroglycerin 0.4 mg tablet, sublingual 0.4 mg sublingual Q5M PRN (Reason: chest pain) Qty: 25 2RF Rx Instructions: do not exceed 3 doses per episode prednisone 20 mg tablet See Rx Instructions PO .COMPLEX PRN (Reason: joint pain flare) Qty: 30 1RF Rx Instructions: take 2 tab daily for 5 days as needed for arthritis flare PO PRN; Eliquis 5 mg tablet 5 mg PO BID epinephrine 0.3 mg/0.3 mL auto-injector 0.3 mg IM Q10M PRN (Reason: anaphylaxis) Qty: 2 2RF furosemide [Lasix] 20 mg tablet 20 mg PO QAM MDD 60 mg Qty: 90 4RF Rx Instructions: take 1 to 3 tablets a day as needed for swelling. amlodipine 2.5 mg tablet 5 mg PO BID Qty: 180 3RF aspirin 81 mg Tablet,Delayed Release (Dr/Ec) 81 mg PO QAM Praluent Pen 150 mg/mL Pen Injector 150 mg SUBCUT .Q30D ezetimibe [Zetia] 10 mg tablet 10 mg PO QPM potassium chloride 10 mEq Tablet Extended Release 10 meq PO DAILY Discharge Orders: Discharge ED (Routine); Ordered 03/05/25 Ordered By: Amor Dawson Referrals: Shaka Whelan MD [Primary Care Provider, Family Practice] - 4-7 days Patient Instructions: Acute Headache (ED), Hypertension (ED), Opioid Safety, Pain Management, Patient Portal & Rick Instructions Activity Restrictions/Additional Instructions: Take your blood pressure twice daily. If blood pressures are remaining over 150 systolic (the top number) you may take the medication as prescribed. Return for worsening headache, mental status changes, weakness, vomiting, chest discomfort, any other concerning symptoms. Print Language: Portuguese Coding Level of Care Code ED Performance Test Consultant for Zoila Wagoner
[2025-03-05 04:22] VITALS: BP 149/91; PULSE 76; O2SAT 92
[2025-03-05] MEDS: ondansetron 2 mg/ML SDV 2 mL 4 MG IVP (04:25)
[2025-03-05 04:36] LABS: Glucose Urine UA Negative (Normal); Nitrate Urine Negative (Negative); Specific Gravity, Urine 1.013 (1.005-1.030)
[2025-03-05 04:41] LABS: Add Urine Microscopic? YES
[2025-03-05 04:54] VITALS: BP 122/67; PULSE 76; RESP 18; O2SAT 94
== END 2025-03-05 04:55 | disposition home or self-care (01) ==
PROVIDERS: Emergency Provider Emergency Medicine; PCP Family Medicine Geriatric Medicine
DX: I16.0 Hypertensive urgency (principal); Z79.01 Long term (current) use of anticoagulants; Z79.82 Long term (current) use of aspirin; E78.5 Hyperlipidemia, unspecified; I25.119 Atherosclerotic heart disease of native coronary artery with unspecified angina pectoris; Z87.891 Personal history of nicotine dependence; I11.0 Hypertensive heart disease with heart failure; I50.9 Heart failure, unspecified
CPT/HCPCS: 36415; 70450; 80053; 81001; 83735; 83880; 85025; 96374; 96375; 99285; J1885; J1938; J2405; J3490; J9999

== ENCOUNTER → 2025-03-28 10:34 | Outpatient (BNVA) | payer OTHER, SELFPAY | PROVIDERS: Visit Provider Student in an Organized Health Care Education/Training Program | DX: M17.0 Bilateral primary osteoarthritis of knee (principal) | CPT/HCPCS: 20610; 99213; J3301; J9999 ==

== ENCOUNTER 2025-04-05 12:05 | Outpatient (RCR) | payer OTHER, SELFPAY | END 2025-04-26 23:59 | disposition home or self-care (01) | LOC: SPT 12:05 | PROVIDERS: Visit Provider Family Medicine Geriatric Medicine | DX: M25.519 Pain in unspecified shoulder (principal) | CPT/HCPCS: 97110; 97161 ==